=== PATIENT | female | born 1965 | race Caucasian/White ===

== ENCOUNTER 2016-07-20 19:11 | Emergency (ER) | payer MEDICAID, MEDICARE ==
[~2016-07-20] VITALS: Ht 160 cm; Wt 65.0 kg
[~2016-07-20 19:11] MED LIST: ALPR1 PO; AMIO200 PO; AZIT250T74 PO; DOXY100 PO; DUONI NEB; ECOT81TA2 PO; FURO20 PO; LISI-357 PO; METO25 PO; OMEP40CA2 PO; OXYC1SOL5 PO; POTA20IN3 PO; PROZ40CA PO; RIFA150 PO; SYMB80AE INH; TOPI25 PO; Z.0.OXYGENDME
[2016-07-20 19:14] VITALS: BP 114/57; PULSE 61; RESP 16; TEMP 98.3; O2SAT 98
[2016-07-20 19:19] VITALS: RESP 16; O2SAT 98
[2016-07-20 19:29] LABS: AUTOMATED NEUTROPHIL # 3.6 TH/MM3 (1.8-7.7); BASOPHIL % 0.7 % (0.0-2.0); EOSINOPHIL # 0.1 TH/MM3 (0-0.4); EOSINOPHIL % 2.2 % (0.0-4.0); HEMATOCRIT 34.9 % (35.0-46.0); HEMO FLAGS DIFF FINAL; LYMPHOCYTE # 1.3 TH/MM3 (1.0-4.8); MEAN CELL VOLUME 90.5 FL (80.0-100.0); MEAN CORPUSCULAR HGB CONC 33.1 % (32.0-36.0); MONO % 8.4 % (0.0-8.0); NEUT % 64.7 % (16.0-70.0); PLATELET COUNT 103 TH/MM3 (150-450); RED BLOOD COUNT 3.86 MIL/MM3 (4.00-5.30); RED CELL DISTRIBUTION WIDTH 18.1 % (11.6-17.2); WHITE BLOOD COUNT 5.6 TH/MM3 (4.0-11.0)
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
[2016-07-20 19:41] LABS: APTT (PATIENT) 25.2 SEC (24.3-30.1)
[2016-07-20 19:48] LABS: ALKALINE PHOSPHATASE 80 U/L (45-117); ALT (GPT) 53 U/L (10-53); ANION GAP 11 MEQ/L (5-15); AST (GOT) 72 U/L (15-37); BICARBONATE 23.5 MEQ/L (21.0-32.0); BLOOD UREA NITROGEN 11 MG/DL (7-18); CHLORIDE 106 MEQ/L (98-107); CREATINE KINASE 154 U/L (26-192); GLOMERULAR FILTRATION RATE 78 ML/MIN (>89); POTASSIUM 3.3 MEQ/L (3.5-5.1); SODIUM (NA) 140 MEQ/L (136-145); TOTAL BILIRUBIN ADULT 0.3 MG/DL (0.2-1.0)
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
[2016-07-20] MEDS ORDERED: PERC5TAB12 PO (22:05)
--- NOTE | 2016-07-21 05:41 | EKG ---
Date Performed: 07/20/2016 Time Performed: 19:18:39 PTAGE: 50 years EKG: Sinus rhythm POSSIBLE LEFT ATRIAL ENLARGEMENT POSSIBLE RIGHT VENTRICULAR CONDUCTION DELAY PROLONGED QT INTERVAL A BNORMAL ECG NO SIGNIFICANT CHANGE FROM PRIOR ELECTROCARDIOGRAM. PREVIOUS TRACING : 02/16/2016 08.36 DOCTOR: Nick Saavedra Interpretating Date/Time 07/21/2016 05:41:13
== END 2016-07-20 22:34 | disposition home or self-care (01) ==
LOC: NEPA 19:11
DX: S40.012A Contusion of left shoulder, initial encounter (principal); S50.02XA Contusion of left elbow, initial encounter; I51.7 Cardiomegaly; B19.20 Unspecified viral hepatitis C without hepatic coma; I10 Essential (primary) hypertension; I50.9 Heart failure, unspecified; J44.9 Chronic obstructive pulmonary disease, unspecified; Z88.5 Allergy status to narcotic agent; W22.8XXA Striking against or struck by other objects, initial encounter; Z95.810 Presence of automatic (implantable) cardiac defibrillator
CPT/HCPCS: 71010; 73030; 73080; 80053; 82550; 84484; 85025; 85610; 85730; 93005

== ENCOUNTER 2017-02-25 20:29 | Emergency (ER) | payer MEDICARE ==
[~2017-02-25] VITALS: Ht 147.3 cm; Wt 60.9 kg
[~2017-02-25 20:29] MED LIST changes: +PERC5TAB12 PO
[2017-02-25 20:33] VITALS: BP 114/57; PULSE 87; RESP 16; TEMP 99; O2SAT 95
[2017-02-25] MEDS ORDERED: SYMB80AE INH (23:16)
[2017-02-25] MEDS ORDERED: OMEP20TA PO (23:16)
[2017-02-25] MEDS ORDERED: PROZ40CA PO (23:16)
[2017-02-25] MEDS ORDERED: METO25TA3 PO (23:16)
[2017-02-25] MEDS ORDERED: FURO1TAB62 PO (23:16)
[2017-02-25] MEDS ORDERED: VENTAER INH (23:16)
[2017-02-25] MEDS ORDERED: LISI-519 PO (23:16)
[2017-02-25] MEDS ORDERED: POTA-163 PO (23:16)
[2017-02-25] MEDS ORDERED: OXYC1TAB36 PO (23:16)
[2017-02-25] MEDS ORDERED: XANA1TAB2 PO (23:16)
[2017-02-25] MEDS ORDERED: TOPA25TA8 PO (23:16)
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
[2017-02-25] MEDS ORDERED: ASPI325T PO (23:55)
--- NOTE | 2017-02-25 23:56 | PD ---
HPI Chief Complaint: Fall Time Seen by Provider: 23:12 Travel History International Travel<30 days: No Contact w/Intl Traveler<30days: No Traveled to known affect area: No History of Present Illness HPI 51-year-old female complains of right third toe pain which started after a fall. Fall was mechanical in occurred in her house due to her cats. She has no other injury to report however does note the pain in the toe radiates to the distal tibia distribution. She has been ambulatory since the fall. Onset sudden. Timing constant. Associated symptoms include ecchymosis. PFSH Past Medical History ADHD: Yes Anemia: Yes Arthritis: No Asthma: No Autoimmune Disease: Yes (HEPATITIS C) Blood Disorders: No Bipolar Disorder: Yes Anxiety: Yes Depression: Yes Heart Rhythm Problems: Yes (history of v-tach) Cancer: No Cardiac Catheterization: No Cardiovascular Problems: Yes High Cholesterol: No Chemotherapy: No Chest Pain: No Congestive Heart Failure: Yes COPD: Yes Cerebrovascular Accident: No Diabetes: No Diminished Hearing: No Endocrine: No Gastrointestinal Disorders: Yes GERD: Yes Glaucoma: No Headaches: Yes Hepatitis: Yes (HEP C) Hiatal Hernia: Yes Hypertension: Yes Kidney Stones: No Musculoskeletal: Yes (CHRONIC BACK PAIN) Neurologic: No Psychiatric: No Reproductive: No Respiratory: No Immunizations Current: Yes Myocardial Infarction: No Radiation Therapy: No Renal Failure: No Seizures: No Sickle Cell Disease: No Sleep Apnea: No Thyroid Disease: No Ulcer: No ?: Not Menopausal: Yes : 1 : 1 Ovarian Cysts: Yes Past Surgical History Abdominal Surgery: No AICD: Yes Arteriovenous Shunt: No Cardiac Surgery: Yes (DEFIBRILATOR PLACEMENT ) Coronary Artery Bypass Graft: No Ear Surgery: No Endocrine Surgery: No Eye Surgery: No Genitourinary Surgery: No Gynecologic Surgery: No Insulin Pump: No Joint Replacement: No Oral Surgery: Yes Pacemaker: No Thoracic Surgery: No Social History Alcohol Use: No (quit) Tobacco Use: No Substance Use: No Allergies-Medications (Allergen,Severity, Reaction): Coded Allergies: codeine (Unverified Allergy, Severe, 02/25/17) RASH, ITCHING *MDRO Multi-Drug Resistant Organism (Verified Adverse Reaction, Unknown, ) CLEARED PER INFECTION CONTROL MRSA - face 2012, multiple wounds 2005 MRSA PCR (nares) negative 08/03/15 & 09/08/15. Cleared per Infection Control. Pt does not require isolation for h/o MRSA prior to 09/08/15. Reported Meds & Prescriptions Reported Meds & Active Scripts Active Aspirin 325 Mg Tab 325 Mg PO DAILY Percocet (Oxycodone-Acetaminophen) 5-325 mg Tab 1 Tab PO Q6H PRN Reported Oxycodone-Acetaminophen 10-325 mg Tab 1 Tab PO Q12HR PRN Omeprazole 20 Mg Tab 20 Mg PO DAILY Ventolin Hfa 18 GM Inh (Albuterol Sulfate) 90 Mcg/Act Aer 2 Puff INH Q4-6H PRN Xanax (Alprazolam) 1 Mg Tab 1 Mg PO Q8H PRN Lasix (Furosemide) 20 Mg Tab 20 Mg PO DAILY Prozac (Fluoxetine HCl) 40 Mg Cap 80 Mg PO DAILY Lisinopril 5 Mg Tab 5 Mg PO DAILY Metoprolol Tartrate 25 Mg Tab 25 Mg PO DAILY Potassium Chloride ER (Potassium Chloride) 20 Meq Tab 20 Meq PO DAILY Topamax (Topiramate) 25 Mg Tab 25 Mg PO BID Symbicort Inh (Budesonide/Formoterol Fumarate) 80-4.5 Mcg/Act Aero 2 Puff INH Q12HR Review of Systems Except as stated in HPI: all other systems reviewed are Neg Physical Exam Narrative GENERAL: 51 yo F, WNWD, speaking full sentences SKIN: Warm and dry. HEAD: Atraumatic. Normocephalic. EYES: Pupils equal and round. No scleral icterus. No injection or drainage. ENT: No nasal bleeding or discharge. Mucous membranes pink and moist. NECK: Trachea midline. No JVD. CARDIOVASCULAR: Regular rate and rhythm. RESPIRATORY: No accessory muscle use. Clear to auscultation. Breath sounds equal bilaterally. GASTROINTESTINAL: Abdomen soft, non-tender, nondistended. Hepatic and splenic margins not palpable. MUSCULOSKELETAL: Extremities without clubbing, cyanosis, or edema. No obvious deformities. Third toe of L foot with ecchymosis and TTP. 2+ DP bilaterally. No gross deformity. 2+ PT bilaterally. NEUROLOGICAL: Awake and alert. No obvious cranial nerve deficits. Motor grossly within normal limits. Five out of 5 muscle strength in the arms and legs. Normal speech. PSYCHIATRIC: Appropriate mood and affect; insight and judgment normal. Data Data Last Documented VS Vital Signs Date Time Temp Pulse Resp B/P (MAP) Pulse Ox O2 Delivery O2 Flow Rate FiO2 02/25/17 23:58 02/25/17 20:33 99.0 87 16 95 Room Air VS reviewed Orders Orders Foot, Complete ([id number]) (02/25/17 ) Ice Chips (02/25/17 23:16) MDM Medical Decision Making Medical Screen Exam Complete: Yes Emergency Medical Condition: Yes Medical Record Reviewed: Yes Differential Diagnosis Fracture, Reynaud's syndrome, peripheral artery disease, DVT, necrotizing fasciitis, paronychia Narrative Course Ecchymosis about the third left toe could reflect an injury/trauma however vasculopathy not entirely excluded. There is 2+ dorsalis pedis. Aspirin prescription. Ice. Follow-up with primary doctor. Diagnosis Primary Impression: Injury of toe Qualified Codes: S99.922A - Unspecified injury of left foot, initial encounter Referrals: Edis Ferrara DPM 2 days Additional Instructions: You have a choice when it comes to health care, and we are glad that you chose [facility]. Hopefully, we have met your expectations on today's visit. You are welcome to return to [facility] at any time, as we are committed to meeting the health care needs of our community. Med/Other Pt SpecificInfo: Prescription(s) given Scripts Aspirin (Aspirin) 325 Mg Tab 325 MG PO DAILY, #30 TAB 0 Refills Prov: Zaheer Harvey MD 02/25/17 Disposition: 01 DISCHARGE HOME Condition: Stable Zaheer Harvey MD Feb 25, 2017 23:56
== END 2017-02-26 00:20 | disposition home or self-care (01) ==
LOC: NEPE 20:29
DX: S99.922A Unspecified injury of left foot, initial encounter (principal); R58 Hemorrhage, not elsewhere classified; I10 Essential (primary) hypertension; W18.39XA Other fall on same level, initial encounter; Z86.59 Personal history of other mental and behavioral disorders; Z86.2 Personal history of diseases of the blood and blood-forming organs and certain disorders involving the immune mechanism; Z87.19 Personal history of other diseases of the digestive system; Z86.79 Personal history of other diseases of the circulatory system; Z87.09 Personal history of other diseases of the respiratory system; Z86.19 Personal history of other infectious and parasitic diseases; Z87.39 Personal history of other diseases of the musculoskeletal system and connective tissue
CPT/HCPCS: 73630; 99283

== ENCOUNTER 2017-03-14 18:03 | Inpatient (IN) | payer MEDICARE, MEDICAID ==
[~2017-03-14] VITALS: Ht 147.3 cm; Wt 68.6 kg
[~2017-03-14 18:03] MED LIST changes: -ALPR1 PO; -AMIO200 PO; +ASPI325T PO; -AZIT250T74 PO; -DOXY100 PO; -DUONI NEB; -ECOT81TA2 PO; +FURO1TAB62 PO; -FURO20 PO; -LISI-357 PO; +LISI-519 PO; -METO25 PO; +METO25TA3 PO; +OMEP20TA PO; -OMEP40CA2 PO; -OXYC1SOL5 PO; +OXYC1TAB36 PO; +POTA-163 PO; -POTA20IN3 PO; -RIFA150 PO; +TOPA25TA8 PO; -TOPI25 PO; +VENTAER INH; +XANA1TAB2 PO; -Z.0.OXYGENDME
[2017-03-14 18:08] VITALS: BP 157/88; PULSE 170; RESP 20; TEMP 101; O2SAT 97
[2017-03-14] MEDS ORDERED: ONDANSETRON HCL 4 MG/2 ML VIAL IV PUSH ONE (18:15)
[2017-03-14] MEDS ORDERED: MORPHINE SULFATE 4 MG/ML INJ IV PUSH ONE (18:15)
[2017-03-14] MEDS ORDERED: SODIUM CHLORIDE 0.9% FLUSH 10 ML FLUSH IVF PRN (18:15)
[2017-03-14] MEDS ORDERED: NITROGLYCERIN 2% OINT 1 GM PACKET TOP ONE (18:15)
[2017-03-14] MEDS ORDERED: VANCOMYCIN INJ 1,000 MG in SODIUM CHLOR 0.9% 250 ML INJ 250 ML IV STA (18:22)
[2017-03-14] MEDS ORDERED: PIPERACIL-TAZO 4.5 GM PREMIX 100 ML IV STA (18:22)
[2017-03-14] MEDS: MAGNESIUM SULFATE 1 GM PREMIX 100 ML IV SCH ×2 (18:25→19:37)
[2017-03-14] MEDS ORDERED: LIDOCAINE HCL 2% 100 MG/5 ML SYRINGE IV PUSH ONE (18:30)
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
[2017-03-14 18:33] LABS: AUTOMATED NEUTROPHIL # 12.6 TH/MM3 (1.8-7.7); BASOPHIL % 0.2 % (0.0-2.0); HEMATOCRIT 38.6 % (35.0-46.0); LYMPH % 4.5 % (9.0-44.0); LYMPHOCYTE # 0.6 TH/MM3 (1.0-4.8); MEAN CELL VOLUME 91.4 FL (80.0-100.0); MEAN CORPUSCULAR HGB CONC 32.8 % (32.0-36.0); MONO % 3.3 % (0.0-8.0); PLATELET COUNT 80 TH/MM3 (150-450); RED BLOOD COUNT 4.23 MIL/MM3 (4.00-5.30); RED CELL DISTRIBUTION WIDTH 17.5 % (11.6-17.2); WHITE BLOOD COUNT 13.7 TH/MM3 (4.0-11.0)
[2017-03-14 18:36] LABS: HEMO FLAGS AUTO DIFF
[2017-03-14 18:44] VITALS: BP 135/80; PULSE 120; RESP 16; O2SAT 100
[2017-03-14] MEDS ORDERED: ASPIRIN 600 MG SUPP RECTAL ONE (18:45)
--- NOTE | 2017-03-14 18:45 | RADRPT ---
EXAM DATE/TIME: 03/14/2017 18:11 [facility] COMPARISON: CHEST SINGLE AP, July 20, 2016, 19:55. INDICATIONS : Chest pain, defibrillator went off MEDICAL HISTORY : Cardiovascular disease. SURGICAL HISTORY : Defibrillator ENCOUNTER: Initial ACUITY: 1 day PAIN SCORE: 6/10 LOCATION: Chest FINDINGS: The heart is enlarged. Bibasilar patchiness is noted consistent with atelectasis and/or infiltrates. Mild central pulmonary vascular congestion is noted. A left subclavian AICD has its tip in the rig ht ventricle. CONCLUSION: 1. Mild central pulmonary vascular congestion. 2. Bibasilar atelectasis and/or infiltrates. 3. Cardiomegaly. Vic Alfred MD on March 14, 2017 at 18:31 Board Certified Radiologist. This report was verified electronically.
[2017-03-14] MEDS ORDERED: LIDOCAINE/D5W 2000 MG/500 ML 500 ML IV SCH (18:49)
[2017-03-14 18:53] LABS: APTT (PATIENT) 27.3 SEC (24.3-30.1); PROTHROMBIN TIME - PATIENT 11.4 SEC (9.8-11.6)
[2017-03-14 18:58] VITALS: BP 154/92; PULSE 151; RESP 18; O2SAT 98
[2017-03-14] MEDS ORDERED: PROPRANOLOL INJ 1 MG/ML AMP IV PUSH ONE (19:00)
[2017-03-14] MEDS ORDERED: LIDOCAINE HCL 2% 100 MG/5 ML SYRINGE IV PUSH SCH (19:00)
[2017-03-14] MEDS ORDERED: PROPRANOLOL INJ 1 MG/ML AMP IV PUSH PRN ×2 (19:00→19:05)
--- NOTE | 2017-03-14 19:25 | PD ---
Data Data Last Documented VS Vital Signs Date Time Temp Pulse Resp B/P (MAP) Pulse Ox O2 Delivery O2 Flow Rate FiO2 03/14/17 18:58 151 18 154/92 (112) 98 Nasal Cannula 3.00 03/14/17 18:08 101.0 Orders Orders Electrocardiogram (03/14/17 18:05) Basic Metabolic Panel (Bmp) (03/14/17 18:05) Ckmb (Isoenzyme) Profile (03/14/17 18:05) Complete Blood Count With Diff (03/14/17 18:05) Magnesium (Mg) (03/14/17 18:05) Prothrombin Time / Inr (Pt) (03/14/17 18:05) Act Partial Throm Time (Ptt) (03/14/17 18:05) Troponin I (03/14/17 18:05) Chest, Single Ap (03/14/17 18:05) Ecg Monitoring (03/14/17 18:05) Iv Access Insert/Monitor (03/14/17 18:05) Oximetry (03/14/17 18:05) Oxygen Administration (03/14/17 18:05) Morphine Inj (Morphine Inj) (03/14/17 18:15) Nitroglycerin 2% Oint (Nitroglycerin 2% (03/14/17 18:15) Sodium Chloride 0.9% Flush (Ns Flush) (03/14/17 18:15) Ondansetron Inj (Zofran Inj) (03/14/17 18:15) Magnesium Sulfate 1 Gm Premix (Magnesium (03/14/17 18:15) Lidocaine 2% Inj (Xylocaine 2% Inj) (03/14/17 18:30) Lactic Acid Sepsis Protocol (03/14/17 18:22) Blood Culture (03/14/17 18:22) Vancomycin Inj (Vancomycin Inj) (03/14/17 18:22) Piperacil-Tazo 4.5 Gm Premix (Zosyn 4.5 (03/14/17 18:22) Aspirin Supp (Aspirin Supp) (03/14/17 18:45) Influenzae A/B Antigen (03/14/17 18:39) Cath For Specimen (03/14/17 18:39) Urinalysis - C+S If Indicated (03/14/17 18:39) Lidocaine 2% Inj (Xylocaine 2% Inj) (03/14/17 19:00) Lidocaine/D5w 2000 Mg/500 Ml (Lidocaine/ (03/14/17 18:49) Propranolol Inj (Inderal Inj) (03/14/17 19:00) Propranolol Inj (Inderal Inj) (03/14/17 19:05) Propranolol Inj (Inderal Inj) (03/14/17 19:00) Admit Order (Ed Use Only) (03/14/17 19:25) Calcium Gluconate Inj (Calcium Gluconate (03/14/17 19:30) Labs Laboratory Tests Test 03/14/17 18:21 03/14/17 18:35 White Blood Count 13.7 TH/MM3 Red Blood Count 4.23 MIL/MM3 Hemoglobin 12.7 GM/DL Hematocrit 38.6 % Mean Corpuscular Volume 91.4 FL Mean Corpuscular Hemoglobin 30.0 PG Mean Corpuscular Hemoglobin Concent 32.8 % Red Cell Distribution Width 17.5 % Platelet Count 80 TH/MM3 Mean Platelet Volume 9.2 FL Neutrophils (%) (Auto) 92.0 % Lymphocytes (%) (Auto) 4.5 % Monocytes (%) (Auto) 3.3 % Eosinophils (%) (Auto) 0.0 % Basophils (%) (Auto) 0.2 % Neutrophils # (Auto) 12.6 TH/MM3 Lymphocytes # (Auto) 0.6 TH/MM3 Monocytes # (Auto) 0.5 TH/MM3 Eosinophils # (Auto) 0.0 TH/MM3 Basophils # (Auto) 0.0 TH/MM3 CBC Comment AUTO DIFF Differential Total Cells Counted 100 Neutrophils % (Manual) 80 % Band Neutrophils % 16 % Lymphocytes % 4 % Neutrophils # (Manual) 13.2 TH/MM3 Differential Comment FINAL DIFF MANUAL Platelet Estimate LOW Platelet Morphology Comment NORMAL Prothrombin Time 11.4 SEC Prothromb Time International Ratio 1.0 RATIO Activated Partial Thromboplast Time 27.3 SEC Blood Urea Nitrogen 5 MG/DL Creatinine 0.74 MG/DL Random Glucose 123 MG/DL Calcium Level 8.2 MG/DL Magnesium Level 1.4 MG/DL Sodium Level 135 MEQ/L Potassium Level 2.9 MEQ/L Chloride Level 101 MEQ/L Carbon Dioxide Level 25.7 MEQ/L Anion Gap 8 MEQ/L Estimat Glomerular Filtration Rate 82 ML/MIN Total Creatine Kinase 63 U/L Troponin I LESS THAN 0.02 NG/ML Lactic Acid Level 2.0 mmol/L [facility] Medical Record Reviewed: Yes Supervised Visit with SYLVIA: Yes Narrative Course During the course of the patients emergency department visit, the patients history, examination, and differential diagnosis were reviewed with the patient. The patient had IV access obtained and blood work sent for analysis. The patient's case was checked out to me by Dr. Benavidez. The patient was given en route to this facility by ambulance services amiodarone 150 mg IV without any improvement. The patient was initially provided lidocaine as a bolus and then started on a lidocaine drip. The patient was also given magnesium 2 g IV slowly. The patient was given morphine 4 mg IV for pain, Zofran 4 mg IV for nausea, Zosyn and vancomycin IV for broad-spectrum coverage due to febrile illness and elevated white count. Dr. Benavidez spoke to the tea room manager on-call, Dr. Rojas Garcia. Dr. Garcia recommended to Dr. Benavidez that the patient be given Inderal 5 mg IV every [address] Benavidez put this order into the computer system. He will see the patient in consultation. The patient was given nitroglycerin paste 1 inch to the chest wall. The patients laboratory studies were reviewed and remarkable for a white count of 13.7, hemoglobin 12.7, platelets 80 with 80 neutrophils, bands 16, lymphocytes 4, basic metabolic profile is remarkable for sodium 135, potassium 2.9, BUN 5, glucose 123, calcium 8.2, magnesium 1.4, CPK 63, troponin I less than 0.02, lactic acid 2.0. The patient's hypokalemia the patient was given 5050 mEq of potassium chloride by mouth 1. PT 11.4, PTT 27.3 Radiology studies were reviewed and remarkable for a chest x-ray that shows mild central pulmonary vascular congestion, bibasilar atelectasis and/or infiltrates, cardiomegaly. I spoke to Dr. Compa Bautista regarding this patient's case. He did agree to admit the patient to the intensive care unit. The patients results were discussed with the patient, including the plan of care. I explained that further testing and/ or monitoring is indicated based on the patients history, examination, and/ or laboratory findings. Therefore, I recommended admission for additional evaluation. The patient expressed understanding and was agreeable with this plan. The patient was admitted to the hospital in critical condition and sent to a bed under the care of the operations program manager. Physician Communication Physician Communication The patient's case was discussed with Dr. Bautista who did agree to admit the patient for further evaluation and treatment at this time. Diagnosis Primary Impression: Ventricular tachycardia Additional Impressions: Fever Qualified Codes: R50.9 - Fever, unspecified Cellulitis Qualified Codes: L03.119 - Cellulitis of unspecified part of limb Admitting Information Admitting Physician Requests: Admit Condition: Serious Jyoti Garcia MD Mar 14, 2017 19:25
[2017-03-14 19:27] LABS: ANION GAP 8 MEQ/L (5-15); BICARBONATE 25.7 MEQ/L (21.0-32.0); BLOOD UREA NITROGEN 5 MG/DL (7-18); CHLORIDE 101 MEQ/L (98-107); GLOMERULAR FILTRATION RATE 82 ML/MIN (>89); MAGNESIUM 1.4 MG/DL (1.5-2.5); SODIUM (NA) 135 MEQ/L (136-145)
[2017-03-14 19:28] LABS: CREATINE KINASE 63 U/L (26-192)
[2017-03-14 19:29] LABS: POTASSIUM 2.9 MEQ/L (3.5-5.1)
[2017-03-14] MEDS ORDERED: CALCIUM GLUCONATE INJ 1 GM in SODIUM CHLORIDE 0.9% INJ 100 ML IV ONE (19:30)
[2017-03-14 19:46] LABS: BANDS 16 % (0-6); NEUTROPHIL # MANUAL DIFF 13.2 TH/MM3 (1.8-7.7); PLATELET ESTIMATE SMEAR LOW (NORMAL); PLATELET MORPHOLOGY NORMAL (NORMAL); POLYS (SEG NEUTROPHILS) 80 % (16-70); WBC DIFF SAMPLE 100
[2017-03-14 19:47] LABS: SCAN/DIFF FINAL DIFF MANUAL
[2017-03-14] MEDS ORDERED: POTASSIUM CHLORIDE 25 MEQ EFFERVESCENT TAB PO ONE (20:00)
[2017-03-14] MEDS ORDERED: ALBUTEROL SULFATE 90 MCG/ACT HFA 8 GM INHALER INH PRN (20:15)
[2017-03-14] MEDS ORDERED: MAGNESIUM HYDROXIDE SUSP 30 ML CUP PO PRN (20:30)
[2017-03-14] MEDS ORDERED: BISACODYL 10 MG SUPP RECTAL PRN (20:30)
[2017-03-14] MEDS ORDERED: CHLORHEXIDINE GLUCONATE 2 % 1 PACK (2 CLOTHS) TOP PRN (20:30)
[2017-03-14] MEDS ORDERED: LACTULOSE SYRUP 20 GM/30 ML CUP PO PRN (20:30)
[2017-03-14] MEDS ORDERED: SODIUM CHLORIDE 0.9% FLUSH 10 ML FLUSH PRN (20:30)
[2017-03-14] MEDS ORDERED: SENNOSIDES 8.6 MG TAB PO PRN (20:30)
[2017-03-14] MEDS ORDERED: MISCELLANEOUS NURSING INFORMATION XX SCH (20:30)
[2017-03-14] MEDS ORDERED: ZOLPIDEM TARTRATE 5 MG TAB PO PRN (20:30)
[2017-03-14] MEDS ORDERED: ACETAMINOPHEN 325 MG TAB PO PRN (20:30)
[2017-03-14] MEDS ORDERED: ONDANSETRON HCL 4 MG/2 ML VIAL IV PUSH PRN (20:30)
[2017-03-14] MEDS: METOPROLOL TARTRATE 5 MG/5 ML VIAL IV PUSH PRN ×3 (20:31→21:02)
[2017-03-14 20:38] LABS: ALCOHOL LESS THAN 3 MG/DL (0-5)
[2017-03-14 20:40] LABS: ACETAMINOPHEN LESS THAN 2.0 MCG/ML (10.0-30.0)
[2017-03-14 21:00] VITALS: BP 104/62; PULSE 150; RESP 18; TEMP 101.8; O2SAT 95
[2017-03-14] MEDS: DOCUSATE SODIUM 50 MG/SENNA 8.6 MG TAB PO SCH (21:00)
[2017-03-14] MEDS: BUDESONIDE-FORMOTEROL 80/4.5 MCG INHALER INH SCH (21:00)
[2017-03-14] MEDS: ALPRAZolam 1 MG TAB PO PRN (21:02)
[2017-03-14 21:20] VITALS: PULSE 150
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
[2017-03-14 21:43] LABS: BACTERIA, URINE MANY /hpf; BLOOD, URINE SMALL (NEG); COMMENT (UR) CATH-CULTURE IND; CULTURE IF INDICATED CATH CULTURE IND; GLUCOSE,URINE NEG (NEG); KETONE, URINE 40 mg/dL (NEG); MUCUS URINE FEW /lpf (OCC); NITRITE,URINE POS (NEG); SQUAMOUS EPITHELIAL CELL URINE 2 /hpf (0-5); URINE COLOR YELLOW (YELLW/STRAW)
[2017-03-14] MEDS: POTASSIUM CHLOR 20 MEQ PREMIX 100 ML IV SCH ×2 (21:56→23:52)
[2017-03-14] MEDS: SODIUM CHLORIDE 0.9% FLUSH 10 ML FLUSH SCH (22:15)
[2017-03-14] MEDS: ENOXAPARIN SODIUM 40 MG/0.4 ML SYRINGE SQ SCH (22:35)
[2017-03-14] MEDS: TOPIRAMATE 25 MG TAB PO SCH (22:35)
[2017-03-14] MEDS: AMIODARONE INJ 450 MG in D5W (EXCEL BAG) INJ 241 ML IV SCH (23:52)
[2017-03-15] VITALS (13 sets, daily range): BP systolic 67–101; BP diastolic 53–59; PULSE 46–62; RESP 14–22; TEMP 98.4–100.4; O2SAT 97–100
[2017-03-15] MEDS: POTASSIUM CHLOR 20 MEQ PREMIX 100 ML IV SCH ×2 (02:00→03:39)
[2017-03-15] MEDS: CHLORHEXIDINE GLUCONATE 2 % 1 PACK (2 CLOTHS) TOP SCH (03:42)
[2017-03-15 04:13] LABS: AUTOMATED NEUTROPHIL # 7.4 TH/MM3 (1.8-7.7); BASOPHIL % 0.2 % (0.0-2.0); HEMATOCRIT 30.5 % (35.0-46.0); LYMPH % 6.6 % (9.0-44.0); LYMPHOCYTE # 0.6 TH/MM3 (1.0-4.8); MEAN CELL VOLUME 91.5 FL (80.0-100.0); MEAN CORPUSCULAR HEMOGLOBIN 29.8 PG (27.0-34.0); MEAN CORPUSCULAR HGB CONC 32.6 % (32.0-36.0); MONO % 6.3 % (0.0-8.0); NEUT % 86.9 % (16.0-70.0); PLATELET COUNT 63 TH/MM3 (150-450); RED BLOOD COUNT 3.34 MIL/MM3 (4.00-5.30); RED CELL DISTRIBUTION WIDTH 17.5 % (11.6-17.2); WHITE BLOOD COUNT 8.6 TH/MM3 (4.0-11.0)
[2017-03-15 04:15] LABS: HEMO FLAGS AUTO DIFF
[2017-03-15 04:56] LABS: ALKALINE PHOSPHATASE 65 U/L (45-117); ALT (GPT) 19 U/L (10-53); ANION GAP 6 MEQ/L (5-15); AST (GOT) 32 U/L (15-37); BICARBONATE 25.1 MEQ/L (21.0-32.0); BLOOD UREA NITROGEN 9 MG/DL (7-18); CHLORIDE 105 MEQ/L (98-107); GLOMERULAR FILTRATION RATE 82 ML/MIN (>89); MAGNESIUM 2.3 MG/DL (1.5-2.5); POTASSIUM 3.7 MEQ/L (3.5-5.1); SODIUM (NA) 136 MEQ/L (136-145); TOTAL BILIRUBIN ADULT 1.1 MG/DL (0.2-1.0)
[2017-03-15 07:00] LABS: PLATELET ESTIMATE SMEAR LOW (NORMAL); PLATELET MORPHOLOGY NORMAL (NORMAL); SCAN/DIFF AUTO DIFF CONFIRMED
[2017-03-15] MEDS: AMIODARONE INJ 450 MG in D5W (EXCEL BAG) INJ 241 ML IV SCH ×3 (07:32→21:04)
[2017-03-15] MEDS: BUDESONIDE-FORMOTEROL 80/4.5 MCG INHALER INH SCH ×2 (08:30→20:07)
[2017-03-15] MEDS: FUROSEMIDE 20 MG TAB PO SCH (08:31)
[2017-03-15] MEDS: ASPIRIN 325 MG TAB PO SCH (08:31)
[2017-03-15] MEDS: DOCUSATE SODIUM 50 MG/SENNA 8.6 MG TAB PO SCH ×3 (08:31→20:07)
[2017-03-15] MEDS: POTASSIUM CHLORIDE 20 MEQ CONTROLLED RELEASE TAB PO SCH (08:31)
[2017-03-15] MEDS: PANTOPRAZOLE SOD 20 MG DELAYED RELEASE TAB PO SCH (08:32)
[2017-03-15] MEDS: METOPROLOL TARTRATE 25 MG TAB PO SCH (08:47)
[2017-03-15] MEDS: SODIUM CHLORIDE 0.9% FLUSH 10 ML FLUSH SCH ×2 (08:47→20:08)
[2017-03-15] MEDS: LISINOPRIL 5 MG TAB PO SCH (08:47)
[2017-03-15] MEDS: FLUoxetine HCL 20 MG CAP PO SCH (08:48)
[2017-03-15] MEDS: oxyCODONE/ACETAMINOPHEN 5 MG/325 MG TAB PO PRN ×2 (08:58→18:25)
[2017-03-15] MEDS: TOPIRAMATE 25 MG TAB PO SCH ×2 (08:58→20:07)
[2017-03-15] MEDS ORDERED: NON-FORMULARY DRUG (Omeprazole 20 MG) PO SCH (09:00)
[2017-03-15] MEDS ORDERED: FLUOXETINE 80 MG PO SCH (09:00)
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
[2017-03-15] MEDS ORDERED: POTASSIUM PHOSPHATE INJ 30 MMOL in SODIUM CHLOR 0.9% 250 ML INJ 250 ML IV PRN (11:45)
[2017-03-15] MEDS ORDERED: POTASSIUM PHOSPHATE MONOBASIC 500 MG TAB PO PRN (11:45)
[2017-03-15] MEDS ORDERED: SODIUM PHOSPHATE INJ 30 MMOL in SODIUM CHLOR 0.9% 250 ML INJ 240 ML IV PRN (11:45)
[2017-03-15] MEDS ORDERED: Vancomycin Consult Pharmacy 1 EA OTHER SCH (11:45)
[2017-03-15] MEDS ORDERED: MAGNESIUM OXIDE 400 MG TAB PO PRN (11:45)
[2017-03-15] MEDS ORDERED: POTASSIUM CHLOR 40 MEQ PREMIX 100 ML IV PRN ×2 (11:45)
[2017-03-15] MEDS ORDERED: MAGNESIUM SULFATE INJ 4 GM in SODIUM CHLORIDE 0.9% INJ 92 ML IV PRN (11:45)
[2017-03-15] MEDS ORDERED: POTASSIUM PHOSPHATE MONOBASIC 500 MG TAB PO/TUBE PRN (11:45)
[2017-03-15] MEDS ORDERED: MAGNESIUM SULFATE INJ 2 GM in SODIUM CHLORIDE 0.9% INJ 96 ML IV PRN (11:45)
[2017-03-15] MEDS ORDERED: POTASSIUM CHLOR 20 MEQ PREMIX 100 ML IV PRN ×2 (11:45)
[2017-03-15] MEDS: PIPERACIL-TAZO 4.5 GM PREMIX 100 ML IV SCH ×2 (12:50→18:25)
[2017-03-15] MEDS ORDERED: SODIUM CHLORID 0.9% 500 ML INJ 500 ML IV ONE (13:00)
[2017-03-15] MEDS ORDERED: VANCOMYCIN INJ 1,250 MG in SODIUM CHLOR 0.9% 250 ML INJ 250 ML IV ONE (13:00)
--- NOTE | 2017-03-15 13:02 | RADRPT ---
EXAM DATE/TIME: 03/15/2017 12:21 [place] COMPARISON: US ABDOMEN - LIVER, August 03, 2015, 20:26. INDICATIONS : Bilateral leg swelling. MEDICAL HISTORY : Hypertension. Chronic obstructive pulmonary disease. Gastroesophageal reflux disease. Chronic leg liz ma. Congestive heart failure. Hiatal hernia. Hepatitis C. Jaundice. MRSA. SURGICAL HISTORY : Intrenal defibrillater. Liver biopsy. Lymph node biopsy. Endoscopy. ENCOUNTER: Initial ACUITY: 1 day PAIN SCORE: 2/10 LOCATION: Bilateral legs. .OLGA VELAZCO MR#: [id number] :63 Exam Dt/Desc: March 15, 2017 US LEG BILATERAL VENOUS DOPPLER TECHNIQUE: Venous ultrasound of the left and right leg was performed from the inguinal ligament to the proximal calf. Real-time, color Doppler and spectral tracing, compression and augmentation techniques were us ed. FINDINGS: RIGHT LEG: There is normal compressibility of the deep venous system from the inguinal region to the proximal ca lf. No echogenic clot is seen in the lumen of the common femoral, femoral, popliteal, and posterior tibial veins. There is a normal response of the venous system to proximal and distal augmentation an d respiration. LEFT LEG: There is normal compressibility of the deep venous system from the inguinal region to the proximal ca lf. No echogenic clot is seen in the lumen of the common femoral, femoral, popliteal, and posterior tibial veins. There is a normal response of the venous system to proximal and distal augmentation an d respiration. The exam demonstrates 2 enlarged lymph nodes in the left groin. These measure 1.4 x 1.1 x 1.6 CM and 1.9-0.9 x 1.5 CM respectively. CONCLUSION: 1. No DVT identified. 2. Enlarged lymph nodes in the left groin. Zaheer Franks MD on March 15, 2017 at 13:00 Board Certified Radiologist. This report was verified electronically.
[2017-03-15] MEDS: VANCOMYCIN INJ 1,250 MG in SODIUM CHLOR 0.9% 250 ML INJ 250 ML IV SCH (14:48)
[2017-03-15] MEDS: ENOXAPARIN SODIUM 40 MG/0.4 ML SYRINGE SQ SCH (20:07)
[2017-03-15] MEDS: ALPRAZolam 1 MG TAB PO PRN (20:07)
[2017-03-15] MEDS: oxyCODONE/ACETAMINOPHEN 10 MG/325 MG TAB PO PRN (23:45)
[2017-03-15] MEDS: AMIODARONE 200 MG TAB PO SCH (23:45)
[2017-03-16] VITALS (16 sets, daily range): BP systolic 94–108; BP diastolic 43–61; PULSE 46–56; RESP 16–23; TEMP 98–98.9; O2SAT 95–100
[2017-03-16] MEDS: PIPERACIL-TAZO 4.5 GM PREMIX 100 ML IV SCH ×4 (01:03→21:34)
[2017-03-16] MEDS: VANCOMYCIN INJ 1,250 MG in SODIUM CHLOR 0.9% 250 ML INJ 250 ML IV SCH ×2 (01:04→13:11)
[2017-03-16] MEDS: CHLORHEXIDINE GLUCONATE 2 % 1 PACK (2 CLOTHS) TOP SCH (04:00)
[2017-03-16] MEDS: ALPRAZolam 1 MG TAB PO PRN ×3 (04:08→23:15)
[2017-03-16 05:20] LABS: HEMATOCRIT 29.8 % (35.0-46.0); MEAN CELL VOLUME 94.9 FL (80.0-100.0); MEAN CORPUSCULAR HEMOGLOBIN 29.9 PG (27.0-34.0); MEAN CORPUSCULAR HGB CONC 31.6 % (32.0-36.0); PLATELET COUNT 57 TH/MM3 (150-450); RED BLOOD COUNT 3.14 MIL/MM3 (4.00-5.30); RED CELL DISTRIBUTION WIDTH 18.2 % (11.6-17.2); WHITE BLOOD COUNT 5.3 TH/MM3 (4.0-11.0)
[2017-03-16 05:23] LABS: BICARBONATE 23.8 MEQ/L (21.0-32.0); POTASSIUM 3.5 MEQ/L (3.5-5.1)
[2017-03-16 05:27] LABS: REVIEW FLAG FINAL
[2017-03-16 05:40] LABS: CALCIUM-PROTEIN CORRECTED 7.7 MG/DL (8.5-10.1)
[2017-03-16] MEDS: SODIUM CHLORIDE 0.9% FLUSH 10 ML FLUSH SCH ×2 (08:11→21:34)
[2017-03-16] MEDS: BUDESONIDE-FORMOTEROL 80/4.5 MCG INHALER INH SCH ×2 (08:11→21:00)
[2017-03-16] MEDS: PANTOPRAZOLE SOD 20 MG DELAYED RELEASE TAB PO SCH (08:20)
[2017-03-16] MEDS: ASPIRIN 325 MG TAB PO SCH (08:21)
[2017-03-16] MEDS: DOCUSATE SODIUM 50 MG/SENNA 8.6 MG TAB PO SCH ×3 (08:21→21:00)
[2017-03-16] MEDS: POTASSIUM CHLORIDE 20 MEQ CONTROLLED RELEASE TAB PO SCH (08:21)
[2017-03-16] MEDS: TAMSULOSIN HCL 0.4 MG CAP PO SCH (08:21)
[2017-03-16] MEDS: FLUoxetine HCL 20 MG CAP PO SCH (08:22)
[2017-03-16] MEDS: FUROSEMIDE 20 MG TAB PO SCH (08:22)
[2017-03-16] MEDS: TOPIRAMATE 25 MG TAB PO SCH ×2 (08:22→21:35)
[2017-03-16] MEDS: METOPROLOL TARTRATE 25 MG TAB PO SCH (08:22)
[2017-03-16] MEDS: AMIODARONE 200 MG TAB PO SCH ×2 (08:22→21:34)
[2017-03-16] MEDS: LISINOPRIL 5 MG TAB PO SCH (08:23)
[2017-03-16] MEDS: oxyCODONE/ACETAMINOPHEN 5 MG/325 MG TAB PO PRN (08:24)
--- NOTE | 2017-03-16 12:10 | PD.CARD.PN ---
Subjective Subjective Remarks no cv complaints no tachy-arrhythmias on telemetry Objective Medications Current Medications Medications (Trade) Dose Ordered Sig/Jose Route Start Time Stop Time Status Last Admin (Xylocaine 2% Inj) 50 mg ONCE IV PUSH 03/14/17 19:00 (Lopressor Inj) 5 mg Q5M PRN IV PUSH 03/14/17 20:15 03/14/17 21:02 (Proair Hfa Inh) 2 puff Q2H PRN INH 03/14/17 20:15 (Xanax) 1 mg Q8H PRN PO 03/14/17 20:15 03/16/17 04:08 (Aspirin) 325 mg DAILY PO 03/15/17 09:00 03/16/17 08:21 (Symbicort 80-4.5 Mcg Inh) 2 puff Q12HR INH 03/14/17 21:00 03/16/17 08:11 (Lasix) 20 mg DAILY PO 03/15/17 09:00 03/16/17 08:22 (Prinivil) 5 mg DAILY PO 03/15/17 09:00 03/16/17 08:23 (Lopressor) 25 mg DAILY PO 03/15/17 09:00 03/16/17 08:22 (Percocet 10-325 Mg) 1 tab Q12HR PRN PO 03/14/17 20:15 03/15/17 23:45 (Percocet 5-325 Mg) 1 tab Q6H PRN PO 03/14/17 20:15 03/16/17 08:24 (KCl) 20 meq DAILY PO 03/15/17 09:00 03/16/17 08:21 (Topamax) 25 mg BID PO 03/14/17 21:00 03/16/17 08:22 (NS Flush) 2 ml UNSCH PRN .XX 03/14/17 20:30 (NS Flush) 2 ml BID .XX 03/14/17 21:00 03/16/17 08:11 (Tylenol) 650 mg Q6H PRN PO 03/14/17 20:30 03/14/17 21:02 (Zofran Inj) 4 mg Q6H PRN IV PUSH 03/14/17 20:30 (Lovenox Inj) 40 mg Q24H SQ 03/14/17 21:00 03/15/17 20:07 Miscellaneous Information 1 Q361D XX 03/14/17 20:30 (Chlorhexidine 2% Cloth) 3 pack Taper DAILY@04 TOP 03/15/17 04:00 03/11/18 03:59 (Chlorhexidine 2% Cloth) 3 pack UNSCH PRN TOP 03/14/17 20:30 (Cassia-Colace) 1 tab BID PO 03/14/17 21:00 03/15/17 20:07 (Milk Of Magnesia Liq) 30 ml Q12H PRN PO 03/14/17 20:30 (Senokot) 17.2 mg Q12H PRN PO 03/14/17 20:30 (Dulcolax Supp) 10 mg DAILY PRN RECTAL 03/14/17 20:30 (Lactulose Liq) 30 ml DAILY PRN PO 03/14/17 20:30 (PROzac) 80 mg DAILY PO 03/15/17 09:00 03/16/17 08:22 (Protonix) 20 mg DAILY PO 03/15/17 09:00 03/16/17 08:20 (Mag-Ox) 800 mg UNSCH PRN PO 03/15/17 11:45 Magnesium Sulfate 4 gm/Sodium Chloride 100 ml @ 50 mls/hr UNSCH PRN IV 03/15/17 11:45 Magnesium Sulfate 2 gm/Sodium Chloride 100 ml @ 50 mls/hr UNSCH PRN IV 03/15/17 11:45 Potassium Chloride 100 ml @ 50 mls/hr Q2H PRN IV 03/15/17 11:45 Potassium Chloride 100 ml @ 50 mls/hr Q2H PRN IV 03/15/17 11:45 Potassium Chloride 100 ml @ 50 mls/hr Q2H PRN IV 03/15/17 11:45 Potassium Chloride 100 ml @ 25 mls/hr UNSCH PRN IV 03/15/17 11:45 (K-Phos) 2,000 mg Q4H PRN PO 03/15/17 11:45 (K-Phos) 2,000 mg UNSCH PRN PO/TUBE 03/15/17 11:45 Potassium Phosphate 30 mmol/ Sodium Chloride 260 ml @ 42 mls/hr UNSCH PRN IV 03/15/17 11:45 Sodium Phosphate 30 mmol/Sodium Chloride 250 ml @ 42 mls/hr UNSCH PRN IV 03/15/17 11:45 Pharmacy Profile Note 0 ml @ 0 mls/hr UNSCH OTHER 03/15/17 11:45 Piperacillin Sod/ Tazobactam Sod 100 ml @ 200 mls/hr Q6H IV 03/15/17 13:00 03/16/17 08:20 (Cordarone) 400 mg Q12HR PO 03/15/17 23:45 03/16/17 08:22 Vancomycin HCl 1250 mg/Sodium Chloride 262.5 ml @ 250 mls/hr Q12H IV 03/15/17 14:00 03/16/17 01:04 Miscellaneous Information SPECIFIC LAB TO BE DRAWN:VANCOMYCIN TROUGH DATE TO... ONCE ONCE .XX 03/17/17 01:45 03/17/17 01:46 (Flomax) 0.4 mg DAILY PO 03/16/17 09:00 03/16/17 08:21 Vital Signs / I&O Vital Signs Date Time Temp Pulse Resp B/P (MAP) Pulse Ox O2 Delivery O2 Flow Rate FiO2 03/16/17 09:22 19 03/16/17 08:00 98.7 49 20 102/59 (73) 95 03/16/17 08:00 49 03/16/17 07:00 98 Nasal Cannula 2.00 03/16/17 06:00 52 03/16/17 04:00 49 03/16/17 04:00 98.9 48 19 107/61 (76) 97 03/16/17 02:00 48 03/16/17 00:00 54 03/16/17 00:00 98.7 56 23 103/59 (74) 97 03/15/17 22:00 47 03/15/17 21:04 53 92/55 03/15/17 20:00 48 03/15/17 20:00 99.6 52 16 92/55 (67) 98 03/15/17 19:00 99 Nasal Cannula 2.00 03/15/17 18:00 52 03/15/17 16:00 98.8 52 22 91/54 (66) 98 03/15/17 16:00 49 03/15/17 14:00 62 I/O 03/15/17 03/15/17 03/15/17 03/16/17 03/16/17 03/16/17 07:00 15:00 23:00 07:00 15:00 23:00 Intake Total 921 ml 2704 ml 655 ml Output Total 500 ml 750 ml 800 ml Balance 421 ml 1954 ml -145 ml Intake Oral 100 ml 480 ml 200 ml IV Total 821 ml 2224 ml 455 ml Output Urine Total 500 ml 750 ml 800 ml Stool Total 0 ml Bladder Scan Volume Amount 300 ml Physical Exam GENERAL: Well-nourished, well-developed patient. SKIN: Warm and dry. HEAD: Normocephalic. EYES: No scleral icterus. No injection or drainage. NECK: Supple, trachea midline. No JVD or lymphadenopathy. CARDIOVASCULAR: Regular rate and rhythm without murmurs, gallops, or rubs. RESPIRATORY: Breath sounds equal bilaterally. No accessory muscle use. GASTROINTESTINAL: Abdomen soft, non-tender, nondistended. EXTREMITIES: No cyanosis, or edema. NEUROLOGICAL: Awake, alert, and oriented x 3. Non-focal. Laboratory Laboratory Tests Test 03/16/17 03:55 White Blood Count 5.3 TH/MM3 Red Blood Count 3.14 MIL/MM3 Hemoglobin 9.4 GM/DL Hematocrit 29.8 % Mean Corpuscular Volume 94.9 FL Mean Corpuscular Hemoglobin 29.9 PG Mean Corpuscular Hemoglobin Concent 31.6 % Red Cell Distribution Width 18.2 % Platelet Count 57 TH/MM3 Mean Platelet Volume 11.0 FL Blood Urea Nitrogen 9 MG/DL Creatinine 0.75 MG/DL Random Glucose 76 MG/DL Total Protein 6.6 GM/DL Calcium Level 7.4 MG/DL Sodium Level 141 MEQ/L Potassium Level 3.5 MEQ/L Chloride Level 112 MEQ/L Carbon Dioxide Level 23.8 MEQ/L Anion Gap 5 MEQ/L Estimat Glomerular Filtration Rate 81 ML/MIN Protein Corrected Calcium 7.7 MG/DL Imaging Last Impressions Lower Extremity Ultrasound 03/15/17 0000 Signed Impressions: Service Date/Time: Wednesday, March 15, 2017 12:21 - CONCLUSION: 1. No DVT identified. 2. Enlarged lymph nodes in the left groin. Zaheer Franks MD Chest X-Ray 03/14/17 1805 Signed Impressions: Service Date/Time: Tuesday, March 14, 2017 18:11 - CONCLUSION: 1. Mild central pulmonary vascular congestion. 2. Bibasilar atelectasis and/or infiltrates. 3. Cardiomegaly. Vic Alfred MD Assessment and Plan Problem List: (1) Ventricular tachycardia ICD Codes: I47.2 - Ventricular tachycardia Status: Acute Plan: Doing better no VT events. Off amio drip. No CV complaints Recommendations: -Cont Amiodarone p.o. 400 mg p.o. b.i.d., -Lopressor 25 mg p.o. b.i.d. -Aspirin. -Avoid electrolyte abnormalities -Early ambulation Thank you for the opportunity to participate in the care of this patient Will be available on a PRN basis for any questions or concerns Sign off (2) Fever ICD Codes: R50.9 - Fever, unspecified Status: Acute (3) Prolonged QT interval ICD Codes: I45.81 - Long QT syndrome Status: Acute Problem Qualifiers (1) Fever: Qualified Codes: R50.9 - Fever, unspecified Deandre Nunn MD Mar 16, 2017 12:10
--- NOTE | 2017-03-16 12:35 | HHI.PR ---
Subjective Remarks in no distress. says that she's somewhat tired. no fever. no chest pain or sob. d/w the RN. Objective Vitals Vital Signs Date Time Temp Pulse Resp B/P (MAP) Pulse Ox O2 Delivery O2 Flow Rate FiO2 03/16/17 12:00 98.2 47 19 94/45 (61) 97 03/16/17 12:00 47 03/16/17 09:22 19 03/16/17 08:00 98.7 49 20 102/59 (73) 95 03/16/17 08:00 49 03/16/17 07:00 98 Nasal Cannula 2.00 03/16/17 06:00 52 03/16/17 04:00 49 03/16/17 04:00 98.9 48 19 107/61 (76) 97 03/16/17 02:00 48 03/16/17 00:00 54 03/16/17 00:00 98.7 56 23 103/59 (74) 97 03/15/17 22:00 47 03/15/17 21:04 53 92/55 03/15/17 20:00 48 03/15/17 20:00 99.6 52 16 92/55 (67) 98 03/15/17 19:00 99 Nasal Cannula 2.00 03/15/17 18:00 52 03/15/17 16:00 98.8 52 22 91/54 (66) 98 03/15/17 16:00 49 03/15/17 14:00 62 I/O 03/15/17 03/15/17 03/15/17 03/16/17 03/16/17 03/16/17 07:00 15:00 23:00 07:00 15:00 23:00 Intake Total 921 ml 2704 ml 655 ml Output Total 500 ml 750 ml 800 ml Balance 421 ml 1954 ml -145 ml Intake Oral 100 ml 480 ml 200 ml IV Total 821 ml 2224 ml 455 ml Output Urine Total 500 ml 750 ml 800 ml Stool Total 0 ml Bladder Scan Volume Amount 300 ml Result Diagram: 03/16/17 0355 03/16/17 0355 Imaging Last Impressions Lower Extremity Ultrasound 03/15/17 0000 Signed Impressions: Service Date/Time: Wednesday, March 15, 2017 12:21 - CONCLUSION: 1. No DVT identified. 2. Enlarged lymph nodes in the left groin. Zaheer Franks MD Chest X-Ray 03/14/17 1804 Signed Impressions: Service Date/Time: Tuesday, March 14, 2017 18:11 - CONCLUSION: 1. Mild central pulmonary vascular congestion. 2. Bibasilar atelectasis and/or infiltrates. 3. Cardiomegaly. Vic Alfred MD Objective Remarks GENERAL: This is a well-nourished, well-developed patient, in no apparent distress. CARDIOVASCULAR: Regular rate and regular rhythm without murmurs, gallops, or rubs. RESPIRATORY: Clear to auscultation. Breath sounds equal bilaterally. No wheezes , rales, or rhonchi. GASTROINTESTINAL: Abdomen soft, non-tender, nondistended. Normal, active bowel sounds MUSCULOSKELETAL: Extremities without clubbing, cyanosis, or edema. NEURO: Alert & Oriented x4 to person, place, time, situation. Moves all ext x4 skin; some erythema over both legs. Medications and IVs Current Medications Morphine Sulfate (Morphine Inj) 4 mg ONCE ONCE IV PUSH Last administered on 18:26; Start 03/14/17 at 18:15; Stop 03/14/17 at 18:16; Status DC Nitroglycerin (Nitroglycerin 2% Oint) 1 inch ONCE ONCE TOP Last administered on 03/14/17 18:27; Start 03/14/17 at 18:15; Stop 03/14/17 at 18:16; Status DC Sodium Chloride (NS Flush) 2 ml UNSCH PRN IVF FLUSH AFTER USING IV ACCESS; Start 03/14/17 at 18:15; Stop 03/14/17 at 20:30; Status DC Ondansetron HCl (Zofran Inj) 4 mg ONCE ONCE IV PUSH Last administered on 18:27; Start 03/14/17 at 18:15; Stop 03/14/17 at 18:16; Status DC Magnesium Sulfate/ Dextrose 100 ml @ 100 mls/hr Q1H IV Last administered on 19:37; Start 03/14/17 at 18:15; Stop 03/14/17 at 20:14; Status DC Lidocaine HCl (Xylocaine 2% Inj) 90 mg BOLUS ONCE IV PUSH Last administered on 03/14/17 18:27; Start 03/14/17 at 18:30; Stop 03/14/17 at 18:31; Status DC Vancomycin HCl 1000 mg/Sodium Chloride 250 ml @ 250 mls/hr ONCE STAT IV Last administered on 03/14/17 19:34; Start 03/14/17 at 18:22; Stop 03/14/17 at 19:21 ; Status DC Piperacillin Sod/ Tazobactam Sod 100 ml @ 200 mls/hr ONCE STAT IV Last administered on 03/14/17 18:44; Start 03/14/17 at 18:22; Stop 03/14/17 at 18:51 ; Status DC Aspirin (Aspirin Supp) 600 mg ONCE ONCE RECTAL ; Start 03/14/17 at 18:45; Stop 03/14/17 at 18:46; Status DC Lidocaine HCl (Xylocaine 2% Inj) 50 mg ONCE IV PUSH ; Start 03/14/17 at 19:00 Lidocaine HCl/ Dextrose 500 ml @ 30 mls/hr [id number] IV Last administered on 19:35; Start 03/14/17 at 18:49; Stop 03/14/17 at 23:32; Status DC Propranolol HCl (Inderal Inj) 5 mg ONCE ONCE IV PUSH ; Start 03/14/17 at 19:00 ; Stop 03/14/17 at 19:02; Status DC Propranolol HCl (Inderal Inj) 5 mg ONCE PRN IV PUSH VT; Start 03/14/17 at 19:05 ; Stop 03/15/17 at 11:37; Status DC Propranolol HCl (Inderal Inj) 5 mg ONCE PRN IV PUSH VT; Start 03/14/17 at 19:00 ; Stop 03/15/17 at 11:37; Status DC Calcium Gluconate 1 gm/Sodium Chloride 110 ml @ 110 mls/hr ONCE ONCE IV Last administered on 03/14/17 19:56; Start 03/14/17 at 19:30; Stop 03/14/17 at 20:29 ; Status DC Potassium Bicarb/ Potassium Chloride (K-Lyte Cl Eff) 50 meq ONCE ONCE PO Last administered on 03/14/17 20:03; Start 03/14/17 at 20:00; Stop 03/14/17 at 20:01; Status DC Metoprolol Tartrate (Lopressor Inj) 5 mg Q5M PRN IV PUSH HR>110 Last administered on 03/14/17 21:02; Start 03/14/17 at 20:15 Fentanyl Citrate (fentaNYL INJ) 100 mcg ONCE ONCE IV PUSH Last administered on 03/14/17 20:31; Start 03/14/17 at 20:15; Stop 03/14/17 at 20:20; Status DC Albuterol Sulfate (Proair Hfa Inh) 2 puff Q2H PRN INH SHORTNESS OF BREATH; Start 03/14/17 at 20:15 Alprazolam (Xanax) 1 mg Q8H PRN PO ANXIETY Last administered on 03/16/17 04:08 ; Start 03/14/17 at 20:15 Aspirin (Aspirin) 325 mg DAILY PO Last administered on 03/16/17 08:21; Start 03/15/17 at 09:00 Budesonide/ Formoterol Fumarate (Symbicort 80-4.5 Mcg Inh) 2 puff Q12HR INH Last administered on 03/16/17 08:11; Start 03/14/17 at 21:00 Furosemide (Lasix) 20 mg DAILY PO Last administered on 03/16/17 08:22; Start 03/15/17 at 09:00 Lisinopril (Prinivil) 5 mg DAILY PO Last administered on 03/16/17 08:23; Start 03/15/17 at 09:00 Metoprolol Tartrate (Lopressor) 25 mg DAILY PO Last administered on 03/16/17 08:22; Start 03/15/17 at 09:00 Oxycodone/ Acetaminophen (Percocet 10-325 Mg) 1 tab Q12HR PRN PO PAIN SCALE 6 TO 10 Last administered on 03/15/17 23:45; Start 03/14/17 at 20:15 Oxycodone/ Acetaminophen (Percocet 5-325 Mg) 1 tab Q6H PRN PO PAIN SCALE 1 TO 5 Last administered on 03/16/17 08:24; Start 03/14/17 at 20:15 Potassium Chloride (KCl) 20 meq DAILY PO Last administered on 03/16/17 08:21; Start 03/15/17 at 09:00 Topiramate (Topamax) 25 mg BID PO Last administered on 03/16/17 08:22; Start 03/14/17 at 21:00 Non-Formulary Medication 80 mg DAILY PO ; Start 03/15/17 at 09:00; Status UNV Non-Formulary Medication 20 mg DAILY PO ; Start 03/15/17 at 09:00; Status UNV Sodium Chloride (NS Flush) 2 ml UNSCH PRN .XX FLUSH AFTER USING IV ACCESS; Start 03/14/17 at 20:30 Sodium Chloride (NS Flush) 2 ml BID .XX Last administered on 03/16/17 08:11; Start 03/14/17 at 21:00 Acetaminophen (Tylenol) 650 mg Q6H PRN PO PAIN 1 TO 10/FEVER >101F Last administered on 03/14/17 21:02; Start 03/14/17 at 20:30 Ondansetron HCl (Zofran Inj) 4 mg Q6H PRN IV PUSH NAUSEA OR VOMITING; Start at 20:30 Zolpidem Tartrate (Ambien) 5 mg HS PRN PO INSOMNIA; Start 03/14/17 at 20:30; Stop 03/15/17 at 11:37; Status DC Enoxaparin Sodium (Lovenox Inj) 40 mg Q24H SQ Last administered on 03/15/17 20 :07; Start 03/14/17 at 21:00 Miscellaneous Information 1 Q361D XX ; Start 03/14/17 at 20:30 Chlorhexidine Gluconate (Chlorhexidine 2% Cloth) 3 pack Taper DAILY@04 TOP ; Start 03/15/17 at 04:00; Stop 03/11/18 at 03:59 Chlorhexidine Gluconate (Chlorhexidine 2% Cloth) 3 pack UNSCH PRN TOP HYGIENIC CARE; Start 03/14/17 at 20:30 Senna/Docusate Sodium (Cassia-Colace) 1 tab BID PO Last administered on 20:07; Start 03/14/17 at 21:00 Magnesium Hydroxide (Milk Of Magnesia Liq) 30 ml Q12H PRN PO MILD - MODERATE CONSTIPATION; Start 03/14/17 at 20:30 Sennosides (Senokot) 17.2 mg Q12H PRN PO MODERATE - SEVERE CONSTIPATION; Start 03/14/17 at 20:30 Bisacodyl (Dulcolax Supp) 10 mg DAILY PRN RECTAL SEVERE CONSITIPATION; Start at 20:30 Lactulose (Lactulose Liq) 30 ml DAILY PRN PO SEVERE CONSITIPATION; Start at 20:30 Fluoxetine HCl (PROzac) 80 mg DAILY PO Last administered on 03/16/17 08:22; Start 03/15/17 at 09:00 Pantoprazole Sodium (Protonix) 20 mg DAILY PO Last administered on 03/16/17 08 :20; Start 03/15/17 at 09:00 Potassium Chloride 100 ml @ 50 mls/hr Q2H IV Last administered on 03/15/17 03 :39; Start 03/14/17 at 22:00; Stop 03/15/17 at 05:59; Status DC Amiodarone HCl 450 mg/Dextrose 250 ml @ 33.33 mls/ hr Q7H31M IV Last administered on 03/15/17 21:04; Start 03/14/17 at 23:45; Stop 03/15/17 at 23:45 ; Status DC Magnesium Oxide (Mag-Ox) 800 mg UNSCH PRN PO For Magnesium 1.2 - 1.6 mg/dL; Start 03/15/17 at 11:45 Magnesium Sulfate 4 gm/Sodium Chloride 100 ml @ 50 mls/hr UNSCH PRN IV For Magnesium 0.9 - 1.1 mg/dL; Start 03/15/17 at 11:45 Magnesium Sulfate 2 gm/Sodium Chloride 100 ml @ 50 mls/hr UNSCH PRN IV For Magnesium 1.2 - 1.6 mg/dL; Start 03/15/17 at 11:45 Potassium Chloride 100 ml @ 50 mls/hr Q2H PRN IV For Potassium 2.8 - 3.2 mEq/L ; Start 03/15/17 at 11:45 Potassium Chloride 100 ml @ 50 mls/hr Q2H PRN IV For Potassium 3.3 - 3.5 mEq/L ; Start 03/15/17 at 11:45 Potassium Chloride 100 ml @ 50 mls/hr Q2H PRN IV For Potassium 2.8 - 3.2 mEq/L ; Start 03/15/17 at 11:45 Potassium Chloride 100 ml @ 25 mls/hr UNSCH PRN IV For Potassium 3.3 - 3.5 mEq /L; Start 03/15/17 at 11:45 Potassium Phosphate (K-Phos) 2,000 mg Q4H PRN PO For Phosphorus < 2.5 mg/dL; Start 03/15/17 at 11:45 Potassium Phosphate (K-Phos) 2,000 mg UNSCH PRN PO/TUBE SEE LABEL COMMENTS; Start 03/15/17 at 11:45 Potassium Phosphate 30 mmol/ Sodium Chloride 260 ml @ 42 mls/hr UNSCH PRN IV SEE LABEL COMMENTS; Start 03/15/17 at 11:45 Sodium Phosphate 30 mmol/Sodium Chloride 250 ml @ 42 mls/hr UNSCH PRN IV For Phosphorus < 2.5 mg/dL; Start 03/15/17 at 11:45 Pharmacy Profile Note 0 ml @ 0 mls/hr UNSCH OTHER ; Start 03/15/17 at 11:45 Vancomycin HCl 1250 mg/Sodium Chloride 262.5 ml @ 250 mls/hr ONCE ONCE IV ; Start 03/15/17 at 13:00; Stop 03/15/17 at 13:00; Status DC Piperacillin Sod/ Tazobactam Sod 100 ml @ 200 mls/hr Q6H IV Last administered on 03/16/17 08:20; Start 03/15/17 at 13:00 Amiodarone HCl (Cordarone) 400 mg Q12HR PO Last administered on 03/16/17 08:22 ; Start 03/15/17 at 23:45 Vancomycin HCl 1250 mg/Sodium Chloride 262.5 ml @ 250 mls/hr Q12H IV Last administered on 03/16/17 01:04; Start 03/15/17 at 14:00 Miscellaneous Information SPECIFIC LAB TO BE DRAWN:VANCOMYCIN TROUGH DATE TO... ONCE ONCE .XX ; Start 03/17/17 at 01:45; Stop 03/17/17 at 01:46 Sodium Chloride 500 ml @ 0 mls/hr Q0M ONCE IV Last administered on 03/15/17 13 :00; Start 03/15/17 at 13:00; Stop 03/15/17 at 13:01; Status DC Tamsulosin HCl (Flomax) 0.4 mg DAILY PO Last administered on 03/16/17 08:21; Start 03/16/17 at 09:00 A/P Assessment and Plan Ventricular tachycardia - AICD in place - continue po amiodarone - Electrolytes replacement - Metoprolol - cardiology signed off. Fever likely due to cellulitis/ questionable UTI - follow cultures - continue vancomycin and zosyn - 2d echo - will de-escalate the antibiotics soon if blood cultures remain negative. Chest pain Elevated Troponin/likely due to V-tach - Morphine Sulfate when necessary - Nitroglycerin - cardiology evaluate - no further work-up at this time. - Aspirin Anxiety - Alprazolam COPD - No exacerbation - No indication for steroid - O2 to keep sats above 92 - Albuterol Sulfate - Budesonide/ Formoterol Fumarate History of CHF - Furosemide - Lisinopril - Metoprolol Depression - Topiramate - Fluoxetine DVT GI prophylaxis - Enoxaparin, teds SCDs - Pantoprazole transfer to telemetry. consult PT. Avni Goodwin MD Mar 16, 2017 12:35
--- NOTE | 2017-03-16 17:28 | ECHRPT ---
Indication: CONCLUSIONS Normal left ventricular size. Wall thickness is measured at the upper limits of normal. The left ventricular systolic function is normal with an estimated ejection fraction in the range of 55-60%. The left atrial size is [id number] dilated. The right atrial size is mildly dilated. Moderate mitral valve regurgitation. At least moderate mitral stenosis. There is estimated mild pulmonary hypertension present (41 mmHg). BP: / HR: Rhythm: Sinus MEASUREMENTS (Male / Female) Normal Values Technical Quality:Good 2D ECHO LV Diastolic Diameter PLAX 4.4 cm 4.2 - 5.9 / 3.9 - 5.3 cm LV Systolic Diameter PLAX 3.3 cm IVS Diastolic Thickness 1.1 cm 0.6 - 1.0 / 0.6 - 0.9 cm LVPW Diastolic Thickness 0.7 cm 0.6 - 1.0 / 0.6 - 0.9 cm LV Relative Wall Thickness 0.4 LA Systolic Diameter LX 3.8 cm 3.0 - 4.0 / 2.7 - 3.8 cm DOPPLER MV Peak Velocity 234.0 cm/s MV Peak Gradient 21.9 mmHg MV Mean Velocity 134.0 cm/s MV Mean Gradient 8.0 mmHg MV Area PHT 1.2 cm MR Peak Velocity 631.0 cm/s MR Peak Gradient 159.3 mmHg TR Peak Velocity 319.0 cm/s TR Peak Gradient 40.7 mmHg FINDINGS LEFT VENTRICLE Normal left ventricular size. Wall thickness is measured at the upper limits of normal. The left ventricular systolic function is normal with an estimated ejection fraction in the range of 55-60%. RIGHT VENTRICLE A pacemaker wire is noted. LEFT ATRIUM The left atrial size is vakp-[id number] dilated. RIGHT ATRIUM The right atrial size is mildly dilated. ATRIAL SEPTUM Normal atrial septal thickness without atrial level shunting by limited color doppler interrogation. AORTA The aortic root and proximal ascending aorta are normal in size on limited imaging. MITRAL VALVE Moderate mitral valve regurgitation. The mitral valve area by Pressure Halftime Method is 1.18 cm. AORTIC VALVE Trileaflet aortic valve. No aortic valve stenosis or regurgitation. TRICUSPID VALVE There is estimated mild pulmonary hypertension present (41 mmHg). PULMONARY VALVE The pulmonary valve is not well visualized. VESSELS The inferior vena cava is normal in size. PERICARDIUM No pericardial effusion. Jeimy Lee MD, FACC (Electronically Signed) Final Date:16 March 2017 17:27
[2017-03-16] MEDS: oxyCODONE/ACETAMINOPHEN 10 MG/325 MG TAB PO PRN (17:35)
[2017-03-16] MEDS: ENOXAPARIN SODIUM 40 MG/0.4 ML SYRINGE SQ SCH (21:00)
--- NOTE | 2017-03-16 21:09 | EKG ---
Date Performed: 03/14/2017 Time Performed: 21:23:28 PTAGE: 51 years EKG: Sinus rhythm . Prolonged QT interval Possible left atrial abnormality Rightward axis Right ventricular hypertrophy Abnormal ECG PREVIOUS TRACING : 03/14/2017 18.08 DOCTOR: Glenn Yip Interpretating Date/Time 03/16/2017 21:00:00
--- NOTE | 2017-03-16 21:09 | EKG ---
Date Performed: 03/15/2017 Time Performed: 02:26:34 PTAGE: 51 years EKG: Sinus bradycardia. Prolonged QT interval Borderline ECG PREVIOUS TRACING : 03/14/2017 21.23 Compared to prior tracing no significant change DOCTOR: Glenn Yip Interpretating Date/Time 03/16/2017 20:57:50
--- NOTE | 2017-03-16 21:11 | EKG ---
Date Performed: 03/14/2017 Time Performed: 18:08:20 PTAGE: 51 years EKG: Sinus rhythm Nonsustained ventricular tachycardia NO PREVIOUS TRACING DOCTOR: Glenn Yip Interpretating Date/Time 03/16/2017 21:02:31
[2017-03-17] VITALS (21 sets, daily range): BP systolic 92–114; BP diastolic 51–66; PULSE 43–61; RESP 16–20; TEMP 97.8–98.8; O2SAT 94–100
[2017-03-17] MEDS: PIPERACIL-TAZO 4.5 GM PREMIX 100 ML IV SCH ×4 (01:39→19:16)
[2017-03-17] MEDS ORDERED: PHARMACY ORDERED LAB ONE (01:45)
[2017-03-17] MEDS: oxyCODONE/ACETAMINOPHEN 5 MG/325 MG TAB PO PRN ×2 (01:50→15:09)
[2017-03-17] MEDS: VANCOMYCIN INJ 1,250 MG in SODIUM CHLOR 0.9% 250 ML INJ 250 ML IV SCH (02:31)
[2017-03-17] MEDS: CHLORHEXIDINE GLUCONATE 2 % 1 PACK (2 CLOTHS) TOP SCH (04:00)
[2017-03-17 06:03] LABS: HEMATOCRIT 29.7 % (35.0-46.0); MEAN CELL VOLUME 93.5 FL (80.0-100.0); MEAN CORPUSCULAR HEMOGLOBIN 29.9 PG (27.0-34.0); PLATELET COUNT 60 TH/MM3 (150-450); RED BLOOD COUNT 3.18 MIL/MM3 (4.00-5.30); RED CELL DISTRIBUTION WIDTH 17.9 % (11.6-17.2); WHITE BLOOD COUNT 5.1 TH/MM3 (4.0-11.0)
[2017-03-17 06:05] LABS: REVIEW FLAG FINAL
[2017-03-17 06:33] LABS: BICARBONATE 23.6 MEQ/L (21.0-32.0); POTASSIUM 3.5 MEQ/L (3.5-5.1)
--- NOTE | 2017-03-17 08:10 | HHI.PR ---
Subjective Remarks in no acute distress. afebrile. has some swelling and erythema over the left arm. Objective Vitals Vital Signs Date Time Temp Pulse Resp B/P (MAP) Pulse Ox O2 Delivery O2 Flow Rate FiO2 03/17/17 06:12 52 03/17/17 04:14 55 03/17/17 04:14 98.8 55 16 114/56 (75) 100 03/17/17 03:00 56 03/17/17 02:56 16 03/17/17 02:00 60 03/17/17 01:00 54 03/17/17 00:00 50 03/17/17 00:00 98.0 50 16 108/59 (75) 100 03/16/17 23:00 98.0 50 16 108/59 (75) 100 03/16/17 23:00 52 03/16/17 22:00 50 03/16/17 21:00 46 03/16/17 20:50 98.6 48 16 106/43 (64) 100 03/16/17 20:00 48 03/16/17 19:30 100 Nasal Cannula 2.00 03/16/17 19:00 48 03/16/17 17:00 46 03/16/17 16:00 48 03/16/17 12:00 98.2 47 19 94/45 (61) 97 03/16/17 12:00 47 I/O 03/16/17 03/16/17 03/16/17 03/17/17 03/17/17 03/17/17 07:00 15:00 23:00 07:00 15:00 23:00 Intake Total 655 ml 462.5 ml 1236 ml 1650 ml Output Total 800 ml 750 ml 1250 ml Balance -145 ml 462.5 ml 486 ml 400 ml Intake Oral 200 ml 780 ml 1200 ml IV Total 455 ml 462.5 ml 456 ml 450 ml Output Urine Total 800 ml 750 ml 1250 ml Bladder Scan Volume Amount 300 ml # Bowel Movements 0 Result Diagram: 03/17/17 0520 03/17/17 0520 Imaging Last Impressions Lower Extremity Ultrasound 03/15/17 0000 Signed Impressions: Service Date/Time: Wednesday, March 15, 2017 12:21 - CONCLUSION: 1. No DVT identified. 2. Enlarged lymph nodes in the left groin. Zaheer Franks MD Chest X-Ray 03/14/17 1808 Signed Impressions: Service Date/Time: Tuesday, March 14, 2017 18:11 - CONCLUSION: 1. Mild central pulmonary vascular congestion. 2. Bibasilar atelectasis and/or infiltrates. 3. Cardiomegaly. Vic Alfred MD Objective Remarks GENERAL: This is a well-nourished, well-developed patient, in no apparent distress. CARDIOVASCULAR: Regular rate and regular rhythm without murmurs, gallops, or rubs. RESPIRATORY: Clear to auscultation. Breath sounds equal bilaterally. No wheezes , rales, or rhonchi. GASTROINTESTINAL: Abdomen soft, non-tender, nondistended. Normal, active bowel sounds MUSCULOSKELETAL: Extremities without clubbing, cyanosis, or edema. NEURO: Alert & Oriented x4 to person, place, time, situation. Moves all ext x4 skin; some erythema over both legs. Medications and IVs Current Medications Morphine Sulfate (Morphine Inj) 4 mg ONCE ONCE IV PUSH Last administered on 18:26; Start 03/14/17 at 18:15; Stop 03/14/17 at 18:16; Status DC Nitroglycerin (Nitroglycerin 2% Oint) 1 inch ONCE ONCE TOP Last administered on 03/14/17 18:27; Start 03/14/17 at 18:15; Stop 03/14/17 at 18:16; Status DC Sodium Chloride (NS Flush) 2 ml UNSCH PRN IVF FLUSH AFTER USING IV ACCESS; Start 03/14/17 at 18:15; Stop 03/14/17 at 20:30; Status DC Ondansetron HCl (Zofran Inj) 4 mg ONCE ONCE IV PUSH Last administered on 18:27; Start 03/14/17 at 18:15; Stop 03/14/17 at 18:16; Status DC Magnesium Sulfate/ Dextrose 100 ml @ 100 mls/hr Q1H IV Last administered on 19:37; Start 03/14/17 at 18:15; Stop 03/14/17 at 20:14; Status DC Lidocaine HCl (Xylocaine 2% Inj) 90 mg BOLUS ONCE IV PUSH Last administered on 03/14/17 18:27; Start 03/14/17 at 18:30; Stop 03/14/17 at 18:31; Status DC Vancomycin HCl 1000 mg/Sodium Chloride 250 ml @ 250 mls/hr ONCE STAT IV Last administered on 03/14/17 19:34; Start 03/14/17 at 18:22; Stop 03/14/17 at 19:21 ; Status DC Piperacillin Sod/ Tazobactam Sod 100 ml @ 200 mls/hr ONCE STAT IV Last administered on 03/14/17 18:44; Start 03/14/17 at 18:22; Stop 03/14/17 at 18:51 ; Status DC Aspirin (Aspirin Supp) 600 mg ONCE ONCE RECTAL ; Start 03/14/17 at 18:45; Stop 03/14/17 at 18:46; Status DC Lidocaine HCl (Xylocaine 2% Inj) 50 mg ONCE IV PUSH ; Start 03/14/17 at 19:00 Lidocaine HCl/ Dextrose 500 ml @ 30 mls/hr [id number] IV Last administered on 19:35; Start 03/14/17 at 18:49; Stop 03/14/17 at 23:32; Status DC Propranolol HCl (Inderal Inj) 5 mg ONCE ONCE IV PUSH ; Start 03/14/17 at 19:00 ; Stop 03/14/17 at 19:02; Status DC Propranolol HCl (Inderal Inj) 5 mg ONCE PRN IV PUSH VT; Start 03/14/17 at 19:05 ; Stop 03/15/17 at 11:37; Status DC Propranolol HCl (Inderal Inj) 5 mg ONCE PRN IV PUSH VT; Start 03/14/17 at 19:00 ; Stop 03/15/17 at 11:37; Status DC Calcium Gluconate 1 gm/Sodium Chloride 110 ml @ 110 mls/hr ONCE ONCE IV Last administered on 03/14/17 19:56; Start 03/14/17 at 19:30; Stop 03/14/17 at 20:29 ; Status DC Potassium Bicarb/ Potassium Chloride (K-Lyte Cl Eff) 50 meq ONCE ONCE PO Last administered on 03/14/17 20:03; Start 03/14/17 at 20:00; Stop 03/14/17 at 20:01; Status DC Metoprolol Tartrate (Lopressor Inj) 5 mg Q5M PRN IV PUSH HR>110 Last administered on 03/14/17 21:02; Start 03/14/17 at 20:15 Fentanyl Citrate (fentaNYL INJ) 100 mcg ONCE ONCE IV PUSH Last administered on 03/14/17 20:31; Start 03/14/17 at 20:15; Stop 03/14/17 at 20:20; Status DC Albuterol Sulfate (Proair Hfa Inh) 2 puff Q2H PRN INH SHORTNESS OF BREATH; Start 03/14/17 at 20:15 Alprazolam (Xanax) 1 mg Q8H PRN PO ANXIETY Last administered on 03/16/17 23:15 ; Start 03/14/17 at 20:15 Aspirin (Aspirin) 325 mg DAILY PO Last administered on 03/16/17 08:21; Start 03/15/17 at 09:00 Budesonide/ Formoterol Fumarate (Symbicort 80-4.5 Mcg Inh) 2 puff Q12HR INH Last administered on 03/16/17 21:00; Start 03/14/17 at 21:00 Furosemide (Lasix) 20 mg DAILY PO Last administered on 03/16/17 08:22; Start 03/15/17 at 09:00 Lisinopril (Prinivil) 5 mg DAILY PO Last administered on 03/16/17 08:23; Start 03/15/17 at 09:00 Metoprolol Tartrate (Lopressor) 25 mg DAILY PO Last administered on 03/16/17 08:22; Start 03/15/17 at 09:00 Oxycodone/ Acetaminophen (Percocet 10-325 Mg) 1 tab Q12HR PRN PO PAIN SCALE 6 TO 10 Last administered on 03/16/17 17:35; Start 03/14/17 at 20:15 Oxycodone/ Acetaminophen (Percocet 5-325 Mg) 1 tab Q6H PRN PO PAIN SCALE 1 TO 5 Last administered on 03/17/17 01:50; Start 03/14/17 at 20:15 Potassium Chloride (KCl) 20 meq DAILY PO Last administered on 03/16/17 08:21; Start 03/15/17 at 09:00 Topiramate (Topamax) 25 mg BID PO Last administered on 03/16/17 21:35; Start 03/14/17 at 21:00 Non-Formulary Medication 80 mg DAILY PO ; Start 03/15/17 at 09:00; Status UNV Non-Formulary Medication 20 mg DAILY PO ; Start 03/15/17 at 09:00; Status UNV Sodium Chloride (NS Flush) 2 ml UNSCH PRN .XX FLUSH AFTER USING IV ACCESS; Start 03/14/17 at 20:30 Sodium Chloride (NS Flush) 2 ml BID .XX Last administered on 03/16/17 21:34; Start 03/14/17 at 21:00 Acetaminophen (Tylenol) 650 mg Q6H PRN PO PAIN 1 TO 10/FEVER >101F Last administered on 03/14/17 21:02; Start 03/14/17 at 20:30 Ondansetron HCl (Zofran Inj) 4 mg Q6H PRN IV PUSH NAUSEA OR VOMITING; Start at 20:30 Zolpidem Tartrate (Ambien) 5 mg HS PRN PO INSOMNIA; Start 03/14/17 at 20:30; Stop 03/15/17 at 11:37; Status DC Enoxaparin Sodium (Lovenox Inj) 40 mg Q24H SQ Last administered on 03/15/17 20 :07; Start 03/14/17 at 21:00 Miscellaneous Information 1 [id number] ; Start 03/14/17 at 20:30 Chlorhexidine Gluconate (Chlorhexidine 2% Cloth) 3 pack Taper DAILY@04 TOP ; Start 03/15/17 at 04:00; Stop 03/11/18 at 03:59 Chlorhexidine Gluconate (Chlorhexidine 2% Cloth) 3 pack UNSCH PRN TOP HYGIENIC CARE; Start 03/14/17 at 20:30 Senna/Docusate Sodium (Cassia-Colace) 1 tab BID PO Last administered on 20:07; Start 03/14/17 at 21:00 Magnesium Hydroxide (Milk Of Magnesia Liq) 30 ml Q12H PRN PO MILD - MODERATE CONSTIPATION; Start 03/14/17 at 20:30 Sennosides (Senokot) 17.2 mg Q12H PRN PO MODERATE - SEVERE CONSTIPATION; Start 03/14/17 at 20:30 Bisacodyl (Dulcolax Supp) 10 mg DAILY PRN RECTAL SEVERE CONSITIPATION; Start at 20:30 Lactulose (Lactulose Liq) 30 ml DAILY PRN PO SEVERE CONSITIPATION; Start at 20:30 Fluoxetine HCl (PROzac) 80 mg DAILY PO Last administered on 03/16/17 08:22; Start 03/15/17 at 09:00 Pantoprazole Sodium (Protonix) 20 mg DAILY PO Last administered on 03/16/17 08 :20; Start 03/15/17 at 09:00 Potassium Chloride 100 ml @ 50 mls/hr Q2H IV Last administered on 03/15/17 03 :39; Start 03/14/17 at 22:00; Stop 03/15/17 at 05:59; Status DC Amiodarone HCl 450 mg/Dextrose 250 ml @ 33.33 mls/ hr Q7H31M IV Last administered on 03/15/17 21:04; Start 03/14/17 at 23:45; Stop 03/15/17 at 23:45 ; Status DC Magnesium Oxide (Mag-Ox) 800 mg UNSCH PRN PO For Magnesium 1.2 - 1.6 mg/dL; Start 03/15/17 at 11:45 Magnesium Sulfate 4 gm/Sodium Chloride 100 ml @ 50 mls/hr UNSCH PRN IV For Magnesium 0.9 - 1.1 mg/dL; Start 03/15/17 at 11:45 Magnesium Sulfate 2 gm/Sodium Chloride 100 ml @ 50 mls/hr UNSCH PRN IV For Magnesium 1.2 - 1.6 mg/dL; Start 03/15/17 at 11:45 Potassium Chloride 100 ml @ 50 mls/hr Q2H PRN IV For Potassium 2.8 - 3.2 mEq/L ; Start 03/15/17 at 11:45 Potassium Chloride 100 ml @ 50 mls/hr Q2H PRN IV For Potassium 3.3 - 3.5 mEq/L ; Start 03/15/17 at 11:45 Potassium Chloride 100 ml @ 50 mls/hr Q2H PRN IV For Potassium 2.8 - 3.2 mEq/L ; Start 03/15/17 at 11:45 Potassium Chloride 100 ml @ 25 mls/hr UNSCH PRN IV For Potassium 3.3 - 3.5 mEq /L; Start 03/15/17 at 11:45 Potassium Phosphate (K-Phos) 2,000 mg Q4H PRN PO For Phosphorus < 2.5 mg/dL; Start 03/15/17 at 11:45 Potassium Phosphate (K-Phos) 2,000 mg UNSCH PRN PO/TUBE SEE LABEL COMMENTS; Start 03/15/17 at 11:45 Potassium Phosphate 30 mmol/ Sodium Chloride 260 ml @ 42 mls/hr UNSCH PRN IV SEE LABEL COMMENTS; Start 03/15/17 at 11:45 Sodium Phosphate 30 mmol/Sodium Chloride 250 ml @ 42 mls/hr UNSCH PRN IV For Phosphorus < 2.5 mg/dL; Start 03/15/17 at 11:45 Pharmacy Profile Note 0 ml @ 0 mls/hr UNSCH OTHER ; Start 03/15/17 at 11:45 Vancomycin HCl 1250 mg/Sodium Chloride 262.5 ml @ 250 mls/hr ONCE ONCE IV ; Start 03/15/17 at 13:00; Stop 03/15/17 at 13:00; Status DC Piperacillin Sod/ Tazobactam Sod 100 ml @ 200 mls/hr Q6H IV Last administered on 03/17/17 01:39; Start 03/15/17 at 13:00 Amiodarone HCl (Cordarone) 400 mg Q12HR PO Last administered on 03/16/17 21:34 ; Start 03/15/17 at 23:45 Vancomycin HCl 1250 mg/Sodium Chloride 262.5 ml @ 250 mls/hr Q12H IV Last administered on 03/17/17 02:31; Start 03/15/17 at 14:00 Miscellaneous Information SPECIFIC LAB TO BE DRAWN:VANCOMYCIN TROUGH DATE TO... ONCE ONCE .XX Last administered on 03/17/17 01:45; Start 03/17/17 at 01:45; Stop 03/17/17 at 01:46; Status DC Sodium Chloride 500 ml @ 0 mls/hr Q0M ONCE IV Last administered on 03/15/17 13 :00; Start 03/15/17 at 13:00; Stop 03/15/17 at 13:01; Status DC Tamsulosin HCl (Flomax) 0.4 mg DAILY PO Last administered on 03/16/17 08:21; Start 03/16/17 at 09:00 A/P Assessment and Plan A/P Ventricular tachycardia - AICD in place - continue po amiodarone and metoprolol - Electrolytes replacement as needed - echo with EF 55% and moderate mitral stenosis - cardiology signed off. Fever likely due to cellulitis/ questionable UTI - follow cultures - continue vancomycin and zosyn for now - will de-escalate the antibiotics soon if blood cultures remain negative. Chest pain Elevated Troponin/likely due to V-tach - cardiology evaluated - no further work-up at this time. -continue Aspirin erythema and swelling of the left arm will check venous doppler of the left upper extremity Anxiety - Alprazolam COPD - No exacerbation - No indication for steroid - will taper off the O2 to keep sats above 90 - Albuterol Sulfate - Budesonide/ Formoterol Fumarate History of CHF - Furosemide - Lisinopril - Metoprolol Depression - Topiramate - Fluoxetine DVT GI prophylaxis - Enoxaparin, teds SCDs - Pantoprazole dc heller cath. consulted PT. Discharge Planning possible discharge tomorrow if stable- pending PT evaluation. Avni Goodwin MD Mar 17, 2017 08:10
[2017-03-17] MEDS: SODIUM CHLORIDE 0.9% FLUSH 10 ML FLUSH SCH ×2 (09:09→22:19)
[2017-03-17] MEDS: BUDESONIDE-FORMOTEROL 80/4.5 MCG INHALER INH SCH ×2 (09:09→22:20)
[2017-03-17] MEDS: FLUoxetine HCL 20 MG CAP PO SCH (09:12)
[2017-03-17] MEDS: FUROSEMIDE 20 MG TAB PO SCH (09:13)
[2017-03-17] MEDS: AMIODARONE 200 MG TAB PO SCH ×2 (09:13→22:20)
[2017-03-17] MEDS: PANTOPRAZOLE SOD 20 MG DELAYED RELEASE TAB PO SCH (09:13)
[2017-03-17] MEDS: TAMSULOSIN HCL 0.4 MG CAP PO SCH (09:14)
[2017-03-17] MEDS: POTASSIUM CHLORIDE 20 MEQ CONTROLLED RELEASE TAB PO SCH (09:14)
[2017-03-17] MEDS: DOCUSATE SODIUM 50 MG/SENNA 8.6 MG TAB PO SCH ×2 (09:14→22:21)
[2017-03-17] MEDS: METOPROLOL TARTRATE 25 MG TAB PO SCH (09:14)
[2017-03-17] MEDS: LISINOPRIL 5 MG TAB PO SCH (09:14)
[2017-03-17] MEDS: oxyCODONE/ACETAMINOPHEN 10 MG/325 MG TAB PO PRN ×2 (09:15→22:20)
[2017-03-17] MEDS: ASPIRIN 325 MG TAB PO SCH (09:23)
--- NOTE | 2017-03-17 09:25 | RADRPT ---
EXAM DATE/TIME: 03/17/2017 08:21 [facility] COMPARISON: No previous studies available for comparison. INDICATIONS : Left arm edema. MEDICAL HISTORY : Myocardial infarction. Congestive heart failure. Hepatitis C. Vtac. COPD. HTN. Hiatal hernia. GERD. O varian cysts. Chronic back pain. Jaundice. Anemia. Thrombocytopenia. ADHD. Bipolar disorder. Depressi on. Anxiety. MRSA. Anticoagulant therapy, Lovenox. SURGICAL HISTORY : AICD. Liver biopsy. Lymph nodes biopsy. ENCOUNTER: Initial ACUITY: 3 days PAIN SCORE: 5/10 LOCATION: Left arm. FINDINGS: There is occlusive and nonocclusive venous thrombus in the left basilic vein from the distal arm and forearm. The left subclavian, axillary, brachial and cephalic vein are patent. CONCLUSION: 1. Occlusive and nonocclusive thrombus in the left basilic vein. Remaining left upper extremity veins are patent. Johnny Moreira MD on March 17, 2017 at 9:22 Board Certified Radiologist. This report was verified electronically.
[2017-03-17] MEDS: TOPIRAMATE 25 MG TAB PO SCH ×2 (11:55→22:38)
[2017-03-17] MEDS: ALPRAZolam 1 MG TAB PO PRN ×2 (13:01→22:20)
[2017-03-17] MEDS: VANCOMYCIN 1,000 MG/NS 250 ML IV SCH ×2 (14:00)
[2017-03-17] MEDS: POTASSIUM PHOSPHATE/SODIUM PHOSPHATE 250 MG TAB PO SCH ×2 (14:58→22:21)
[2017-03-17] MEDS: ENOXAPARIN SODIUM 40 MG/0.4 ML SYRINGE SQ SCH (21:00)
[2017-03-18] VITALS (23 sets, daily range): BP systolic 97–132; BP diastolic 52–77; PULSE 46–81; RESP 12–18; TEMP 97.3–99.1; O2SAT 96–98
[2017-03-18] MEDS: PIPERACIL-TAZO 4.5 GM PREMIX 100 ML IV SCH ×5 (01:31→23:19)
[2017-03-18] MEDS: VANCOMYCIN 1,000 MG/NS 250 ML IV SCH ×2 (02:22)
[2017-03-18] MEDS: oxyCODONE/ACETAMINOPHEN 5 MG/325 MG TAB PO PRN ×2 (03:28→18:28)
[2017-03-18] MEDS: CHLORHEXIDINE GLUCONATE 2 % 1 PACK (2 CLOTHS) TOP SCH (04:00)
[2017-03-18] MEDS: POTASSIUM PHOSPHATE/SODIUM PHOSPHATE 250 MG TAB PO SCH (05:57)
[2017-03-18] MEDS: ALPRAZolam 1 MG TAB PO PRN ×3 (06:02→23:19)
[2017-03-18 06:25] LABS: MEAN CELL VOLUME 92.2 FL (80.0-100.0); MEAN CORPUSCULAR HEMOGLOBIN 29.5 PG (27.0-34.0); PLATELET COUNT 64 TH/MM3 (150-450); RED BLOOD COUNT 3.25 MIL/MM3 (4.00-5.30); RED CELL DISTRIBUTION WIDTH 17.7 % (11.6-17.2); WHITE BLOOD COUNT 4.4 TH/MM3 (4.0-11.0)
[2017-03-18 06:27] LABS: REVIEW FLAG FINAL
[2017-03-18 06:50] LABS: BICARBONATE 25.4 MEQ/L (21.0-32.0); POTASSIUM 3.5 MEQ/L (3.5-5.1)
[2017-03-18] MEDS: TOPIRAMATE 25 MG TAB PO SCH ×2 (09:00→20:37)
--- NOTE | 2017-03-18 09:10 | HHI.PR ---
Subjective Remarks resting comfortably with no distress. afebrile. redness and pain to the left arm is improving along with the redness of the lower extremities. Objective Vitals Vital Signs Date Time Temp Pulse Resp B/P (MAP) Pulse Ox O2 Delivery O2 Flow Rate FiO2 03/18/17 06:00 54 03/18/17 05:00 55 03/18/17 04:00 55 03/18/17 03:00 53 03/18/17 03:00 97.9 65 18 97/52 (67) 97 03/18/17 02:00 59 03/18/17 01:00 55 03/18/17 00:00 58 03/17/17 23:00 52 03/17/17 23:00 98.5 57 18 112/66 (81) 98 03/17/17 22:00 52 03/17/17 21:00 50 03/17/17 20:00 54 03/17/17 19:00 97.8 57 18 95/51 (66) 97 03/17/17 19:00 51 03/17/17 19:00 97 Room Air 03/17/17 18:12 43 03/17/17 17:24 51 03/17/17 16:23 18 03/17/17 16:20 50 03/17/17 16:20 98.0 50 18 109/63 (78) 94 03/17/17 15:04 50 03/17/17 14:12 52 03/17/17 13:35 47 03/17/17 12:38 98.1 49 18 92/57 (69) 97 03/17/17 12:38 49 03/17/17 11:53 98.1 47 20 92/52 (65) 98 03/17/17 10:15 18 I/O 03/17/17 03/17/17 03/17/17 03/18/17 03/18/17 03/18/17 07:00 15:00 23:00 07:00 15:00 23:00 Intake Total 1650 ml 100 ml 1356 ml 720 ml Output Total 1250 ml 1000 ml 1925 ml 2050 ml Balance 400 ml -900 ml -569 ml -1330 ml Intake Oral 1200 ml 960 ml 720 ml IV Total 450 ml 100 ml 396 ml Output Urine Total 1250 ml 1000 ml 1925 ml 2050 ml # Bowel Movements 0 Result Diagram: 03/18/17 0525 03/18/17 0525 Imaging Last Impressions Upper Extremity Ultrasound 03/17/17 0000 Signed Impressions: Service Date/Time: February 08:21 - CONCLUSION: 1. Occlusive and nonocclusive thrombus in the left basilic vein. Remaining left upper extremity veins are patent. Johnny Moreira MD Lower Extremity Ultrasound 03/15/17 0000 Signed Impressions: Service Date/Time: Wednesday, March 15, 2017 12:21 - CONCLUSION: 1. No DVT identified. 2. Enlarged lymph nodes in the left groin. Zaheer Franks MD Chest X-Ray 03/14/17 1805 Signed Impressions: Service Date/Time: Tuesday, March 14, 2017 18:11 - CONCLUSION: 1. Mild central pulmonary vascular congestion. 2. Bibasilar atelectasis and/or infiltrates. 3. Cardiomegaly. Vic Alfred MD Objective Remarks GENERAL: This is a well-nourished, well-developed patient, in no apparent distress. CARDIOVASCULAR: Regular rate and regular rhythm without murmurs, gallops, or rubs. RESPIRATORY: Clear to auscultation. Breath sounds equal bilaterally. No wheezes , rales, or rhonchi. GASTROINTESTINAL: Abdomen soft, non-tender, nondistended. Normal, active bowel sounds MUSCULOSKELETAL: Extremities without clubbing, cyanosis, or edema. NEURO: Alert & Oriented x4 to person, place, time, situation. Moves all ext x4 skin; some erythema over both legs. Medications and IVs Current Medications Morphine Sulfate (Morphine Inj) 4 mg ONCE ONCE IV PUSH Last administered on 18:26; Start 03/14/17 at 18:15; Stop 03/14/17 at 18:16; Status DC Nitroglycerin (Nitroglycerin 2% Oint) 1 inch ONCE ONCE TOP Last administered on 03/14/17 18:27; Start 03/14/17 at 18:15; Stop 03/14/17 at 18:16; Status DC Sodium Chloride (NS Flush) 2 ml UNSCH PRN IVF FLUSH AFTER USING IV ACCESS; Start 03/14/17 at 18:15; Stop 03/14/17 at 20:30; Status DC Ondansetron HCl (Zofran Inj) 4 mg ONCE ONCE IV PUSH Last administered on 18:27; Start 03/14/17 at 18:15; Stop 03/14/17 at 18:16; Status DC Magnesium Sulfate/ Dextrose 100 ml @ 100 mls/hr Q1H IV Last administered on 19:37; Start 03/14/17 at 18:15; Stop 03/14/17 at 20:14; Status DC Lidocaine HCl (Xylocaine 2% Inj) 90 mg BOLUS ONCE IV PUSH Last administered on 03/14/17 18:27; Start 03/14/17 at 18:30; Stop 03/14/17 at 18:31; Status DC Vancomycin HCl 1000 mg/Sodium Chloride 250 ml @ 250 mls/hr ONCE STAT IV Last administered on 03/14/17 19:34; Start 03/14/17 at 18:22; Stop 03/14/17 at 19:21 ; Status DC Piperacillin Sod/ Tazobactam Sod 100 ml @ 200 mls/hr ONCE STAT IV Last administered on 03/14/17 18:44; Start 03/14/17 at 18:22; Stop 03/14/17 at 18:51 ; Status DC Aspirin (Aspirin Supp) 600 mg ONCE ONCE RECTAL ; Start 03/14/17 at 18:45; Stop 03/14/17 at 18:46; Status DC Lidocaine HCl (Xylocaine 2% Inj) 50 mg ONCE IV PUSH ; Start 03/14/17 at 19:00 Lidocaine HCl/ Dextrose 500 ml @ 30 mls/hr [id number] IV Last administered on 19:35; Start 03/14/17 at 18:49; Stop 03/14/17 at 23:32; Status DC Propranolol HCl (Inderal Inj) 5 mg ONCE ONCE IV PUSH ; Start 03/14/17 at 19:00 ; Stop 03/14/17 at 19:02; Status DC Propranolol HCl (Inderal Inj) 5 mg ONCE PRN IV PUSH VT; Start 03/14/17 at 19:05 ; Stop 03/15/17 at 11:37; Status DC Propranolol HCl (Inderal Inj) 5 mg ONCE PRN IV PUSH VT; Start 03/14/17 at 19:00 ; Stop 03/15/17 at 11:37; Status DC Calcium Gluconate 1 gm/Sodium Chloride 110 ml @ 110 mls/hr ONCE ONCE IV Last administered on 03/14/17 19:56; Start 03/14/17 at 19:30; Stop 03/14/17 at 20:29 ; Status DC Potassium Bicarb/ Potassium Chloride (K-Lyte Cl Eff) 50 meq ONCE ONCE PO Last administered on 03/14/17 20:03; Start 03/14/17 at 20:00; Stop 03/14/17 at 20:01; Status DC Metoprolol Tartrate (Lopressor Inj) 5 mg Q5M PRN IV PUSH HR>110 Last administered on 03/14/17 21:02; Start 03/14/17 at 20:15 Fentanyl Citrate (fentaNYL INJ) 100 mcg ONCE ONCE IV PUSH Last administered on 03/14/17 20:31; Start 03/14/17 at 20:15; Stop 03/14/17 at 20:20; Status DC Albuterol Sulfate (Proair Hfa Inh) 2 puff Q2H PRN INH SHORTNESS OF BREATH; Start 03/14/17 at 20:15 Alprazolam (Xanax) 1 mg Q8H PRN PO ANXIETY Last administered on 03/18/17 06:02 ; Start 03/14/17 at 20:15 Aspirin (Aspirin) 325 mg DAILY PO Last administered on 03/17/17 09:23; Start 03/15/17 at 09:00 Budesonide/ Formoterol Fumarate (Symbicort 80-4.5 Mcg Inh) 2 puff Q12HR INH Last administered on 03/17/17 22:20; Start 03/14/17 at 21:00 Furosemide (Lasix) 20 mg DAILY PO Last administered on 03/17/17 09:13; Start 03/15/17 at 09:00 Lisinopril (Prinivil) 5 mg DAILY PO Last administered on 03/17/17 09:14; Start 03/15/17 at 09:00 Metoprolol Tartrate (Lopressor) 25 mg DAILY PO Last administered on 03/17/17 09:14; Start 03/15/17 at 09:00 Oxycodone/ Acetaminophen (Percocet 10-325 Mg) 1 tab Q12HR PRN PO PAIN SCALE 6 TO 10 Last administered on 03/17/17 22:20; Start 03/14/17 at 20:15 Oxycodone/ Acetaminophen (Percocet 5-325 Mg) 1 tab Q6H PRN PO PAIN SCALE 1 TO 5 Last administered on 03/18/17 03:28; Start 03/14/17 at 20:15 Potassium Chloride (KCl) 20 meq DAILY PO Last administered on 03/17/17 09:14; Start 03/15/17 at 09:00 Topiramate (Topamax) 25 mg BID PO Last administered on 03/17/17 22:38; Start 03/14/17 at 21:00 Non-Formulary Medication 80 mg DAILY PO ; Start 03/15/17 at 09:00; Status UNV Non-Formulary Medication 20 mg DAILY PO ; Start 03/15/17 at 09:00; Status UNV Sodium Chloride (NS Flush) 2 ml UNSCH PRN .XX FLUSH AFTER USING IV ACCESS; Start 03/14/17 at 20:30 Sodium Chloride (NS Flush) 2 ml BID .XX Last administered on 03/17/17 22:19; Start 03/14/17 at 21:00 Acetaminophen (Tylenol) 650 mg Q6H PRN PO PAIN 1 TO 10/FEVER >101F Last administered on 03/14/17 21:02; Start 03/14/17 at 20:30 Ondansetron HCl (Zofran Inj) 4 mg Q6H PRN IV PUSH NAUSEA OR VOMITING; Start at 20:30 Zolpidem Tartrate (Ambien) 5 mg HS PRN PO INSOMNIA; Start 03/14/17 at 20:30; Stop 03/15/17 at 11:37; Status DC Enoxaparin Sodium (Lovenox Inj) 40 mg Q24H SQ Last administered on 03/15/17 20 :07; Start 03/14/17 at 21:00 Miscellaneous Information 1 [id number] ; Start 03/14/17 at 20:30 Chlorhexidine Gluconate (Chlorhexidine 2% Cloth) 3 pack Taper DAILY@04 TOP ; Start 03/15/17 at 04:00; Stop 03/11/18 at 03:59 Chlorhexidine Gluconate (Chlorhexidine 2% Cloth) 3 pack UNSCH PRN TOP HYGIENIC CARE; Start 03/14/17 at 20:30 Senna/Docusate Sodium (Cassia-Colace) 1 tab BID PO Last administered on 22:21; Start 03/14/17 at 21:00 Magnesium Hydroxide (Milk Of Magnesia Liq) 30 ml Q12H PRN PO MILD - MODERATE CONSTIPATION; Start 03/14/17 at 20:30 Sennosides (Senokot) 17.2 mg Q12H PRN PO MODERATE - SEVERE CONSTIPATION; Start 03/14/17 at 20:30 Bisacodyl (Dulcolax Supp) 10 mg DAILY PRN RECTAL SEVERE CONSITIPATION; Start at 20:30 Lactulose (Lactulose Liq) 30 ml DAILY PRN PO SEVERE CONSITIPATION; Start at 20:30 Fluoxetine HCl (PROzac) 80 mg DAILY PO Last administered on 03/17/17 09:12; Start 03/15/17 at 09:00 Pantoprazole Sodium (Protonix) 20 mg DAILY PO Last administered on 03/17/17 09 :13; Start 03/15/17 at 09:00 Potassium Chloride 100 ml @ 50 mls/hr Q2H IV Last administered on 03/15/17 03 :39; Start 03/14/17 at 22:00; Stop 03/15/17 at 05:59; Status DC Amiodarone HCl 450 mg/Dextrose 250 ml @ 33.33 mls/ hr Q7H31M IV Last administered on 03/15/17 21:04; Start 03/14/17 at 23:45; Stop 03/15/17 at 23:45 ; Status DC Magnesium Oxide (Mag-Ox) 800 mg UNSCH PRN PO For Magnesium 1.2 - 1.6 mg/dL; Start 03/15/17 at 11:45; Stop 03/17/17 at 08:15; Status DC Magnesium Sulfate 4 gm/Sodium Chloride 100 ml @ 50 mls/hr UNSCH PRN IV For Magnesium 0.9 - 1.1 mg/dL; Start 03/15/17 at 11:45; Stop 03/17/17 at 08:15; Status DC Magnesium Sulfate 2 gm/Sodium Chloride 100 ml @ 50 mls/hr UNSCH PRN IV For Magnesium 1.2 - 1.6 mg/dL; Start 03/15/17 at 11:45; Stop 03/17/17 at 08:15; Status DC Potassium Chloride 100 ml @ 50 mls/hr Q2H PRN IV For Potassium 2.8 - 3.2 mEq/L ; Start 03/15/17 at 11:45; Stop 03/17/17 at 08:15; Status DC Potassium Chloride 100 ml @ 50 mls/hr Q2H PRN IV For Potassium 3.3 - 3.5 mEq/L ; Start 03/15/17 at 11:45; Stop 03/17/17 at 08:15; Status DC Potassium Chloride 100 ml @ 50 mls/hr Q2H PRN IV For Potassium 2.8 - 3.2 mEq/L ; Start 03/15/17 at 11:45; Stop 03/17/17 at 08:15; Status DC Potassium Chloride 100 ml @ 25 mls/hr UNSCH PRN IV For Potassium 3.3 - 3.5 mEq /L; Start 03/15/17 at 11:45; Stop 03/17/17 at 08:15; Status DC Potassium Phosphate (K-Phos) 2,000 mg Q4H PRN PO For Phosphorus < 2.5 mg/dL; Start 03/15/17 at 11:45; Stop 03/17/17 at 08:15; Status DC Potassium Phosphate (K-Phos) 2,000 mg UNSCH PRN PO/TUBE SEE LABEL COMMENTS; Start 03/15/17 at 11:45; Stop 03/17/17 at 08:15; Status DC Potassium Phosphate 30 mmol/ Sodium Chloride 260 ml @ 42 mls/hr UNSCH PRN IV SEE LABEL COMMENTS; Start 03/15/17 at 11:45; Stop 03/17/17 at 08:15; Status DC Sodium Phosphate 30 mmol/Sodium Chloride 250 ml @ 42 mls/hr UNSCH PRN IV For Phosphorus < 2.5 mg/dL; Start 03/15/17 at 11:45; Stop 03/17/17 at 08:15; Status DC Pharmacy Profile Note 0 ml @ 0 mls/hr UNSCH OTHER ; Start 03/15/17 at 11:45 Vancomycin HCl 1250 mg/Sodium Chloride 262.5 ml @ 250 mls/hr ONCE ONCE IV ; Start 03/15/17 at 13:00; Stop 03/15/17 at 13:00; Status DC Piperacillin Sod/ Tazobactam Sod 100 ml @ 200 mls/hr Q6H IV Last administered on 03/18/17 05:57; Start 03/15/17 at 13:00 Amiodarone HCl (Cordarone) 400 mg Q12HR PO Last administered on 03/17/17 22:20 ; Start 03/15/17 at 23:45 Vancomycin HCl 1250 mg/Sodium Chloride 262.5 ml @ 250 mls/hr Q12H IV Last administered on 03/17/17 02:31; Start 03/15/17 at 14:00; Stop 03/17/17 at 08:41 ; Status DC Miscellaneous Information SPECIFIC LAB TO BE DRAWN:VANCOMYCIN TROUGH DATE TO... ONCE ONCE .XX Last administered on 03/17/17 01:45; Start 03/17/17 at 01:45; Stop 03/17/17 at 01:46; Status DC Sodium Chloride 500 ml @ 0 mls/hr Q0M ONCE IV Last administered on 03/15/17 13 :00; Start 03/15/17 at 13:00; Stop 03/15/17 at 13:01; Status DC Tamsulosin HCl (Flomax) 0.4 mg DAILY PO Last administered on 03/17/17 09:14; Start 03/16/17 at 09:00 Vancomycin HCl 1000 mg/Sodium Chloride 250 ml @ 250 mls/hr Q12H IV Last administered on 03/18/17 02:22; Start 03/17/17 at 14:00 Miscellaneous Information SPECIFIC LAB TO BE DRAWN:VANCOMYCIN TROUGH DATE TO... ONCE ONCE .XX ; Start 03/19/17 at 01:45; Stop 03/19/17 at 01:46 Potassium Phos/ Sodium Phos (K-Phos Neutral) 250 mg Q8HR PO Last administered on 03/18/17 05:57; Start 03/17/17 at 14:00 A/P Assessment and Plan A/P Ventricular tachycardia - AICD in place - continue po amiodarone and metoprolol - Electrolytes replacement as needed - echo with EF 55% and moderate mitral stenosis - cardiology signed off. Fever likely due to cellulitis/ questionable UTI - UC with e-coli - continue vancomycin and zosyn for now - dc IV Vanco- continue Zosyn Chest pain Elevated Troponin/likely due to V-tach - cardiology evaluated - no further work-up at this time. -continue Aspirin erythema and swelling of the left arm- superficial phlebitis venous doppler with basilic vein thrombosis continue pain control- elevated the arm along with warm compress. Anxiety - Alprazolam COPD - No exacerbation - No indication for steroid - oxygen as needed to keep sats above 90 - Albuterol Sulfate - Budesonide/ Formoterol Fumarate History of CHF- chronic diastolic - Furosemide - Lisinopril - Metoprolol Depression - Topiramate - Fluoxetine DVT GI prophylaxis - Enoxaparin, teds SCDs - Pantoprazole consulted PT. Discharge Planning d/w the patient; rehab was offered which the patient agreed. will consult case management. dc to rehab in am if stable. Avni oGodwin MD Mar 18, 2017 09:10
[2017-03-18] MEDS: FUROSEMIDE 20 MG TAB PO SCH (09:54)
[2017-03-18] MEDS: ASPIRIN 325 MG TAB PO SCH (09:54)
[2017-03-18] MEDS: FLUoxetine HCL 20 MG CAP PO SCH (09:55)
[2017-03-18] MEDS: TAMSULOSIN HCL 0.4 MG CAP PO SCH (09:55)
[2017-03-18] MEDS: LISINOPRIL 5 MG TAB PO SCH (09:55)
[2017-03-18] MEDS: AMIODARONE 200 MG TAB PO SCH ×2 (09:55→20:37)
[2017-03-18] MEDS: PANTOPRAZOLE SOD 20 MG DELAYED RELEASE TAB PO SCH (09:55)
[2017-03-18] MEDS: METOPROLOL TARTRATE 25 MG TAB PO SCH (09:55)
[2017-03-18] MEDS: DOCUSATE SODIUM 50 MG/SENNA 8.6 MG TAB PO SCH ×2 (09:55→20:36)
[2017-03-18] MEDS: POTASSIUM CHLORIDE 20 MEQ CONTROLLED RELEASE TAB PO SCH (09:59)
[2017-03-18] MEDS: oxyCODONE/ACETAMINOPHEN 10 MG/325 MG TAB PO PRN ×2 (10:04→23:17)
[2017-03-18] MEDS: BUDESONIDE-FORMOTEROL 80/4.5 MCG INHALER INH SCH ×2 (10:06→20:35)
[2017-03-18] MEDS: SODIUM CHLORIDE 0.9% FLUSH 10 ML FLUSH SCH ×2 (10:07→20:38)
[2017-03-18] MEDS: ENOXAPARIN SODIUM 40 MG/0.4 ML SYRINGE SQ SCH (20:35)
[2017-03-19] VITALS (21 sets, daily range): BP systolic 100–122; BP diastolic 55–78; PULSE 53–90; RESP 12–20; TEMP 97.5–98.6; O2SAT 96–98
[2017-03-19] MEDS: CHLORHEXIDINE GLUCONATE 2 % 1 PACK (2 CLOTHS) TOP SCH (01:09)
[2017-03-19] MEDS ORDERED: PHARMACY ORDERED LAB ONE (01:45)
[2017-03-19 04:13] LABS: HEMATOCRIT 29.2 % (35.0-46.0); MEAN CELL VOLUME 92.1 FL (80.0-100.0); MEAN CORPUSCULAR HEMOGLOBIN 29.7 PG (27.0-34.0); MEAN CORPUSCULAR HGB CONC 32.2 % (32.0-36.0); PLATELET COUNT 58 TH/MM3 (150-450); RED BLOOD COUNT 3.17 MIL/MM3 (4.00-5.30); RED CELL DISTRIBUTION WIDTH 17.4 % (11.6-17.2); WHITE BLOOD COUNT 3.7 TH/MM3 (4.0-11.0)
[2017-03-19 04:15] LABS: REVIEW FLAG FINAL
[2017-03-19 04:40] LABS: BICARBONATE 28.1 MEQ/L (21.0-32.0); POTASSIUM 3.1 MEQ/L (3.5-5.1)
[2017-03-19] MEDS: PIPERACIL-TAZO 4.5 GM PREMIX 100 ML IV SCH ×3 (06:32→18:11)
[2017-03-19] MEDS: oxyCODONE/ACETAMINOPHEN 5 MG/325 MG TAB PO PRN ×3 (06:37→09:52)
[2017-03-19] MEDS: BUDESONIDE-FORMOTEROL 80/4.5 MCG INHALER INH SCH ×2 (09:00→20:46)
[2017-03-19] MEDS: SODIUM CHLORIDE 0.9% FLUSH 10 ML FLUSH SCH ×2 (09:00→20:46)
--- NOTE | 2017-03-19 09:05 | HHI.PR ---
Subjective Remarks in no acute distress. no fever. still with mild pain to the left arm. no chest pain or sob. Objective Vitals Vital Signs Date Time Temp Pulse Resp B/P (MAP) Pulse Ox O2 Delivery O2 Flow Rate FiO2 03/19/17 08:00 60 03/19/17 07:00 54 03/19/17 07:00 97.6 54 16 107/56 (73) 97 03/19/17 07:00 Room Air 03/19/17 06:00 90 03/19/17 05:00 90 03/19/17 04:00 97.5 55 12 109/65 (80) 98 03/19/17 04:00 58 03/19/17 03:00 60 03/19/17 02:00 56 03/19/17 01:00 60 03/19/17 00:00 98.6 61 12 113/67 (82) 96 03/19/17 00:00 61 03/18/17 23:00 58 03/18/17 22:00 58 03/18/17 21:00 62 03/18/17 20:00 58 03/18/17 20:00 98.3 55 12 105/69 (81) 98 03/18/17 20:00 Room Air 03/18/17 18:11 74 03/18/17 17:00 67 03/18/17 16:00 81 03/18/17 15:00 77 03/18/17 15:00 97.3 74 18 132/77 (95) 96 03/18/17 14:00 76 03/18/17 13:00 64 03/18/17 12:00 60 03/18/17 11:04 16 03/18/17 11:00 98.4 60 14 104/59 (74) 97 03/18/17 11:00 56 03/18/17 10:00 60 03/18/17 09:00 52 I/O 03/18/17 03/18/17 03/18/17 03/19/17 03/19/17 03/19/17 07:00 15:00 23:00 07:00 15:00 23:00 Intake Total 720 ml 1100 ml 686 ml Output Total 2050 ml 2500 ml Balance -1330 ml -1400 ml 686 ml Intake Oral 720 ml 1100 ml 480 ml IV Total 206 ml Output Urine Total 2050 ml 2500 ml Bladder Scan Volume Amount 300 ml # Voids 2 # Bowel Movements 1 Result Diagram: 03/19/17 0330 03/19/17 0330 Imaging Last Impressions Upper Extremity Ultrasound 03/17/17 0000 Signed Impressions: Service Date/Time: February 08:21 - CONCLUSION: 1. Occlusive and nonocclusive thrombus in the left basilic vein. Remaining left upper extremity veins are patent. Johnny Moreira MD Lower Extremity Ultrasound 03/15/17 0000 Signed Impressions: Service Date/Time: Wednesday, March 15, 2017 12:21 - CONCLUSION: 1. No DVT identified. 2. Enlarged lymph nodes in the left groin. Zaheer Franks MD Chest X-Ray 03/14/17 1805 Signed Impressions: Service Date/Time: Tuesday, March 14, 2017 18:11 - CONCLUSION: 1. Mild central pulmonary vascular congestion. 2. Bibasilar atelectasis and/or infiltrates. 3. Cardiomegaly. Vic Alfred MD Objective Remarks GENERAL: This is a well-nourished, well-developed patient, in no apparent distress. CARDIOVASCULAR: Regular rate and regular rhythm without murmurs, gallops, or rubs. RESPIRATORY: Clear to auscultation. Breath sounds equal bilaterally. No wheezes , rales, or rhonchi. GASTROINTESTINAL: Abdomen soft, non-tender, nondistended. Normal, active bowel sounds MUSCULOSKELETAL: Extremities without clubbing, cyanosis, or edema. NEURO: Alert & Oriented x4 to person, place, time, situation. Moves all ext x4 skin; some erythema over both legs. Medications and IVs Current Medications Morphine Sulfate (Morphine Inj) 4 mg ONCE ONCE IV PUSH Last administered on 18:26; Start 03/14/17 at 18:15; Stop 03/14/17 at 18:16; Status DC Nitroglycerin (Nitroglycerin 2% Oint) 1 inch ONCE ONCE TOP Last administered on 03/14/17 18:27; Start 03/14/17 at 18:15; Stop 03/14/17 at 18:16; Status DC Sodium Chloride (NS Flush) 2 ml UNSCH PRN IVF FLUSH AFTER USING IV ACCESS; Start 03/14/17 at 18:15; Stop 03/14/17 at 20:30; Status DC Ondansetron HCl (Zofran Inj) 4 mg ONCE ONCE IV PUSH Last administered on 18:27; Start 03/14/17 at 18:15; Stop 03/14/17 at 18:16; Status DC Magnesium Sulfate/ Dextrose 100 ml @ 100 mls/hr Q1H IV Last administered on 19:37; Start 03/14/17 at 18:15; Stop 03/14/17 at 20:14; Status DC Lidocaine HCl (Xylocaine 2% Inj) 90 mg BOLUS ONCE IV PUSH Last administered on 03/14/17 18:27; Start 03/14/17 at 18:30; Stop 03/14/17 at 18:31; Status DC Vancomycin HCl 1000 mg/Sodium Chloride 250 ml @ 250 mls/hr ONCE STAT IV Last administered on 03/14/17 19:34; Start 03/14/17 at 18:22; Stop 03/14/17 at 19:21 ; Status DC Piperacillin Sod/ Tazobactam Sod 100 ml @ 200 mls/hr ONCE STAT IV Last administered on 03/14/17 18:44; Start 03/14/17 at 18:22; Stop 03/14/17 at 18:51 ; Status DC Aspirin (Aspirin Supp) 600 mg ONCE ONCE RECTAL ; Start 03/14/17 at 18:45; Stop 03/14/17 at 18:46; Status DC Lidocaine HCl (Xylocaine 2% Inj) 50 mg ONCE IV PUSH ; Start 03/14/17 at 19:00 Lidocaine HCl/ Dextrose 500 ml @ 30 mls/hr [id number] IV Last administered on 19:35; Start 03/14/17 at 18:49; Stop 03/14/17 at 23:32; Status DC Propranolol HCl (Inderal Inj) 5 mg ONCE ONCE IV PUSH ; Start 03/14/17 at 19:00 ; Stop 03/14/17 at 19:02; Status DC Propranolol HCl (Inderal Inj) 5 mg ONCE PRN IV PUSH VT; Start 03/14/17 at 19:05 ; Stop 03/15/17 at 11:37; Status DC Propranolol HCl (Inderal Inj) 5 mg ONCE PRN IV PUSH VT; Start 03/14/17 at 19:00 ; Stop 03/15/17 at 11:37; Status DC Calcium Gluconate 1 gm/Sodium Chloride 110 ml @ 110 mls/hr ONCE ONCE IV Last administered on 03/14/17 19:56; Start 03/14/17 at 19:30; Stop 03/14/17 at 20:29 ; Status DC Potassium Bicarb/ Potassium Chloride (K-Lyte Cl Eff) 50 meq ONCE ONCE PO Last administered on 03/14/17 20:03; Start 03/14/17 at 20:00; Stop 03/14/17 at 20:01; Status DC Metoprolol Tartrate (Lopressor Inj) 5 mg Q5M PRN IV PUSH HR>110 Last administered on 03/14/17 21:02; Start 03/14/17 at 20:15 Fentanyl Citrate (fentaNYL INJ) 100 mcg ONCE ONCE IV PUSH Last administered on 03/14/17 20:31; Start 03/14/17 at 20:15; Stop 03/14/17 at 20:20; Status DC Albuterol Sulfate (Proair Hfa Inh) 2 puff Q2H PRN INH SHORTNESS OF BREATH; Start 03/14/17 at 20:15 Alprazolam (Xanax) 1 mg Q8H PRN PO ANXIETY Last administered on 03/18/17 23:19 ; Start 03/14/17 at 20:15 Aspirin (Aspirin) 325 mg DAILY PO Last administered on 03/18/17 09:54; Start 03/15/17 at 09:00 Budesonide/ Formoterol Fumarate (Symbicort 80-4.5 Mcg Inh) 2 puff Q12HR INH Last administered on 03/18/17 20:35; Start 03/14/17 at 21:00 Furosemide (Lasix) 20 mg DAILY PO Last administered on 03/18/17 09:54; Start 03/15/17 at 09:00 Lisinopril (Prinivil) 5 mg DAILY PO Last administered on 03/18/17 09:55; Start 03/15/17 at 09:00 Metoprolol Tartrate (Lopressor) 25 mg DAILY PO Last administered on 03/18/17 09:55; Start 03/15/17 at 09:00 Oxycodone/ Acetaminophen (Percocet 10-325 Mg) 1 tab Q12HR PRN PO PAIN SCALE 6 TO 10 Last administered on 03/18/17 23:17; Start 03/14/17 at 20:15 Oxycodone/ Acetaminophen (Percocet 5-325 Mg) 1 tab Q6H PRN PO PAIN SCALE 1 TO 5 Last administered on 03/19/17 06:37; Start 03/14/17 at 20:15 Potassium Chloride (KCl) 20 meq DAILY PO Last administered on 03/18/17 09:59; Start 03/15/17 at 09:00 Topiramate (Topamax) 25 mg BID PO Last administered on 03/18/17 20:37; Start 03/14/17 at 21:00 Non-Formulary Medication 80 mg DAILY PO ; Start 03/15/17 at 09:00; Status UNV Non-Formulary Medication 20 mg DAILY PO ; Start 03/15/17 at 09:00; Status UNV Sodium Chloride (NS Flush) 2 ml UNSCH PRN .XX FLUSH AFTER USING IV ACCESS; Start 03/14/17 at 20:30 Sodium Chloride (NS Flush) 2 ml BID .XX Last administered on 03/18/17 20:38; Start 03/14/17 at 21:00 Acetaminophen (Tylenol) 650 mg Q6H PRN PO PAIN 1 TO 10/FEVER >101F Last administered on 03/14/17 21:02; Start 03/14/17 at 20:30 Ondansetron HCl (Zofran Inj) 4 mg Q6H PRN IV PUSH NAUSEA OR VOMITING; Start at 20:30 Zolpidem Tartrate (Ambien) 5 mg HS PRN PO INSOMNIA; Start 03/14/17 at 20:30; Stop 03/15/17 at 11:37; Status DC Enoxaparin Sodium (Lovenox Inj) 40 mg Q24H SQ Last administered on 03/18/17 20 :35; Start 03/14/17 at 21:00 Miscellaneous Information 1 [id number] ; Start 03/14/17 at 20:30 Chlorhexidine Gluconate (Chlorhexidine 2% Cloth) 3 pack Taper DAILY@04 TOP ; Start 03/15/17 at 04:00; Stop 03/11/18 at 03:59 Chlorhexidine Gluconate (Chlorhexidine 2% Cloth) 3 pack UNSCH PRN TOP HYGIENIC CARE; Start 03/14/17 at 20:30 Senna/Docusate Sodium (Cassia-Colace) 1 tab BID PO Last administered on 20:36; Start 03/14/17 at 21:00 Magnesium Hydroxide (Milk Of Magnesia Liq) 30 ml Q12H PRN PO MILD - MODERATE CONSTIPATION; Start 03/14/17 at 20:30 Sennosides (Senokot) 17.2 mg Q12H PRN PO MODERATE - SEVERE CONSTIPATION; Start 03/14/17 at 20:30 Bisacodyl (Dulcolax Supp) 10 mg DAILY PRN RECTAL SEVERE CONSITIPATION; Start at 20:30 Lactulose (Lactulose Liq) 30 ml DAILY PRN PO SEVERE CONSITIPATION; Start at 20:30 Fluoxetine HCl (PROzac) 80 mg DAILY PO Last administered on 03/18/17 09:55; Start 03/15/17 at 09:00 Pantoprazole Sodium (Protonix) 20 mg DAILY PO Last administered on 03/18/17 09 :55; Start 03/15/17 at 09:00 Potassium Chloride 100 ml @ 50 mls/hr Q2H IV Last administered on 03/15/17 03 :39; Start 03/14/17 at 22:00; Stop 03/15/17 at 05:59; Status DC Amiodarone HCl 450 mg/Dextrose 250 ml @ 33.33 mls/ hr Q7H31M IV Last administered on 03/15/17 21:04; Start 03/14/17 at 23:45; Stop 03/15/17 at 23:45 ; Status DC Magnesium Oxide (Mag-Ox) 800 mg UNSCH PRN PO For Magnesium 1.2 - 1.6 mg/dL; Start 03/15/17 at 11:45; Stop 03/17/17 at 08:15; Status DC Magnesium Sulfate 4 gm/Sodium Chloride 100 ml @ 50 mls/hr UNSCH PRN IV For Magnesium 0.9 - 1.1 mg/dL; Start 03/15/17 at 11:45; Stop 03/17/17 at 08:15; Status DC Magnesium Sulfate 2 gm/Sodium Chloride 100 ml @ 50 mls/hr UNSCH PRN IV For Magnesium 1.2 - 1.6 mg/dL; Start 03/15/17 at 11:45; Stop 03/17/17 at 08:15; Status DC Potassium Chloride 100 ml @ 50 mls/hr Q2H PRN IV For Potassium 2.8 - 3.2 mEq/L ; Start 03/15/17 at 11:45; Stop 03/17/17 at 08:15; Status DC Potassium Chloride 100 ml @ 50 mls/hr Q2H PRN IV For Potassium 3.3 - 3.5 mEq/L ; Start 03/15/17 at 11:45; Stop 03/17/17 at 08:15; Status DC Potassium Chloride 100 ml @ 50 mls/hr Q2H PRN IV For Potassium 2.8 - 3.2 mEq/L ; Start 03/15/17 at 11:45; Stop 03/17/17 at 08:15; Status DC Potassium Chloride 100 ml @ 25 mls/hr UNSCH PRN IV For Potassium 3.3 - 3.5 mEq /L; Start 03/15/17 at 11:45; Stop 03/17/17 at 08:15; Status DC Potassium Phosphate (K-Phos) 2,000 mg Q4H PRN PO For Phosphorus < 2.5 mg/dL; Start 03/15/17 at 11:45; Stop 03/17/17 at 08:15; Status DC Potassium Phosphate (K-Phos) 2,000 mg UNSCH PRN PO/TUBE SEE LABEL COMMENTS; Start 03/15/17 at 11:45; Stop 03/17/17 at 08:15; Status DC Potassium Phosphate 30 mmol/ Sodium Chloride 260 ml @ 42 mls/hr UNSCH PRN IV SEE LABEL COMMENTS; Start 03/15/17 at 11:45; Stop 03/17/17 at 08:15; Status DC Sodium Phosphate 30 mmol/Sodium Chloride 250 ml @ 42 mls/hr UNSCH PRN IV For Phosphorus < 2.5 mg/dL; Start 03/15/17 at 11:45; Stop 03/17/17 at 08:15; Status DC Pharmacy Profile Note 0 ml @ 0 mls/hr UNSCH OTHER ; Start 03/15/17 at 11:45; Stop 03/18/17 at 09:12; Status DC Vancomycin HCl 1250 mg/Sodium Chloride 262.5 ml @ 250 mls/hr ONCE ONCE IV ; Start 03/15/17 at 13:00; Stop 03/15/17 at 13:00; Status DC Piperacillin Sod/ Tazobactam Sod 100 ml @ 200 mls/hr Q6H IV Last administered on 03/19/17 06:32; Start 03/15/17 at 13:00 Amiodarone HCl (Cordarone) 400 mg Q12HR PO Last administered on 03/18/17 20:37 ; Start 03/15/17 at 23:45 Vancomycin HCl 1250 mg/Sodium Chloride 262.5 ml @ 250 mls/hr Q12H IV Last administered on 03/17/17 02:31; Start 03/15/17 at 14:00; Stop 03/17/17 at 08:41 ; Status DC Miscellaneous Information SPECIFIC LAB TO BE DRAWN:VANCOMYCIN TROUGH DATE TO... ONCE ONCE .XX Last administered on 03/17/17 01:45; Start 03/17/17 at 01:45; Stop 03/17/17 at 01:46; Status DC Sodium Chloride 500 ml @ 0 mls/hr Q0M ONCE IV Last administered on 03/15/17 13 :00; Start 03/15/17 at 13:00; Stop 03/15/17 at 13:01; Status DC Tamsulosin HCl (Flomax) 0.4 mg DAILY PO Last administered on 03/18/17 09:55; Start 03/16/17 at 09:00 Vancomycin HCl 1000 mg/Sodium Chloride 250 ml @ 250 mls/hr Q12H IV Last administered on 03/18/17 02:22; Start 03/17/17 at 14:00; Stop 03/18/17 at 09:12 ; Status DC Miscellaneous Information SPECIFIC LAB TO BE DRAWN:VANCOMYCIN TROUGH DATE TO... ONCE ONCE .XX ; Start 03/19/17 at 01:45; Stop 03/19/17 at 01:46; Status Cancel Potassium Phos/ Sodium Phos (K-Phos Neutral) 250 mg Q8HR PO Last administered on 03/18/17 05:57; Start 03/17/17 at 14:00; Stop 03/18/17 at 10:38; Status DC A/P Assessment and Plan A/P Ventricular tachycardia - AICD in place - continue po amiodarone and metoprolol - Electrolytes replacement as needed - echo with EF 55% and moderate mitral stenosis - cardiology signed off. Fever likely due to cellulitis/ questionable UTI - UC with e-coli - continue with Zosyn -will switch to po antibiotic tomorrow- Chest pain Elevated Troponin/likely due to V-tach - cardiology evaluated - no further work-up at this time. -continue Aspirin erythema and swelling of the left arm- superficial phlebitis- improving venous doppler with basilic vein thrombosis continue pain control- elevated the arm along with warm compress. Anxiety - Alprazolam COPD - No exacerbation - No indication for steroid - oxygen as needed to keep sats above 90 - Albuterol Sulfate - Budesonide/ Formoterol Fumarate History of CHF- chronic diastolic - Furosemide - Lisinopril - Metoprolol Depression - Topiramate - Fluoxetine hypokalemia will replace and monitor. DVT GI prophylaxis - Enoxaparin, teds SCDs - Pantoprazole consulted PT. Discharge Planning dc to rehab tomorrow. Avni Goodwin MD Mar 19, 2017 09:05
[2017-03-19] MEDS ORDERED: PERC5TAB12 PO (09:09)
[2017-03-19] MEDS ORDERED: XANA1TAB2 PO (09:09)
[2017-03-19] MEDS ORDERED: AMIO200T PO (09:09)
[2017-03-19] MEDS ORDERED: CEPH-460 PO (09:09)
[2017-03-19] MEDS ORDERED: POTASSIUM CHLORIDE 10 MEQ CONTROLLED RELEASE TAB PO ONE ×2 (09:45→13:00)
[2017-03-19] MEDS: AMIODARONE 200 MG TAB PO SCH ×2 (09:48→20:44)
[2017-03-19] MEDS: PANTOPRAZOLE SOD 20 MG DELAYED RELEASE TAB PO SCH (09:48)
[2017-03-19] MEDS: FLUoxetine HCL 20 MG CAP PO SCH (09:48)
[2017-03-19] MEDS: DOCUSATE SODIUM 50 MG/SENNA 8.6 MG TAB PO SCH ×2 (09:49→20:50)
[2017-03-19] MEDS: TOPIRAMATE 25 MG TAB PO SCH ×2 (09:49→20:43)
[2017-03-19] MEDS: oxyCODONE/ACETAMINOPHEN 10 MG/325 MG TAB PO PRN ×2 (09:49→20:43)
[2017-03-19] MEDS: METOPROLOL TARTRATE 25 MG TAB PO SCH (09:49)
[2017-03-19] MEDS: TAMSULOSIN HCL 0.4 MG CAP PO SCH (09:49)
[2017-03-19] MEDS: FUROSEMIDE 20 MG TAB PO SCH (09:49)
[2017-03-19] MEDS: ASPIRIN 325 MG TAB PO SCH (09:49)
[2017-03-19] MEDS: LISINOPRIL 5 MG TAB PO SCH (09:50)
[2017-03-19] MEDS: POTASSIUM CHLORIDE 20 MEQ CONTROLLED RELEASE TAB PO SCH (09:50)
[2017-03-19] MEDS: ALPRAZolam 1 MG TAB PO PRN ×2 (13:16→20:43)
[2017-03-19] MEDS ORDERED: POTASSIUM CHLORIDE 20 MEQ CONTROLLED RELEASE TAB PO ONE (17:00)
[2017-03-19] MEDS: ENOXAPARIN SODIUM 40 MG/0.4 ML SYRINGE SQ SCH (20:43)
[2017-03-20] VITALS (17 sets, daily range): BP systolic 117–140; BP diastolic 70–87; PULSE 52–65; RESP 14–18; TEMP 97.9–98.8; O2SAT 96–97
[2017-03-20] MEDS: PIPERACIL-TAZO 4.5 GM PREMIX 100 ML IV SCH ×3 (00:14→13:27)
[2017-03-20] MEDS: CHLORHEXIDINE GLUCONATE 2 % 1 PACK (2 CLOTHS) TOP SCH (04:00)
[2017-03-20 06:32] LABS: HEMATOCRIT 28.1 % (35.0-46.0); MEAN CELL VOLUME 91.7 FL (80.0-100.0); MEAN CORPUSCULAR HEMOGLOBIN 29.4 PG (27.0-34.0); MEAN CORPUSCULAR HGB CONC 32.1 % (32.0-36.0); PLATELET COUNT 68 TH/MM3 (150-450); RED BLOOD COUNT 3.07 MIL/MM3 (4.00-5.30); RED CELL DISTRIBUTION WIDTH 17.2 % (11.6-17.2); WHITE BLOOD COUNT 3.1 TH/MM3 (4.0-11.0)
[2017-03-20 06:35] LABS: AUTOMATED NEUTROPHIL # 2.2 TH/MM3 (1.8-7.7); BASOPHIL % 0.5 % (0.0-2.0); EOSINOPHIL # 0.1 TH/MM3 (0-0.4); EOSINOPHIL % 2.7 % (0.0-4.0); HEMATOCRIT 28.5 % (35.0-46.0); LYMPHOCYTE # 0.6 TH/MM3 (1.0-4.8); MEAN CELL VOLUME 91.8 FL (80.0-100.0); MEAN CORPUSCULAR HEMOGLOBIN 29.1 PG (27.0-34.0); MEAN CORPUSCULAR HGB CONC 31.7 % (32.0-36.0); MONO % 7.3 % (0.0-8.0); NEUT % 69.5 % (16.0-70.0); PLATELET COUNT 66 TH/MM3 (150-450); RED CELL DISTRIBUTION WIDTH 17.4 % (11.6-17.2); WHITE BLOOD COUNT 3.1 TH/MM3 (4.0-11.0)
[2017-03-20 06:46] LABS: BICARBONATE 27.5 MEQ/L (21.0-32.0)
[2017-03-20 06:58] LABS: REVIEW FLAG FINAL
[2017-03-20 06:59] LABS: HEMO FLAGS AUTO DIFF
[2017-03-20 08:02] LABS: PLATELET ESTIMATE SMEAR LOW (NORMAL); PLATELET MORPHOLOGY NORMAL (NORMAL); SCAN/DIFF AUTO DIFF CONFIRMED
--- NOTE | 2017-03-20 08:35 | HHI.PR ---
Subjective Remarks in no acute distress. afebrile. no new complaints. says that had a peaceful night. Objective Vitals Vital Signs Date Time Temp Pulse Resp B/P (MAP) Pulse Ox O2 Delivery O2 Flow Rate FiO2 03/20/17 06:00 59 03/20/17 05:00 58 03/20/17 04:00 98.2 57 18 122/81 (95) 96 03/20/17 04:00 57 03/20/17 03:00 58 03/20/17 02:00 63 03/20/17 01:00 60 03/20/17 00:00 97.9 61 18 123/75 (91) 97 03/20/17 00:00 61 03/19/17 23:00 61 03/19/17 22:00 60 03/19/17 21:00 57 03/19/17 20:00 59 03/19/17 20:00 Room Air 03/19/17 20:00 97.5 64 20 122/78 (93) 96 03/19/17 18:12 56 03/19/17 16:07 55 03/19/17 15:50 55 03/19/17 15:50 98.0 55 20 100/55 (70) 98 03/19/17 14:28 55 03/19/17 13:05 53 03/19/17 11:42 53 03/19/17 11:42 98.1 53 20 111/73 (86) 98 03/19/17 11:41 18 03/19/17 10:25 16 03/19/17 10:00 54 03/19/17 09:05 57 I/O 03/19/17 03/19/17 03/19/17 03/20/17 03/20/17 03/20/17 07:00 15:00 23:00 07:00 15:00 23:00 Intake Total 686 ml 960 ml 680 ml Output Total 250 ml 1600 ml Balance 686 ml 710 ml -920 ml Intake Oral 480 ml 960 ml 480 ml IV Total 206 ml 200 ml Output Urine Total 250 ml 1600 ml # Voids 2 3 # Bowel Movements 1 1 1 Result Diagram: 03/20/17 0602 03/20/17 0602 Imaging Last Impressions Upper Extremity Ultrasound 03/17/17 0000 Signed Impressions: Service Date/Time: February 08:21 - CONCLUSION: 1. Occlusive and nonocclusive thrombus in the left basilic vein. Remaining left upper extremity veins are patent. Johnny Moreira MD Lower Extremity Ultrasound 03/15/17 0000 Signed Impressions: Service Date/Time: Wednesday, March 15, 2017 12:21 - CONCLUSION: 1. No DVT identified. 2. Enlarged lymph nodes in the left groin. Zaheer Franks MD Chest X-Ray 03/14/17 1805 Signed Impressions: Service Date/Time: Tuesday, March 14, 2017 18:11 - CONCLUSION: 1. Mild central pulmonary vascular congestion. 2. Bibasilar atelectasis and/or infiltrates. 3. Cardiomegaly. Vic Alfred MD Objective Remarks GENERAL: This is a well-nourished, well-developed patient, in no apparent distress. CARDIOVASCULAR: Regular rate and regular rhythm without murmurs, gallops, or rubs. RESPIRATORY: Clear to auscultation. Breath sounds equal bilaterally. No wheezes , rales, or rhonchi. GASTROINTESTINAL: Abdomen soft, non-tender, nondistended. Normal, active bowel sounds MUSCULOSKELETAL: Extremities without clubbing, cyanosis, or edema. NEURO: Alert & Oriented x4 to person, place, time, situation. Moves all ext x4 skin; some erythema over both legs. Procedures none Medications and IVs Current Medications Morphine Sulfate (Morphine Inj) 4 mg ONCE ONCE IV PUSH Last administered on 18:26; Start 03/14/17 at 18:15; Stop 03/14/17 at 18:16; Status DC Nitroglycerin (Nitroglycerin 2% Oint) 1 inch ONCE ONCE TOP Last administered on 03/14/17 18:27; Start 03/14/17 at 18:15; Stop 03/14/17 at 18:16; Status DC Sodium Chloride (NS Flush) 2 ml UNSCH PRN IVF FLUSH AFTER USING IV ACCESS; Start 03/14/17 at 18:15; Stop 03/14/17 at 20:30; Status DC Ondansetron HCl (Zofran Inj) 4 mg ONCE ONCE IV PUSH Last administered on 18:27; Start 03/14/17 at 18:15; Stop 03/14/17 at 18:16; Status DC Magnesium Sulfate/ Dextrose 100 ml @ 100 mls/hr Q1H IV Last administered on 19:37; Start 03/14/17 at 18:15; Stop 03/14/17 at 20:14; Status DC Lidocaine HCl (Xylocaine 2% Inj) 90 mg BOLUS ONCE IV PUSH Last administered on 03/14/17 18:27; Start 03/14/17 at 18:30; Stop 03/14/17 at 18:31; Status DC Vancomycin HCl 1000 mg/Sodium Chloride 250 ml @ 250 mls/hr ONCE STAT IV Last administered on 03/14/17 19:34; Start 03/14/17 at 18:22; Stop 03/14/17 at 19:21 ; Status DC Piperacillin Sod/ Tazobactam Sod 100 ml @ 200 mls/hr ONCE STAT IV Last administered on 03/14/17 18:44; Start 03/14/17 at 18:22; Stop 03/14/17 at 18:51 ; Status DC Aspirin (Aspirin Supp) 600 mg ONCE ONCE RECTAL ; Start 03/14/17 at 18:45; Stop 03/14/17 at 18:46; Status DC Lidocaine HCl (Xylocaine 2% Inj) 50 mg ONCE IV PUSH ; Start 03/14/17 at 19:00 Lidocaine HCl/ Dextrose 500 ml @ 30 mls/hr [id number] IV Last administered on 19:35; Start 03/14/17 at 18:49; Stop 03/14/17 at 23:32; Status DC Propranolol HCl (Inderal Inj) 5 mg ONCE ONCE IV PUSH ; Start 03/14/17 at 19:00 ; Stop 03/14/17 at 19:02; Status DC Propranolol HCl (Inderal Inj) 5 mg ONCE PRN IV PUSH VT; Start 03/14/17 at 19:05 ; Stop 03/15/17 at 11:37; Status DC Propranolol HCl (Inderal Inj) 5 mg ONCE PRN IV PUSH VT; Start 03/14/17 at 19:00 ; Stop 03/15/17 at 11:37; Status DC Calcium Gluconate 1 gm/Sodium Chloride 110 ml @ 110 mls/hr ONCE ONCE IV Last administered on 03/14/17 19:56; Start 03/14/17 at 19:30; Stop 03/14/17 at 20:29 ; Status DC Potassium Bicarb/ Potassium Chloride (K-Lyte Cl Eff) 50 meq ONCE ONCE PO Last administered on 03/14/17 20:03; Start 03/14/17 at 20:00; Stop 03/14/17 at 20:01; Status DC Metoprolol Tartrate (Lopressor Inj) 5 mg Q5M PRN IV PUSH HR>110 Last administered on 03/14/17 21:02; Start 03/14/17 at 20:15 Fentanyl Citrate (fentaNYL INJ) 100 mcg ONCE ONCE IV PUSH Last administered on 03/14/17 20:31; Start 03/14/17 at 20:15; Stop 03/14/17 at 20:20; Status DC Albuterol Sulfate (Proair Hfa Inh) 2 puff Q2H PRN INH SHORTNESS OF BREATH; Start 03/14/17 at 20:15 Alprazolam (Xanax) 1 mg Q8H PRN PO ANXIETY Last administered on 03/19/17 20:43 ; Start 03/14/17 at 20:15 Aspirin (Aspirin) 325 mg DAILY PO Last administered on 03/19/17 09:49; Start 03/15/17 at 09:00 Budesonide/ Formoterol Fumarate (Symbicort 80-4.5 Mcg Inh) 2 puff Q12HR INH Last administered on 03/19/17 20:46; Start 03/14/17 at 21:00 Furosemide (Lasix) 20 mg DAILY PO Last administered on 03/19/17 09:49; Start 03/15/17 at 09:00 Lisinopril (Prinivil) 5 mg DAILY PO Last administered on 03/19/17 09:50; Start 03/15/17 at 09:00 Metoprolol Tartrate (Lopressor) 25 mg DAILY PO Last administered on 03/19/17 09:49; Start 03/15/17 at 09:00 Oxycodone/ Acetaminophen (Percocet 10-325 Mg) 1 tab Q12HR PRN PO PAIN SCALE 6 TO 10 Last administered on 03/19/17 20:43; Start 03/14/17 at 20:15 Oxycodone/ Acetaminophen (Percocet 5-325 Mg) 1 tab Q6H PRN PO PAIN SCALE 1 TO 5 Last administered on 03/19/17 09:52; Start 03/14/17 at 20:15 Potassium Chloride (KCl) 20 meq DAILY PO Last administered on 03/19/17 09:50; Start 03/15/17 at 09:00 Topiramate (Topamax) 25 mg BID PO Last administered on 03/19/17 20:43; Start 03/14/17 at 21:00 Non-Formulary Medication 80 mg DAILY PO ; Start 03/15/17 at 09:00; Status UNV Non-Formulary Medication 20 mg DAILY PO ; Start 03/15/17 at 09:00; Status UNV Sodium Chloride (NS Flush) 2 ml UNSCH PRN .XX FLUSH AFTER USING IV ACCESS; Start 03/14/17 at 20:30 Sodium Chloride (NS Flush) 2 ml BID .XX Last administered on 03/19/17 20:46; Start 03/14/17 at 21:00 Acetaminophen (Tylenol) 650 mg Q6H PRN PO PAIN 1 TO 10/FEVER >101F Last administered on 03/14/17 21:02; Start 03/14/17 at 20:30 Ondansetron HCl (Zofran Inj) 4 mg Q6H PRN IV PUSH NAUSEA OR VOMITING; Start at 20:30 Zolpidem Tartrate (Ambien) 5 mg HS PRN PO INSOMNIA; Start 03/14/17 at 20:30; Stop 03/15/17 at 11:37; Status DC Enoxaparin Sodium (Lovenox Inj) 40 mg Q24H SQ Last administered on 03/19/17 20 :43; Start 03/14/17 at 21:00 Miscellaneous Information 1 [id number] XX ; Start 03/14/17 at 20:30 Chlorhexidine Gluconate (Chlorhexidine 2% Cloth) Taper DAILY@04 TOP ; Start at 04:00; Stop 03/11/18 at 03:59 Chlorhexidine Gluconate (Chlorhexidine 2% Cloth) 3 pack UNSCH PRN TOP HYGIENIC CARE; Start 03/14/17 at 20:30 Senna/Docusate Sodium (Cassia-Colace) 1 tab BID PO Last administered on 09:49; Start 03/14/17 at 21:00 Magnesium Hydroxide (Milk Of Magnesia Liq) 30 ml Q12H PRN PO MILD - MODERATE CONSTIPATION; Start 03/14/17 at 20:30 Sennosides (Senokot) 17.2 mg Q12H PRN PO MODERATE - SEVERE CONSTIPATION; Start 03/14/17 at 20:30 Bisacodyl (Dulcolax Supp) 10 mg DAILY PRN RECTAL SEVERE CONSITIPATION; Start at 20:30 Lactulose (Lactulose Liq) 30 ml DAILY PRN PO SEVERE CONSITIPATION; Start at 20:30 Fluoxetine HCl (PROzac) 80 mg DAILY PO Last administered on 03/19/17 09:48; Start 03/15/17 at 09:00 Pantoprazole Sodium (Protonix) 20 mg DAILY PO Last administered on 03/19/17 09 :48; Start 03/15/17 at 09:00 Potassium Chloride 100 ml @ 50 mls/hr Q2H IV Last administered on 03/15/17 03 :39; Start 03/14/17 at 22:00; Stop 03/15/17 at 05:59; Status DC Amiodarone HCl 450 mg/Dextrose 250 ml @ 33.33 mls/ hr Q7H31M IV Last administered on 03/15/17 21:04; Start 03/14/17 at 23:45; Stop 03/15/17 at 23:45 ; Status DC Magnesium Oxide (Mag-Ox) 800 mg UNSCH PRN PO For Magnesium 1.2 - 1.6 mg/dL; Start 03/15/17 at 11:45; Stop 03/17/17 at 08:15; Status DC Magnesium Sulfate 4 gm/Sodium Chloride 100 ml @ 50 mls/hr UNSCH PRN IV For Magnesium 0.9 - 1.1 mg/dL; Start 03/15/17 at 11:45; Stop 03/17/17 at 08:15; Status DC Magnesium Sulfate 2 gm/Sodium Chloride 100 ml @ 50 mls/hr UNSCH PRN IV For Magnesium 1.2 - 1.6 mg/dL; Start 03/15/17 at 11:45; Stop 03/17/17 at 08:15; Status DC Potassium Chloride 100 ml @ 50 mls/hr Q2H PRN IV For Potassium 2.8 - 3.2 mEq/L ; Start 03/15/17 at 11:45; Stop 03/17/17 at 08:15; Status DC Potassium Chloride 100 ml @ 50 mls/hr Q2H PRN IV For Potassium 3.3 - 3.5 mEq/L ; Start 03/15/17 at 11:45; Stop 03/17/17 at 08:15; Status DC Potassium Chloride 100 ml @ 50 mls/hr Q2H PRN IV For Potassium 2.8 - 3.2 mEq/L ; Start 03/15/17 at 11:45; Stop 03/17/17 at 08:15; Status DC Potassium Chloride 100 ml @ 25 mls/hr UNSCH PRN IV For Potassium 3.3 - 3.5 mEq /L; Start 03/15/17 at 11:45; Stop 03/17/17 at 08:15; Status DC Potassium Phosphate (K-Phos) 2,000 mg Q4H PRN PO For Phosphorus < 2.5 mg/dL; Start 03/15/17 at 11:45; Stop 03/17/17 at 08:15; Status DC Potassium Phosphate (K-Phos) 2,000 mg UNSCH PRN PO/TUBE SEE LABEL COMMENTS; Start 03/15/17 at 11:45; Stop 03/17/17 at 08:15; Status DC Potassium Phosphate 30 mmol/ Sodium Chloride 260 ml @ 42 mls/hr UNSCH PRN IV SEE LABEL COMMENTS; Start 03/15/17 at 11:45; Stop 03/17/17 at 08:15; Status DC Sodium Phosphate 30 mmol/Sodium Chloride 250 ml @ 42 mls/hr UNSCH PRN IV For Phosphorus < 2.5 mg/dL; Start 03/15/17 at 11:45; Stop 03/17/17 at 08:15; Status DC Pharmacy Profile Note 0 ml @ 0 mls/hr UNSCH OTHER ; Start 03/15/17 at 11:45; Stop 03/18/17 at 09:12; Status DC Vancomycin HCl 1250 mg/Sodium Chloride 262.5 ml @ 250 mls/hr ONCE ONCE IV ; Start 03/15/17 at 13:00; Stop 03/15/17 at 13:00; Status DC Piperacillin Sod/ Tazobactam Sod 100 ml @ 200 mls/hr Q6H IV Last administered on 03/20/17t 05:51; Start 03/15/17 at 13:00 Amiodarone HCl (Cordarone) 400 mg Q12HR PO Last administered on 03/19/17 20:44 ; Start 03/15/17 at 23:45 Vancomycin HCl 1250 mg/Sodium Chloride 262.5 ml @ 250 mls/hr Q12H IV Last administered on 03/17/17 02:31; Start 03/15/17 at 14:00; Stop 03/17/17 at 08:41 ; Status DC Miscellaneous Information SPECIFIC LAB TO BE DRAWN:VANCOMYCIN TROUGH DATE TO... ONCE ONCE .XX Last administered on 03/17/17 01:45; Start 03/17/17 at 01:45; Stop 03/17/17 at 01:46; Status DC Sodium Chloride 500 ml @ 0 mls/hr Q0M ONCE IV Last administered on 03/15/17 13 :00; Start 03/15/17 at 13:00; Stop 03/15/17 at 13:01; Status DC Tamsulosin HCl (Flomax) 0.4 mg DAILY PO Last administered on 03/19/17 09:49; Start 03/16/17 at 09:00 Vancomycin HCl 1000 mg/Sodium Chloride 250 ml @ 250 mls/hr Q12H IV Last administered on 03/18/17 02:22; Start 03/17/17 at 14:00; Stop 03/18/17 at 09:12 ; Status DC Miscellaneous Information SPECIFIC LAB TO BE DRAWN:VANCOMYCIN TROUGH DATE TO... ONCE ONCE .XX ; Start 03/19/17 at 01:45; Stop 03/19/17 at 01:46; Status Cancel Potassium Phos/ Sodium Phos (K-Phos Neutral) 250 mg Q8HR PO Last administered on 03/18/17 05:57; Start 03/17/17 at 14:00; Stop 03/18/17 at 10:38; Status DC Potassium Chloride (KCl) 40 meq ONCE ONCE PO Last administered on 03/19/17 09 :48; Start 03/19/17 at 09:45; Stop 03/19/17 at 09:46; Status DC Potassium Chloride (KCl) 40 meq ONCE ONCE PO Last administered on 03/19/17 13 :17; Start 03/19/17 at 13:00; Stop 03/19/17 at 13:01; Status DC Potassium Chloride (KCl) 20 meq ONCE ONCE PO Last administered on 03/19/17t 17 :00; Start 03/19/17 at 17:00; Stop 03/19/17 at 17:01; Status DC A/P Assessment and Plan A/P Ventricular tachycardia - AICD in place - continue po amiodarone and metoprolol - Electrolytes replacement as needed - echo with EF 55% and moderate mitral stenosis - cardiology signed off. Fever likely due to cellulitis/ questionable UTI - UC with e-coli - treated with Zosyn -will switch to po antibiotic upon discharge. Chest pain Elevated Troponin/likely due to V-tach - cardiology evaluated - no further work-up at this time. -continue Aspirin erythema and swelling of the left arm- superficial phlebitis- improving venous doppler with basilic vein thrombosis continue pain control- elevated the arm along with warm compress. Anxiety - Alprazolam COPD - No exacerbation - No indication for steroid - oxygen as needed to keep sats above 90 - Albuterol Sulfate - Budesonide/ Formoterol Fumarate History of CHF- chronic diastolic - Furosemide - Lisinopril - Metoprolol Depression - Topiramate - Fluoxetine hypokalemia replaced. DVT GI prophylaxis - Enoxaparin, teds SCDs - Pantoprazole consulted PT. Discharge Planning dc to rehab today with f/u with pcp. see med list. d/w the patient. time spent 32 min. Avni Goodwin MD Mar 20, 2017 08:35
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
[2017-03-20] MEDS: ASPIRIN 325 MG TAB PO SCH (09:00)
[2017-03-20] MEDS: DOCUSATE SODIUM 50 MG/SENNA 8.6 MG TAB PO SCH (09:00)
[2017-03-20] MEDS: AMIODARONE 200 MG TAB PO SCH (09:10)
[2017-03-20] MEDS: TAMSULOSIN HCL 0.4 MG CAP PO SCH (09:10)
[2017-03-20] MEDS: PANTOPRAZOLE SOD 20 MG DELAYED RELEASE TAB PO SCH (09:11)
[2017-03-20] MEDS: FUROSEMIDE 20 MG TAB PO SCH (09:11)
[2017-03-20] MEDS: FLUoxetine HCL 20 MG CAP PO SCH (09:11)
[2017-03-20] MEDS: METOPROLOL TARTRATE 25 MG TAB PO SCH (09:11)
[2017-03-20] MEDS: POTASSIUM CHLORIDE 20 MEQ CONTROLLED RELEASE TAB PO SCH (09:11)
[2017-03-20] MEDS: TOPIRAMATE 25 MG TAB PO SCH (09:11)
[2017-03-20] MEDS: LISINOPRIL 5 MG TAB PO SCH (09:11)
[2017-03-20] MEDS: BUDESONIDE-FORMOTEROL 80/4.5 MCG INHALER INH SCH (09:13)
[2017-03-20] MEDS: SODIUM CHLORIDE 0.9% FLUSH 10 ML FLUSH SCH (09:13)
[2017-03-20] MEDS: ALPRAZolam 1 MG TAB PO PRN (09:36)
[2017-03-20] MEDS: oxyCODONE/ACETAMINOPHEN 10 MG/325 MG TAB PO PRN ×2 (09:36→16:25)
== END 2017-03-20 16:26 | DRG 309 ==
LOC: NEPC 18:03 → NEDA 19:27 → N03A 20:40 → HCIS 03-16 16:00
PROVIDERS: ADMIT Internal Medicine; ATTEND Internal Medicine
PROC: 0T9B70Z Drainage of Bladder with Drainage Device, Via Natural or Artificial Opening (ICD-10-PCS; principal; 2017-03-15)
DX: I47.2 Ventricular tachycardia (principal); I50.32 Chronic diastolic (congestive) heart failure; K74.60 Unspecified cirrhosis of liver; I11.0 Hypertensive heart disease with heart failure; L03.90 Cellulitis, unspecified; I82.619 Acute embolism and thrombosis of superficial veins of unspecified upper extremity; Z95.810 Presence of automatic (implantable) cardiac defibrillator; E87.6 Hypokalemia; B18.2 Chronic viral hepatitis C; F31.9 Bipolar disorder, unspecified; F41.9 Anxiety disorder, unspecified; M81.0 Age-related osteoporosis without current pathological fracture; M79.7 Fibromyalgia; K21.9 Gastro-esophageal reflux disease without esophagitis; K44.9 Diaphragmatic hernia without obstruction or gangrene; M54.5 Low back pain; G89.29 Other chronic pain; Z87.891 Personal history of nicotine dependence; J44.9 Chronic obstructive pulmonary disease, unspecified; E83.42 Hypomagnesemia; R00.1 Bradycardia, unspecified; I34.0 Nonrheumatic mitral (valve) insufficiency; Z91.14 Patient's other noncompliance with medication regimen; R74.8 Abnormal levels of other serum enzymes; R33.9 Retention of urine, unspecified
CPT/HCPCS: 71010; 76937; 80048; 80053; 80202; 80307; 81001; 82550; 82948; 83605; 83735; 83880; 84100; 84155; 84484; 85007; 85025; 85027; 85610; 85730; 87040; 87086; 87641; 87804; 93005; 93308; 93970; 93971; 96365; 96375; J0282; J0610; J1650; J2001; J2270; J2405; J2543; J3010; J3370; J3475; J3480; J7040; J7050; J7060

== ENCOUNTER 2017-07-11 19:30 | Inpatient (IN) | payer MEDICARE ==
[~2017-07-11] VITALS: Ht 144.8 cm; Wt 64.0 kg
[~2017-07-11 19:30] MED LIST changes: +AMIO200T PO; +ASPI-183 PO; -ASPI325T PO; +CEPH-460 PO; -OMEP20TA PO; +OMEP20TA93 PO; -OXYC1TAB36 PO; -TOPA25TA8 PO; +TOPI25 PO
[2017-07-11] MEDS ORDERED: IOHEXOL 350 MG/ML 10 ML VIAL (for RAD DIAG) IVCONTRAST ONE (19:31)
[2017-07-11 19:38] VITALS: BP 90/51; PULSE 63; RESP 22; TEMP 97.7; O2SAT 86; O2SAT 88
[2017-07-11 19:57] VITALS: RESP 22; O2SAT 90
--- NOTE | 2017-07-11 19:58 | PD ---
HPI Chief Complaint: Respiratory Symptoms Time Seen by Provider: 19:42 Travel History International Travel<30 days: No Contact w/Intl Traveler<30days: No Traveled to known affect area: No History of Present Illness HPI The patient is a 51 year old female who presents to the [facility] emergency department with a history of right-sided chest pain underneath the right breast anteriorly that began on . The patient reports that she's also had a cough that today became productive of green sputum. She reports that she's had intermittent fevers with a MAXIMUM TEMPERATURE of 101. She denies being seen for this previously. She does report having history of COPD. She denies having any prior history of myocardial infarction, congestive heart failure, DVT, or PE. She denies having any lower extremity edema or calf pain. She does report having some body aches. She reports having shortness of breath with exertion today. Ambulance services were called and the patient was noted to be lethargic with an O2 saturation of 70% on room air. She is not on any home oxygen. She does continue to smoke approximately 4 cigarettes per day. She denies any alcohol use. She does have a history of AICD placement with a prior history of recurrent V. tach. The patient was last admitted to the hospital in February 2017 related to persistent polymorphic V. tach and was placed on amiodarone. On review of systems otherwise, the patient denies having any neck pain, abdominal pain, vomiting, diarrhea, urinary symptoms, or neurologic symptoms. The patient reports that she's had a diminished appetite and generalized weakness. [facility] Past Medical History Narrative Medical The patient's past medical history is significant for polymorphic V. tach status post AICD placement and placement on amiodarone, history of COPD, history of anxiety disorder, chronic back pain, history of congestive heart failure that is chronic and diastolic, history of depression, history of superficial phlebitis of the left arm, history of hepatitis C, cirrhosis, attention deficit hyperactivity disorder, prolonged QT interval, osteoporosis, iron deficiency anemia status post last blood transfusion in 2015 by her report , hypertension, fibromyalgia, hiatal hernia, acid reflux. ADHD: Yes Anemia: Yes Arthritis: No Asthma: No Autoimmune Disease: Yes (HEPATITIS C) Blood Disorders: No Bipolar Disorder: Yes Anxiety: Yes Depression: Yes Heart Rhythm Problems: Yes (vtac) Cancer: No Cardiac Catheterization: No Cardiovascular Problems: Yes High Cholesterol: No Chemotherapy: No Chest Pain: No Congestive Heart Failure: Yes COPD: Yes Cerebrovascular Accident: No Diabetes: No Diminished Hearing: No Endocrine: No Gastrointestinal Disorders: Yes GERD: Yes Glaucoma: No Genitourinary: No Headaches: Yes Hepatitis: Yes (HEP C) Hiatal Hernia: Yes Hypertension: Yes Immune Disorder: Yes Implanted Vascular Access Dvce: Yes Kidney Stones: No Musculoskeletal: Yes (CHRONIC BACK PAIN) Neurologic: No Psychiatric: Yes Reproductive: No Respiratory: No Immunizations Current: Yes Myocardial Infarction: No Radiation Therapy: No Renal Failure: No Seizures: No Sickle Cell Disease: No Sleep Apnea: No Thyroid Disease: No Ulcer: No ?: Not Menopausal: Yes : 1 : 1 Ovarian Cysts: Yes Past Surgical History Narrative Surgical The patient's past surgical history is significant for an AICD placement, endoscopy, ERCP for common duct stones, hysterectomy. Abdominal Surgery: No AICD: Yes Arteriovenous Shunt: No Cardiac Surgery: Yes (AICD 08/11/2015) Coronary Artery Bypass Graft: No Ear Surgery: No Endocrine Surgery: No Eye Surgery: No Genitourinary Surgery: No Gynecologic Surgery: No Insulin Pump: No Joint Replacement: No Oral Surgery: Yes Pacemaker: No Thoracic Surgery: No Social History Alcohol Use: No Tobacco Use: Yes (four cigarettes per day) Substance Use: No Allergies-Medications (Allergen,Severity, Reaction): Coded Allergies: codeine (Unverified Allergy, Severe, 07/11/17) RASH, ITCHING Reported Meds & Prescriptions Reported Meds & Active Scripts Active Keflex (Cephalexin) 500 Mg Cap 500 Mg PO Q6H 7 Days Amiodarone (Amiodarone HCl) 200 Mg Tab 400 Mg PO Q12HR 30 Days Xanax (Alprazolam) 1 Mg Tab 1 Mg PO Q8H PRN Percocet (Oxycodone-Acetaminophen) 5-325 mg Tab 1 Tab PO Q6H PRN Aspirin 325 Mg Tab 325 Mg PO DAILY Reported Omeprazole 20 Mg Tab 20 Mg PO DAILY Ventolin Hfa 18 GM Inh (Albuterol Sulfate) 90 Mcg/Act Aer 2 Puff INH Q4-6H PRN Lasix (Furosemide) 20 Mg Tab 20 Mg PO DAILY Prozac (Fluoxetine HCl) 40 Mg Cap 80 Mg PO DAILY Lisinopril 5 Mg Tab 5 Mg PO DAILY Metoprolol Tartrate 25 Mg Tab 25 Mg PO DAILY Potassium Chloride ER (Potassium Chloride) 20 Meq Tab 20 Meq PO DAILY Topamax (Topiramate) 25 Mg Tab 25 Mg PO BID Symbicort Inh (Budesonide/Formoterol Fumarate) 80-4.5 Mcg/Act Aero 2 Puff INH Q12HR Review of Systems Except as stated in HPI: all other systems reviewed are Neg General / Constitutional: Positive: Fever Eyes: No: Visual changes HENT: Positive: Congestion, No: Headaches Cardiovascular: Positive: Chest Pain or Discomfort, Dyspnea on exertion Respiratory: Positive: Cough, Shortness of Breath, Wheezing, Sneezing Gastrointestinal: No: Nausea, Vomiting, Diarrhea, Abdominal Pain Genitourinary: No: Dysuria Musculoskeletal: Positive: Myalgias, No: Pain Skin: No Rash Neurologic: Positive: Weakness (generalized weakness), No: Focal Abnormalities , Change in Mentation, Slurred Speech, Sensory Disturbance Psychiatric: No: Depression Endocrine: No: Polydipsia Hematologic/Lymphatic: No: Easy Bruising Physical Exam Narrative General: The patient is a well-developed well-nourished female in no acute distress. The patient is brought in by ambulance services on a nonrebreather mask, no IV access was obtained prior to arrival. The patient's room air oxygen on arrival after being taken off of the nonrebreather was down to 81%. Head and Neck exam: Head is normocephalic atraumatic. Eyes: EOMI, pupils are equal round and reactive to light. Nose: Midline septum with pink mucous membranes Mouth: Dentition unremarkable. Moist mucus membranes. Posterior oropharynx is not erythematous. No tonsillar hypertrophy. Uvula midline. Airway patent. Neck: No palpable lymphadenopathy. No nuchal rigidity. No thyromegaly. Cardiovascular: Regular rate and rhythm with a 1/6 murmur audible. No gallops or rubs. No pulse deficit to the extremities on simultaneous auscultation and palpation of her radial artery. Lungs: Clear to auscultation bilaterally. No wheezes, rhonchi, or rales. Abdomen: Soft, without tenderness to palpation in all 4 quadrants of the abdomen. No guarding, rebound, or rigidity. Normal bowel sounds are audible. No tenderness on palpation of McBurney's point. Extremities: No clubbing, cyanosis, or edema. 2+ pulses in all 4 extremities. No calf tenderness on palpation. Back: No costovertebral angle tenderness to palpation. Neurologic Exam: Grossly nonfocal. Skin Exam: No rash noted. Intact skin that is warm and dry. Data Data Last Documented VS Vital Signs Date Time Temp Pulse Resp B/P (MAP) Pulse Ox O2 Delivery O2 Flow Rate FiO2 07/11/17 21:20 97 50 07/11/17 21:12 82 22 114/71 (85) Venturi Mask 07/11/17 19:57 4.00 07/11/17 19:38 97.7 Orders Orders Complete Blood Count With Diff (07/11/17 19:49) Comprehensive Metabolic Panel (07/11/17 19:49) B-Type Natriuretic Peptide (07/11/17 19:49) Act Partial Throm Time (Ptt) (07/11/17 19:49) Prothrombin Time / Inr (Pt) (07/11/17 19:49) Magnesium (Mg) (07/11/17 19:49) Ckmb (Isoenzyme) Profile (07/11/17 19:49) Troponin I (07/11/17 19:49) Arterial Blood Gas (Abg) (07/11/17 19:49) Urinalysis - C+S If Indicated (07/11/17 19:49) Influenzae A/B Antigen (07/11/17 19:49) Blood Culture (07/11/17 19:49) Iv Access Insert/Monitor (07/11/17 19:49) Electrocardiogram (07/11/17 19:49) Ecg Monitoring (07/11/17 19:49) Oximetry (07/11/17 19:49) Oxygen Administration (07/11/17 19:49) Chest, Single Ap (07/11/17 19:49) Ct Pulmonary Angiogram (07/11/17 19:49) Sodium Chloride 0.9% Flush (Ns Flush) (07/11/17 20:00) Methylprednisolone So Succ Inj (Solumedr (07/11/17 20:00) Albuterol-Ipratropium Neb (Duoneb Neb) (07/11/17 20:00) Lactic Acid Sepsis Protocol (07/11/17 19:49) CKMB (07/11/17 19:50) CKMB% (07/11/17 19:50) Iohexol 350 Inj (Omnipaque 350 Inj) (07/11/17 19:31) Resp Bipap / Cpap Non Invas Vt (07/11/17 ) Urinary Catheter Insert/Apply (07/11/17 21:12) Furosemide Inj (Lasix Inj) (07/11/17 21:15) Ceftriaxone Inj (Rocephin Inj) (07/11/17 21:15) Azithromycin Inj (Zithromax Inj) (07/11/17 21:15) Admit Order (Ed Use Only) (07/11/17 21:53) Admit To Inpatient (07/11/17 ) Vital Signs (Adult) Q4H (07/11/17 21:52) Activity Oob With Assistance (07/11/17 21:52) Maintenance Team Leader / Telemetry .CONTINUOUS (07/11/17 21:52) Intake + Output DEYANIRA.QSHIFT (07/11/17 21:52) Diet Heart Healthy (07/12/17 Breakfast) Sodium Chloride 0.9% Flush (Ns Flush) (07/11/17 22:00) Sodium Chloride 0.9% Flush (Ns Flush) (07/12/17 09:00) Basic Metabolic Panel (Bmp) (07/12/17 06:00) Complete Blood Count With Diff (07/12/17 06:00) Creatine Kinase (Cpk) (07/12/17 02:00) Creatine Kinase (Cpk) (07/12/17 08:00) Troponin I (07/12/17 02:00) Troponin I (07/12/17 08:00) Electrocardiogram (07/12/17 02:00) Electrocardiogram (07/12/17 08:00) Resp Oxygen Charbel C Titrat 1-4 L (07/11/17 ) Pt Request For Service (07/11/17 21:52) Case Management Consult (07/11/17 21:52) Naloxone Inj (Narcan Inj) (07/11/17 22:00) Inpatient Certification (07/11/17 ) Labs Laboratory Tests Test 07/11/17 19:50 07/11/17 20:00 White Blood Count 18.2 TH/MM3 Red Blood Count 4.30 MIL/MM3 Hemoglobin 13.0 GM/DL Hematocrit 39.4 % Mean Corpuscular Volume 91.6 FL Mean Corpuscular Hemoglobin 30.2 PG Mean Corpuscular Hemoglobin Concent 32.9 % Red Cell Distribution Width 15.8 % Platelet Count 165 TH/MM3 Mean Platelet Volume 10.0 FL Neutrophils (%) (Auto) 91.5 % Lymphocytes (%) (Auto) 4.9 % Monocytes (%) (Auto) 3.4 % Eosinophils (%) (Auto) 0.0 % Basophils (%) (Auto) 0.2 % Neutrophils # (Auto) 16.7 TH/MM3 Lymphocytes # (Auto) 0.9 TH/MM3 Monocytes # (Auto) 0.6 TH/MM3 Eosinophils # (Auto) 0.0 TH/MM3 Basophils # (Auto) 0.0 TH/MM3 CBC Comment DIFF FINAL Differential Comment Prothrombin Time 11.6 SEC Prothromb Time International Ratio 1.1 RATIO Activated Partial Thromboplast Time 27.4 SEC Blood Urea Nitrogen 13 MG/DL Creatinine 0.86 MG/DL Random Glucose 104 MG/DL Total Protein 7.2 GM/DL Albumin 2.4 GM/DL Calcium Level 8.1 MG/DL Magnesium Level 1.8 MG/DL Alkaline Phosphatase 101 U/L Aspartate Amino Transf (AST/SGOT) 102 U/L Alanine Aminotransferase (ALT/SGPT) 85 U/L Total Bilirubin 0.6 MG/DL Sodium Level 136 MEQ/L Potassium Level 3.7 MEQ/L Chloride Level 106 MEQ/L Carbon Dioxide Level 20.2 MEQ/L Anion Gap 10 MEQ/L Estimat Glomerular Filtration Rate 69 ML/MIN Lactic Acid Level 1.6 mmol/L Total Creatine Kinase 258 U/L Creatine Kinase MB 3.3 NG/ML Creatine Kinase MB % 1.3 % Troponin I LESS THAN 0.02 NG/ML B-Type Natriuretic Peptide 320 PG/ML Blood Gas Puncture Site RT BRACHIAL Blood Gas Patient Temperature 98.6 Blood Gas HCO3 19 mmol/L Blood Gas Base Excess -4.5 mmol/L Blood Gas Oxygen Saturation 89 % Arterial Blood pH 7.43 Arterial Blood Partial Pressure CO2 29 mmHg Arterial Blood Partial Pressure O2 60 mmHG Arterial Blood Oxygen Content 15.2 Vol % Arterial Blood Carboxyhemoglobin 1.7 % Arterial Blood Methemoglobin 0.5 % Blood Gas Hemoglobin 12.1 G/DL Oxygen Delivery Device NASAL CANNULA Blood Gas Liter Flow 5 L/M MDM Medical Decision Making Medical Screen Exam Complete: Yes Emergency Medical Condition: Yes Medical Record Reviewed: Yes Interpretation(s) Last Impressions Chest X-Ray 07/11/171948 Signed Impressions: Service Date/Time: Tuesday, July 11, 2017 19:55 - CONCLUSION: Interstitial pulmonary edema. Osmany Stafford Jr., MD CT Angiography 07/11/171948 Signed Impressions: Service Date/Time: Tuesday, July 11, 2017 20:47 - CONCLUSION: 1. No pulmonary embolus. 2. Diffuse bilateral groundglass infiltrates without effusions. These infiltrates are similar to prior exam from 2016. Differential diagnostic considerations include alveolar proteinosis, infectious infiltrates , and pulmonary edema. 3. Mediastinal adenopathy is less pronounced from the prior study. 4. No pulmonary emboli. 5. Cirrhosis. Osmany Stafford Jr., MD Differential Diagnosis Pneumonia, versus influenza, versus pulmonary embolism, versus acute coronary syndrome Narrative Course During the course of the patients emergency department visit, the patients history, examination, and differential diagnosis were reviewed with the patient. The patient was placed on a cyber policy and strategy planner with oximetry and frequent blood pressure monitoring. The patient had IV access obtained and blood work sent for analysis. An ABG has been ordered. A CTA to rule out PE has been ordered. An EKG was done which shows a sinus bradycardia rate of 59, incomplete right bundle branch block, no acute ST segment elevation, QRS duration is 110 ms, QTC 401 ms. T waves are inverted in V1, V2. The patient was initially provided Lasix 40 mg IV after her chest x-ray revealed what appeared to be cardiomegaly and pulmonary edema. The patient was given methylprednisolone 125 mg IV, DuoNeb nebs 3 due to her reported shortness of breath and history of COPD. The patients laboratory studies were reviewed and remarkable for a white count of 18.2, hemoglobin 13, platelets 165 with 91.5 neutrophils. Given the patient 's reported productive cough, fever, blood cultures 2 were drawn a lactic acid was sent for analysis. The patient was started on Rocephin 1 g IV, Zithromax 500 IV. CMP is remarkable for CO2 20.2, GFR 69, calcium 8.1, AST 102, ALT 85, CPK 258, CPK 258, MB percent 1.3, troponin I less than 0.02, BNP is 320, albumin 2.4, lactic acid 1.6. A CTA to rule out PE shows no evidence of pulmonary embolism, diffuse bilateral ground glass infiltrates without effusions. These infiltrates are similar to prior exam from 2016 differential diagnosis includes alveolar proteinosis, infectious infiltrates and pulmonary edema. Mediastinal adenopathy is less pronounced from the prior study. The patient was placed on BiPAP. The patients results were discussed with the patient, including the plan of care. I explained that further testing and/ or monitoring is indicated based on the patients history, examination, and/ or laboratory findings. Therefore, I recommended admission for additional evaluation. The patient expressed understanding and was agreeable with this plan. The patient was admitted to the hospital in guarded condition and [facility] Sepsis Criteria SIRS Criteria (2 or more): WBC > 68381, < 4000 or > 10% bands Sepsis Criteria (SIRS+source): Infect source susp/known Criteria Outcome: Meets sepsis criteria Physician Communication Physician Communication The patient's case including history, pertinent physical examination findings, and laboratory studies were discussed with Dr. Alfaro. It was agreed that the patient would be admitted to the [facility] service. Diagnosis Primary Impression: Hypoxemia Additional Impressions: Lung infiltrate Leukocytosis Qualified Codes: D72.829 - Elevated white blood cell count, unspecified Admitting Information Admitting Physician Requests: Admit Jyoti Garcia MD Jul 11, 2017 19:58
[2017-07-11] MEDS ORDERED: methylPREDNISolone SOD SUCC 125 MG/2 ML VIAL IV PUSH ONE (20:00)
[2017-07-11] MEDS ORDERED: SODIUM CHLORIDE 0.9% FLUSH 10 ML FLUSH IVF PRN (20:00)
--- NOTE | 2017-07-11 20:14 | RADRPT ---
EXAM DATE/TIME: 07/11/2017 19:55 [facility] COMPARISON: CHEST SINGLE AP, March 14, 2017, 18:11. INDICATIONS : Short of breath MEDICAL HISTORY : : Myocardial infarction. Congestive heart failure. Hepatitis C. Vtac. COPD. HTN, Hiatal hernia. GERD. Ovarian cysts. Chronic back pain. Jaundice. Anemia. Thrombocytopenia. ADHD. Bipolar disorder. Depres travis. Anxiety. MRSA. Anticoagulant therapy, Lovenox SURGICAL HISTORY : AICD. Liver biopsy. Lymph nodes biopsy ENCOUNTER: Initial ACUITY: 1 week PAIN SCORE: 4/10 LOCATION: Bilateral chest FINDINGS: A single portable frontal view the chest shows cardiomegaly with pulmonary vascular engorgement. Basi lar interstitial prominence. No intralobular infiltrates or effusions. Heart is moderately enlarged. Single lead pacing device overlying the left chest. Bony structures are unremarkable. CONCLUSION: Interstitial pulmonary edema. Osmany Stafford Jr., MD on July 11, 2017 at 20:10 Board Certified Radiologist. This report was verified electronically.
[2017-07-11 20:23] LABS: AUTOMATED NEUTROPHIL # 16.7 TH/MM3 (1.8-7.7); BASOPHIL % 0.2 % (0.0-2.0); HEMATOCRIT 39.4 % (35.0-46.0); LYMPH % 4.9 % (9.0-44.0); LYMPHOCYTE # 0.9 TH/MM3 (1.0-4.8); MEAN CELL VOLUME 91.6 FL (80.0-100.0); MEAN CORPUSCULAR HEMOGLOBIN 30.2 PG (27.0-34.0); MEAN CORPUSCULAR HGB CONC 32.9 % (32.0-36.0); MONO % 3.4 % (0.0-8.0); MONOCYTE # 0.6 TH/MM3 (0-0.9); NEUT % 91.5 % (16.0-70.0); PLATELET COUNT 165 TH/MM3 (150-450); RED CELL DISTRIBUTION WIDTH 15.8 % (11.6-17.2); WHITE BLOOD COUNT 18.2 TH/MM3 (4.0-11.0)
[2017-07-11 20:35] LABS: ALBUMIN 2.4 GM/DL (3.4-5.0); AST (GOT) 102 U/L (15-37); BICARBONATE 20.2 MEQ/L (21.0-32.0); BLOOD UREA NITROGEN 13 MG/DL (7-18); CALCIUM 8.1 MG/DL (8.5-10.1); CHLORIDE 106 MEQ/L (98-107); CREATININE 0.86 MG/DL (0.50-1.00); GLOMERULAR FILTRATION RATE 69 ML/MIN (>89); GLUCOSE,RANDOM 104 MG/DL (74-106); INTERNATIONAL NORMALIZED RATIO 1.1 RATIO; MAGNESIUM 1.8 MG/DL (1.5-2.5); PROTHROMBIN TIME - PATIENT 11.6 SEC (9.8-11.6); SODIUM (NA) 136 MEQ/L (136-145)
[2017-07-11 20:36] LABS: ALT (GPT) 85 U/L (10-53)
[2017-07-11 20:39] LABS: ALKALINE PHOSPHATASE 101 U/L (45-117); TOTAL BILIRUBIN ADULT 0.6 MG/DL (0.2-1.0); TOTAL PROTEIN 7.2 GM/DL (6.4-8.2); TROPONIN I LESS THAN 0.02 NG/ML (0.02-0.05)
[2017-07-11 21:12] VITALS: BP 114/71; PULSE 82; RESP 22; O2SAT 88
[2017-07-11] MEDS ORDERED: FUROSEMIDE 40 MG/4 ML VIAL IV PUSH ONE (21:15)
[2017-07-11] MEDS ORDERED: cefTRIAXone INJ 1,000 MG in SODIUM CHLORIDE 0.9% INJ 100 ML IV ONE (21:15)
[2017-07-11] MEDS ORDERED: AZITHROMYCIN INJ 500 MG in SODIUM CHLOR 0.9% 250 ML INJ 250 ML IV ONE (21:15)
[2017-07-11 21:20] VITALS: O2SAT 97
--- NOTE | 2017-07-11 21:25 | RADRPT ---
EXAM DATE/TIME: 07/11/2017 20:47 [facility] COMPARISON: CT PULMONARY ANGIOGRAM, January 23, 2016, 21:51. INDICATIONS : Right sided chest pain and shortness of breath for five days. IV CONTRAST: 60 cc Omnipaque 350 (iohexol) IV RADIATION DOSE: 10.24 CTDIvol (mGy) MEDICAL HISTORY : Congestive hearrt failure. Chronic obstructive pulmonary disease. Hepatitis C. SURGICAL HISTORY : cardiac surgery ENCOUNTER: Initial ACUITY: 4 - 6 days PAIN SCALE: 5/10 LOCATION: Right chest TECHNIQUE: Volumetric scanning of the chest was performed using a pulmonary embolism protocol MIP images were re constructed. Using automated exposure control and adjustment of the mA and/or kV according to patien t size, radiation dose was kept as low as reasonably achievable to obtain optimal diagnostic quality images. DICOM format image data is available electronically for review and comparison. Follow-up recommendations for detected pulmonary nodules are based at a minimum on nodule size and pa tient risk factors according to Fleischner Society Guidelines. FINDINGS: PULMONARY ARTERIES: No filling defects are seen in the pulmonary arteries through the segmental level. LUNGS: Diffuse groundglass infiltrates throughout both lungs. The pattern is similar to the prior examinatio n. It involves both the upper and lower lobes. PLEURAE: There is no pleural thickening or pleural effusion. MEDIASTINUM: Again seen are moderately enlarged anterior mediastinal lymph nodes. The largest is prevascular in lo cation and measures 3.0 x 1.5 cm. This is smaller from the prior study where it measured 3.6 x 1.7 cm . The heart is mildly enlarged. No pericardial effusion. Aorta and pulmonary arteries are normal in c aliber. MUSCULOSKELETAL: Within normal limits for patient age. MISCELLANEOUS: Cirrhotic changes within the visualized portions of the liver. Moderate sized hiatal hernia. CONCLUSION: 1. No pulmonary embolus. 2. Diffuse bilateral groundglass infiltrates without effusions. These infiltrates are similar to prio r exam from 2016. Differential diagnostic considerations include alveolar proteinosis, infectious inf iltrates, and pulmonary edema. 3. Mediastinal adenopathy is less pronounced from the prior study. 4. No pulmonary emboli. 5. Cirrhosis. Osmany Stafford Jr., MD on July 11, 2017 at 21:16 Board Certified Radiologist. This report was verified electronically.
[2017-07-11 21:55] VITALS: BP 102/60; PULSE 75; RESP 22; O2SAT 99
[2017-07-11] MEDS ORDERED: NALOXONE HCL 0.4 MG/ML AMP IV PUSH PRN (22:00)
[2017-07-11] MEDS ORDERED: RESP: ALBUTEROL 2.5 MG/IPRATROPIUM 0.5 MG NEB (PRN) NEB (22:00)
[2017-07-11] MEDS ORDERED: SODIUM CHLORIDE 0.9% FLUSH 10 ML FLUSH IV FLUSH PRN (22:00)
[2017-07-11] MEDS: RESP: ALBUTEROL 2.5 MG/IPRATROPIUM 0.5 MG NEB (SCH) INH (22:02)
[2017-07-11] MEDS: RESP: ALBUTEROL 2.5 MG/IPRATROPIUM 0.5 MG NEB (SCH) NEB (22:03)
[2017-07-11 22:27] LABS: AMORPHOUS SEDIMENT, URINE RARE; BILIRUBIN, URINE NEG (NEG); BLOOD, URINE NEG (NEG); GLUCOSE,URINE NEG (NEG); HYALINE CAST, URINE 7 /lpf (RARE); KETONE, URINE NEG (NEG); MUCUS URINE FEW /lpf (OCC); NITRITE,URINE NEG (NEG); SQUAMOUS EPITHELIAL CELL URINE <1 /hpf (0-5); URINE COLOR YELLOW (YELLW/STRAW); URINE LEUKOCYTE ESTERASE NEG (NEG)
--- NOTE | 2017-07-11 22:54 | HHI.HP ---
HPI [facility] Primary Care Physician Hiral Florence M.D. Admission Diagnosis Hypoxemia, interstitial infiltrates, sepsis Diagnoses: Travel History International Travel<30 Days: No Contact w/Intl Traveler <30 Da: No Traveled to Known Affected Are: No History of Present Illness History patient, ear physician communication, and review of medical records. Patient reported that she came to the hospital because she has been short of breath for about 4 days. fever 101 at home coughing but no sputum nausea did vomit once at home no abdominal pain no urinary symptoms had diarrhea just one day - just the day before yesterday is sick and is in hospital with sepsis - he will be discharged tomorrow , he is here for about 4 days no black or red stool diarrhea was orange color, purely liquid denies aicd firing but did have chest pain , stated on right side, underneath the breast was very weak and tired that she just doesnt want to walk was given cephalexin 8 days , just finished about 4 days ago Patient reports addition she was not improving, her doctor told her to come to emergency room. Review of Systems Except as stated in HPI: all other systems reviewed are Neg Past Family Social History Past Medical History Hypertension Hyperlipidemia CHF Ventral tachycardia status post AICD COPD. Not on home oxygen Chronic hepatitis C Liver cirrhosis History of cat scratch disease Bipolar disorder ADHD Prolonged QT Fibromyalgia Hiatal hernia Chronic back pain GERD Muscle weakness History of hypomagnesemia/hypokalemia Past Surgical History aicd dental surgeries ERCP with sphincterotomy Allergies: Coded Allergies: codeine (Unverified Allergy, Severe, 07/11/17) RASH, ITCHING Family History parents- both from [place] sister- ckd, stage IV lung cancer another sister- Multiple sclerosis Social History used to smoke from age 15 yo to 29yo used to drink during college, quit at age 16yo no drugs Physical Exam Vital Signs Vital Signs Date Time Temp Pulse Resp B/P (MAP) Pulse Ox O2 Delivery O2 Flow Rate FiO2 07/11/17 21:55 75 22 102/60 (74) 99 BiPAP 50 07/11/17 21:20 97 50 07/11/17 21:12 82 22 114/71 (85) 88 Venturi Mask 50 07/11/17 19:57 22 90 Nasal Cannula 4.00 07/11/17 19:53 90 Nasal Cannula 4.00 07/11/17 19:46 22 90 Nasal Cannula 4.00 07/11/17 19:38 97.7 63 22 90/51 (64) 88 Physical Exam GENERAL: This is middle aged lady, was quite comfortable on BiPAP. However easily desaturates to 85% on 4 L nasal cannular with significant work of breathing. SKIN: No rashes, ecchymoses or lesions. Cool and dry. HEAD: Atraumatic. Normocephalic. No temporal or scalp tenderness. EYES: No scleral icterus. No injection or drainage. ENT: Nose without bleeding, purulent drainage or septal hematoma. . Airway patent. NECK: Trachea midline. No JVD CARDIOVASCULAR: Regular rate and rhythm without murmurs, gallops, or rubs. RESPIRATORY: Bilateral basilar crepitations. GASTROINTESTINAL: Abdomen soft, non-tender, nondistended. No guarding. MUSCULOSKELETAL: Extremities without clubbing, cyanosis, or edema. No calf tenderness. NEUROLOGICAL: Awake and alert. Motor and sensory grossly within normal limits. Normal speech. Laboratory Laboratory Tests Test 07/11/17 19:50 07/11/17 20:00 07/11/17 21:50 White Blood Count 18.2 Red Blood Count 4.30 Hemoglobin 13.0 Hematocrit 39.4 Mean Corpuscular Volume 91.6 Mean Corpuscular Hemoglobin 30.2 Mean Corpuscular Hemoglobin Concent 32.9 Red Cell Distribution Width 15.8 Platelet Count 165 Mean Platelet Volume 10.0 Neutrophils (%) (Auto) 91.5 Lymphocytes (%) (Auto) 4.9 Monocytes (%) (Auto) 3.4 Eosinophils (%) (Auto) 0.0 Basophils (%) (Auto) 0.2 Neutrophils # (Auto) 16.7 Lymphocytes # (Auto) 0.9 Monocytes # (Auto) 0.6 Eosinophils # (Auto) 0.0 Basophils # (Auto) 0.0 CBC Comment DIFF FINAL Differential Comment Prothrombin Time 11.6 Prothromb Time International Ratio 1.1 Activated Partial Thromboplast Time 27.4 Blood Urea Nitrogen 13 Creatinine 0.86 Random Glucose 104 Total Protein 7.2 Albumin 2.4 Calcium Level 8.1 Magnesium Level 1.8 Alkaline Phosphatase 101 Aspartate Amino Transf (AST/SGOT) 102 Alanine Aminotransferase (ALT/SGPT) 85 Total Bilirubin 0.6 Sodium Level 136 Potassium Level 3.7 Chloride Level 106 Carbon Dioxide Level 20.2 Anion Gap 10 Estimat Glomerular Filtration Rate 69 Lactic Acid Level 1.6 Total Creatine Kinase 258 Creatine Kinase MB 3.3 Creatine Kinase MB % 1.3 Troponin I LESS THAN 0.02 B-Type Natriuretic Peptide 320 Blood Gas Puncture Site RT BRACHIAL Blood Gas Patient Temperature 98.6 Blood Gas HCO3 19 Blood Gas Base Excess -4.5 Blood Gas Oxygen Saturation 89 Arterial Blood pH 7.43 Arterial Blood Partial Pressure CO2 29 Arterial Blood Partial Pressure O2 60 Arterial Blood Oxygen Content 15.2 Arterial Blood Carboxyhemoglobin 1.7 Arterial Blood Methemoglobin 0.5 Blood Gas Hemoglobin 12.1 Oxygen Delivery Device NASAL CANNULA Blood Gas Liter Flow 5 Urine Color YELLOW Urine Turbidity CLEAR Urine pH 6.0 Urine Specific [place] 1.033 Urine Protein 30 Urine Glucose (UA) NEG Urine Ketones NEG Urine Occult Blood NEG Urine Nitrite NEG Urine Bilirubin NEG Urine Urobilinogen 2.0 Urine Leukocyte Esterase NEG Urine RBC 2 Urine WBC 1 Urine Squamous Epithelial Cells <1 Urine Amorphous Sediment RARE Urine Hyaline Casts 7 Urine Mucus FEW Microscopic Urinalysis Comment CULT NOT INDICATED Date/Time Source Procedure Growth Status 07/11/17 19:55 Blood Peripheral Aerobic Blood Culture Pending Received 07/11/17 19:55 Blood Peripheral Anaerobic Blood Culture Pending Received 07/11/17 19:55 Nasal Aspirate Influenza Types A,B Antigen (ÁLVARO) - Final NEGATIVE FOR FLU A AND B ANTIGEN.... Complete Result Diagram: 07/11/17 1950 07/11/17 1950 Imaging Last 48 hours Impressions Chest X-Ray 07/11/171948 Signed Impressions: Service Date/Time: Tuesday, July 11, 2017 19:55 - CONCLUSION: Interstitial pulmonary edema. Osmany Stafford Jr., MD CT Angiography 07/11/171948 Signed Impressions: Service Date/Time: Tuesday, July 11, 2017 20:47 - CONCLUSION: 1. No pulmonary embolus. 2. Diffuse bilateral groundglass infiltrates without effusions. These infiltrates are similar to prior exam from 2016. Differential diagnostic considerations include alveolar proteinosis, infectious infiltrates , and pulmonary edema. 3. Mediastinal adenopathy is less pronounced from the prior study. 4. No pulmonary emboli. 5. Cirrhosis. MD Gallito Nicole Jr. VTE Risk Assessment Caprini VTE Risk Assessment: Mod/High Risk (score >= 2) Caprini Risk Assessment Model Point Value = 1 Point Value = 2 Point Value = 3 Point Value = 5 Age 41-60 Minor surgery BMI > 25 kg/m2 Swollen legs Varicose veins or History of unexplained or recurrent spontaneous Oral contraceptives or hormone replacement Sepsis (< 1 month) Serious lung disease, including pneumonia (< 1 month) Abnormal pulmonary function Acute myocardial infarction Congestive heart failure (< 1 month) History of inflammatory bowel disease Medical patient at bed rest Age 61-74 Arthroscopic surgery Major open surgery (> 45 min) Laparoscopic surgery (> 45 min) Malignancy Confined to bed (> 72 hours) Immobilizing plaster cast Central venous access Age >= 75 History of VTE Family history of VTE Factor V Leiden Prothrombin [id number] Lupus anticoagulant Anticardiolipin antibodies Elevated serum homocysteine Heparin-induced thrombocytopenia Other congenital or acquired thrombophilia Stroke (< 1 month) Elective arthroplasty Hip, pelvis, or leg fracture Acute spinal cord injury (< 1 month) Prophylaxis Regimen Total Risk Factor Score Risk Level Prophylaxis Regimen 0-1 Low Early ambulation 2 Moderate Order ONE of the following: *Sequential Compression Device (SCD) *Heparin 5000 units SQ BID 3-4 Higher Order ONE of the following medications: *Heparin 5000 units SQ TID *Enoxaparin/Lovenox 40 mg SQ daily (WT < 150 kg, CrCl > 30 mL/min) *Enoxaparin/Lovenox 30 mg SQ daily (WT < 150 kg, CrCl > 10-29 mL/min) *Enoxaparin/Lovenox 30 mg SQ BID (WT < 150 kg, CrCl > 30 mL/min) AND/OR *Sequential Compression Device (SCD) 5 or more Highest Order ONE of the following medications: *Heparin 5000 units SQ TID (Preferred with Epidurals) *Enoxaparin/Lovenox 40 mg SQ daily (WT < 150 kg, CrCl > 30 mL/min) *Enoxaparin/Lovenox 30 mg SQ daily (WT < 150 kg, CrCl > 10-29 mL/min) *Enoxaparin/Lovenox 30 mg SQ BID (WT < 150 kg, CrCl > 30 mL/min) AND *Sequential Compression Device (SCD) Assessment and Plan Assessment and Plan Impression: Acute hypoxemic respiratory failure Elevated BNP. Suspect acute on chronic congestive heart failure. Diastolic. Possible that valvular heart disease is contributing to acute decompensation. Valvular heart disease with moderate MR, moderate MS Suspects viral illness leading to ARDS causing respiratory failure Leukocytosis with left shift Co morbid conditions: Hypertension Hyperlipidemia CHF Ventral tachycardia status post AICD COPD. Not on home oxygen Chronic hepatitis C Liver cirrhosis History of cat scratch disease Bipolar disorder ADHD Prolonged QT Fibromyalgia Hiatal hernia Chronic back pain GERD Muscle weakness History of hypomagnesemia/hypokalemia Plan: Continue patient on BiPAP. Patient has negative influenza. Serial cardiac enzymes and EKGs. Echocardiogram in a.m. Previous echo on records reviewed. Significant valvular heart disease. Intake/output Nebulizers when necessary. Lasix 40 mg IV every 12 hours. We'll need to quickly DC'd this with improvement. Regarding leukocytosis with left shift and chest x-ray evidence of bilateral infiltrates versus edema, patient received Rocephin and azithromycin in ER. I would hold off on antibiotics given that patient has history of prolonged QT. Clinical impression is more of heart failure and viral illness. However would consult infectious disease given that her CT is very similar to findings from 2016 CT and that she had cat Scratch disease then. As to her comorbid conditions, resume home meds. DVT prophylaxis on lovenox GI prophylaxis with ranitidine. Discussed Condition With patient, ER MD, nursing staff Physician Certification 2 Midnight Certification Type: Admission for Inpatient Services Order for Inpatient Services The services are ordered in accordance with Medicare regulations or non- Medicare payer requirements, as applicable. In the case of services not specified as inpatient-only, they are appropriately provided as inpatient services in accordance with the 2-midnight benchmark. Estimated LOS (days): 3 days is the estimated time the patient will need to remain in the hospital, assuming treatment plan goals are met and no additional complications. Post-Hospital Plan: Home Sreedhar Alfaro MD Jul 11, 2017 22:54
[2017-07-11 23:55] VITALS: O2SAT 97
[2017-07-12] VITALS (17 sets, daily range): BP systolic 94–119; BP diastolic 55–69; PULSE 53–75; RESP 18–40; TEMP 97.4–98.5; O2SAT 94–99
[2017-07-12] MEDS ORDERED: TOPI50TA7 PO (00:19)
[2017-07-12] MEDS ORDERED: ADDE30TA PO (00:19)
[2017-07-12] MEDS ORDERED: OXYC1TAB36 PO (00:19)
[2017-07-12 02:59] LABS: TROPONIN I LESS THAN 0.02 NG/ML (0.02-0.05)
[2017-07-12] MEDS: RESP: ALBUTEROL 2.5 MG/IPRATROPIUM 0.5 MG NEB (SCH) NEB ×4 (03:14→21:16)
[2017-07-12 06:42] LABS: BICARBONATE 21.2 MEQ/L (21.0-32.0); CALCIUM 7.9 MG/DL (8.5-10.1); CREATININE 0.74 MG/DL (0.50-1.00)
[2017-07-12] MEDS: ALPRAZolam 1 MG TAB PO PRN ×2 (06:45→17:08)
[2017-07-12 07:28] LABS: AUTOMATED NEUTROPHIL # 14.3 TH/MM3 (1.8-7.7); BASOPHIL % 0.1 % (0.0-2.0); EOSINOPHIL % 0.1 % (0.0-4.0); HEMATOCRIT 36.4 % (35.0-46.0); HEMOGLOBIN 11.7 GM/DL (11.6-15.3); LYMPH % 3.1 % (9.0-44.0); LYMPHOCYTE # 0.5 TH/MM3 (1.0-4.8); MEAN CELL VOLUME 92.7 FL (80.0-100.0); MEAN CORPUSCULAR HEMOGLOBIN 29.8 PG (27.0-34.0); MEAN CORPUSCULAR HGB CONC 32.1 % (32.0-36.0); MEAN PLATELET VOLUME 10.1 FL (7.0-11.0); MONO % 1.8 % (0.0-8.0); MONOCYTE # 0.3 TH/MM3 (0-0.9); NEUT % 94.9 % (16.0-70.0); PLATELET COUNT 130 TH/MM3 (150-450); RED BLOOD COUNT 3.93 MIL/MM3 (4.00-5.30); WHITE BLOOD COUNT 15.1 TH/MM3 (4.0-11.0)
[2017-07-12] MEDS: DEXTROAMPHETAMINE/AMPHETAMINE 30 MG TAB PO SCH ×2 (09:00→12:09)
[2017-07-12] MEDS ORDERED: LACTOBACILLUS ACIDOPHILUS TAB PO SCH (09:00)
[2017-07-12] MEDS: POTASSIUM CHLORIDE 20 MEQ CONTROLLED RELEASE TAB PO SCH (09:43)
[2017-07-12] MEDS: FUROSEMIDE 40 MG/4 ML VIAL IV PUSH SCH ×2 (09:44→16:52)
[2017-07-12] MEDS: ENOXAPARIN SODIUM 60 MG/0.6 ML SYRINGE SQ SCH (09:44)
[2017-07-12] MEDS: FLUoxetine HCL 20 MG CAP PO SCH (09:44)
[2017-07-12] MEDS: PANTOPRAZOLE SOD 20 MG DELAYED RELEASE TAB PO SCH (09:44)
[2017-07-12] MEDS: BUDESONIDE-FORMOTEROL 80/4.5 MCG INHALER INH SCH ×2 (09:45→22:41)
[2017-07-12] MEDS: TOPIRAMATE 25 MG TAB PO SCH ×2 (09:45→22:40)
[2017-07-12] MEDS: SODIUM CHLORIDE 0.9% FLUSH 10 ML FLUSH IV FLUSH SCH ×2 (09:45→22:41)
[2017-07-12] MEDS: ASPIRIN 325 MG TAB PO SCH (09:45)
[2017-07-12] MEDS: AMIODARONE 200 MG TAB PO SCH ×2 (09:45→22:40)
--- NOTE | 2017-07-12 11:29 | HHI.PR ---
Subjective Remarks Off BiPAP when seen, her respirations remain about 40 breaths per minute. She may need BiPAP intermittently still. No new complaints from the patient. Objective Vital Signs Date Time Temp Pulse Resp B/P (MAP) Pulse Ox O2 Delivery O2 Flow Rate FiO2 07/12/17 10:03 99 Non-Rebreather 15.00 07/12/17 07:49 37 95 BiPAP 50 07/12/17 07:47 62 37 105/61 (76) 95 BiPAP 50 07/12/17 06:39 97 50 07/12/17 06:36 96 BiPAP 50 07/12/17 06:35 56 30 113/69 (84) 96 BiPAP 07/12/17 04:30 60 40 98/57 (71) 94 BiPAP 07/12/17 03:11 95 50 07/12/17 02:24 62 22 100/55 (70) 98 BiPAP 50 07/12/17 00:02 75 22 105/58 (74) 98 BiPAP 50 07/11/17 23:55 97 50 07/11/17 21:55 75 22 102/60 (74) 99 BiPAP 50 07/11/17 21:20 97 50 07/11/17 21:12 82 22 114/71 (85) 88 Venturi Mask 50 07/11/17 19:57 22 90 Nasal Cannula 4.00 07/11/17 19:53 90 Nasal Cannula 4.00 07/11/17 19:46 22 90 Nasal Cannula 4.00 07/11/17 19:38 97.7 63 22 90/51 (64) 88 I/O 07/11/17 07/11/17 07/11/17 07/12/17 07/12/17 07/12/17 07:00 15:00 23:00 07:00 15:00 23:00 Intake Total 100 ml 250 ml Output Total 1000 ml Balance 100 ml 250 ml -1000 ml Intake IV Total 100 ml 250 ml Output Urine Total 1000 ml # Voids 0 Result Diagram: 07/12/1733 07/12/17532 Objective Remarks GENERAL: NAD, A&Ox3 HEAD: Normocephalic. NECK: Supple, trachea midline. No lymphadenopathy. EYES: No scleral icterus. No injection or drainage. CARDIOVASCULAR: Regular rate and rhythm without murmurs, gallops, or rubs. RESPIRATORY: Breath sounds equal bilaterally. No accessory muscle use. GASTROINTESTINAL: Abdomen soft, non-tender, nondistended. MUSCULOSKELETAL: No cyanosis, or edema. SKIN: Warm and dry. NEURO: No focal neurological deficitis. A/P Problem List: (1) Hypoxemia ICD Code: R09.02 - Hypoxemia Status: Acute (2) Lung infiltrate ICD Code: R91.8 - Other nonspecific abnormal finding of lung field Status: Acute (3) Pneumonia ICD Code: J18.9 - Pneumonia, unspecified organism Status: Acute (4) CHF (congestive heart failure) ICD Code: I50.9 - Heart failure, unspecified Status: Acute (5) Sepsis ICD Code: A41.9 - Sepsis, unspecified organism Assessment and Plan 51-year-old female admitted secondary to respiratory distress, with pneumonia and reported baseline CHF. Sepsis No severe sepsis or septic shock Clinically patient appears stable other than respiratory distress Continue to monitor vital signs closely Continue to treat infection Pneumonia Acute hypoxemic respiratory failure Leukocytosis Continue BiPAP as needed Continue oxygen supplementation Continue Rocephin and azithromycin Follow on telemetry given history of prolonged QT interval History of Valvular heart disease with moderate MR, moderate MS Possible CHF exacerbation Elevated BNP Prolonged QT interval (chronic) Echocardiogram in process Monitor and treat for fluid balance Lasix every 12 hours Follow on telemetry Hypertension Continue baseline treatment Follow blood pressures Hyperlipidemia No change to baseline treatment Follows in outpatient COPD exacerbation Continue breathing treatments as needed Continue oxygen supplementation Steroids Cirrhosis Chronic hepatitis C Standard precautions Bipolar disorder ADHD No exacerbations Follow clinically No change to baseline treatment Fibromyalgia Hiatal hernia Chronic back pain GERD No change to baseline treatment Follow clinically DVT prophylaxis Lovenox Zaheer Mckinney MD Jul 12, 2017 11:29
[2017-07-12] MEDS ORDERED: oxyCODONE/ACETAMINOPHEN 5 MG/325 MG TAB PO PRN (11:30)
[2017-07-12] MEDS ORDERED: methylPREDNISolone SOD SUCC 40 MG/1 ML VIAL IV PUSH ONE (11:45)
[2017-07-12] MEDS: METOPROLOL TARTRATE 25 MG TAB PO SCH (12:32)
[2017-07-12] MEDS: LISINOPRIL 5 MG TAB PO SCH (12:33)
[2017-07-12] MEDS: oxyCODONE/ACETAMINOPHEN 10 MG/325 MG TAB PO PRN (12:45)
[2017-07-12] MEDS: LACTOBACILLUS ACIDOPHILUS TAB PO SCH ×2 (13:00→16:53)
[2017-07-12 14:00] LABS: TROPONIN I LESS THAN 0.02 NG/ML (0.02-0.05)
--- NOTE | 2017-07-12 14:25 | EKG ---
Date Performed: 07/11/2017 Time Performed: 19:45:26 PTAGE: 51 years EKG: SINUS BRADYCARDIA POSSIBLE LEFT ATRIAL ENLARGEMENT INCOMPLETE RIGHT BUNDLE BRANCH BLOCK NON SPECIFIC T-WAVE ABNORMALITY PROLONGATION OF THE QT INTERVAL AND OR T U FUSION SINCE THE PRIOR TRACING THERE HAS BEEN NO SIGNIFICANT SERIAL CHANGE BORDERLINE ECG PREVIOUS TRACING : 03/15/2017 02.26 DOCTOR: Amairani Pierce Interpretating Date/Time 07/12/2017 14:24:27
--- NOTE | 2017-07-12 14:27 | EKG ---
Date Performed: 07/12/2017 Time Performed: 02:22:21 PTAGE: 51 years EKG: Sinus rhythm POSSIBLE LEFT ATRIAL ENLARGEMENT INCOMPLETE RIGHT BUNDLE BRANCH BLOCK NONSPECIFIC T-WAVE ABNORMALITY Prolongation of the QT interval Prominent precoridal U wave Since previous tracing, no significant c hange noted BORDERLINE ECG PREVIOUS TRACING : 07/11/17 DOCTOR: Amairani Pierce Interpretating Date/Time 07/12/2017 14:26:24
[2017-07-12] MEDS: MICAFUNGIN INJ 100 MG in SODIUM CHLORIDE 0.9% INJ 100 ML IV SCH (16:52)
--- NOTE | 2017-07-12 19:58 | ECHRPT ---
Indication: SHORTNESS OF BREATH CONCLUSIONS Normal left ventricular size. Wall thickness is normal. The left ventricular systolic function is grossly normal on limited imaging (EF 50-55%). A defibrilator wire is noted. The left atrial size is moderately dilated. No atrial level shunt is demonstrated by color flow Doppler interrogation. [id number] mitral valve regurgitation. Mild thickening of the mitral valve leaflets. Moderate mitral valve stenosis. There is mild tricuspid valve regurgitation. The estimated pulmonary arterial pressure is 43 mmHg. BP: 103 / 55 HR: Rhythm: Sinus MEASUREMENTS (Male / Female) Normal Values Technical Quality:Very technically difficult study 2D ECHO LV Diastolic Diameter PLAX 4.8 cm 4.2 - 5.9 / 3.9 - 5.3 cm LV Systolic Diameter PLAX 3.2 cm IVS Diastolic Thickness 0.8 cm 0.6 - 1.0 / 0.6 - 0.9 cm LVPW Diastolic Thickness 0.8 cm 0.6 - 1.0 / 0.6 - 0.9 cm LV Relative Wall Thickness 0.4 RV Internal Dim ED PLAX 1.8 cm LVOT Diameter 1.9 cm Aortic Root Diameter 2.9 cm LA Systolic Diameter LX 4.0 cm 3.0 - 4.0 / 2.7 - 3.8 cm M-MODE AV Cusp Separation MM 2.1 cm DOPPLER AV Peak Velocity 165.0 cm/s AV Peak Gradient 10.9 mmHg AV Mean Gradient 7.0 mmHg AV Velocity Time Integral 28.6 cm LVOT Peak Velocity 145.0 cm/s LVOT Peak Gradient 8.4 mmHg LVOT Velocity Time Integral 26.9 cm AV Area Cont Eq vti 2.7 cm AV Area Cont Eq pk 2.5 cm MV Peak Velocity 264.8 cm/s MV Peak Gradient 28.0 mmHg MV Mean Velocity 158.8 cm/s MV Mean Gradient 11.4 mmHg MV Area PHT 1.5 cm Mitral E Point Velocity 96.8 cm/s Mitral A Point Velocity 117.8 cm/s Mitral E to A Ratio 0.8 TR Peak Velocity 285.5 cm/s TR Peak Gradient 32.6 mmHg Right Atrial Pressure 10.0 mmHg Pulmonary Artery Systolic Pressu 42.6 mmHg Right Ventricular Systolic Press 42.6 mmHg PV Peak Velocity 102.0 cm/s PV Peak Gradient 4.2 mmHg FINDINGS LEFT VENTRICLE Normal left ventricular size. Wall thickness is normal. The left ventricular systolic function is grossly normal on limited imaging. RIGHT VENTRICLE A defibrilator wire is noted. LEFT ATRIUM The left atrial size is moderately dilated. RIGHT ATRIUM The right atrial size is normal. There is a defibrilator wire present in the right atrial cavity. ATRIAL SEPTUM No atrial level shunt is demonstrated by color flow Doppler interrogation. AORTA The aortic root and proximal ascending aorta are normal in size on limited imaging. MITRAL VALVE [id number] mitral valve regurgitation. Mild thickening of the mitral valve leaflets. Moderate mitral valve stenosis. Mitral valve mean gradient is 11.4 mmHg. The mitral valve area by Pressure Halftime Method is 1.43 cm. AORTIC VALVE Trileaflet aortic valve. No aortic valve stenosis or regurgitation. TRICUSPID VALVE There is mild tricuspid valve regurgitation. The estimated pulmonary arterial pressure is 43 mmHg. PULMONARY VALVE The pulmonary valve is not well visualized. VESSELS The inferior vena cava is normal in size. PERICARDIUM No pericardial effusion. Jeimy Lee MD, FACC (Electronically Signed) Final Date:12 July 2017 19:57
[2017-07-12] MEDS: methylPREDNISolone SOD SUCC 40 MG/1 ML VIAL IV PUSH SCH (22:40)
[2017-07-12] MEDS: cefTRIAXone INJ 1,000 MG in SODIUM CHLORIDE 0.9% INJ 100 ML IV SCH (22:41)
[2017-07-12] MEDS: AZITHROMYCIN INJ 500 MG in SODIUM CHLOR 0.9% 250 ML INJ 250 ML IV SCH (23:57)
[2017-07-13] VITALS (19 sets, daily range): BP systolic 91–115; BP diastolic 46–63; PULSE 49–66; RESP 16–24; TEMP 97.3–98.4; O2SAT 80–100
[2017-07-13] MEDS: oxyCODONE/ACETAMINOPHEN 10 MG/325 MG TAB PO PRN ×4 (02:18→23:23)
[2017-07-13] MEDS: RESP: ALBUTEROL 2.5 MG/IPRATROPIUM 0.5 MG NEB (SCH) NEB ×4 (02:54→21:37)
[2017-07-13 06:51] LABS: AUTOMATED NEUTROPHIL # 13.3 TH/MM3 (1.8-7.7); BASOPHIL % 0.2 % (0.0-2.0); HEMATOCRIT 33.7 % (35.0-46.0); HEMOGLOBIN 11.3 GM/DL (11.6-15.3); LYMPH % 5.3 % (9.0-44.0); LYMPHOCYTE # 0.8 TH/MM3 (1.0-4.8); MEAN CELL VOLUME 92.1 FL (80.0-100.0); MEAN CORPUSCULAR HGB CONC 33.6 % (32.0-36.0); MEAN PLATELET VOLUME 10.6 FL (7.0-11.0); MONO % 3.1 % (0.0-8.0); MONOCYTE # 0.4 TH/MM3 (0-0.9); NEUT % 91.4 % (16.0-70.0); PLATELET COUNT 148 TH/MM3 (150-450); RED BLOOD COUNT 3.66 MIL/MM3 (4.00-5.30); RED CELL DISTRIBUTION WIDTH 15.7 % (11.6-17.2); WHITE BLOOD COUNT 14.6 TH/MM3 (4.0-11.0)
[2017-07-13 07:16] LABS: ALBUMIN 2.2 GM/DL (3.4-5.0); ALKALINE PHOSPHATASE 102 U/L (45-117); ALT (GPT) 101 U/L (10-53); AST (GOT) 142 U/L (15-37); BICARBONATE 24.5 MEQ/L (21.0-32.0); BLOOD UREA NITROGEN 26 MG/DL (7-18); CALCIUM 7.7 MG/DL (8.5-10.1); CHLORIDE 109 MEQ/L (98-107); GLOMERULAR FILTRATION RATE 88 ML/MIN (>89); GLUCOSE,RANDOM 109 MG/DL (74-106); SODIUM (NA) 140 MEQ/L (136-145); TOTAL BILIRUBIN ADULT 0.3 MG/DL (0.2-1.0); TOTAL PROTEIN 6.9 GM/DL (6.4-8.2)
--- NOTE | 2017-07-13 07:19 | MB ---
cc: ORTIZ ARMSTRONG MD DATE OF CONSULTATION: 07/12/2017 REQUESTING PHYSICIAN: Dr. Alfaro REASON FOR CONSULTATION: Patient with significant hypoxia, fever, requiring BiPAP, history of cat scratch disease in 2016. Evaluate for possible infectious etiology. HISTORY OF PRESENT ILLNESS: This is a 51 year-old white female who was admitted to the hospital after she presented to the emergency department yesterday evening with respiratory symptoms. The patient reports that she fell at home four days ago and after she fell she started having symptoms of fever, hot and cold spells. In the emergency department she was noted to have elevated white count of 18.2, and left shift. Chest x-ray showed interstitial pulmonary edema. CT scan of the chest was performed and it shows diffuse bilateral ground glass infiltrates without effusion. The infiltrates are similar to prior exam of 2016 and also mediastinal adenopathy which is less pronounced from the prior study in 2016. She is currently on BiPAP 50%. When the BiPAP mask was removed, her saturation dropped to 82%. It is difficult to get a good history from the patient with the BiPAP mask in place. She was admitted to the hospital back in February 2017 for V-tach. She was also admitted to the hospital December 2015 and at the time she was treated for fever of unknown origin with negative BLAS, and her workup included a negative HIV test. Cultures were negative. Bronchoscopy was performed back in 2015 and the lavage showed numerous fungal hyphae and spores suggested of deepali species. Influenzae test is negative. Blood cultures have no growth in one day. She is on antibiotics and the white blood cell count has decreased to 15.1. The patient states that she has pain underneath the breast. She denies exposure to unusual pets. PAST MEDICAL HISTORY: 1. Ventricular tachycardia. 2. Cirrhosis of the liver. 3. Hepatitis C. 4. Anxiety/depression. 5. COPD. 6. Hypertension. 7. Gastroesophageal reflux disease. 8. Chronic back pain. 9. History of AICD. 10. Fibromyalgia. 11. Bipolar disorder. ALLERGIES CODEINE. MEDICATIONS: 1. Azithromycin. 2. Ceftriaxone. 3. Solu-Medrol 4. Lactinex. 5. Percocet. 6. Lasix. 7. Lovenox. 8. Cordarone. 9. Adderall. 10. Aspirin. 11. Prinivil. 12. Lopressor. 13. Potassium. 14. Topamax. 15. Prozac. 16. Protonix. 17. Xanax. 18. DuoNeb. SOCIAL HISTORY: No tobacco, no alcohol, no illicit drug use. FAMILY HISTORY: Noncontributory. REVIEW OF SYSTEMS: GENERAL: Significant for fever. HEENT: Denies visual changes. Denies difficulty swallowing or soreness of the throat. CARDIOVASCULAR: Denies palpitations. Positive chest pain. RESPIRATORY: Positive for cough and shortness of breath. GASTROINTESTINAL: Denies diarrhea, nausea or vomiting. GENITOURINARY: No dysuria. HEMATOPOIETIC: No easy bruising or bleeding. ENDOCRINE: No polyuria, polydipsia. INTEGUMENTARY: No skin rash or itching. NEUROLOGIC: No problems with coordination. PHYSICAL EXAMINATION: This is a pleasant well-developed, chronically ill-appearing female. Vital signs: Include temperature of 97.7 degrees, BP 190/68, respiratory rate 34, heart rate 67. HEENT: Head is atraumatic. Extraocular movements grossly intact, pupils reactive to light, no icterus. Oropharynx, difficult to evaluate since the patient has a BiPAP mask in place. Neck: No adenopathy or swelling. The neck is supple. Lungs: Decreased breath sounds throughout. Heart: Regular S1-S2. No audible murmurs. Abdomen: Bowel sounds present, soft, nontender. Rectal: Not performed. Extremities: No clubbing, cyanosis or edema. LABORATORY DATA: WBC 15.1, platelet count 130, 94% neutrophils, 3% lymphocytes. Creatinine 0.74, BUN 14, sodium 138. IMPRESSION: 1. Bilateral lung interstitial ground glass infiltrate. Questionable infection versus inflammatory nature, versus drug toxicity. 2. Hypoxia. Patient requiring BiPAP. 3. Leukocytosis. RECOMMENDATIONS: 1. Obtain mycoplasma serology. 2. Obtain sedimentation rate. 3. Obtain STEPHANIE. 4. Obtain Procalcitonin level. 5. Pulmonary consultation for hypoxia. 6. Continue azithromycin. 7. Continue ceftriaxone. 8. Add Micafungin for possible fungal etiology. 9. Monitor white cell count. 10. Monitor clinical response. It appears the patient may have ongoing lung injury and may require biopsy of the lung for further determination of the cause. Thank you for the consultation. Ortiz Armstrong MD FD/KENNA /3:33 PM /7:13 AM
[2017-07-13] MEDS: METOPROLOL TARTRATE 25 MG TAB PO SCH (08:40)
[2017-07-13] MEDS: LISINOPRIL 5 MG TAB PO SCH (08:40)
[2017-07-13] MEDS: AMIODARONE 200 MG TAB PO SCH ×2 (08:40→20:52)
[2017-07-13] MEDS: DEXTROAMPHETAMINE/AMPHETAMINE 30 MG TAB PO SCH (08:43)
[2017-07-13] MEDS: POTASSIUM CHLORIDE 20 MEQ CONTROLLED RELEASE TAB PO SCH (08:43)
[2017-07-13] MEDS: LACTOBACILLUS ACIDOPHILUS TAB PO SCH ×3 (08:43→17:19)
[2017-07-13] MEDS: methylPREDNISolone SOD SUCC 40 MG/1 ML VIAL IV PUSH SCH ×2 (08:44→20:51)
[2017-07-13] MEDS: TOPIRAMATE 25 MG TAB PO SCH ×2 (08:44→20:52)
[2017-07-13] MEDS: FLUoxetine HCL 20 MG CAP PO SCH (08:44)
[2017-07-13] MEDS: ASPIRIN 325 MG TAB PO SCH (08:44)
[2017-07-13] MEDS: PANTOPRAZOLE SOD 20 MG DELAYED RELEASE TAB PO SCH (08:44)
[2017-07-13] MEDS: BUDESONIDE-FORMOTEROL 80/4.5 MCG INHALER INH SCH ×2 (08:45→20:51)
[2017-07-13] MEDS: SODIUM CHLORIDE 0.9% FLUSH 10 ML FLUSH IV FLUSH SCH ×2 (08:45→20:51)
[2017-07-13] MEDS: FUROSEMIDE 40 MG/4 ML VIAL IV PUSH SCH ×2 (08:45→17:19)
[2017-07-13] MEDS: ENOXAPARIN SODIUM 60 MG/0.6 ML SYRINGE SQ SCH (08:45)
--- NOTE | 2017-07-13 10:40 | HHI.PR ---
Subjective Remarks Tachypnea is improving. Patient still needing BiPAP intermittently but she states that she is more comfortable in regards to her respiratory status. Imaging showed ground glass appearance on lung suggesting possible additional etiology for her clinical status. Workup has been expanded by infectious disease physician. Objective Vital Signs Date Time Temp Pulse Resp B/P (MAP) Pulse Ox O2 Delivery O2 Flow Rate FiO2 07/13/17 10:14 99 Non-Rebreather 07/13/17 09:29 80 Venturi Mask 50 07/13/17 09:29 94 50 07/13/17 09:00 49 07/13/17 08:00 98.4 49 24 100/57 (71) 94 07/13/17 07:00 94 Bi-Pap 50 07/13/17 04:32 93 50 07/13/17 04:08 53 16 100/56 (71) 96 07/13/17 03:49 32 07/13/17 01:33 95 50 07/13/17 00:15 57 07/13/17 00:00 97.9 54 16 91/55 (67) 94 07/12/17 23:47 97 50 07/12/17 21:20 97 50 07/12/17 20:25 98.5 56 28 94/58 (70) 95 07/12/17 20:07 53 07/12/17 18:00 54 07/12/17 16:45 64 07/12/17 16:43 97.4 62 28 116/67 (83) 98 07/12/17 13:14 97 50 07/12/17 13:06 07/12/17 12:32 BiPAP 50 07/12/17 12:29 67 33 119/68 (85) 96 Non-Rebreather 15.00 I/O 07/12/17 07/12/17 07/12/17 07/13/17 07/13/17 07/13/17 07:00 15:00 23:00 07:00 15:00 23:00 Intake Total 250 ml 120 ml 720 ml Output Total 1000 ml 550 ml 400 ml Balance 250 ml -1000 ml -430 ml 320 ml Intake Oral 120 ml 720 ml IV Total 250 ml Output Urine Total 1000 ml 550 ml 400 ml # Voids 0 Result Diagram: 07/13/1761207/13/1713 Objective Remarks GENERAL: NAD, A&Ox3 HEAD: Normocephalic. NECK: Supple, trachea midline. No lymphadenopathy. EYES: No scleral icterus. No injection or drainage. CARDIOVASCULAR: Regular rate and rhythm without murmurs, gallops, or rubs. RESPIRATORY: Breath sounds equal bilaterally. No accessory muscle use. GASTROINTESTINAL: Abdomen soft, non-tender, nondistended. MUSCULOSKELETAL: No cyanosis, or edema. SKIN: Warm and dry. NEURO: No focal neurological deficitis. A/P Problem List: (1) Hypoxemia ICD Code: R09.02 - Hypoxemia Status: Acute (2) Lung infiltrate ICD Code: R91.8 - Other nonspecific abnormal finding of lung field Status: Acute (3) Pneumonia ICD Code: J18.9 - Pneumonia, unspecified organism Status: Acute (4) CHF (congestive heart failure) ICD Code: I50.9 - Heart failure, unspecified Status: Acute (5) Sepsis ICD Code: A41.9 - Sepsis, unspecified organism Assessment and Plan 51-year-old female admitted secondary to respiratory distress, with pneumonia and reported baseline CHF. Labs have been ordered for infectious etiologies, autoimmune etiologies and I have added alpha 1 antitrypsin screen. Clinically she has slight improvements today but she is not near baseline yet. She still needing oxygen dependence with a nonrebreather to maintain saturations and will intermittently still need BiPAP. Continue to monitor in [facility]. Sepsis Resolved Clinically patient appears stable other than respiratory distress Continue to monitor vital signs closely Continue to treat infection Pneumonia Acute hypoxemic respiratory failure Leukocytosis Continue BiPAP as needed Continue oxygen supplementation Continue Rocephin and azithromycin Follow on telemetry given history of prolonged QT interval History of Valvular heart disease with moderate MR, moderate MS Possible CHF exacerbation Elevated BNP Prolonged QT interval (chronic) Echocardiogram in process Monitor and treat for fluid balance Lasix every 12 hours Follow on telemetry Hypertension Continue baseline treatment Follow blood pressures Hyperlipidemia No change to baseline treatment Follows in outpatient COPD exacerbation Continue breathing treatments as needed Continue oxygen supplementation Steroids Cirrhosis Chronic hepatitis C Standard precautions Bipolar disorder ADHD No exacerbations Follow clinically No change to baseline treatment Fibromyalgia Hiatal hernia Chronic back pain GERD No change to baseline treatment Follow clinically DVT prophylaxis Zaheer Myers MD Jul 13, 2017 10:40
--- NOTE | 2017-07-13 14:25 | HHI.IDPN ---
Note Infectious Disease Note Patient feels better. On O2 via NRM. Sats 99% No sweats or chills. Notes some pain under the r. breast. Presented to the emergency department with respiratory symptoms. PAST MEDICAL HISTORY: 1. Ventricular tachycardia. 2. Cirrhosis of the liver. 3. Hepatitis C. 4. Anxiety/depression. 5. COPD. 6. Hypertension. 7. Gastroesophageal reflux disease. 8. Chronic back pain. 9. History of AICD. 10. Fibromyalgia. 11. Bipolar disorder. ALLERGIES CODEINE. MEDICATIONS: 1. Azithromycin. 2. Ceftriaxone. 3. Micafungin. SOCIAL HISTORY: No tobacco, no alcohol, no illicit drug use. FAMILY HISTORY: Noncontributory. OBJECTIVE: Vital Signs Date Time Temp Pulse Resp B/P (MAP) Pulse Ox O2 Delivery O2 Flow Rate FiO2 07/13/17 11:22 20 07/13/17 11:00 97.3 66 20 115/63 (80) 99 07/13/17 11:00 99 Non-Rebreather 07/13/17 11:00 66 07/13/17 10:14 99 Non-Rebreather 07/13/17 09:29 100 Partial Rebreather 07/13/17 09:29 94 50 07/13/17 09:00 49 07/13/17 08:00 98.4 49 24 100/57 (71) 94 07/13/17 07:00 94 Bi-Pap 50 07/13/17 04:32 93 50 07/13/17 04:08 53 16 100/56 (71) 96 07/13/17 01:33 95 50 07/13/17 00:15 57 07/13/17 00:00 97.9 54 16 91/55 (67) 94 07/12/17 23:47 97 50 07/12/17 21:20 97 50 07/12/17 20:25 98.5 56 28 94/58 (70) 95 07/12/17 20:07 53 07/12/17 18:00 54 07/12/17 16:45 64 07/12/17 16:43 97.4 62 28 116/67 (83) 98 Laboratory Tests Test 07/11/17 19:50 07/12/17 05:33 07/12/17 15:56 07/13/17 06:13 White Blood Count 18.2 TH/MM3 15.1 TH/MM3 14.6 TH/MM3 Red Blood Count 4.30 MIL/MM3 3.93 MIL/MM3 3.66 MIL/MM3 Hemoglobin 13.0 GM/DL 11.7 GM/DL 11.3 GM/DL Hematocrit 39.4 % 36.4 % 33.7 % Mean Corpuscular Volume 91.6 FL 92.7 FL 92.1 FL Mean Corpuscular Hemoglobin 30.2 PG 29.8 PG 31.0 PG Mean Corpuscular Hemoglobin Concent 32.9 % 32.1 % 33.6 % Red Cell Distribution Width 15.8 % 16.0 % 15.7 % Platelet Count 165 TH/MM3 130 TH/MM3 148 TH/MM3 Mean Platelet Volume 10.0 FL 10.1 FL 10.6 FL Neutrophils (%) (Auto) 91.5 % 94.9 % 91.4 % Lymphocytes (%) (Auto) 4.9 % 3.1 % 5.3 % Monocytes (%) (Auto) 3.4 % 1.8 % 3.1 % Eosinophils (%) (Auto) 0.0 % 0.1 % 0.0 % Basophils (%) (Auto) 0.2 % 0.1 % 0.2 % Neutrophils # (Auto) 16.7 TH/MM3 14.3 TH/MM3 13.3 TH/MM3 Lymphocytes # (Auto) 0.9 TH/MM3 0.5 TH/MM3 0.8 TH/MM3 Monocytes # (Auto) 0.6 TH/MM3 0.3 TH/MM3 0.4 TH/MM3 Eosinophils # (Auto) 0.0 TH/MM3 0.0 TH/MM3 0.0 TH/MM3 Basophils # (Auto) 0.0 TH/MM3 0.0 TH/MM3 0.0 TH/MM3 CBC Comment DIFF FINAL DIFF FINAL DIFF FINAL Differential Comment Erythrocyte Sedimentation Rate 60 mm/hr Laboratory Tests Test 07/11/17 19:50 07/12/17 02:20 07/12/17 05:33 07/12/17 12:20 Blood Urea Nitrogen 13 MG/DL 14 MG/DL Creatinine 0.86 MG/DL 0.74 MG/DL Random Glucose 104 MG/DL 134 MG/DL Total Protein 7.2 GM/DL Albumin 2.4 GM/DL Calcium Level 8.1 MG/DL 7.9 MG/DL Magnesium Level 1.8 MG/DL Alkaline Phosphatase 101 U/L Aspartate Amino Transf (AST/SGOT) 102 U/L Alanine Aminotransferase (ALT/SGPT) 85 U/L Total Bilirubin 0.6 MG/DL Sodium Level 136 MEQ/L 138 MEQ/L Potassium Level 3.7 MEQ/L 3.7 MEQ/L Chloride Level 106 MEQ/L 107 MEQ/L Carbon Dioxide Level 20.2 MEQ/L 21.2 MEQ/L Anion Gap 10 MEQ/L 10 MEQ/L Estimat Glomerular Filtration Rate 69 ML/MIN 82 ML/MIN Lactic Acid Level 1.6 mmol/L Total Creatine Kinase 258 U/L 192 U/L 454 U/L Creatine Kinase MB 3.3 NG/ML 14.5 NG/ML Creatine Kinase MB % 1.3 % 3.2 % Troponin I LESS THAN 0.02 NG/ML LESS THAN 0.02 NG/ML LESS THAN 0.02 NG/ML B-Type Natriuretic Peptide 320 PG/ML Procalcitonin 0.13 ng/mL Test 07/13/17 06:13 Blood Urea Nitrogen 26 MG/DL Creatinine 0.70 MG/DL Random Glucose 109 MG/DL Total Protein 6.9 GM/DL Albumin 2.2 GM/DL Calcium Level 7.7 MG/DL Alkaline Phosphatase 102 U/L Aspartate Amino Transf (AST/SGOT) 142 U/L Alanine Aminotransferase (ALT/SGPT) 101 U/L Total Bilirubin 0.3 MG/DL Sodium Level 140 MEQ/L Potassium Level 3.8 MEQ/L Chloride Level 109 MEQ/L Carbon Dioxide Level 24.5 MEQ/L Anion Gap 7 MEQ/L Estimat Glomerular Filtration Rate 88 ML/MIN Microbiology Date/Time Source Procedure Growth Status 07/11/17 19:55 Blood Peripheral Aerobic Blood Culture - Preliminary NO GROWTH IN 2 DAYS Resulted 07/11/17 19:55 Blood Peripheral Anaerobic Blood Culture - Preliminary NO GROWTH IN 2 DAYS Resulted 07/11/17 19:45 Blood Peripheral Aerobic Blood Culture - Preliminary NO GROWTH IN 2 DAYS Resulted 07/11/17 19:45 Blood Peripheral Anaerobic Blood Culture - Preliminary NO GROWTH IN 2 DAYS Resulted 07/11/17 19:55 Nasal Aspirate Influenza Types A,B Antigen (ÁLVARO) - Final NEGATIVE FOR FLU A AND B ANTIGEN.... Complete IMAGING: Chest X-Ray 07/11/171948 Signed Impressions: Service Date/Time: Tuesday, July 11, 2017 19:55 - CONCLUSION: Interstitial pulmonary edema. Osmany Stafford Jr., MD CT Angiography 07/11/171948 Signed Impressions: Service Date/Time: Tuesday, July 11, 2017 20:47 - CONCLUSION: 1. No pulmonary embolus. 2. Diffuse bilateral groundglass infiltrates without effusions. These infiltrates are similar to prior exam from 2016. Differential diagnostic considerations include alveolar proteinosis, infectious infiltrates , and pulmonary edema. 3. Mediastinal adenopathy is less pronounced from the prior study. 4. No pulmonary emboli. 5. Cirrhosis. Osmany Stafford Jr., MD PHYSICAL EXAMINATION: GENERAL: chronically ill-appearing female. HEENT: Head is atraumatic. Extraocular movements grossly intact, pupils reactive to light, no icterus. Oropharynx mucosa moist. Neck: No adenopathy or swelling. The neck is supple. Lungs: Decreased breath sounds throughout. Heart: Regular S1-S2. No audible murmurs. Abdomen: Bowel sounds present, soft, nontender. Extremities: No clubbing, cyanosis or edema. SKIN: No rash. PSYCH: calm and cooperative. IMPRESSION: 1. Bilateral lung interstitial ground glass infiltrate. Questionable infection versus inflammatory nature, versus drug toxicity. 2. Hypoxia. Patient requiring BiPAP. Oxygenation appears improved. 3. Leukocytosis. RECOMMENDATIONS: 1. Continue azithromycin. 2. Continue ceftriaxone. 3. Continue Micafungin for possible fungal etiology. 4. Monitor white cell count. Mycoplasma serology. 5. Monitor clinical response. Cachorro Adams MD Jul 13, 2017 14:24
[2017-07-13] MEDS: MICAFUNGIN INJ 100 MG in SODIUM CHLORIDE 0.9% INJ 100 ML IV SCH (16:07)
[2017-07-13] MEDS: cefTRIAXone INJ 1,000 MG in SODIUM CHLORIDE 0.9% INJ 100 ML IV SCH (20:52)
[2017-07-13] MEDS: AZITHROMYCIN INJ 500 MG in SODIUM CHLOR 0.9% 250 ML INJ 250 ML IV SCH (23:22)
[2017-07-13] MEDS: ALPRAZolam 1 MG TAB PO PRN (23:23)
[2017-07-14] VITALS (35 sets, daily range): BP systolic 83–113; BP diastolic 52–74; PULSE 46–66; RESP 16–22; TEMP 97–98.3; O2SAT 90–100
[2017-07-14] MEDS: RESP: ALBUTEROL 2.5 MG/IPRATROPIUM 0.5 MG NEB (SCH) NEB ×4 (03:42→20:16)
[2017-07-14 06:55] LABS: AUTOMATED NEUTROPHIL # 9.7 TH/MM3 (1.8-7.7); BASOPHIL % 0.1 % (0.0-2.0); HEMATOCRIT 33.6 % (35.0-46.0); HEMOGLOBIN 11.3 GM/DL (11.6-15.3); LYMPH % 5.9 % (9.0-44.0); LYMPHOCYTE # 0.6 TH/MM3 (1.0-4.8); MEAN CELL VOLUME 92.8 FL (80.0-100.0); MEAN CORPUSCULAR HEMOGLOBIN 31.1 PG (27.0-34.0); MEAN CORPUSCULAR HGB CONC 33.5 % (32.0-36.0); MONOCYTE # 0.3 TH/MM3 (0-0.9); PLATELET COUNT 148 TH/MM3 (150-450); RED BLOOD COUNT 3.62 MIL/MM3 (4.00-5.30); RED CELL DISTRIBUTION WIDTH 15.9 % (11.6-17.2); WHITE BLOOD COUNT 10.7 TH/MM3 (4.0-11.0)
[2017-07-14 07:08] LABS: ALBUMIN 2.3 GM/DL (3.4-5.0); AST (GOT) 163 U/L (15-37); BICARBONATE 26.2 MEQ/L (21.0-32.0); BLOOD UREA NITROGEN 29 MG/DL (7-18); CALCIUM 7.9 MG/DL (8.5-10.1); CHLORIDE 107 MEQ/L (98-107); GLOMERULAR FILTRATION RATE 88 ML/MIN (>89); GLUCOSE,RANDOM 110 MG/DL (74-106); SODIUM (NA) 139 MEQ/L (136-145)
[2017-07-14 07:11] LABS: ALKALINE PHOSPHATASE 108 U/L (45-117); ALT (GPT) 133 U/L (10-53); TOTAL BILIRUBIN ADULT 0.2 MG/DL (0.2-1.0); TOTAL PROTEIN 6.8 GM/DL (6.4-8.2)
[2017-07-14] MEDS: DEXTROAMPHETAMINE/AMPHETAMINE 30 MG TAB PO SCH (09:00)
[2017-07-14] MEDS: BUDESONIDE-FORMOTEROL 80/4.5 MCG INHALER INH SCH ×2 (09:15→20:04)
[2017-07-14] MEDS: LACTOBACILLUS ACIDOPHILUS TAB PO SCH ×3 (09:16→17:19)
[2017-07-14] MEDS: oxyCODONE/ACETAMINOPHEN 10 MG/325 MG TAB PO PRN ×3 (09:16→22:20)
[2017-07-14] MEDS: ASPIRIN 325 MG TAB PO SCH (09:16)
[2017-07-14] MEDS: LISINOPRIL 5 MG TAB PO SCH (09:16)
[2017-07-14] MEDS: FLUoxetine HCL 20 MG CAP PO SCH (09:16)
[2017-07-14] MEDS: PANTOPRAZOLE SOD 20 MG DELAYED RELEASE TAB PO SCH (09:16)
[2017-07-14] MEDS: TOPIRAMATE 25 MG TAB PO SCH ×2 (09:16→20:04)
[2017-07-14] MEDS: METOPROLOL TARTRATE 25 MG TAB PO SCH (09:16)
[2017-07-14] MEDS: methylPREDNISolone SOD SUCC 40 MG/1 ML VIAL IV PUSH SCH ×2 (09:17→20:04)
[2017-07-14] MEDS: FUROSEMIDE 40 MG/4 ML VIAL IV PUSH SCH ×2 (09:17→17:13)
[2017-07-14] MEDS: POTASSIUM CHLORIDE 20 MEQ CONTROLLED RELEASE TAB PO SCH (09:17)
[2017-07-14] MEDS: SODIUM CHLORIDE 0.9% FLUSH 10 ML FLUSH IV FLUSH SCH ×2 (09:17→20:04)
[2017-07-14] MEDS: AMIODARONE 200 MG TAB PO SCH ×2 (09:17→20:03)
[2017-07-14] MEDS: ENOXAPARIN SODIUM 40 MG/0.4 ML SYRINGE SQ SCH (09:19)
--- NOTE | 2017-07-14 11:56 | HHI.PR ---
Subjective Remarks Slowly improving. She still needs BiPAP overnight. Additionally she is still needing nonrebreather, but should her respiratory rate is decreased. Objective Vital Signs Date Time Temp Pulse Resp B/P (MAP) Pulse Ox O2 Delivery O2 Flow Rate FiO2 07/14/17 10:16 20 07/14/17 10:16 57 07/14/17 09:00 59 07/14/17 08:45 98 Nasal Cannula 2.00 07/14/17 08:38 95 50 07/14/17 08:37 96 BiPAP 07/14/17 08:00 48 07/14/17 08:00 92 Non-Rebreather 10.00 07/14/17 08:00 97.3 57 22 105/56 (72) 92 07/14/17 06:13 46 07/14/17 05:18 49 07/14/17 04:54 57 07/14/17 04:49 57 07/14/17 04:19 97.3 61 96/53 (67) 94 07/14/17 04:19 Bi-Pap 12.00 50 07/14/17 03:47 94 BiPAP 50 07/14/17 03:46 94 50 07/14/17 02:00 54 07/14/17 01:00 54 07/14/17 00:32 97.0 60 98/54 (69) 96 07/14/17 00:32 Bi-Pap 12.00 50 07/14/17 00:00 62 07/13/17 23:00 58 07/13/17 22:00 62 07/13/17 21:39 95 50 07/13/17 21:00 60 07/13/17 20:00 60 07/13/17 20:00 98.2 59 95/46 (62) 99 07/13/17 20:00 Bi-Pap 07/13/17 19:00 54 07/13/17 18:00 50 07/13/17 16:00 61 07/13/17 16:00 98.2 61 24 92/51 (65) 98 07/13/17 15:13 95 50 07/13/17 15:03 97 Partial Rebreather 12.00 07/13/17 15:00 99 Partial Non-Rebreather I/O 07/13/17 07/13/17 07/13/17 07/14/17 07/14/1718 07:00 15:00 23:00 07:00 15:00 23:00 Intake Total 720 ml 240 ml 480 ml Output Total 400 ml 950 ml Balance 320 ml 240 ml -470 ml Intake Oral 720 ml 240 ml 480 ml Output Urine Total 400 ml 950 ml Result Diagram: 07/14/1747 07/14/17546 Objective Remarks GENERAL: NAD, A&Ox3 HEAD: Normocephalic. NECK: Supple, trachea midline. No lymphadenopathy. EYES: No scleral icterus. No injection or drainage. CARDIOVASCULAR: Regular rate and rhythm without murmurs, gallops, or rubs. RESPIRATORY: Breath sounds equal bilaterally. No accessory muscle use. GASTROINTESTINAL: Abdomen soft, non-tender, nondistended. MUSCULOSKELETAL: No cyanosis, or edema. SKIN: Warm and dry. NEURO: No focal neurological deficitis. A/P Problem List: (1) Hypoxemia ICD Code: R09.02 - Hypoxemia Status: Acute (2) Lung infiltrate ICD Code: R91.8 - Other nonspecific abnormal finding of lung field Status: Acute (3) Pneumonia ICD Code: J18.9 - Pneumonia, unspecified organism Status: Acute (4) CHF (congestive heart failure) ICD Code: I50.9 - Heart failure, unspecified Status: Acute (5) Sepsis ICD Code: A41.9 - Sepsis, unspecified organism Assessment and Plan 51-year-old female admitted secondary to respiratory distress, with pneumonia and reported baseline CHF. Labs reviewed. Continue to monitor labs in regards to autoimmune workup in alpha 1 antitrypsin. Patient has no new complaints. She is able to get out of the bed into the chair today. Significant dyspnea with exertion, however BiPAP was not needed during the day at this point. She does use BiPAP overnight. She continues on nonrebreather but when she is at rest she has a lower baseline respiratory rate. Sepsis Resolved Clinically patient appears stable other than respiratory distress Continue to monitor vital signs closely Continue to treat infection Pneumonia Acute hypoxemic respiratory failure Leukocytosis Continue BiPAP as needed Continue oxygen supplementation Continue Rocephin and azithromycin Follow on telemetry given history of prolonged QT interval History of Valvular heart disease with moderate MR, moderate MS Possible CHF exacerbation Elevated BNP Prolonged QT interval (chronic) Echocardiogram in process Monitor and treat for fluid balance Lasix every 12 hours Follow on telemetry Hypertension Continue baseline treatment Follow blood pressures Hyperlipidemia No change to baseline treatment Follows in outpatient COPD exacerbation Continue breathing treatments as needed Continue oxygen supplementation Steroids Cirrhosis Chronic hepatitis C Standard precautions Bipolar disorder ADHD No exacerbations Follow clinically No change to baseline treatment Fibromyalgia Hiatal hernia Chronic back pain GERD No change to baseline treatment Follow clinically DVT prophylaxis Zaheer Myers MD Jul 14, 2017 11:56
[2017-07-14 12:15] LABS: MYCOPLASMA PNEUMONIAE IGG Positive (Negative); MYCOPLASMA PNEUMONIAE IGM Negative (Negative)
--- NOTE | 2017-07-14 12:41 | HHI.IDPN ---
Note Infectious Disease Note Patient says she feels better. On 8LO2 via NRM. Sats 99% Was up in chair today but felt a bit dizzy. No cough or sputum. Presented to the emergency department with respiratory symptoms. PAST MEDICAL HISTORY: 1. Ventricular tachycardia. 2. Cirrhosis of the liver. 3. Hepatitis C. 4. Anxiety/depression. 5. COPD. 6. Hypertension. 7. Gastroesophageal reflux disease. 8. Chronic back pain. 9. History of AICD. 10. Fibromyalgia. 11. Bipolar disorder. ALLERGIES CODEINE. MEDICATIONS: 1. Azithromycin. 2. Ceftriaxone. 3. Micafungin. SOCIAL HISTORY: No tobacco, no alcohol, no illicit drug use. FAMILY HISTORY: Noncontributory. OBJECTIVE: Vital Signs Date Time Temp Pulse Resp B/P (MAP) Pulse Ox O2 Delivery O2 Flow Rate FiO2 07/14/17 12:08 54 07/14/17 11:00 98.3 50 20 84/60 (68) 94 07/14/17 11:00 94 Non-Rebreather 10.00 07/14/17 11:00 58 07/14/17 10:16 20 07/14/17 10:16 57 07/14/17 09:00 59 07/14/17 08:45 98 Nasal Cannula 2.00 07/14/17 08:38 95 50 07/14/17 08:37 96 BiPAP 07/14/17 08:00 48 07/14/17 08:00 92 Non-Rebreather 10.00 07/14/17 08:00 97.3 57 22 105/56 (72) 92 07/14/17 06:13 46 07/14/17 05:18 49 07/14/17 04:54 57 07/14/17 04:49 57 07/14/17 04:19 97.3 61 96/53 (67) 94 07/14/17 04:19 Bi-Pap 12.00 50 07/14/17 03:47 94 BiPAP 50 07/14/17 03:46 94 50 07/14/17 02:00 54 07/14/17 01:00 54 07/14/17 00:32 97.0 60 98/54 (69) 96 07/14/17 00:32 Bi-Pap 12.00 50 07/14/17 00:00 62 07/13/17 23:00 58 07/13/17 22:00 62 07/13/17 21:39 95 50 07/13/17 21:00 60 07/13/17 20:00 60 07/13/17 20:00 98.2 59 95/46 (62) 99 07/13/17 20:00 Bi-Pap 07/13/17 19:00 54 07/13/17 18:00 50 07/13/17 16:00 61 07/13/17 16:00 98.2 61 24 92/51 (65) 98 07/13/17 15:13 95 50 07/13/17 15:03 97 Partial Rebreather 12.00 07/13/17 15:00 99 Partial Non-Rebreather Laboratory Tests Test 07/12/17 15:56 07/13/17 06:13 07/14/17 05:47 Erythrocyte Sedimentation Rate 60 mm/hr White Blood Count 14.6 TH/MM3 10.7 TH/MM3 Red Blood Count 3.66 MIL/MM3 3.62 MIL/MM3 Hemoglobin 11.3 GM/DL 11.3 GM/DL Hematocrit 33.7 % 33.6 % Mean Corpuscular Volume 92.1 FL 92.8 FL Mean Corpuscular Hemoglobin 31.0 PG 31.1 PG Mean Corpuscular Hemoglobin Concent 33.6 % 33.5 % Red Cell Distribution Width 15.7 % 15.9 % Platelet Count 148 TH/MM3 148 TH/MM3 Mean Platelet Volume 10.6 FL 10.0 FL Neutrophils (%) (Auto) 91.4 % 91.0 % Lymphocytes (%) (Auto) 5.3 % 5.9 % Monocytes (%) (Auto) 3.1 % 3.0 % Eosinophils (%) (Auto) 0.0 % 0.0 % Basophils (%) (Auto) 0.2 % 0.1 % Neutrophils # (Auto) 13.3 TH/MM3 9.7 TH/MM3 Lymphocytes # (Auto) 0.8 TH/MM3 0.6 TH/MM3 Monocytes # (Auto) 0.4 TH/MM3 0.3 TH/MM3 Eosinophils # (Auto) 0.0 TH/MM3 0.0 TH/MM3 Basophils # (Auto) 0.0 TH/MM3 0.0 TH/MM3 CBC Comment DIFF FINAL DIFF FINAL Differential Comment Laboratory Tests Test 07/13/17 06:13 07/14/17 05:47 Blood Urea Nitrogen 26 MG/DL 29 MG/DL Creatinine 0.70 MG/DL 0.70 MG/DL Random Glucose 109 MG/DL 110 MG/DL Total Protein 6.9 GM/DL 6.8 GM/DL Albumin 2.2 GM/DL 2.3 GM/DL Calcium Level 7.7 MG/DL 7.9 MG/DL Alkaline Phosphatase 102 U/L 108 U/L Aspartate Amino Transf (AST/SGOT) 142 U/L 163 U/L Alanine Aminotransferase (ALT/SGPT) 101 U/L 133 U/L Total Bilirubin 0.3 MG/DL 0.2 MG/DL Sodium Level 140 MEQ/L 139 MEQ/L Potassium Level 3.8 MEQ/L 3.9 MEQ/L Chloride Level 109 MEQ/L 107 MEQ/L Carbon Dioxide Level 24.5 MEQ/L 26.2 MEQ/L Anion Gap 7 MEQ/L 6 MEQ/L Estimat Glomerular Filtration Rate 88 ML/MIN 88 ML/MIN Microbiology Date/Time Source Procedure Growth Status 07/11/17 19:55 Blood Peripheral Aerobic Blood Culture - Preliminary NO GROWTH IN 3 DAYS Resulted 07/11/17 19:55 Blood Peripheral Anaerobic Blood Culture - Preliminary NO GROWTH IN 3 DAYS Resulted 07/11/17 19:45 Blood Peripheral Aerobic Blood Culture - Preliminary NO GROWTH IN 3 DAYS Resulted 07/11/17 19:45 Blood Peripheral Anaerobic Blood Culture - Preliminary NO GROWTH IN 3 DAYS Resulted 07/11/17 19:55 Nasal Aspirate Influenza Types A,B Antigen (ÁLVARO) - Final NEGATIVE FOR FLU A AND B ANTIGEN.... Complete IMAGING: Chest X-Ray 07/11/171948 Signed Impressions: Service Date/Time: Tuesday, July 11, 2017 19:55 - CONCLUSION: Interstitial pulmonary edema. Osmany Stafford Jr., MD CT Angiography 07/11/171948 Signed Impressions: Service Date/Time: Tuesday, July 11, 2017 20:47 - CONCLUSION: 1. No pulmonary embolus. 2. Diffuse bilateral groundglass infiltrates without effusions. These infiltrates are similar to prior exam from 2016. Differential diagnostic considerations include alveolar proteinosis, infectious infiltrates , and pulmonary edema. 3. Mediastinal adenopathy is less pronounced from the prior study. 4. No pulmonary emboli. 5. Cirrhosis. Osmany Stafford Jr., MD PHYSICAL EXAMINATION: GENERAL: chronically ill-appearing female. HEENT: Head is atraumatic. no icterus. Oropharynx mucosa moist. Neck: No adenopathy or swelling. The neck is supple. Lungs: Decreased breath sounds bilaterally. Heart: Regular S1-S2. No audible murmurs. Abdomen: Bowel sounds present, soft, nontender. Extremities: No clubbing, cyanosis or edema. SKIN: No rash. PSYCH: calm and cooperative. IMPRESSION: 1. Bilateral lung interstitial ground glass infiltrate. Questionable infection versus inflammatory nature, versus drug toxicity. 2. Hypoxia. Patient requiring BiPAP at night. 3. Leukocytosis. ? etiology. WBC improved. RECOMMENDATIONS: 1. Continue azithromycin. 2. Continue ceftriaxone. 3. Continue Micafungin for possible fungal etiology. 4. Monitor white cell count. 5. Monitor clinical response. Cachorro Adams MD Jul 14, 2017 12:41
[2017-07-14] MEDS: MICAFUNGIN INJ 100 MG in SODIUM CHLORIDE 0.9% INJ 100 ML IV SCH (16:33)
[2017-07-14] MEDS: cefTRIAXone INJ 1,000 MG in SODIUM CHLORIDE 0.9% INJ 100 ML IV SCH (20:04)
[2017-07-14] MEDS: ALPRAZolam 1 MG TAB PO PRN (20:07)
[2017-07-14] MEDS: AZITHROMYCIN INJ 500 MG in SODIUM CHLOR 0.9% 250 ML INJ 250 ML IV SCH (22:19)
[2017-07-15] VITALS (29 sets, daily range): BP systolic 89–106; BP diastolic 51–63; PULSE 50–76; RESP 20–22; TEMP 97.8–98.4; O2SAT 93–99
[2017-07-15] MEDS: RESP: ALBUTEROL 2.5 MG/IPRATROPIUM 0.5 MG NEB (SCH) NEB ×4 (03:37→20:07)
[2017-07-15] MEDS: oxyCODONE/ACETAMINOPHEN 10 MG/325 MG TAB PO PRN ×3 (03:50→21:25)
[2017-07-15] MEDS: ALPRAZolam 1 MG TAB PO PRN ×2 (03:50→21:25)
[2017-07-15] MEDS: METOPROLOL TARTRATE 25 MG TAB PO SCH (08:14)
[2017-07-15] MEDS: AMIODARONE 200 MG TAB PO SCH ×2 (08:14→21:24)
[2017-07-15] MEDS: FLUoxetine HCL 20 MG CAP PO SCH (08:14)
[2017-07-15] MEDS: POTASSIUM CHLORIDE 20 MEQ CONTROLLED RELEASE TAB PO SCH (08:14)
[2017-07-15] MEDS: PANTOPRAZOLE SOD 20 MG DELAYED RELEASE TAB PO SCH (08:14)
[2017-07-15] MEDS: TOPIRAMATE 25 MG TAB PO SCH ×2 (08:14→21:25)
[2017-07-15] MEDS: ASPIRIN 325 MG TAB PO SCH (08:14)
[2017-07-15] MEDS: LACTOBACILLUS ACIDOPHILUS TAB PO SCH ×3 (08:14→17:27)
[2017-07-15] MEDS: LISINOPRIL 5 MG TAB PO SCH (08:14)
[2017-07-15] MEDS: FUROSEMIDE 40 MG/4 ML VIAL IV PUSH SCH ×2 (08:15→17:28)
[2017-07-15] MEDS: methylPREDNISolone SOD SUCC 40 MG/1 ML VIAL IV PUSH SCH ×3 (08:15→23:09)
[2017-07-15] MEDS: BUDESONIDE-FORMOTEROL 80/4.5 MCG INHALER INH SCH ×2 (08:16→21:28)
[2017-07-15] MEDS: ENOXAPARIN SODIUM 40 MG/0.4 ML SYRINGE SQ SCH (08:16)
[2017-07-15] MEDS: SODIUM CHLORIDE 0.9% FLUSH 10 ML FLUSH IV FLUSH SCH ×2 (08:16→21:25)
[2017-07-15] MEDS: DEXTROAMPHETAMINE/AMPHETAMINE 30 MG TAB PO SCH (08:21)
--- NOTE | 2017-07-15 11:52 | HHI.IDPN ---
Note Infectious Disease Note Patient feels better. Desaturates when O2 mask is removed. Feels tired. Says she did not sleep well. No sweats or chills. No new complaints. Says she is coughing more. Presented to the emergency department with respiratory symptoms. PAST MEDICAL HISTORY: 1. Ventricular tachycardia. 2. Cirrhosis of the liver. 3. Hepatitis C. 4. Anxiety/depression. 5. COPD. 6. Hypertension. 7. Gastroesophageal reflux disease. 8. Chronic back pain. 9. History of AICD. 10. Fibromyalgia. 11. Bipolar disorder. ALLERGIES CODEINE. MEDICATIONS: 1. Azithromycin. 2. Ceftriaxone. 3. Micafungin. SOCIAL HISTORY: No tobacco, no alcohol, no illicit drug use. FAMILY HISTORY: Noncontributory. OBJECTIVE: Vital Signs Date Time Temp Pulse Resp B/P (MAP) Pulse Ox O2 Delivery O2 Flow Rate FiO2 07/15/17 11:26 97.8 55 22 105/54 (71) 96 07/15/17 11:26 96 Non-Rebreather 10.00 07/15/17 11:26 51 07/15/17 10:18 50 07/15/17 09:48 56 07/15/17 08:15 98 Non-Rebreather 10.00 07/15/17 08:15 50 07/15/17 08:15 97.8 57 22 106/63 (77) 98 07/15/17 06:39 50 07/15/17 05:05 52 07/15/17 04:22 64 07/15/17 04:00 97.8 72 102/53 (69) 97 07/15/17 03:36 99 50 07/15/17 03:16 Non-Rebreather 10.00 50 07/15/17 03:00 67 07/15/17 02:00 52 07/15/17 01:00 58 07/15/17 00:00 58 07/14/17 23:30 95 50 07/14/17 23:16 56 07/14/17 23:11 97.0 57 92/55 (67) 96 07/14/17 23:11 Non-Rebreather 50 07/14/17 22:00 58 07/14/17 21:00 66 07/14/17 20:18 100 Partial Rebreather 12.00 07/14/17 20:00 97.6 55 83/54 (64) 90 07/14/17 20:00 56 07/14/17 20:00 Non-Rebreather 10.00 50 07/14/17 19:00 62 07/14/17 18:02 64 07/14/17 17:17 60 07/14/17 16:23 49 07/14/17 16:00 98.2 53 16 113/74 (87) 98 07/14/17 15:31 20 07/14/17 15:00 95 Non-Rebreather 10.00 07/14/17 15:00 98.0 54 20 86/52 (63) 95 07/14/17 15:00 59 07/14/17 14:29 56 07/14/17 13:16 48 07/14/17 12:42 97/57 (70) 07/14/17 12:08 54 Laboratory Tests Test 07/14/17 05:47 White Blood Count 10.7 TH/MM3 Red Blood Count 3.62 MIL/MM3 Hemoglobin 11.3 GM/DL Hematocrit 33.6 % Mean Corpuscular Volume 92.8 FL Mean Corpuscular Hemoglobin 31.1 PG Mean Corpuscular Hemoglobin Concent 33.5 % Red Cell Distribution Width 15.9 % Platelet Count 148 TH/MM3 Mean Platelet Volume 10.0 FL Neutrophils (%) (Auto) 91.0 % Lymphocytes (%) (Auto) 5.9 % Monocytes (%) (Auto) 3.0 % Eosinophils (%) (Auto) 0.0 % Basophils (%) (Auto) 0.1 % Neutrophils # (Auto) 9.7 TH/MM3 Lymphocytes # (Auto) 0.6 TH/MM3 Monocytes # (Auto) 0.3 TH/MM3 Eosinophils # (Auto) 0.0 TH/MM3 Basophils # (Auto) 0.0 TH/MM3 CBC Comment DIFF FINAL Differential Comment Laboratory Tests Test 07/14/17 05:47 Blood Urea Nitrogen 29 MG/DL Creatinine 0.70 MG/DL Random Glucose 110 MG/DL Total Protein 6.8 GM/DL Albumin 2.3 GM/DL Calcium Level 7.9 MG/DL Alkaline Phosphatase 108 U/L Aspartate Amino Transf (AST/SGOT) 163 U/L Alanine Aminotransferase (ALT/SGPT) 133 U/L Total Bilirubin 0.2 MG/DL Sodium Level 139 MEQ/L Potassium Level 3.9 MEQ/L Chloride Level 107 MEQ/L Carbon Dioxide Level 26.2 MEQ/L Anion Gap 6 MEQ/L Estimat Glomerular Filtration Rate 88 ML/MIN IMAGING: Chest X-Ray 07/11/171948 Signed Impressions: Service Date/Time: Tuesday, July 11, 2017 19:55 - CONCLUSION: Interstitial pulmonary edema. Osmany Stafford Jr., MD CT Angiography 07/11/171948 Signed Impressions: Service Date/Time: Tuesday, July 11, 2017 20:47 - CONCLUSION: 1. No pulmonary embolus. 2. Diffuse bilateral groundglass infiltrates without effusions. These infiltrates are similar to prior exam from 2016. Differential diagnostic considerations include alveolar proteinosis, infectious infiltrates , and pulmonary edema. 3. Mediastinal adenopathy is less pronounced from the prior study. 4. No pulmonary emboli. 5. Cirrhosis. Osmany Stafford Jr., MD PHYSICAL EXAMINATION: GENERAL: chronically ill-appearing female. HEENT: Head is atraumatic. Extraocular movements grossly intact, pupils reactive to light, no icterus. Oropharynx mucosa moist. Neck: No adenopathy or swelling. The neck is supple. Lungs: Decreased breath sounds. Heart: Regular S1-S2. No audible murmurs. Abdomen: Bowel sounds present, soft, nontender. Extremities: No clubbing, cyanosis or edema. SKIN: No rash. PSYCH: Calm and cooperative. IMPRESSION: 1. Bilateral lung interstitial ground glass infiltrate. Questionable infection versus inflammatory nature, versus drug toxicity. 2. Hypoxia. Patient requiring BiPAP. Still requiring O2 via face mask. Pulmonary consulted. 3. Leukocytosis. RECOMMENDATIONS: 1. Continue azithromycin. 2. Continue ceftriaxone. 3. Continue Micafungin for possible fungal etiology. 4. Monitor white cell count. 5. Sputum culture if feasible. Will order. 6. Monitor clinical response. Cachorro Adams MD Jul 15, 2017 11:52
--- NOTE | 2017-07-15 13:20 | HHI.PR ---
Subjective Remarks Follow-up respiratory failure with hypoxia/pneumonia 07/15/17-patient seen and examined, she still has episode of desaturation and complaint of shortness of breath. Currently afebrile. Objective Vitals Vital Signs Date Time Temp Pulse Resp B/P (MAP) Pulse Ox O2 Delivery O2 Flow Rate FiO2 07/15/17 13:11 55 07/15/17 12:25 59 07/15/17 11:26 97.8 55 22 105/54 (71) 96 07/15/17 11:26 96 Non-Rebreather 10.00 07/15/17 11:26 51 07/15/17 10:18 50 07/15/17 09:48 56 07/15/17 08:15 98 Non-Rebreather 10.00 07/15/17 08:15 50 07/15/17 08:15 97.8 57 22 106/63 (77) 98 07/15/17 06:39 50 07/15/17 05:05 52 07/15/17 04:22 64 07/15/17 04:00 97.8 72 102/53 (69) 97 07/15/17 03:36 99 50 07/15/17 03:16 Non-Rebreather 10.00 50 07/15/17 03:00 67 07/15/17 02:00 52 07/15/17 01:00 58 07/15/17 00:00 58 07/14/17 23:30 95 50 07/14/17 23:16 56 07/14/17 23:11 97.0 57 92/55 (67) 96 07/14/17 23:11 Non-Rebreather 50 07/14/17 22:00 58 07/14/17 21:00 66 07/14/17 20:18 100 Partial Rebreather 12.00 07/14/17 20:00 97.6 55 83/54 (64) 90 07/14/17 20:00 56 07/14/17 20:00 Non-Rebreather 10.00 50 07/14/17 19:00 62 07/14/17 18:02 64 07/14/17 17:17 60 07/14/17 16:23 49 07/14/17 16:00 98.2 53 16 113/74 (87) 98 07/14/17 15:31 20 07/14/17 15:00 95 Non-Rebreather 10.00 07/14/17 15:00 98.0 54 20 86/52 (63) 95 07/14/17 15:00 59 07/14/17 14:29 56 I/O 07/14/17 07/14/17 07/14/17 07/15/17 07/15/17 07/15/17 07:00 15:00 23:00 07:00 15:00 23:00 Intake Total 480 ml 900 ml 480 ml Output Total 950 ml 700 ml 1000 ml Balance -470 ml 200 ml -520 ml Intake Oral 480 ml 800 ml 480 ml IV Total 100 ml Output Urine Total 950 ml 700 ml 1000 ml Result Diagram: 07/14/17 0547 07/14/17 0547 Imaging Last Impressions Chest X-Ray 07/11/171948 Signed Impressions: Service Date/Time: Tuesday, July 11, 2017 19:55 - CONCLUSION: Interstitial pulmonary edema. Osmany Stafford Jr., MD CT Angiography 07/11/171948 Signed Impressions: Service Date/Time: Tuesday, July 11, 2017 20:47 - CONCLUSION: 1. No pulmonary embolus. 2. Diffuse bilateral groundglass infiltrates without effusions. These infiltrates are similar to prior exam from 2016. Differential diagnostic considerations include alveolar proteinosis, infectious infiltrates , and pulmonary edema. 3. Mediastinal adenopathy is less pronounced from the prior study. 4. No pulmonary emboli. 5. Cirrhosis. Osmany Stafford Jr., MD Objective Remarks GENERAL: NAD SKIN: Warm and dry. HEAD: Normocephalic. EYES: No scleral icterus. No injection or drainage. NECK: Supple, trachea midline. No JVD or lymphadenopathy. CARDIOVASCULAR: Regular rate and rhythm without murmurs, gallops, or rubs. RESPIRATORY: Breath sounds decrease bilaterally. No accessory muscle use. GASTROINTESTINAL: Abdomen soft, non-tender, nondistended. MUSCULOSKELETAL: No cyanosis, or edema. BACK: Nontender without obvious deformity. No CVA tenderness. A/P Problem List: (1) Respiratory failure ICD Code: J96.90 - Respiratory failure, unspecified, unspecified whether with hypoxia or hypercapnia Status: Acute (2) Pneumonia ICD Code: J18.9 - Pneumonia, unspecified organism Status: Acute (3) Sepsis ICD Code: A41.9 - Sepsis, unspecified organism (4) Hypoxemia ICD Code: R09.02 - Hypoxemia Status: Acute Assessment and Plan 51-year-old female with Sepsis Resolved Pneumonia Acute hypoxemic respiratory failure Leukocytosis Continue BiPAP as needed Maintain oxygen saturation above 92%, continue with DuoNeb Continue Rocephin, azithromycin and micafungin Continue with Solu-Medrol 40 mg every 6H, Symbicort Appreciate input from infectious disease specialist pending culture report Pulmonary medicine consult pending History of Valvular heart disease with moderate MR, moderate MS Possible CHF exacerbation Elevated BNP Prolonged QT interval (chronic) Lasix 40 mg IV every 12 Continue with amiodarone 400 mg every 12 2-D echo with EF 50-55% Hypertension On lisinopril 5 mg daily Hyperlipidemia To with Lipitor daily COPD exacerbation Continue with Solu-Medrol 40 mg every 6 hours,Symbicort, DuoNeb Michael medicine consultation pending Cirrhosis Chronic hepatitis C Standard precautions Bipolar disorder ADHD No exacerbations Continue with Outpatient medications Fibromyalgia Hiatal hernia Chronic back pain GERD On PPI DVT prophylaxis Min Webb MD Jul 15, 2017 13:20
[2017-07-15] MEDS: MICAFUNGIN INJ 100 MG in SODIUM CHLORIDE 0.9% INJ 100 ML IV SCH (17:36)
--- NOTE | 2017-07-15 20:32 | MB ---
cc: YeseniaTacoMANNING,CAMI DATE OF CONSULTATION 07/15/17 REASON FOR CONSULTATION Respiratory distress and COPD. HISTORY OF PRESENT ILLNESS This is a 51-year-old white female who came to the emergency room with respiratory infection with cough, congestion and shortness of breath. The patient apparently had a fall a few days ago and had symptoms of a cold and chest congestion which got worse over the past three days. Upon arrival in the emergency room on 07/12, she had a chest x-ray which showed evidence of pulmonary edema. CT chest also showed diffuse ground-glass infiltrates consistent with edema. The patient was then placed on BiPap at 50% FIO2. Saturations dropped when she was weaned off the BiPAP. The patient over the past two days has received antibiotic therapy as well as Solu-Medrol 40 mg IV and is on Rocephin 1 gram and Zithromax 500 mg IV daily. She also has received Lasix 40 mg twice a day with some resolution of her symptoms and now her O2 sats are over 94% on a partial non-rebreather mask at 10 liters. PAST MEDICAL HISTORY The patient's past history has included 1. History for hypertension 2. Hyperlipidemia, 3. History of CHF, 4. History of ventricular tachycardia with AICD placement 5. Past history of COPD with emphysema 6. History of cirrhosis of the liver and hepatitis C 7. History of bipolar disorder and ADHD 8. Fibromyalgia, 9. Hiatal hernia, 10. Chronic pain in the back 11. Gastroesophageal reflux. PAST SURGICAL HISTORY ERCP and sphincterotomy ALLERGIES CODEINE HABITS The patient smoked one-pack per day for 32 years and then quit. No significant alcohol use. FAMILY HISTORY Coronary artery disease in her parents and one sister with lung cancer and one sister with multiple sclerosis. REVIEW OF SYSTEMS The patient has lost weight. She has headaches. She has postnasal drip and sinus drainage. She has cough and wheezing. She has epigastric distress and reflux. She has no urinary symptoms. She has no leg swelling or calf muscle pains. She does have anxiety with depression. PHYSICAL EXAMINATION GENERAL: This is an averagely built middle-aged white female who is alert, oriented and responsive. She is on a partial rebreather mask. VITAL SIGNS: Blood pressure 110/60, pulse 75, respirations 20, temperature 98. HEENT: Head normocephalic. Pupils are reactive and equal. Tongue is moist. Nasal mucosa edematous ears no inflammation. Throat was clear. NECK: No bruits or thyroid enlargement or lymphadenopathy. CHEST: Increased AP diameter with diffuse wheezes throughout both lung veliz. Prolonged expirations. HEART: The heart sounds are irregular S1 and S2 with no murmur. No S3 gallop. ABDOMEN: Protuberant, soft without masses. No organomegaly or tenderness. Bowel sounds are active. EXTREMITIES: No edema. No clubbing and no calf tenderness. NEUROLOGIC: Reflexes are 1+ with no gross motor deficits. Cranial nerves grossly intact. SKIN: No lesions are observed. The patient is alert and talking and cooperative. IMPRESSION 1. Resolving respiratory failure. 2. COPD with acute exacerbation 3. CHF, resolving. 4. Hypertension and hyperlipidemia. 5. Cirrhosis of the liver 6. Bipolar disorder. PLAN The patient has been placed on O2 at 5 liters nasal cannula to maintain sats over 92. We will get a pulmonary function study at the bedside with bronchodilator studies. The IV antibiotics including Rocephin and Zithromax to be continued as ordered. Nebulized DuoNeb solution added q.i.d. and we will place her on Symbicort 160/4.5 mcg 2 puffs b.i.d., Lasix 40 mg IV b.i.d. to be continued. Repeat chest x-ray to be done in a.m. and the patient will be started on physical therapy. I will review the next chest x-ray and follow the case with you, Dr. Alfaro. Thank you for this consultation. MD LINDA Lamb/ /6:38 PM /8:10 PM
[2017-07-15] MEDS: cefTRIAXone INJ 1,000 MG in SODIUM CHLORIDE 0.9% INJ 100 ML IV SCH (21:25)
[2017-07-15] MEDS: AZITHROMYCIN INJ 500 MG in SODIUM CHLOR 0.9% 250 ML INJ 250 ML IV SCH (22:13)
[2017-07-16] VITALS (33 sets, daily range): BP systolic 91–128; BP diastolic 49–76; PULSE 51–73; RESP 17–24; TEMP 97–98.2; O2SAT 90–98
--- NOTE | 2017-07-16 05:27 | RADRPT ---
EXAM DATE/TIME: 07/16/2017 04:27 [facility] COMPARISON: CHEST SINGLE AP, July 11, 2017, 19:55. INDICATIONS : Shortness of breath, possible pulmonary disease. MEDICAL HISTORY : Congestive heart failure. Chronic obstructive pulmonary disease. Hepatitis C. SURGICAL HISTORY : Pacemaker. ENCOUNTER: Subsequent ACUITY: 4 - 6 days PAIN SCORE: 0/10 LOCATION: Bilateral chest FINDINGS: Stable single lead AICD device. Progressive diffuse interstitial and alveolar opacities bilaterally. Cardiomediastinal contours are stable. Remainder of the exam is unchanged. CONCLUSION: 1. Progressive diffuse bilateral interstitial and alveolar opacities in this patient with history of chronic interstitial and alveolar airspace disease. London Kapoor MD on July 16, 2017 at 5:24 Board Certified Radiologist. This report was verified electronically.
[2017-07-16] MEDS: methylPREDNISolone SOD SUCC 40 MG/1 ML VIAL IV PUSH SCH ×3 (06:16→17:16)
[2017-07-16] MEDS: oxyCODONE/ACETAMINOPHEN 10 MG/325 MG TAB PO PRN ×3 (08:20→22:44)
[2017-07-16] MEDS: LACTOBACILLUS ACIDOPHILUS TAB PO SCH ×3 (08:20→17:16)
[2017-07-16] MEDS: FLUoxetine HCL 20 MG CAP PO SCH (08:21)
[2017-07-16] MEDS: AMIODARONE 200 MG TAB PO SCH ×2 (08:21→22:45)
[2017-07-16] MEDS: DEXTROAMPHETAMINE/AMPHETAMINE 30 MG TAB PO SCH (08:21)
[2017-07-16] MEDS: PANTOPRAZOLE SOD 20 MG DELAYED RELEASE TAB PO SCH (08:21)
[2017-07-16] MEDS: METOPROLOL TARTRATE 25 MG TAB PO SCH (08:21)
[2017-07-16] MEDS: SODIUM CHLORIDE 0.9% FLUSH 10 ML FLUSH IV FLUSH SCH ×2 (08:22→22:45)
[2017-07-16] MEDS: TOPIRAMATE 25 MG TAB PO SCH ×2 (08:22→22:45)
[2017-07-16] MEDS: FUROSEMIDE 40 MG/4 ML VIAL IV PUSH SCH ×2 (08:22→17:15)
[2017-07-16] MEDS: POTASSIUM CHLORIDE 20 MEQ CONTROLLED RELEASE TAB PO SCH (08:22)
[2017-07-16] MEDS: ASPIRIN 325 MG TAB PO SCH (08:22)
[2017-07-16] MEDS: LISINOPRIL 5 MG TAB PO SCH (08:22)
[2017-07-16] MEDS: ENOXAPARIN SODIUM 40 MG/0.4 ML SYRINGE SQ SCH (08:23)
[2017-07-16] MEDS: BUDESONIDE-FORMOTEROL 80/4.5 MCG INHALER INH SCH ×2 (08:25→21:00)
[2017-07-16] MEDS: RESP: ALBUTEROL 2.5 MG/IPRATROPIUM 0.5 MG NEB (SCH) NEB ×4 (09:00→19:38)
--- NOTE | 2017-07-16 11:25 | HHI.PR ---
Subjective Remarks Follow-up respiratory failure with hypoxia/pneumonia 07/15/17-patient seen and examined, she still has episode of desaturation and complaint of shortness of breath. Currently afebrile. 07/16/17-patient seen and examined, she is currently on simple mask however states she did use BiPAP overnight 4 hours Objective Vitals Vital Signs Date Time Temp Pulse Resp B/P (MAP) Pulse Ox O2 Delivery O2 Flow Rate FiO2 07/16/17 11:00 97.0 51 17 91/55 (67) 95 07/16/17 11:00 53 07/16/17 11:00 95 Non-Rebreather 10.00 07/16/17 10:00 62 07/16/17 09:39 16 07/16/17 09:00 62 07/16/17 08:57 98 Partial Rebreather 12.00 07/16/17 08:00 58 07/16/17 07:15 98.2 68 19 128/76 (93) 95 07/16/17 07:00 63 07/16/17 07:00 95 Non-Rebreather 10.00 07/16/17 06:00 57 07/16/17 05:00 67 07/16/17 04:52 93 Partial Rebreather 11.00 07/16/17 04:21 97.7 64 20 105/64 (78) 94 07/16/17 04:00 60 07/16/17 03:00 Bi-Pap 50 07/16/17 03:00 70 07/16/17 02:00 64 07/16/17 01:00 70 07/16/17 00:55 92 50 07/16/17 00:34 98.0 73 20 101/65 (77) 95 07/16/17 00:00 Bi-Pap 50 07/16/17 00:00 67 07/15/17 23:00 Non-Rebreather 10.00 07/15/17 23:00 72 07/15/17 22:05 75 20 104/56 (72) 95 07/15/17 22:00 76 07/15/17 21:24 67 20 106/62 (77) 95 07/15/17 21:00 68 07/15/17 20:09 95 Partial Rebreather 15.00 07/15/17 20:00 58 07/15/17 19:03 98.4 66 20 89/53 (65) 93 07/15/17 19:03 93 Non-Rebreather 10.00 07/15/17 19:00 65 07/15/17 18:37 69 07/15/17 17:20 51 07/15/17 16:01 52 07/15/17 15:52 95 Non-Rebreather 10.00 07/15/17 15:52 98.2 55 22 90/51 (64) 95 07/15/17 15:52 52 07/15/17 14:01 57 07/15/17 13:11 55 07/15/17 12:25 59 07/15/17 11:26 97.8 55 22 105/54 (71) 96 07/15/17 11:26 96 Non-Rebreather 10.00 07/15/17 11:26 51 I/O 07/15/17 07/15/17 07/15/17 07/16/17 07/16/17 07/16/17 07:00 15:00 23:00 07:00 15:00 23:00 Intake Total 480 ml 600 ml 680 ml Output Total 1000 ml 1050 ml 1425 ml Balance -520 ml -450 ml -745 ml Intake Oral 480 ml 600 ml 680 ml Output Urine Total 1000 ml 1050 ml 1425 ml # Bowel Movements 0 Result Diagram: 07/14/17 0547 07/14/17 0547 Imaging Last Impressions Chest X-Ray 07/16/17 0600 Signed Impressions: Service Date/Time: Sunday, July 16, 2017 04:27 - CONCLUSION: 1. Progressive diffuse bilateral interstitial and alveolar opacities in this patient with history of chronic interstitial and alveolar airspace disease. London Kapoor MD CT Angiography 07/11/171948 Signed Impressions: Service Date/Time: Tuesday, July 11, 2017 20:47 - CONCLUSION: 1. No pulmonary embolus. 2. Diffuse bilateral groundglass infiltrates without effusions. These infiltrates are similar to prior exam from 2016. Differential diagnostic considerations include alveolar proteinosis, infectious infiltrates , and pulmonary edema. 3. Mediastinal adenopathy is less pronounced from the prior study. 4. No pulmonary emboli. 5. Cirrhosis. Osmany Stafford Jr., MD Objective Remarks GENERAL: NAD SKIN: Warm and dry. HEAD: Normocephalic. EYES: No scleral icterus. No injection or drainage. NECK: Supple, trachea midline. No JVD or lymphadenopathy. CARDIOVASCULAR: Regular rate and rhythm without murmurs, gallops, or rubs. RESPIRATORY: Breath sounds decrease bilaterally. No accessory muscle use. GASTROINTESTINAL: Abdomen soft, non-tender, nondistended. MUSCULOSKELETAL: No cyanosis, or edema. BACK: Nontender without obvious deformity. No CVA tenderness. A/P Problem List: (1) Respiratory failure ICD Code: J96.90 - Respiratory failure, unspecified, unspecified whether with hypoxia or hypercapnia Status: Acute (2) Pneumonia ICD Code: J18.9 - Pneumonia, unspecified organism Status: Acute (3) Sepsis ICD Code: A41.9 - Sepsis, unspecified organism (4) Hypoxemia ICD Code: R09.02 - Hypoxemia Status: Acute Assessment and Plan 51-year-old female with Sepsis Resolved Pneumonia Acute hypoxemic respiratory failure Leukocytosis Continue BiPAP as needed Maintain oxygen saturation above 92%, continue with DuoNeb Continue Rocephin, azithromycin and micafungin Continue with Solu-Medrol 40 mg every 6H, Symbicort Appreciate input from infectious disease specialist pending culture report Pulmonary medicine input appreciated Chest x-ray 07/16/17 noted and review with worsening opacity History of Valvular heart disease with moderate MR, moderate MS Possible CHF exacerbation Elevated BNP Prolonged QT interval (chronic) Lasix 40 mg IV every 12 Continue with amiodarone 400 mg every 12 2-D echo with EF 50-55% Hypertension On lisinopril 5 mg daily Hyperlipidemia To with Lipitor daily COPD exacerbation with respiratory failure Continue with Solu-Medrol 40 mg every 6 hours,Symbicort, DuoNeb Chest x-ray 07/16/17 noted and review with worsening opacity Appreciate input from pulmonary medicine Cirrhosis Chronic hepatitis C Standard precautions Bipolar disorder ADHD No exacerbations Continue with Outpatient medications Fibromyalgia Hiatal hernia Chronic back pain GERD On PPI DVT prophylaxis Min Webb MD Jul 16, 2017 11:25
--- NOTE | 2017-07-16 14:14 | HHI.PR ---
Subjective Remarks Back on a NRB mask. Sats drop when off O2. Has a Cough and wheezing. No fever. Objective Vital Signs Date Time Temp Pulse Resp B/P (MAP) Pulse Ox O2 Delivery O2 Flow Rate FiO2 07/16/17 13:00 65 07/16/17 12:00 62 07/16/17 11:00 97.0 51 17 91/55 (67) 95 07/16/17 11:00 53 07/16/17 11:00 95 Non-Rebreather 10.00 07/16/17 10:00 62 07/16/17 09:39 16 07/16/17 09:00 62 07/16/17 08:57 98 Partial Rebreather 12.00 07/16/17 08:00 58 07/16/17 07:15 98.2 68 19 128/76 (93) 95 07/16/17 07:00 63 07/16/17 07:00 95 Non-Rebreather 10.00 07/16/17 06:00 57 07/16/17 05:00 67 07/16/17 04:52 93 Partial Rebreather 11.00 07/16/17 04:21 97.7 64 20 105/64 (78) 94 07/16/17 04:00 60 07/16/17 03:00 Bi-Pap 50 07/16/17 03:00 70 07/16/17 02:00 64 07/16/17 01:00 70 07/16/17 00:55 92 50 07/16/17 00:34 98.0 73 20 101/65 (77) 95 07/16/17 00:00 Bi-Pap 50 07/16/17 00:00 67 07/15/17 23:00 Non-Rebreather 10.00 07/15/17 23:00 72 07/15/17 22:05 75 20 104/56 (72) 95 07/15/17 22:00 76 07/15/17 21:24 67 20 106/62 (77) 95 07/15/17 21:00 68 07/15/17 20:09 95 Partial Rebreather 15.00 07/15/17 20:00 58 07/15/17 19:03 98.4 66 20 89/53 (65) 93 07/15/17 19:03 93 Non-Rebreather 10.00 07/15/17 19:00 65 07/15/17 18:37 69 07/15/17 17:20 51 07/15/17 16:01 52 07/15/17 15:52 95 Non-Rebreather 10.00 07/15/17 15:52 98.2 55 22 90/51 (64) 95 07/15/17 15:52 52 I/O 07/15/17 07/15/17 07/15/17 07/16/17 07/16/17 07/16/17 07:00 15:00 23:00 07:00 15:00 23:00 Intake Total 480 ml 600 ml 680 ml Output Total 1000 ml 1050 ml 1425 ml Balance -520 ml -450 ml -745 ml Intake Oral 480 ml 600 ml 680 ml Output Urine Total 1000 ml 1050 ml 1425 ml # Bowel Movements 0 Result Diagram: 07/14/17 0547 07/14/17 0547 Objective Remarks GENERAL: This is an averagely built middle-aged white female who is alert, oriented and responsive. She is on a partial rebreather mask. HEENT: Head normocephalic. Pupils are reactive and equal. Tongue is moist. Nasal mucosa edematous and ears no inflammation. Throat was clear. NECK: No bruits or thyroid enlargement or lymphadenopathy. CHEST: Increased AP diameter with diffuse wheezes throughout both lung veliz. Prolonged expirations. HEART: The heart sounds are irregular S1 and S2 with no murmur. No S3 gallop. ABDOMEN: Protuberant, soft without masses. No organomegaly or tenderness. Bowel sounds are active. EXTREMITIES: No edema. No clubbing and no calf tenderness. NEUROLOGIC: Reflexes are 1+ with no gross motor deficits. Cranial nerves grossly intact. SKIN: No lesions are observed. The patient is alert and talking and cooperative. Assessment and Plan Assessment and Plan IMPRESSION 1. Resolving respiratory failure. 2. COPD with acute exacerbation 3. CHF, resolving. 4. Hypertension and hyperlipidemia. 5. Cirrhosis of the liver 6. Bipolar disorder. Plan : 1. Cont Antibiotics Rocephin , Zithromax 2. Wean o2 to ventimask, and keep sat >90 3. Nebs qid , duoneb. 4. Cont Solumedrol 40 mg IV Q6H 5. BiPAP 12/5 CM at HS 6. CBC,BMP in am 7. Symbicort 160/4.5 Mcg , 2 puffs bid Emmanuelle Chase MD Jul 16, 2017 14:14
[2017-07-16] MEDS: ALPRAZolam 1 MG TAB PO PRN ×2 (15:03→22:44)
[2017-07-16] MEDS: MICAFUNGIN INJ 100 MG in SODIUM CHLORIDE 0.9% INJ 100 ML IV SCH (17:15)
[2017-07-16] MEDS: cefTRIAXone INJ 1,000 MG in SODIUM CHLORIDE 0.9% INJ 100 ML IV SCH (21:00)
[2017-07-16] MEDS: AZITHROMYCIN INJ 500 MG in SODIUM CHLOR 0.9% 250 ML INJ 250 ML IV SCH (23:00)
[2017-07-17] VITALS (28 sets, daily range): BP systolic 92–114; BP diastolic 52–69; PULSE 50–74; RESP 20–25; TEMP 97–97.8; O2SAT 90–96
[2017-07-17] MEDS: methylPREDNISolone SOD SUCC 40 MG/1 ML VIAL IV PUSH SCH ×5 (05:04→23:29)
[2017-07-17] MEDS: oxyCODONE/ACETAMINOPHEN 10 MG/325 MG TAB PO PRN ×4 (05:04→23:29)
[2017-07-17] MEDS: RESP: ALBUTEROL 2.5 MG/IPRATROPIUM 0.5 MG NEB (SCH) NEB ×4 (08:00→20:31)
[2017-07-17] MEDS: LISINOPRIL 5 MG TAB PO SCH (09:00)
[2017-07-17] MEDS: METOPROLOL TARTRATE 25 MG TAB PO SCH (09:00)
[2017-07-17] MEDS: ENOXAPARIN SODIUM 40 MG/0.4 ML SYRINGE SQ SCH (09:52)
[2017-07-17] MEDS: FUROSEMIDE 40 MG/4 ML VIAL IV PUSH SCH (09:55)
[2017-07-17] MEDS: SODIUM CHLORIDE 0.9% FLUSH 10 ML FLUSH IV FLUSH SCH ×2 (09:57→21:00)
[2017-07-17] MEDS: BUDESONIDE-FORMOTEROL 80/4.5 MCG INHALER INH SCH ×2 (09:57→21:05)
[2017-07-17] MEDS: FLUoxetine HCL 20 MG CAP PO SCH (09:58)
[2017-07-17] MEDS: AMIODARONE 200 MG TAB PO SCH ×2 (09:58→21:06)
[2017-07-17] MEDS: LACTOBACILLUS ACIDOPHILUS TAB PO SCH ×3 (09:58→16:55)
[2017-07-17] MEDS: DEXTROAMPHETAMINE/AMPHETAMINE 30 MG TAB PO SCH (09:58)
[2017-07-17] MEDS: PANTOPRAZOLE SOD 20 MG DELAYED RELEASE TAB PO SCH (09:58)
[2017-07-17] MEDS: ASPIRIN 325 MG TAB PO SCH (09:59)
[2017-07-17] MEDS: TOPIRAMATE 25 MG TAB PO SCH ×2 (09:59→21:40)
[2017-07-17] MEDS: POTASSIUM CHLORIDE 20 MEQ CONTROLLED RELEASE TAB PO SCH (09:59)
--- NOTE | 2017-07-17 10:35 | HHI.PR ---
Subjective Remarks Follow-up respiratory failure with hypoxia/pneumonia 07/15/17-patient seen and examined, she still has episode of desaturation and complaint of shortness of breath. Currently afebrile. 07/16/17-patient seen and examined, she is currently on simple mask however states she did use BiPAP overnight 4 hours 07/17/17-patient seen and examined; she continues to have periods Of oxygen desaturation. Currently on partial rebreather. However she reports some improvement of shortness of breath Objective Vitals Vital Signs Date Time Temp Pulse Resp B/P (MAP) Pulse Ox O2 Delivery O2 Flow Rate FiO2 07/17/17 08:33 91 Partial Rebreather 15.00 07/17/17 06:00 52 07/17/17 05:00 58 07/17/17 04:00 52 07/17/17 03:34 90 70 07/17/17 03:00 55 07/17/17 03:00 92 Bi-Pap 07/17/17 03:00 97.8 59 25 92/52 (65) 92 07/17/17 02:00 56 07/17/17 01:00 56 07/17/17 00:00 60 07/16/17 23:37 90 50 07/16/17 23:00 97.4 57 24 91/54 (66) 90 07/16/17 23:00 60 07/16/17 22:00 58 07/16/17 21:00 90 Bi-Pap 07/16/17 21:00 66 07/16/17 20:00 68 07/16/17 19:45 97 50 07/16/17 19:00 64 07/16/17 19:00 93 Non-Rebreather 10.00 07/16/17 19:00 97.7 61 20 95/52 (66) 93 07/16/17 18:03 60 07/16/17 17:00 63 07/16/17 16:00 66 07/16/17 15:57 97 Partial Rebreather 15.00 07/16/17 15:00 54 07/16/17 15:00 97.4 63 19 97/49 (65) 93 07/16/17 15:00 93 Non-Rebreather 10.00 07/16/17 14:00 68 07/16/17 13:00 65 1/20/18 12:00 62 07/16/17 11:00 97.0 51 17 91/55 (67) 95 07/16/17 11:00 53 07/16/17 11:00 95 Non-Rebreather 10.00 I/O 07/16/17 07/16/17 07/16/17 07/17/17 07/17/17 07/17/17 07:00 15:00 23:00 07:00 15:00 23:00 Intake Total 680 ml 360 ml Output Total 1425 ml 1100 ml 1250 ml Balance -745 ml -1100 ml -890 ml Intake Oral 680 ml 360 ml Output Urine Total 1425 ml 1100 ml 1250 ml # Bowel Movements 1 Result Diagram: 07/14/17 0547 07/14/17 0547 Imaging Last Impressions Chest X-Ray 07/16/17 0600 Signed Impressions: Service Date/Time: Sunday, July 16, 2017 04:27 - CONCLUSION: 1. Progressive diffuse bilateral interstitial and alveolar opacities in this patient with history of chronic interstitial and alveolar airspace disease. London Kapoor MD CT Angiography 07/11/171948 Signed Impressions: Service Date/Time: Tuesday, July 11, 2017 20:47 - CONCLUSION: 1. No pulmonary embolus. 2. Diffuse bilateral groundglass infiltrates without effusions. These infiltrates are similar to prior exam from 2016. Differential diagnostic considerations include alveolar proteinosis, infectious infiltrates , and pulmonary edema. 3. Mediastinal adenopathy is less pronounced from the prior study. 4. No pulmonary emboli. 5. Cirrhosis. Osmany Stafford Jr., MD Objective Remarks GENERAL: NAD SKIN: Warm and dry. HEAD: Normocephalic. EYES: No scleral icterus. No injection or drainage. NECK: Supple, trachea midline. No JVD or lymphadenopathy. CARDIOVASCULAR: Regular rate and rhythm without murmurs, gallops, or rubs. RESPIRATORY: Breath sounds decrease bilaterally. No accessory muscle use. GASTROINTESTINAL: Abdomen soft, non-tender, nondistended. MUSCULOSKELETAL: No cyanosis, or edema. BACK: Nontender without obvious deformity. No CVA tenderness. A/P Problem List: (1) Respiratory failure ICD Code: J96.90 - Respiratory failure, unspecified, unspecified whether with hypoxia or hypercapnia Status: Acute (2) Pneumonia ICD Code: J18.9 - Pneumonia, unspecified organism Status: Acute (3) Sepsis ICD Code: A41.9 - Sepsis, unspecified organism (4) Hypoxemia ICD Code: R09.02 - Hypoxemia Status: Acute Assessment and Plan 51-year-old female with Sepsis Resolved Pneumonia Acute hypoxemic respiratory failure Leukocytosis Continue BiPAP as needed and repeat ABG this a.m. Maintain oxygen saturation above 92%, continue with DuoNeb Continue Rocephin, azithromycin and micafungin Continue with Solu-Medrol 40 mg every 6H, Symbicort Appreciate input from infectious disease specialist pending culture report Pulmonary medicine input appreciated History of Valvular heart disease with moderate MR, moderate MS Possible CHF exacerbation Elevated BNP Prolonged QT interval (chronic) Will switch to Lasix 40mg daily Continue with amiodarone 400 mg every 12 2-D echo with EF 50-55% Hypertension On lisinopril 5 mg daily and Lopressor 25mg daily with holding parameters Hyperlipidemia Continue Lipitor daily COPD exacerbation with respiratory failure Continue with Solu-Medrol 40 mg every 6 hours,Symbicort,Spiriva, DuoNeb scheduled and PRN Maintain oxygen saturation above 92% Appreciate input from pulmonary medicine Cirrhosis Chronic hepatitis C Standard precautions Bipolar disorder ADHD No exacerbations Continue with Outpatient medications Fibromyalgia Hiatal hernia Chronic back pain GERD On PPI DVT prophylaxis Min Webb MD Jul 17, 2017 10:35
[2017-07-17] MEDS: ALPRAZolam 1 MG TAB PO PRN (12:31)
--- NOTE | 2017-07-17 16:29 | HHI.PR ---
Subjective Remarks Still on a NRB mask. Sats drop when off O2. Has a Cough and wheezing. No fever. CXR shows Increased infiltrates. Objective Vital Signs Date Time Temp Pulse Resp B/P (MAP) Pulse Ox O2 Delivery O2 Flow Rate FiO2 07/17/17 11:00 97.0 64 20 108/69 (82) 90 07/17/17 11:00 90 Non-Rebreather 10.00 07/17/17 11:00 57 07/17/17 10:00 74 07/17/17 09:00 58 07/17/17 08:33 91 Partial Rebreather 15.00 07/17/17 08:00 53 07/17/17 08:00 97.7 61 20 95/52 (66) 93 07/17/17 08:00 93 Non-Rebreather 10.00 07/17/17 06:00 52 07/17/17 05:00 58 07/17/17 04:00 52 07/17/17 03:34 90 70 07/17/17 03:00 55 07/17/17 03:00 92 Bi-Pap 07/17/17 03:00 97.8 59 25 92/52 (65) 92 07/17/17 02:00 56 07/17/17 01:00 56 07/17/17 00:00 60 07/16/17 23:37 90 50 07/16/17 23:00 97.4 57 24 91/54 (66) 90 07/16/17 23:00 60 07/16/17 22:00 58 07/16/17 21:00 90 Bi-Pap 07/16/17 21:00 66 07/16/17 20:00 68 07/16/17 19:45 97 50 07/16/17 19:00 64 07/16/17 19:00 93 Non-Rebreather 10.00 07/16/17 19:00 97.7 61 20 95/52 (66) 93 07/16/17 18:03 60 07/16/17 17:00 63 I/O 07/16/17 07/16/17 07/16/17 07/17/17 07/17/17 07/17/17 07:00 15:00 23:00 07:00 15:00 23:00 Intake Total 680 ml 360 ml Output Total 1425 ml 1100 ml 1250 ml Balance -745 ml -1100 ml -890 ml Intake Oral 680 ml 360 ml Output Urine Total 1425 ml 1100 ml 1250 ml # Bowel Movements 1 Result Diagram: 07/14/1747 07/14/17 05 Objective Remarks GENERAL: This is an averagely built middle-aged white female who is alert, oriented and responsive. She is on a partial rebreather mask. HEENT: Head normocephalic. Pupils are reactive and equal. Tongue is moist. Nasal mucosa edematous and ears no inflammation. Throat was clear. NECK: No bruits or thyroid enlargement or lymphadenopathy. CHEST: Increased AP diameter with diffuse wheezes throughout both lung veliz. Prolonged expirations.Basal crackles +. HEART: The heart sounds are irregular S1 and S2 with no murmur. No S3 gallop. ABDOMEN: Protuberant, soft without masses. No organomegaly or tenderness. Bowel sounds are active. EXTREMITIES: No edema. No clubbing and no calf tenderness. NEUROLOGIC: Reflexes are 1+ with no gross motor deficits. Cranial nerves grossly intact. SKIN: No lesions are observed. The patient is alert and talking and cooperative. Assessment and Plan Assessment and Plan IMPRESSION 1. Resolving respiratory failure. 2. COPD with acute exacerbation 3. CHF, resolving. 4. Hypertension and hyperlipidemia. 5. Cirrhosis of the liver 6. Bipolar disorder. Plan : 1. Cont Antibiotics Rocephin , Zithromax 2. Wean o2 to ventimask, and keep sat >90 3. Nebs qid , duoneb. 4. Cont Solumedrol 40 mg IV Q8H 5. BiPAP 12/5 CM at HS 6. Add lasix 20 MG IV today 7. Symbicort 160/4.5 Mcg , 2 puffs bid Emmanuelle Chase MD Jul 17, 2017 16:29
[2017-07-17] MEDS ORDERED: FUROSEMIDE 20 MG/2 ML VIAL IV PUSH ONE (16:30)
[2017-07-17] MEDS: MICAFUNGIN INJ 100 MG in SODIUM CHLORIDE 0.9% INJ 100 ML IV SCH (17:54)
[2017-07-17] MEDS: cefTRIAXone INJ 1,000 MG in SODIUM CHLORIDE 0.9% INJ 100 ML IV SCH (21:05)
[2017-07-17] MEDS: AZITHROMYCIN INJ 500 MG in SODIUM CHLOR 0.9% 250 ML INJ 250 ML IV SCH (23:29)
[2017-07-18] VITALS (28 sets, daily range): BP systolic 89–114; BP diastolic 47–65; PULSE 48–69; RESP 22–37; TEMP 97.4–97.9; O2SAT 90–99
[2017-07-18] MEDS: methylPREDNISolone SOD SUCC 40 MG/1 ML VIAL IV PUSH SCH ×3 (05:42→16:52)
[2017-07-18] MEDS: ENOXAPARIN SODIUM 40 MG/0.4 ML SYRINGE SQ SCH (08:27)
[2017-07-18] MEDS: FLUoxetine HCL 20 MG CAP PO SCH (08:27)
[2017-07-18] MEDS: LACTOBACILLUS ACIDOPHILUS TAB PO SCH ×3 (08:27→16:52)
[2017-07-18] MEDS: DEXTROAMPHETAMINE/AMPHETAMINE 30 MG TAB PO SCH (08:28)
[2017-07-18] MEDS: METOPROLOL TARTRATE 25 MG TAB PO SCH (08:28)
[2017-07-18] MEDS: LISINOPRIL 5 MG TAB PO SCH (08:28)
[2017-07-18] MEDS: AMIODARONE 200 MG TAB PO SCH ×2 (08:28→22:14)
[2017-07-18] MEDS: POTASSIUM CHLORIDE 20 MEQ CONTROLLED RELEASE TAB PO SCH (08:28)
[2017-07-18] MEDS: FUROSEMIDE 40 MG TAB PO SCH ×2 (08:28→22:14)
[2017-07-18] MEDS: ASPIRIN 325 MG TAB PO SCH (08:28)
[2017-07-18] MEDS: TOPIRAMATE 25 MG TAB PO SCH ×2 (08:28→22:13)
[2017-07-18] MEDS: BUDESONIDE-FORMOTEROL 80/4.5 MCG INHALER INH SCH ×2 (08:29→22:14)
[2017-07-18] MEDS: oxyCODONE/ACETAMINOPHEN 10 MG/325 MG TAB PO PRN ×3 (08:29→22:14)
[2017-07-18] MEDS: PANTOPRAZOLE SOD 20 MG DELAYED RELEASE TAB PO SCH (08:29)
[2017-07-18] MEDS: SODIUM CHLORIDE 0.9% FLUSH 10 ML FLUSH IV FLUSH SCH ×2 (08:29→22:15)
[2017-07-18] MEDS ORDERED: FUROSEMIDE 40 MG TAB PO SCH (09:00)
[2017-07-18] MEDS: RESP: ALBUTEROL 2.5 MG/IPRATROPIUM 0.5 MG NEB (SCH) NEB ×4 (09:18→19:41)
--- NOTE | 2017-07-18 10:42 | HHI.PR ---
Subjective Remarks Follow for COPD exacerbation pneumonia Patient states she continues feel short of breath. She stated that there is mild improvement in her shortness of breathing every day. Patient stated that she is coughing up a lot of sputum. She remains afebrile. She has no other complaints. He continues to be on nonrebreather. Objective Vitals Vital Signs Date Time Temp Pulse Resp B/P (MAP) Pulse Ox O2 Delivery O2 Flow Rate FiO2 07/18/17 10:01 62 07/18/17 09:41 69 07/18/17 09:33 20 07/18/17 09:19 96 Partial Rebreather 07/18/17 08:45 56 07/18/17 08:45 94 Non-Rebreather 15.00 07/18/17 08:45 97.5 53 22 114/65 (81) 94 07/18/17 06:09 52 07/18/17 05:53 53 07/18/17 04:00 53 07/18/17 04:00 93 70 07/18/17 03:59 Bi-Pap 07/18/17 03:59 97.9 58 93/47 (62) 99 07/18/17 03:00 53 07/18/17 02:00 58 07/18/17 01:27 98 70 07/18/17 01:21 Bi-Pap 10.00 70 07/18/17 01:00 54 07/18/17 00:00 60 07/17/17 23:00 97.8 62 107/68 (81) 92 07/17/17 23:00 64 07/17/17 22:07 92 70 07/17/17 22:00 70 07/17/17 21:00 64 07/17/17 20:31 92 Partial Rebreather 15.00 07/17/17 20:00 50 07/17/17 20:00 Bi-Pap 10.00 70 07/17/17 19:00 62 07/17/17 19:00 97.6 58 94/53 (67) 90 07/17/17 18:00 54 07/17/17 17:20 96 70 07/17/17 17:00 58 07/17/17 16:00 56 07/17/17 15:00 97.2 56 22 114/62 (79) 96 07/17/17 15:00 62 07/17/17 15:00 96 Bi-Pap 1/21/18 14:00 60 07/17/17 13:00 58 07/17/17 12:00 56 07/17/17 11:00 97.0 64 20 108/69 (82) 90 07/17/17 11:00 90 Non-Rebreather 10.00 07/17/17 11:00 57 I/O 07/17/17 07/17/17 07/17/17 07/18/17 07/18/17 07/18/17 07:00 15:00 23:00 07:00 15:00 23:00 Intake Total 360 ml 720 ml 590 ml Output Total 1250 ml 950 ml Balance -890 ml 720 ml -360 ml Intake Oral 360 ml 720 ml 240 ml IV Total 350 ml Output Urine Total 1250 ml 950 ml Result Diagram: 07/14/17 0547 07/14/17 0547 Objective Remarks GENERAL: in NAD on nonrebreather CARDIOVASCULAR: Regular rate and rhythm without murmurs, gallops, or rubs. RESPIRATORY: Breath sounds equal bilaterally. No accessory muscle use. GASTROINTESTINAL: Abdomen soft, non-tender, nondistended. MUSCULOSKELETAL: Negative edema Medications and IVs Current Medications Sodium Chloride (NS Flush) 2 ml UNSCH PRN IVF FLUSH AFTER USING IV ACCESS; Start 07/11/17 at 20:00; Stop 07/12/17 at 06:35; Status DC Methylprednisolone Sodium Succinate (SoluMEDROL INJ) 125 mg ONCE ONCE IV PUSH Last administered on 07/11/17at 20:03; Start 07/11/17 at 20:00; Stop 07/11/17 at 20:01; Status DC Albuterol/ Ipratropium (Duoneb Neb) 1 ampule Q15M INH Last administered on 07/11at 22:02; Start 07/11/17 at 20:00; Stop 07/11/17 at 20:31; Status DC Iohexol (Omnipaque 350 Inj) 60 ml STK-MED ONCE IVCONTRAST Last administered on 07/11/17at 19:31; Start 07/11/17 at 19:31; Stop 07/11/17 at 21:10; Status DC Furosemide (Lasix Inj) 40 mg ONCE ONCE IV PUSH Last administered on 07/11/17at 21:51; Start 07/11/17 at 21:15; Stop 07/11/17 at 21:16; Status DC Ceftriaxone Sodium 1000 mg/ Sodium Chloride 100 ml @ 200 mls/hr ONCE ONCE IV Last administered on 07/11/17at 21:52; Start 07/11/17 at 21:15; Stop 07/11/17 at 21:44; Status DC Azithromycin 500 mg/Sodium Chloride 250 ml @ 250 mls/hr ONCE ONCE IV Last administered on 07/11/17at 23:43; Start 07/11/17 at 21:15; Stop 07/11/17 at 22:14 ; Status DC Sodium Chloride (NS Flush) 2 ml UNSCH PRN IV FLUSH FLUSH AFTER USING IV ACCESS ; Start 07/11/17 at 22:00 Sodium Chloride (NS Flush) 2 ml BID IV FLUSH Last administered on 07/18/17at 08: 29; Start 07/12/17 at 09:00 Naloxone HCl (Narcan Inj) 0.4 mg UNSCH PRN IV PUSH SEE LABEL COMMENTS; Start at 22:00 Albuterol/ Ipratropium (Duoneb Neb) 1 ampule Q6HR NEB NEB Last administered on 07/15/17at 11:05; Start 07/11/17 at 22:00; Stop 07/15/17 at 14:06; Status DC Albuterol/ Ipratropium (Duoneb Neb) 1 ampule Q2HR NEB PRN NEB wheezing; Start 07/11/17 at 22:00 Lactobacillus Acidophilus (Lactinex) 1 tab TID PO Last administered on at 09:45; Start 07/12/17 at 09:00; Stop 07/12/17 at 11:35; Status DC Furosemide (Lasix Inj) 40 mg BID@,18 IV PUSH Last administered on 07/17/17at 09:55; Start 07/12/17 at 09:00; Stop 07/17/17 at 10:37; Status DC Enoxaparin Sodium (Lovenox Inj) 60 mg Q24H SQ Last administered on 07/13/17at 08 :45; Start 07/12/17 at 09:00; Stop 07/13/17 at 16:13; Status DC Alprazolam (Xanax) 1 mg Q8H PRN PO ANXIETY Last administered on 07/17/17 12:31 ; Start 07/12/17 at 06:30 Amiodarone HCl (Cordarone) 400 mg Q12HR PO Last administered on 07/18/17 08:28 ; Start 07/12/17 at 09:00 Amphetamine/ Dextroamphetamine (Adderall) 30 mg DAILY PO Last administered on 09:58; Start 07/12/17 at 09:00 Aspirin (Aspirin) 325 mg DAILY PO Last administered on 07/18/17 08:28; Start 07/12/17 at 09:00 Budesonide/ Formoterol Fumarate (Symbicort 80-4.5 Mcg Inh) 2 puff Q12HR INH Last administered on 07/18/17 08:29; Start 07/12/17 at 09:00 Lisinopril (Prinivil) 5 mg DAILY PO Last administered on 07/18/17 08:28; Start 07/12/17 at 09:00 Metoprolol Tartrate (Lopressor) 25 mg DAILY PO Last administered on 07/18/17 08:28; Start 07/12/17 at 09:00 Potassium Chloride (KCl) 20 meq DAILY PO Last administered on 07/18/17 08:28; Start 07/12/17 at 09:00 Topiramate (Topamax) 50 mg BID PO Last administered on 07/18/17 08:28; Start 07/12/17 at 09:00 Fluoxetine HCl (PROzac) 80 mg DAILY PO Last administered on 07/18/17 08:27; Start 07/12/17 at 09:00 Pantoprazole Sodium (Protonix) 20 mg DAILY PO Last administered on 07/18/17 08 :29; Start 07/12/17 at 09:00 Oxycodone/ Acetaminophen (Percocet 5-325 Mg) 1 tab Q6H PRN PO Pain 3 to 6; Start 07/12/17 at 11:30 Oxycodone/ Acetaminophen (Percocet 10-325 Mg) 1 tab Q6H PRN PO Pain 7 to 10 Last administered on 07/18/17 08:29; Start 07/12/17 at 11:30 Lactobacillus Acidophilus (Lactinex) 1 tab TID PO Last administered on 08:27; Start 07/12/17 at 13:00 Ceftriaxone Sodium 1000 mg/ Sodium Chloride 100 ml @ 200 mls/hr Q24H IV Last administered on 07/17/17at 21:05; Start 07/12/17 at 21:00 Azithromycin 500 mg/Sodium Chloride 250 ml @ 250 mls/hr Q24H IV Last administered on 07/17/17at 23:29; Start 07/12/17 at 23:00 Methylprednisolone Sodium Succinate (SoluMEDROL INJ) 40 mg Q12HR IV PUSH Last administered on 07/15/17at 08:15; Start 07/12/17 at 21:00; Stop 07/15/17 at 12:38 ; Status DC Methylprednisolone Sodium Succinate (SoluMEDROL INJ) 40 mg ONCE ONCE IV PUSH Last administered on 07/12/17at 12:13; Start 07/12/17 at 11:45; Stop 07/12/17 at 11:46; Status DC Micafungin Sodium 100 mg/Sodium Chloride 100 ml @ 100 mls/hr Q24H IV Last administered on 07/17/17at 17:54; Start 07/12/17 at 17:00 Enoxaparin Sodium (Lovenox Inj) 40 mg Q24H SQ Last administered on 07/18/17at 08 :27; Start 07/14/17 at 09:00 Albuterol/ Ipratropium (Duoneb Neb) 1 ampule QID NEB NEB Last administered on 07/18/17at 09:18; Start 07/15/17 at 16:00 Methylprednisolone Sodium Succinate (SoluMEDROL INJ) 40 mg Q6HR IV PUSH Last administered on 07/18/17at 05:42; Start 07/15/17 at 18:00 Furosemide (Lasix) 40 mg DAILY PO ; Start 07/18/17 at 09:00; Stop 07/18/17 at 09 :00; Status DC Furosemide (Lasix Inj) 20 mg ONCE ONCE IV PUSH Last administered on 07/17/17at 16:55; Start 07/17/17 at 16:30; Stop 07/17/17 at 16:33; Status DC Furosemide (Lasix) 40 mg BID PO Last administered on 07/18/17at 08:28; Start at 09:00 A/P Problem List: (1) Respiratory failure ICD Code: J96.90 - Respiratory failure, unspecified, unspecified whether with hypoxia or hypercapnia Status: Acute (2) Pneumonia ICD Code: J18.9 - Pneumonia, unspecified organism Status: Acute (3) Sepsis ICD Code: A41.9 - Sepsis, unspecified organism (4) Hypoxemia ICD Code: R09.02 - Hypoxemia Status: Acute Assessment and Plan 51-year-old female with Sepsis Resolved Pneumonia Acute hypoxemic respiratory failure Leukocytosis Hypoxia seems to be more due to pneumonia. Continue BiPAP as needed and repeat ABG this a.m. Maintain oxygen saturation above 92%, continue with DuoNeb Continue Rocephin, azithromycin and micafungin Continue with Solu-Medrol 40 mg every 6H, Symbicort Appreciate input from infectious disease specialist pending culture report Pulmonary medicine input appreciated Patient continues to be on nonrebreather. History of Valvular heart disease with moderate MR, moderate MS Possible CHF exacerbation Elevated BNP Prolonged QT interval (chronic) Continue with Lasix 40mg daily Continue with amiodarone 400 mg every 12 2-D echo with EF 50-55% Hypertension On lisinopril 5 mg daily and Lopressor 25mg daily with holding parameters Hyperlipidemia Continue Lipitor daily COPD exacerbation with respiratory failure This seems to improve drastically. Continue with Solu-Medrol 40 mg every 6 hours,Symbicort,Spiriva, DuoNeb scheduled and PRN Maintain oxygen saturation above 92% Appreciate input from pulmonary medicine Cirrhosis Chronic hepatitis C Standard precautions Bipolar disorder ADHD No exacerbations Continue with Outpatient medications Fibromyalgia Hiatal hernia Chronic back pain GERD On PPI DVT prophylaxis Lovenox Discharge Planning Patient continues to required nonrebreather and slowly improving. Marai Dolores Browning MD Jul 18, 2017 10:42
--- NOTE | 2017-07-18 13:30 | HHI.IDPN ---
Note Infectious Disease Note Patient feels tired. Desaturates when O2 mask is removed. denies sweats or chills. No new complaints. Not producing sputum. Little cough. Presented to the emergency department with respiratory symptoms. PAST MEDICAL HISTORY: 1. Ventricular tachycardia. 2. Cirrhosis of the liver. 3. Hepatitis C. 4. Anxiety/depression. 5. COPD. 6. Hypertension. 7. Gastroesophageal reflux disease. 8. Chronic back pain. 9. History of AICD. 10. Fibromyalgia. 11. Bipolar disorder. ALLERGIES CODEINE. MEDICATIONS: 1. Azithromycin. 2. Ceftriaxone. 3. Micafungin. Current Medications Medications (Trade) Dose Ordered Sig/Jose Route PRN Reason Start Time Stop Time Status Last Admin Dose Admin Sodium Chloride (NS Flush) 2 ml UNSCH PRN IV FLUSH FLUSH AFTER USING IV ACCESS 07/11/17 22:00 Sodium Chloride (NS Flush) 2 ml BID IV FLUSH 07/12/17 09:00 07/18/17 08:29 Naloxone HCl (Narcan Inj) 0.4 mg UNSCH PRN IV PUSH SEE LABEL COMMENTS 07/11/17 22:00 Albuterol/ Ipratropium (Duoneb Neb) 1 ampule Q2HR NEB PRN NEB wheezing 07/11/17 22:00 Alprazolam (Xanax) 1 mg Q8H PRN PO ANXIETY 07/12/17 06:30 07/17/17 12:31 Amiodarone HCl (Cordarone) 400 mg Q12HR PO 07/12/17 09:00 07/18/17 08:28 Amphetamine/ Dextroamphetamine (Adderall) 30 mg DAILY PO 07/12/17 09:00 07/17/17 09:58 Aspirin (Aspirin) 325 mg DAILY PO 07/12/17 09:00 07/18/17 08:28 Budesonide/ Formoterol Fumarate (Symbicort 80-4.5 Mcg Inh) 2 puff Q12HR INH 07/12/17 09:00 07/18/17 08:29 Lisinopril (Prinivil) 5 mg DAILY PO 07/12/17 09:00 07/18/17 08:28 Metoprolol Tartrate (Lopressor) 25 mg DAILY PO 07/12/17 09:00 07/18/17 08:28 Potassium Chloride (KCl) 20 meq DAILY PO 07/12/17 09:00 07/18/17 08:28 Topiramate (Topamax) 50 mg BID PO 07/12/17 09:00 07/18/17 08:28 Fluoxetine HCl (PROzac) 80 mg DAILY PO 07/12/17 09:00 07/18/17 08:27 Pantoprazole Sodium (Protonix) 20 mg DAILY PO 07/12/17 09:00 07/18/17 08:29 Oxycodone/ Acetaminophen (Percocet 5-325 Mg) 1 tab Q6H PRN PO Pain 3 to 6 07/12/17 11:30 Oxycodone/ Acetaminophen (Percocet 10-325 Mg) 1 tab Q6H PRN PO Pain 7 to 10 07/12/17 11:30 07/18/17 08:29 Lactobacillus Acidophilus (Lactinex) 1 tab TID PO 07/12/17 13:00 07/18/17 12:03 Ceftriaxone Sodium 1000 mg/ Sodium Chloride 100 ml @ 200 mls/hr Q24H IV 07/12/17 21:00 07/17/17 21:05 Azithromycin 500 mg/Sodium Chloride 250 ml @ 250 mls/hr Q24H IV 07/12/17 23:00 07/17/17 23:29 Micafungin Sodium 100 mg/Sodium Chloride 100 ml @ 100 mls/hr Q24H IV 07/12/17 17:00 07/17/17 17:54 Enoxaparin Sodium (Lovenox Inj) 40 mg Q24H SQ 07/14/17 09:00 07/18/17 08:27 Albuterol/ Ipratropium (Duoneb Neb) 1 ampule QID NEB NEB 07/15/17 16:00 07/18/17 09:18 Methylprednisolone Sodium Succinate (SoluMEDROL INJ) 40 mg Q6HR IV PUSH 07/15/17 18:00 07/18/17 11:12 Furosemide (Lasix) 40 mg BID PO 07/18/17 09:00 07/18/17 08:28 SOCIAL HISTORY: No tobacco, no alcohol, no illicit drug use. FAMILY HISTORY: Noncontributory. OBJECTIVE: Vital Signs Date Time Temp Pulse Resp B/P (MAP) Pulse Ox O2 Delivery O2 Flow Rate FiO2 07/18/17 13:13 48 07/18/17 12:01 51 07/18/17 11:30 97.5 52 22 94/49 (64) 95 07/18/17 11:30 95 Non-Rebreather 15.00 07/18/17 11:30 48 07/18/17 10:01 62 07/18/17 09:41 69 07/18/17 09:33 20 07/18/17 09:19 96 Partial Rebreather 07/18/17 08:45 56 07/18/17 08:45 94 Non-Rebreather 15.00 07/18/17 08:45 97.5 53 22 114/65 (81) 94 07/18/17 06:09 52 07/18/17 05:53 53 07/18/17 04:00 53 07/18/17 04:00 93 70 07/18/17 03:59 Bi-Pap 07/18/17 03:59 97.9 58 93/47 (62) 99 07/18/17 03:00 53 07/18/17 02:00 58 07/18/17 01:27 98 70 07/18/17 01:21 Bi-Pap 10.00 70 07/18/17 01:00 54 07/18/17 00:00 60 07/17/17 23:00 97.8 62 107/68 (81) 92 07/17/17 23:00 64 07/17/17 22:07 92 70 07/17/17 22:00 70 07/17/17 21:00 64 07/17/17 20:31 92 Partial Rebreather 15.00 07/17/17 20:00 50 07/17/17 20:00 Bi-Pap 10.00 70 07/17/17 19:00 62 07/17/17 19:00 97.6 58 94/53 (67) 90 07/17/17 18:00 54 07/17/17 17:20 96 70 07/17/17 17:00 58 07/17/17 16:00 56 07/17/17 15:00 97.2 56 22 114/62 (79) 96 07/17/17 15:00 62 07/17/17 15:00 96 Bi-Pap 07/17/17 14:00 60 IMAGING: Chest X-Ray 07/16/17 0600 Signed Impressions: Service Date/Time: Sunday, July 16, 2017 04:27 - CONCLUSION: 1. Progressive diffuse bilateral interstitial and alveolar opacities in this patient with history of chronic interstitial and alveolar airspace disease. London Kapoor MD Chest X-Ray 07/11/171948 Signed Impressions: Service Date/Time: Tuesday, July 11, 2017 19:55 - CONCLUSION: Interstitial pulmonary edema. Osmany Stafford Jr., MD CT Angiography 07/11/171948 Signed Impressions: Service Date/Time: Tuesday, July 11, 2017 20:47 - CONCLUSION: 1. No pulmonary embolus. 2. Diffuse bilateral groundglass infiltrates without effusions. These infiltrates are similar to prior exam from 2016. Differential diagnostic considerations include alveolar proteinosis, infectious infiltrates , and pulmonary edema. 3. Mediastinal adenopathy is less pronounced from the prior study. 4. No pulmonary emboli. 5. Cirrhosis. Osmany Stafford Jr., MD PHYSICAL EXAMINATION: GENERAL: chronically ill-appearing female. HEENT: Head is atraumatic. Extraocular movements grossly intact, pupils reactive to light, no icterus. Oropharynx mucosa moist. Neck: No adenopathy or swelling. The neck is supple. Lungs: Decreased breath sounds. Heart: Regular S1-S2. No audible murmurs. Abdomen: Bowel sounds present, soft, nontender. Extremities: No clubbing, cyanosis or edema. SKIN: No rash. PSYCH: Calm and cooperative. IMPRESSION: 1. Bilateral lung interstitial ground glass infiltrate. Questionable infection versus inflammatory nature, versus drug toxicity. Slow to improve. 2. Hypoxia. Patient requiring BiPAP. Still requiring O2 via face mask. Pulmonary following. 3. Leukocytosis. WBC lower. RECOMMENDATIONS: 1. Continue azithromycin. 2. Change Ceftriaxone to Bactrim. 3. Continue Micafungin for possible fungal etiology. 4. Monitor white cell count. 5. Monitor clinical response. 6. Follow repeat CXR. Serum LDH, CBC, CMP in am. Cachorro Adams MD Jul 18, 2017 13:30
[2017-07-18] MEDS: SULFAMETHOXAZOLE-TRIMETHOPRIM DS 800-160 MG TAB PO SCH ×2 (13:57→22:13)
[2017-07-18] MEDS: MICAFUNGIN INJ 100 MG in SODIUM CHLORIDE 0.9% INJ 100 ML IV SCH (15:57)
[2017-07-18 16:17] LABS: AUTOMATED NEUTROPHIL # 15.8 TH/MM3 (1.8-7.7); BASOPHIL % 0.1 % (0.0-2.0); HEMATOCRIT 36.8 % (35.0-46.0); HEMOGLOBIN 11.7 GM/DL (11.6-15.3); LYMPH % 3.4 % (9.0-44.0); LYMPHOCYTE # 0.6 TH/MM3 (1.0-4.8); MEAN CELL VOLUME 93.5 FL (80.0-100.0); MEAN CORPUSCULAR HEMOGLOBIN 29.8 PG (27.0-34.0); MEAN CORPUSCULAR HGB CONC 31.9 % (32.0-36.0); MEAN PLATELET VOLUME 9.8 FL (7.0-11.0); MONO % 2.4 % (0.0-8.0); MONOCYTE # 0.4 TH/MM3 (0-0.9); NEUT % 94.1 % (16.0-70.0); PLATELET COUNT 162 TH/MM3 (150-450); RED BLOOD COUNT 3.94 MIL/MM3 (4.00-5.30); RED CELL DISTRIBUTION WIDTH 16.2 % (11.6-17.2); WHITE BLOOD COUNT 16.8 TH/MM3 (4.0-11.0)
[2017-07-18] MEDS: ALPRAZolam 1 MG TAB PO PRN (16:19)
[2017-07-18 16:42] LABS: ALBUMIN 2.4 GM/DL (3.4-5.0); AST (GOT) 59 U/L (15-37); BLOOD UREA NITROGEN 31 MG/DL (7-18); CHLORIDE 105 MEQ/L (98-107); GLOMERULAR FILTRATION RATE 66 ML/MIN (>89); GLUCOSE,RANDOM 132 MG/DL (74-106); LDH SERUM 577 U/L (84-246); SODIUM (NA) 137 MEQ/L (136-145)
[2017-07-18 16:45] LABS: ALKALINE PHOSPHATASE 145 U/L (45-117); ALT (GPT) 105 U/L (10-53); TOTAL BILIRUBIN ADULT 0.3 MG/DL (0.2-1.0); TOTAL PROTEIN 6.7 GM/DL (6.4-8.2)
--- NOTE | 2017-07-18 18:39 | HHI.PR ---
Subjective Remarks Still on a NRB mask. Sats drop when off O2. Has Cough and wheezing. No fever. Output was good. CXR shows Increased infiltrates. Objective Vital Signs Date Time Temp Pulse Resp B/P (MAP) Pulse Ox O2 Delivery O2 Flow Rate FiO2 07/18/17 18:02 52 07/18/17 17:31 57 07/18/17 16:16 57 07/18/17 15:16 52 07/18/17 15:16 98 Non-Rebreather 15.00 07/18/17 15:16 97.4 57 22 107/54 (71) 98 07/18/17 15:03 20 07/18/17 14:01 57 07/18/17 13:13 48 07/18/17 12:01 51 07/18/17 11:30 97.5 52 22 94/49 (64) 95 07/18/17 11:30 95 Non-Rebreather 15.00 07/18/17 11:30 48 07/18/17 10:01 62 07/18/17 09:41 69 07/18/17 09:19 96 Partial Rebreather 07/18/17 08:45 56 07/18/17 08:45 94 Non-Rebreather 15.00 07/18/17 08:45 97.5 53 22 114/65 (81) 94 07/18/17 06:09 52 07/18/17 05:53 53 07/18/17 04:00 53 07/18/17 04:00 93 70 07/18/17 03:59 Bi-Pap 07/18/17 03:59 97.9 58 93/47 (62) 99 07/18/17 03:00 53 07/18/17 02:00 58 07/18/17 01:27 98 70 07/18/17 01:21 Bi-Pap 10.00 70 07/18/17 01:00 54 07/18/17 00:00 60 07/17/17 23:00 97.8 62 107/68 (81) 92 07/17/17 23:00 64 07/17/17 22:07 92 70 07/17/17 22:00 70 07/17/17 21:00 64 07/17/17 20:31 92 Partial Rebreather 15.00 07/17/17 20:00 50 07/17/17 20:00 Bi-Pap 10.00 70 07/17/17 19:00 62 07/17/17 19:00 97.6 58 94/53 (82) 90 I/O 07/17/17 07/17/17 07/17/17 07/18/17 07/18/17 07/18/17 07:00 15:00 23:00 07:00 15:00 23:00 Intake Total 360 ml 720 ml 590 ml 700 ml Output Total 1250 ml 950 ml 540 ml Balance -890 ml 720 ml -360 ml 160 ml Intake Oral 360 ml 720 ml 240 ml 600 ml IV Total 350 ml 100 ml Output Urine Total 1250 ml 950 ml 540 ml # Bowel Movements 0 Result Diagram: 07/18/17 1540 07/18/17 1540 Objective Remarks GENERAL: This is an averagely built middle-aged white female who is alert, oriented and responsive. She is on a partial rebreather mask. HEENT: Head normocephalic. Pupils are reactive and equal. Tongue is moist. Nasal mucosa clear and ears no inflammation. Throat was clear. NECK: No bruits or thyroid enlargement or lymphadenopathy. CHEST: Increased AP diameter with diffuse wheezes throughout both lung veliz. Prolonged expirations.Basal crackles +. HEART: The heart sounds are irregular S1 and S2 with no murmur. No S3 gallop. ABDOMEN: Protuberant, soft without masses. No organomegaly or tenderness. Bowel sounds are active. EXTREMITIES: No edema. No clubbing and no calf tenderness. NEUROLOGIC: Reflexes are 1+ with no gross motor deficits. Cranial nerves grossly intact. SKIN: No lesions are observed. The patient is alert and talking and cooperative. Assessment and Plan Assessment and Plan IMPRESSION 1. Resolving respiratory failure. 2. COPD with acute exacerbation 3. CHF, resolving. 4. Hypertension and hyperlipidemia. 5. Cirrhosis of the liver 6. Bipolar disorder. Plan : 1. Cont Antibiotics per ID 2. Wean o2 to ventimask, and keep sat >90 3. Nebs qid , duoneb. 4. Wean Solumedrol 40 mg IV BID 5. BiPAP 12/5 CM at HS 6. Add lasix 40 mg bid 7. Symbicort 160/4.5 Mcg , 2 puffs bid 8. CXR ,BMP in am Emmanuelle Chase MD Jul 18, 2017 18:39
[2017-07-19] VITALS (29 sets, daily range): BP systolic 90–105; BP diastolic 45–58; PULSE 45–57; RESP 20–28; TEMP 96.7–98; O2SAT 90–95
[2017-07-19] MEDS: ALPRAZolam 1 MG TAB PO PRN ×3 (00:11→23:19)
[2017-07-19] MEDS: methylPREDNISolone SOD SUCC 40 MG/1 ML VIAL IV PUSH SCH ×5 (00:15→21:02)
[2017-07-19] MEDS: AZITHROMYCIN INJ 500 MG in SODIUM CHLOR 0.9% 250 ML INJ 250 ML IV SCH ×2 (00:15→23:19)
[2017-07-19] MEDS: SULFAMETHOXAZOLE-TRIMETHOPRIM DS 800-160 MG TAB PO SCH ×3 (05:42→21:01)
[2017-07-19] MEDS: oxyCODONE/ACETAMINOPHEN 10 MG/325 MG TAB PO PRN ×3 (05:44→21:01)
--- NOTE | 2017-07-19 06:11 | RADRPT ---
EXAM DATE/TIME: 07/19/2017 05:15 [place] COMPARISON: CHEST SINGLE AP, July 16, 2017, 4:27. INDICATIONS : Short of breath. MEDICAL HISTORY : Congestive heart failure. Chronic obstructive pulmonary disease. Hepatitis C. SURGICAL HISTORY : None. ENCOUNTER: Subsequent ACUITY: 1 week PAIN SCORE: 0/10 LOCATION: Bilateral chest FINDINGS: Partial improvement in the persistent mixed interstitial and alveolar infiltrates throughout both ruslan gs with almost normal aeration left upper lung and decreasing infiltrates in the remainder of the ruslan gs. The heart is upper limits normal size. Cardiac pacer leads in place CONCLUSION: Persistent but improving bilateral diffuse lung infiltrates. Osmany Higuera MD on July 19, 2017 at 6:09 Board Certified Radiologist. This report was verified electronically.
[2017-07-19 07:17] LABS: BICARBONATE 27.8 MEQ/L (21.0-32.0); CREATININE 0.8 MG/DL (0.50-1.00)
[2017-07-19] MEDS: RESP: ALBUTEROL 2.5 MG/IPRATROPIUM 0.5 MG NEB (SCH) NEB ×3 (07:43→15:47)
[2017-07-19] MEDS: DEXTROAMPHETAMINE/AMPHETAMINE 30 MG TAB PO SCH (09:00)
[2017-07-19] MEDS: SODIUM CHLORIDE 0.9% FLUSH 10 ML FLUSH IV FLUSH SCH ×2 (09:00→21:02)
[2017-07-19] MEDS: PANTOPRAZOLE SOD 20 MG DELAYED RELEASE TAB PO SCH (09:01)
[2017-07-19] MEDS: LISINOPRIL 5 MG TAB PO SCH (09:01)
[2017-07-19] MEDS: TOPIRAMATE 25 MG TAB PO SCH ×2 (09:01→21:02)
[2017-07-19] MEDS: LACTOBACILLUS ACIDOPHILUS TAB PO SCH ×3 (09:01→17:08)
[2017-07-19] MEDS: ENOXAPARIN SODIUM 40 MG/0.4 ML SYRINGE SQ SCH (09:01)
[2017-07-19] MEDS: ASPIRIN 325 MG TAB PO SCH (09:01)
[2017-07-19] MEDS: METOPROLOL TARTRATE 25 MG TAB PO SCH (09:02)
[2017-07-19] MEDS: FLUoxetine HCL 20 MG CAP PO SCH (09:02)
[2017-07-19] MEDS: FUROSEMIDE 40 MG TAB PO SCH ×2 (09:02→21:01)
[2017-07-19] MEDS: AMIODARONE 200 MG TAB PO SCH ×2 (09:02→21:01)
[2017-07-19] MEDS: POTASSIUM CHLORIDE 20 MEQ CONTROLLED RELEASE TAB PO SCH (09:02)
[2017-07-19] MEDS: BUDESONIDE-FORMOTEROL 80/4.5 MCG INHALER INH SCH ×2 (09:09→21:00)
--- NOTE | 2017-07-19 11:20 | HHI.PR ---
Subjective Remarks Follow-up for pneumonia and acute respiratory failure Patient continues to requires a nonrebreather intermittently. She stated she continues her shortness of breathing but has improved. No other events overnight. She remained afebrile. Objective Vitals Vital Signs Date Time Temp Pulse Resp B/P (MAP) Pulse Ox O2 Delivery O2 Flow Rate FiO2 07/19/17 10:17 54 07/19/17 09:00 55 07/19/17 08:30 97.8 51 20 97/58 (71) 93 07/19/17 08:30 49 07/19/17 08:30 93 Non-Rebreather 15.00 07/19/17 07:47 93 Partial Rebreather 15.00 07/19/17 07:07 18 07/19/17 06:00 50 07/19/17 05:00 48 07/19/17 04:22 92 70 07/19/17 04:00 50 07/19/17 03:00 96.7 51 27 90/51 (64) 92 07/19/17 03:00 49 07/19/17 03:00 92 Bi-Pap 07/19/17 02:00 50 07/19/17 01:30 90 70 07/19/17 01:00 54 07/19/17 00:00 96.7 53 28 96/48 (64) 92 07/19/17 00:00 50 07/18/17 23:00 54 07/18/17 23:00 92 Bi-Pap 07/18/17 22:50 93 70 07/18/17 22:00 52 07/18/17 21:00 54 07/18/17 20:00 56 07/18/17 20:00 90 70 07/18/17 20:00 97.4 55 37 89/53 (65) 90 07/18/17 19:41 91 Partial Rebreather 15.00 07/18/17 19:00 90 Non-Rebreather 15.00 07/18/17 19:00 56 07/18/17 18:02 52 07/18/17 17:31 57 07/18/17 16:16 57 07/18/17 15:16 52 07/18/17 15:16 98 Non-Rebreather 15.00 07/18/17 15:16 97.4 57 22 107/54 (71) 98 07/18/17 14:01 57 1/22/18 13:13 48 07/18/17 12:01 51 07/18/17 11:30 97.5 52 22 94/49 (64) 95 07/18/17 11:30 95 Non-Rebreather 15.00 07/18/17 11:30 48 I/O 07/18/17 07/18/17 07/18/17 07/19/17 07/19/17 07/19/17 07:00 15:00 23:00 07:00 15:00 23:00 Intake Total 590 ml 700 ml Output Total 950 ml 540 ml Balance -360 ml 160 ml Intake Oral 240 ml 600 ml IV Total 350 ml 100 ml Output Urine Total 950 ml 540 ml # Bowel Movements 0 0 Result Diagram: 07/18/17 1540 07/19/17 0513 Objective Remarks GENERAL: in NAD on nonrebreather CARDIOVASCULAR: Regular rate and rhythm without murmurs, gallops, or rubs. RESPIRATORY: Breath sounds equal bilaterally with intermittent crackles. No accessory muscle use. GASTROINTESTINAL: Abdomen soft, non-tender, nondistended. MUSCULOSKELETAL: Negative edema Medications and IVs Current Medications Sodium Chloride (NS Flush) 2 ml UNSCH PRN IVF FLUSH AFTER USING IV ACCESS; Start 07/11/17 at 20:00; Stop 07/12/17 at 06:35; Status DC Methylprednisolone Sodium Succinate (SoluMEDROL INJ) 125 mg ONCE ONCE IV PUSH Last administered on 07/11/17at 20:03; Start 07/11/17 at 20:00; Stop 07/11/17 at 20:01; Status DC Albuterol/ Ipratropium (Duoneb Neb) 1 ampule Q15M INH Last administered on 07/11at 22:02; Start 07/11/17 at 20:00; Stop 07/11/17 at 20:31; Status DC Iohexol (Omnipaque 350 Inj) 60 ml STK-MED ONCE IVCONTRAST Last administered on 07/11/17at 19:31; Start 07/11/17 at 19:31; Stop 07/11/17 at 21:10; Status DC Furosemide (Lasix Inj) 40 mg ONCE ONCE IV PUSH Last administered on 07/11/17at 21:51; Start 07/11/17 at 21:15; Stop 07/11/17 at 21:16; Status DC Ceftriaxone Sodium 1000 mg/ Sodium Chloride 100 ml @ 200 mls/hr ONCE ONCE IV Last administered on 07/11/17at 21:52; Start 07/11/17 at 21:15; Stop 07/11/17 at 21:44; Status DC Azithromycin 500 mg/Sodium Chloride 250 ml @ 250 mls/hr ONCE ONCE IV Last administered on 07/11/17at 23:43; Start 07/11/17 at 21:15; Stop 07/11/17 at 22:14 ; Status DC Sodium Chloride (NS Flush) 2 ml UNSCH PRN IV FLUSH FLUSH AFTER USING IV ACCESS ; Start 07/11/17 at 22:00 Sodium Chloride (NS Flush) 2 ml BID IV FLUSH Last administered on 07/19/17at 09: 00; Start 07/12/17 at 09:00 Naloxone HCl (Narcan Inj) 0.4 mg UNSCH PRN IV PUSH SEE LABEL COMMENTS; Start at 22:00 Albuterol/ Ipratropium (Duoneb Neb) 1 ampule Q6HR NEB NEB Last administered on 07/15/17at 11:05; Start 07/11/17 at 22:00; Stop 07/15/17 at 14:06; Status DC Albuterol/ Ipratropium (Duoneb Neb) 1 ampule Q2HR NEB PRN NEB wheezing; Start 07/11/17 at 22:00 Lactobacillus Acidophilus (Lactinex) 1 tab TID PO Last administered on at 09:45; Start 07/12/17 at 09:00; Stop 07/12/17 at 11:35; Status DC Furosemide (Lasix Inj) 40 mg BID@,18 IV PUSH Last administered on 07/17/17at 09:55; Start 07/12/17 at 09:00; Stop 07/17/17 at 10:37; Status DC Enoxaparin Sodium (Lovenox Inj) 60 mg Q24H SQ Last administered on 07/13/17at 08 :45; Start 07/12/17 at 09:00; Stop 07/13/17 at 16:13; Status DC Alprazolam (Xanax) 1 mg Q8H PRN PO ANXIETY Last administered on 07/19/17at 00:11 ; Start 07/12/17 at 06:30 Amiodarone HCl (Cordarone) 400 mg Q12HR PO Last administered on 07/19/17 09:02 ; Start 07/12/17 at 09:00 Amphetamine/ Dextroamphetamine (Adderall) 30 mg DAILY PO Last administered on at 09:58; Start 07/12/17 at 09:00 Aspirin (Aspirin) 325 mg DAILY PO Last administered on 07/19/17 09:01; Start 07/12/17 at 09:00 Budesonide/ Formoterol Fumarate (Symbicort 80-4.5 Mcg Inh) 2 puff Q12HR INH Last administered on 07/19/17 09:09; Start 07/12/17 at 09:00 Lisinopril (Prinivil) 5 mg DAILY PO Last administered on 07/19/17 09:01; Start 07/12/17 at 09:00 Metoprolol Tartrate (Lopressor) 25 mg DAILY PO Last administered on 07/19/17 09:02; Start 07/12/17 at 09:00 Potassium Chloride (KCl) 20 meq DAILY PO Last administered on 07/19/17 09:02; Start 07/12/17 at 09:00 Topiramate (Topamax) 50 mg BID PO Last administered on 07/19/17 09:01; Start 07/12/17 at 09:00 Fluoxetine HCl (PROzac) 80 mg DAILY PO Last administered on 07/19/17 09:02; Start 07/12/17 at 09:00 Pantoprazole Sodium (Protonix) 20 mg DAILY PO Last administered on 07/19/17 09 :01; Start 07/12/17 at 09:00 Oxycodone/ Acetaminophen (Percocet 5-325 Mg) 1 tab Q6H PRN PO Pain 3 to 6; Start 07/12/17 at 11:30 Oxycodone/ Acetaminophen (Percocet 10-325 Mg) 1 tab Q6H PRN PO Pain 7 to 10 Last administered on 07/19/17at 05:44; Start 07/12/17 at 11:30 Lactobacillus Acidophilus (Lactinex) 1 tab TID PO Last administered on 09:01; Start 07/12/17 at 13:00 Ceftriaxone Sodium 1000 mg/ Sodium Chloride 100 ml @ 200 mls/hr Q24H IV Last administered on 07/17/17at 21:05; Start 07/12/17 at 21:00; Stop 07/18/17 at 13:33 ; Status DC Azithromycin 500 mg/Sodium Chloride 250 ml @ 250 mls/hr Q24H IV Last administered on 07/19/17at 00:15; Start 07/12/17 at 23:00 Methylprednisolone Sodium Succinate (SoluMEDROL INJ) 40 mg Q12HR IV PUSH Last administered on 07/15/17at 08:15; Start 07/12/17 at 21:00; Stop 07/15/17 at 12:38 ; Status DC Methylprednisolone Sodium Succinate (SoluMEDROL INJ) 40 mg ONCE ONCE IV PUSH Last administered on 07/12/17at 12:13; Start 07/12/17 at 11:45; Stop 07/12/17 at 11:46; Status DC Micafungin Sodium 100 mg/Sodium Chloride 100 ml @ 100 mls/hr Q24H IV Last administered on 07/18/17at 15:57; Start 07/12/17 at 17:00 Enoxaparin Sodium (Lovenox Inj) 40 mg Q24H SQ Last administered on 07/19/17at 09 :01; Start 07/14/17 at 09:00 Albuterol/ Ipratropium (Duoneb Neb) 1 ampule QID NEB NEB Last administered on 07/19/17at 07:43; Start 07/15/17 at 16:00 Methylprednisolone Sodium Succinate (SoluMEDROL INJ) 40 mg Q6HR IV PUSH Last administered on 07/19/17at 05:43; Start 07/15/17 at 18:00 Furosemide (Lasix) 40 mg DAILY PO ; Start 07/18/17 at 09:00; Stop 07/18/17 at 09 :00; Status DC Furosemide (Lasix Inj) 20 mg ONCE ONCE IV PUSH Last administered on 07/17/17at 16:55; Start 07/17/17 at 16:30; Stop 07/17/17 at 16:33; Status DC Furosemide (Lasix) 40 mg BID PO Last administered on 07/19/17at 09:02; Start at 09:00 Trimethoprim/ Sulfamethoxazole (Bactrim Ds 800-160 Mg) 1 tab Q8H PO Last administered on 07/19/17at 05:42; Start 07/18/17 at 14:00 A/P Problem List: (1) Respiratory failure ICD Code: J96.90 - Respiratory failure, unspecified, unspecified whether with hypoxia or hypercapnia Status: Acute (2) Pneumonia ICD Code: J18.9 - Pneumonia, unspecified organism Status: Acute (3) Sepsis ICD Code: A41.9 - Sepsis, unspecified organism (4) Hypoxemia ICD Code: R09.02 - Hypoxemia Status: Acute Assessment and Plan 51-year-old female with Sepsis Resolved Pneumonia Acute hypoxemic respiratory failure Leukocytosis Hypoxia seems to be more due to pneumonia. Continue BiPAP as needed and repeat ABG this a.m. Maintain oxygen saturation above 92%, continue with DuoNeb Continue Rocephin, azithromycin and micafungin Continue with Solu-Medrol 40 mg every 6H, Symbicort Blood cultures negative. Pulmonary medicine input appreciated Patient continues to be on nonrebreather. Repeat chest x-ray shows improvement and checks x-ray with bilateral infiltrate. Rocephin discontinue on 07/18. Patiently currently on azithromycin, Bactrim, micafungin. History of Valvular heart disease with moderate MR, moderate MS Possible CHF exacerbation Elevated BNP Prolonged QT interval (chronic) Continue with Lasix 40mg daily Continue with amiodarone 400 mg every 12 2-D echo with EF 50-55% Hypertension On lisinopril 5 mg daily and Lopressor 25mg daily with holding parameters Hyperlipidemia Continue Lipitor daily COPD exacerbation with respiratory failure This seems to improve drastically. Continue with Solu-Medrol 40 mg every 6 hours,Symbicort,Spiriva, DuoNeb scheduled and PRN Maintain oxygen saturation above 92% Appreciate input from pulmonary medicine Cirrhosis Chronic hepatitis C Standard precautions Bipolar disorder ADHD No exacerbations Continue with Outpatient medications Fibromyalgia Hiatal hernia Chronic back pain GERD On PPI DVT prophylaxis Lovenox Discharge Planning Patient continues to required nonrebreather and slowly improving. Maria Dolores Browning MD Jul 19, 2017 11:20
--- NOTE | 2017-07-19 11:25 | HHI.IDPN ---
Note Infectious Disease Note Patient feels better. Still requiring high concentration of O2. No sweats or chills. Not producing sputum. Little cough. Presented to the emergency department with respiratory symptoms. PAST MEDICAL HISTORY: 1. Ventricular tachycardia. 2. Cirrhosis of the liver. 3. Hepatitis C. 4. Anxiety/depression. 5. COPD. 6. Hypertension. 7. Gastroesophageal reflux disease. 8. Chronic back pain. 9. History of AICD. 10. Fibromyalgia. 11. Bipolar disorder. ALLERGIES CODEINE. MEDICATIONS: 1. Azithromycin. 2. Bactrim. 3. Micafungin. Current Medications Medications (Trade) Dose Ordered Sig/Jose Route PRN Reason Start Time Stop Time Status Last Admin Dose Admin Sodium Chloride (NS Flush) 2 ml UNSCH PRN IV FLUSH FLUSH AFTER USING IV ACCESS 07/11/17 22:00 Sodium Chloride (NS Flush) 2 ml BID IV FLUSH 07/12/17 09:00 07/19/17 09:00 Naloxone HCl (Narcan Inj) 0.4 mg UNSCH PRN IV PUSH SEE LABEL COMMENTS 07/11/17 22:00 Albuterol/ Ipratropium (Duoneb Neb) 1 ampule Q2HR NEB PRN NEB wheezing 07/11/17 22:00 Alprazolam (Xanax) 1 mg Q8H PRN PO ANXIETY 07/12/17 06:30 07/19/17 00:11 Amiodarone HCl (Cordarone) 400 mg Q12HR PO 07/12/17 09:00 07/19/17 09:02 Amphetamine/ Dextroamphetamine (Adderall) 30 mg DAILY PO 07/12/17 09:00 07/17/17 09:58 Aspirin (Aspirin) 325 mg DAILY PO 07/12/17 09:00 07/19/17 09:01 Budesonide/ Formoterol Fumarate (Symbicort 80-4.5 Mcg Inh) 2 puff Q12HR INH 07/12/17 09:00 07/19/17 09:09 Lisinopril (Prinivil) 5 mg DAILY PO 07/12/17 09:00 07/19/17 09:01 Metoprolol Tartrate (Lopressor) 25 mg DAILY PO 07/12/17 09:00 07/19/17 09:02 Potassium Chloride (KCl) 20 meq DAILY PO 07/12/17 09:00 07/19/17 09:02 Topiramate (Topamax) 50 mg BID PO 07/12/17 09:00 07/19/17 09:01 Fluoxetine HCl (PROzac) 80 mg DAILY PO 07/12/17 09:00 07/19/17 09:02 Pantoprazole Sodium (Protonix) 20 mg DAILY PO 07/12/17 09:00 07/19/17 09:01 Oxycodone/ Acetaminophen (Percocet 5-325 Mg) 1 tab Q6H PRN PO Pain 3 to 6 07/12/17 11:30 Oxycodone/ Acetaminophen (Percocet 10-325 Mg) 1 tab Q6H PRN PO Pain 7 to 10 07/12/17 11:30 07/19/17 05:44 Lactobacillus Acidophilus (Lactinex) 1 tab TID PO 07/12/17 13:00 07/19/17 09:01 Azithromycin 500 mg/Sodium Chloride 250 ml @ 250 mls/hr Q24H IV 07/12/17 23:00 07/19/17 00:15 Micafungin Sodium 100 mg/Sodium Chloride 100 ml @ 100 mls/hr Q24H IV 07/12/17 17:00 07/18/17 15:57 Enoxaparin Sodium (Lovenox Inj) 40 mg Q24H SQ 07/14/17 09:00 07/19/17 09:01 Albuterol/ Ipratropium (Duoneb Neb) 1 ampule QID NEB NEB 07/15/17 16:00 07/19/17 07:43 Methylprednisolone Sodium Succinate (SoluMEDROL INJ) 40 mg Q6HR IV PUSH 07/15/17 18:00 07/19/17 05:43 Furosemide (Lasix) 40 mg BID PO 07/18/17 09:00 07/19/17 09:02 Trimethoprim/ Sulfamethoxazole (Bactrim Ds 800-160 Mg) 1 tab Q8H PO 07/18/17 14:00 07/19/17 05:42 IMAGING: Chest X-Ray 07/19/17 06 Signed Impressions: Service Date/Time: Wednesday, July 19, 2017 05:15 - CONCLUSION: Persistent but improving bilateral diffuse lung infiltrates. Osmany Higuera MD Chest X-Ray 1/20/18 0600 Signed Impressions: Service Date/Time: Sunday, July 16, 2017 04:27 - CONCLUSION: 1. Progressive diffuse bilateral interstitial and alveolar opacities in this patient with history of chronic interstitial and alveolar airspace disease. London Kapoor MD Chest X-Ray 07/11/171948 Signed Impressions: Service Date/Time: Tuesday, July 11, 2017 19:55 - CONCLUSION: Interstitial pulmonary edema. Osmany Stafford Jr., MD CT Angiography [id number]/11/171948 Signed Impressions: Service Date/Time: Tuesday, July 11, 2017 20:47 - CONCLUSION: 1. No pulmonary embolus. 2. Diffuse bilateral groundglass infiltrates without effusions. These infiltrates are similar to prior exam from 2016. Differential diagnostic considerations include alveolar proteinosis, infectious infiltrates , and pulmonary edema. 3. Mediastinal adenopathy is less pronounced from the prior study. 4. No pulmonary emboli. 5. Cirrhosis. Osmany Stafford Jr., MD PHYSICAL EXAMINATION: GENERAL: chronically ill-appearing female. HEENT: Head is atraumatic. Extraocular movements grossly intact, pupils reactive to light, no icterus. Oropharynx mucosa moist. Neck: No adenopathy or swelling. The neck is supple. Lungs: Rhonchi at the bases. Good air entry. Heart: Regular S1-S2. No audible murmurs. Abdomen: Bowel sounds present, soft, nontender. Extremities: No clubbing, cyanosis or edema. SKIN: No rash. NEURO: Non focal. PSYCH: Calm and cooperative. IMPRESSION: 1. Bilateral lung interstitial ground glass infiltrate. Questionable infection versus inflammatory nature, versus drug toxicity. Slow to improve. CXR improving. 2. Hypoxia. Patient requiring BiPAP. Still requiring O2 via face mask. Pulmonary following. 3. Leukocytosis. WBC lower. 4. Elevated LFT's improved. RECOMMENDATIONS: 1. Continue azithromycin. 2. Continue Bactrim. 3. Continue Micafungin for possible fungal etiology. 4. Monitor white cell count. 5. Monitor clinical response. Cachorro Adams MD Jul 19, 2017 11:25
--- NOTE | 2017-07-19 13:11 | HHI.PR ---
Subjective Remarks Still on a NRB mask. Some improvement noted in sats Has Cough and wheezing. No fever. Output was good. CXR shows bilateral infiltrates. Objective Vital Signs Date Time Temp Pulse Resp B/P (MAP) Pulse Ox O2 Delivery O2 Flow Rate FiO2 07/19/17 13:06 50 07/19/17 13:05 20 07/19/17 12:24 50 07/19/17 11:54 94 Non-Rebreather 15.00 07/19/17 11:54 49 07/19/17 11:54 98.0 51 20 97/46 (63) 93 07/19/17 10:17 54 07/19/17 09:00 55 07/19/17 08:30 97.8 51 20 97/58 (71) 93 07/19/17 08:30 49 07/19/17 08:30 93 Non-Rebreather 15.00 07/19/17 07:47 93 Partial Rebreather 15.00 07/19/17 06:00 50 07/19/17 05:00 48 07/19/17 04:22 92 70 07/19/17 04:00 50 07/19/17 03:00 96.7 51 27 90/51 (64) 92 07/19/17 03:00 49 07/19/17 03:00 92 Bi-Pap 07/19/17 02:00 50 07/19/17 01:30 90 70 07/19/17 01:00 54 07/19/17 00:00 96.7 53 28 96/48 (64) 92 07/19/17 00:00 50 07/18/17 23:00 54 07/18/17 23:00 92 Bi-Pap 07/18/17 22:50 93 70 07/18/17 22:00 52 07/18/17 21:00 54 07/18/17 20:00 56 07/18/17 20:00 90 70 07/18/17 20:00 97.4 55 37 89/53 (65) 90 07/18/17 19:41 91 Partial Rebreather 15.00 07/18/17 19:00 90 Non-Rebreather 15.00 07/18/17 19:00 56 07/18/17 18:02 52 07/18/17 17:31 57 07/18/17 16:16 57 07/18/17 15:16 52 07/18/17 15:16 98 Non-Rebreather 15.00 07/18/17 15:16 97.4 57 22 107/54 (71) 98 07/18/17 14:01 57 07/18/17 13:13 48 I/O 07/18/17 07/18/17 07/18/17 07/19/17 07/19/17 07/19/17 07:00 15:00 23:00 07:00 15:00 23:00 Intake Total 590 ml 700 ml Output Total 950 ml 540 ml Balance -360 ml 160 ml Intake Oral 240 ml 600 ml IV Total 350 ml 100 ml Output Urine Total 950 ml 540 ml # Bowel Movements 0 0 Result Diagram: 07/18/17 1540 07/19/17 0513 Objective Remarks GENERAL: This is an averagely built middle-aged white female who is alert, oriented. She is on a partial rebreather mask. HEENT: Head normocephalic. Pupils are reactive and equal. Tongue is moist. Nasal mucosa clear and ears no inflammation. Throat was clear. NECK: No bruits or thyroid enlargement or lymphadenopathy. CHEST: Increased AP diameter with diffuse wheezes throughout both lung veliz. Prolonged expirations.Occ Basal crackles +. HEART: The heart sounds are irregular S1 and S2 with no murmur. No S3 gallop. ABDOMEN: Protuberant, soft without masses. No organomegaly or tenderness. Bowel sounds are active. EXTREMITIES: No edema. No clubbing and no calf tenderness. NEUROLOGIC: Reflexes are 1+ with no gross motor deficits. Cranial nerves grossly intact. SKIN: No lesions are observed. The patient is alert and talking and cooperative. Assessment and Plan Assessment and Plan IMPRESSION 1. Resolving respiratory failure. 2. COPD with acute exacerbation 3. CHF, resolving. 4. Hypertension and hyperlipidemia. 5. Cirrhosis of the liver 6. Bipolar disorder. Plan : 1. Cont Antibiotics per ID 2. Wean o2 to ventimask, and keep sat >90 3. Nebs qid , duoneb. 4. Cont Solumedrol 40 mg IV Q8H 5. BiPAP 12/5 CM at HS 6. Cont lasix 40 mg bid 7. Symbicort 160/4.5 Mcg , 2 puffs bid 8. CBC,BMP in am Emmanuelle Chase MD Jul 19, 2017 13:11
[2017-07-19] MEDS: MICAFUNGIN INJ 100 MG in SODIUM CHLORIDE 0.9% INJ 100 ML IV SCH (17:08)
[2017-07-20] VITALS (27 sets, daily range): BP systolic 80–114; BP diastolic 42–52; PULSE 43–69; RESP 19–25; TEMP 96.4–98.4; O2SAT 92–99
[2017-07-20] MEDS: SULFAMETHOXAZOLE-TRIMETHOPRIM DS 800-160 MG TAB PO SCH ×3 (05:50→22:35)
[2017-07-20] MEDS: methylPREDNISolone SOD SUCC 40 MG/1 ML VIAL IV PUSH SCH ×3 (05:50→20:28)
[2017-07-20] MEDS: BUDESONIDE-FORMOTEROL 80/4.5 MCG INHALER INH SCH ×2 (08:46→19:25)
[2017-07-20] MEDS: FLUoxetine HCL 20 MG CAP PO SCH (08:46)
[2017-07-20] MEDS: AMIODARONE 200 MG TAB PO SCH ×2 (08:47→20:23)
[2017-07-20] MEDS: LISINOPRIL 5 MG TAB PO SCH (08:47)
[2017-07-20] MEDS: POTASSIUM CHLORIDE 20 MEQ CONTROLLED RELEASE TAB PO SCH (08:47)
[2017-07-20] MEDS: FUROSEMIDE 40 MG TAB PO SCH (08:48)
[2017-07-20] MEDS: PANTOPRAZOLE SOD 20 MG DELAYED RELEASE TAB PO SCH (08:48)
[2017-07-20] MEDS: ASPIRIN 325 MG TAB PO SCH (08:48)
[2017-07-20] MEDS: LACTOBACILLUS ACIDOPHILUS TAB PO SCH ×3 (08:48→18:05)
[2017-07-20] MEDS: METOPROLOL TARTRATE 25 MG TAB PO SCH (08:48)
[2017-07-20] MEDS: TOPIRAMATE 25 MG TAB PO SCH ×2 (08:49→20:28)
[2017-07-20] MEDS: SODIUM CHLORIDE 0.9% FLUSH 10 ML FLUSH IV FLUSH SCH ×2 (08:49→20:23)
[2017-07-20] MEDS: ENOXAPARIN SODIUM 40 MG/0.4 ML SYRINGE SQ SCH (08:49)
[2017-07-20] MEDS: DEXTROAMPHETAMINE/AMPHETAMINE 30 MG TAB PO SCH (08:49)
[2017-07-20] MEDS: oxyCODONE/ACETAMINOPHEN 10 MG/325 MG TAB PO PRN (08:50)
--- NOTE | 2017-07-20 12:26 | HHI.PR ---
Subjective Remarks Follow-up for acute on chronic respiratory failure and pneumonia Patient stated that breathing has improved. She feels that she is getting better but she continues to require nonrebreather BiPAP. Patient complaining of pain in her gluteal area. Otherwise no other complaints. Later in the day patient became hypoxic at 60% trying to eat so respiratory therapist had to increase her FiO2 to 90% and recommended that patient be transferred to the unit. I went back into see patient and Dr. Krishna was also the bedside. He also recommended to transfer patient to the unit. Objective Vitals Vital Signs Date Time Temp Pulse Resp B/P (MAP) Pulse Ox O2 Delivery O2 Flow Rate FiO2 07/20/17 12:00 52 07/20/17 11:00 96.4 57 25 87/43 (58) 92 07/20/17 11:00 92 Bi-Pap 07/20/17 11:00 59 07/20/17 10:00 49 07/20/17 09:53 24 07/20/17 09:00 58 07/20/17 08:44 92/51 (65) 07/20/17 08:00 48 07/20/17 07:15 95 Bi-Pap 07/20/17 07:15 97.3 51 25 94/42 (59) 95 07/20/17 07:15 47 07/20/17 06:00 46 07/20/17 05:00 45 07/20/17 04:40 93 90 07/20/17 04:00 98.0 46 22 114/52 (72) 96 07/20/17 04:00 44 07/20/17 03:00 95 Bi-Pap 85 07/20/17 03:00 46 07/20/17 02:00 46 07/20/17 01:00 66 07/20/17 00:00 45 07/20/17 00:00 97.7 48 22 99/51 (67) 96 07/19/17 23:28 94 80 07/19/17 23:00 45 07/19/17 23:00 96 Bi-Pap 85 07/19/17 22:00 49 07/19/17 21:00 46 07/19/17 20:07 95 Non-Rebreather 07/19/17 20:00 51 07/19/17 19:00 92 Non-Rebreather 15.00 07/19/17 19:00 52 07/19/17 19:00 97.8 51 22 91/45 (60) 92 07/19/17 18:07 51 07/19/17 17:18 52 07/19/17 16:14 56 07/19/17 15:57 92 Non-Rebreather 15.00 07/19/17 15:13 90 Non-Rebreather 15.00 07/19/17 15:13 97.7 57 20 105/56 (72) 90 07/19/17 15:13 49 07/19/17 14:01 46 07/19/17 13:06 50 I/O 07/19/17 07/19/17 07/19/17 07/20/17 07/20/17 07/20/17 07:00 15:00 23:00 07:00 15:00 23:00 Intake Total 480 ml 360 ml Output Total 750 ml 950 ml Balance -270 ml -590 ml Intake Oral 480 ml 360 ml Output Urine Total 750 ml 950 ml # Bowel Movements 0 0 0 Result Diagram: 07/18/17 1540 07/19/17 0513 Imaging Last Impressions Chest X-Ray 07/19/17 0600 Signed Impressions: Service Date/Time: Wednesday, July 19, 2017 05:15 - CONCLUSION: Persistent but improving bilateral diffuse lung infiltrates. Osmany Higuera MD CT Angiography 07/11/171948 Signed Impressions: Service Date/Time: Tuesday, July 11, 2017 20:47 - CONCLUSION: 1. No pulmonary embolus. 2. Diffuse bilateral groundglass infiltrates without effusions. These infiltrates are similar to prior exam from 2016. Differential diagnostic considerations include alveolar proteinosis, infectious infiltrates , and pulmonary edema. 3. Mediastinal adenopathy is less pronounced from the prior study. 4. No pulmonary emboli. 5. Cirrhosis. Osmany Stafford Jr., MD Objective Remarks GENERAL: in NAD on nonrebreather CARDIOVASCULAR: Regular rate and rhythm without murmurs, gallops, or rubs. RESPIRATORY: Breath sounds equal bilaterally with intermittent crackles. No accessory muscle use. GASTROINTESTINAL: Abdomen soft, non-tender, nondistended. MUSCULOSKELETAL: Negative edema Medications and IVs Current Medications Sodium Chloride (NS Flush) 2 ml UNSCH PRN IVF FLUSH AFTER USING IV ACCESS; Start 07/11/17 at 20:00; Stop 07/12/17 at 06:35; Status DC Methylprednisolone Sodium Succinate (SoluMEDROL INJ) 125 mg ONCE ONCE IV PUSH Last administered on 07/11/17at 20:03; Start 07/11/17 at 20:00; Stop 07/11/17 at 20:01; Status DC Albuterol/ Ipratropium (Duoneb Neb) 1 ampule Q15M INH Last administered on 07/11at 22:02; Start 07/11/17 at 20:00; Stop 07/11/17 at 20:31; Status DC Iohexol (Omnipaque 350 Inj) 60 ml STK-MED ONCE IVCONTRAST Last administered on 07/11/17at 19:31; Start 07/11/17 at 19:31; Stop 07/11/17 at 21:10; Status DC Furosemide (Lasix Inj) 40 mg ONCE ONCE IV PUSH Last administered on 07/11/17at 21:51; Start 07/11/17 at 21:15; Stop 07/11/17 at 21:16; Status DC Ceftriaxone Sodium 1000 mg/ Sodium Chloride 100 ml @ 200 mls/hr ONCE ONCE IV Last administered on 07/11/17at 21:52; Start 07/11/17 at 21:15; Stop 07/11/17 at 21:44; Status DC Azithromycin 500 mg/Sodium Chloride 250 ml @ 250 mls/hr ONCE ONCE IV Last administered on 07/11/17at 23:43; Start 07/11/17 at 21:15; Stop 07/11/17 at 22:14 ; Status DC Sodium Chloride (NS Flush) 2 ml UNSCH PRN IV FLUSH FLUSH AFTER USING IV ACCESS ; Start 07/11/17 at 22:00 Sodium Chloride (NS Flush) 2 ml BID IV FLUSH Last administered on 07/20/17at 08: 49; Start 07/12/17 at 09:00 Naloxone HCl (Narcan Inj) 0.4 mg UNSCH PRN IV PUSH SEE LABEL COMMENTS; Start at 22:00 Albuterol/ Ipratropium (Duoneb Neb) 1 ampule Q6HR NEB NEB Last administered on 07/15/17at 11:05; Start 07/11/17 at 22:00; Stop 07/15/17 at 14:06; Status DC Albuterol/ Ipratropium (Duoneb Neb) 1 ampule Q2HR NEB PRN NEB wheezing; Start 07/11/17 at 22:00 Lactobacillus Acidophilus (Lactinex) 1 tab TID PO Last administered on at 09:45; Start 07/12/17 at 09:00; Stop 07/12/17 at 11:35; Status DC Furosemide (Lasix Inj) 40 mg BID@18 IV PUSH Last administered on 07/17/17at 09:55; Start 07/12/17 at 09:00; Stop 07/17/17 at 10:37; Status DC Enoxaparin Sodium (Lovenox Inj) 60 mg Q24H SQ Last administered on 07/13/17at 08 :45; Start 07/12/17 at 09:00; Stop 07/13/17 at 16:13; Status DC Alprazolam (Xanax) 1 mg Q8H PRN PO ANXIETY Last administered on 07/19/17at 23:19 ; Start 07/12/17 at 06:30 Amiodarone HCl (Cordarone) 400 mg Q12HR PO Last administered on 07/20/17at 08:47 ; Start 07/12/17 at 09:00 Amphetamine/ Dextroamphetamine (Adderall) 30 mg DAILY PO Last administered on at 09:58; Start 07/12/17 at 09:00 Aspirin (Aspirin) 325 mg DAILY PO Last administered on 07/20/17at 08:48; Start 07/12/17 at 09:00 Budesonide/ Formoterol Fumarate (Symbicort 80-4.5 Mcg Inh) 2 puff Q12HR INH Last administered on 07/20/17at 08:46; Start 07/12/17 at 09:00 Lisinopril (Prinivil) 5 mg DAILY PO Last administered on 07/20/17at 08:47; Start 07/12/17 at 09:00 Metoprolol Tartrate (Lopressor) 25 mg DAILY PO Last administered on 07/19/17at 09:02; Start 07/12/17 at 09:00 Potassium Chloride (KCl) 20 meq DAILY PO Last administered on 07/20/17at 08:47; Start 07/12/17 at 09:00 Topiramate (Topamax) 50 mg BID PO Last administered on 07/20/17 08:49; Start 07/12/17 at 09:00 Fluoxetine HCl (PROzac) 80 mg DAILY PO Last administered on 07/20/17 08:46; Start 07/12/17 at 09:00 Pantoprazole Sodium (Protonix) 20 mg DAILY PO Last administered on 07/20/17at 08 :48; Start 07/12/17 at 09:00 Oxycodone/ Acetaminophen (Percocet 5-325 Mg) 1 tab Q6H PRN PO Pain 3 to 6; Start 07/12/17 at 11:30 Oxycodone/ Acetaminophen (Percocet 10-325 Mg) 1 tab Q6H PRN PO Pain 7 to 10 Last administered on 07/20/17at 08:50; Start 07/12/17 at 11:30 Lactobacillus Acidophilus (Lactinex) 1 tab TID PO Last administered on 08:48; Start 07/12/17 at 13:00 Ceftriaxone Sodium 1000 mg/ Sodium Chloride 100 ml @ 200 mls/hr Q24H IV Last administered on 07/17/17at 21:05; Start 07/12/17 at 21:00; Stop 07/18/17 at 13:33 ; Status DC Azithromycin 500 mg/Sodium Chloride 250 ml @ 250 mls/hr Q24H IV Last administered on 07/19/17at 23:19; Start 07/12/17 at 23:00 Methylprednisolone Sodium Succinate (SoluMEDROL INJ) 40 mg Q12HR IV PUSH Last administered on 07/15/17at 08:15; Start 07/12/17 at 21:00; Stop 07/15/17 at 12:38 ; Status DC Methylprednisolone Sodium Succinate (SoluMEDROL INJ) 40 mg ONCE ONCE IV PUSH Last administered on 07/12/17at 12:13; Start 07/12/17 at 11:45; Stop 07/12/17 at 11:46; Status DC Micafungin Sodium 100 mg/Sodium Chloride 100 ml @ 100 mls/hr Q24H IV Last administered on 07/19/17at 17:08; Start 07/12/17 at 17:00 Enoxaparin Sodium (Lovenox Inj) 40 mg Q24H SQ Last administered on 07/20/17at 08 :49; Start 07/14/17 at 09:00 Albuterol/ Ipratropium (Duoneb Neb) 1 ampule QID NEB NEB Last administered on 07/19/17at 15:47; Start 07/15/17 at 16:00; Stop 07/19/17 at 15:59; Status DC Methylprednisolone Sodium Succinate (SoluMEDROL INJ) 40 mg Q6HR IV PUSH Last administered on 07/19/17at 12:02; Start 07/15/17 at 18:00; Stop 07/19/17 at 13:10 ; Status DC Furosemide (Lasix) 40 mg DAILY PO ; Start 07/18/17 at 09:00; Stop 07/18/17 at 09 :00; Status DC Furosemide (Lasix Inj) 20 mg ONCE ONCE IV PUSH Last administered on 07/17/17at 16:55; Start 07/17/17 at 16:30; Stop 07/17/17 at 16:33; Status DC Furosemide (Lasix) 40 mg BID PO Last administered on 07/20/17at 08:48; Start at 09:00 Trimethoprim/ Sulfamethoxazole (Bactrim Ds 800-160 Mg) 1 tab Q8H PO Last administered on 07/20/17at 05:50; Start 07/18/17 at 14:00 Methylprednisolone Sodium Succinate (SoluMEDROL INJ) 40 mg Q8HR IV PUSH Last administered on 07/20/17at 05:50; Start 07/19/17 at 14:00 Lidocaine HCl (Lidoderm 5% Patch.12 Hr) 1 patch DAILY T-DERMAL ; Start 07/20/17 at 12:30; Status UNV Sodium Chloride 250 ml @ 250 mls/hr BOLUS ONCE IV ; Start 07/20/17 at 12:30; Stop 07/20/17 at 13:29; Status UNV A/P Problem List: (1) Respiratory failure ICD Code: J96.90 - Respiratory failure, unspecified, unspecified whether with hypoxia or hypercapnia Status: Acute (2) Pneumonia ICD Code: J18.9 - Pneumonia, unspecified organism Status: Acute (3) Sepsis ICD Code: A41.9 - Sepsis, unspecified organism (4) Hypoxemia ICD Code: R09.02 - Hypoxemia Status: Acute Assessment and Plan 51-year-old female with presented with acute on chronic respiratory failure secondary to pneumonia Sepsis Resolved Pneumonia Acute hypoxemic respiratory failure Leukocytosis Hypoxia seems to be more due to pneumonia. Continue BiPAP as needed and repeat ABG this a.m. Maintain oxygen saturation above 92%, continue with DuoNeb Continue with Solu-Medrol 40 mg every 6H, Symbicort per valet. Blood cultures negative. Repeat chest x-ray shows improvement and checks x-ray with bilateral infiltrate. Rocephin discontinue on 07/18. Patiently currently on azithromycin, Bactrim, micafungin. Will get an x-ray and ABG. Patient is becoming more hypoxic with increased FiO2 at 90%. Will transfer to the unit and I spoke to Dr. Galvez intensive care physician over the phone in regards to patient. Consult for plant attendant or assistant operator place. Patient to be transfer to bed 508. History of Valvular heart disease with moderate MR, moderate MS Possible CHF exacerbation Mildly Elevated BNP Prolonged QT interval (chronic) Low Blood pressure is low most likely secondary to diuresis. No signs of volume overloaded. Will repeat BNP. Based on results will determine if doses need to be decreased or discontinued. 2-D echo with EF 50-55% Will also give fluid bolus but we need to be cautious. Hypertension Will hold antihypertensive medication. May need to decrease dosage of metoprolol since patient does have bradycardia. Hyperlipidemia Continue Lipitor daily COPD exacerbation with respiratory failure This seems to improve drastically. Continue with Solu-Medrol 40 mg every 6 hours,Symbicort,Spiriva, DuoNeb scheduled and PRN Maintain oxygen saturation above 92% Appreciate input from pulmonary medicine Cirrhosis Chronic hepatitis C Standard precautions Bipolar disorder ADHD No exacerbations Continue with Outpatient medications Fibromyalgia Hiatal hernia Chronic back pain GERD On PPI DVT prophylaxis Lovenox Over 45 minutes was spent on the management of patient's care. Discharge Planning Patient is becoming more hypoxic will need to transfer to [facility] and transfer care to the intensive care physician. Discussed case with patient's nurse, Dr. Krishna and Dr. Galvez. Maria Dolores Browning MD Jul 20, 2017 12:26
[2017-07-20] MEDS ORDERED: SODIUM CHLOR 0.9% 250 ML INJ 250 ML IV ONE (12:30)
[2017-07-20] MEDS: LIDOCAINE HCL 5% PATCH T-DERMAL SCH (12:30)
[2017-07-20] MEDS ORDERED: MIDAZOLAM HCL 5 MG/ML VIAL (1 ML) ONE (13:16)
[2017-07-20] MEDS ORDERED: ROCURONIUM INJ 50 MG/5 ML VIAL ONE (13:16)
[2017-07-20] MEDS ORDERED: ETOMIDATE 40 MG/20 ML VIAL ONE (13:16)
--- NOTE | 2017-07-20 13:22 | RADRPT ---
EXAM DATE/TIME: 07/20/2017 13:05 [facility] COMPARISON: CHEST SINGLE AP, July 19, 2017, 5:15. INDICATIONS : Short of breath. MEDICAL HISTORY : Myocardial infarction. Congestive heart failure. Hepatitis C. Vtac. COPD. HTN, Hiatal hernia. GERD. O varian cysts. Chronic back pain. Jaundice. Anemia. Thrombocytopenia. ADHD. Bipolar disorder. Depressi on.Anxiety. MRSA. Anticoagulant therapy, Lovenox SURGICAL HISTORY : AICD. Liver biopsy. Lymph nodes biopsy ENCOUNTER: Subsequent ACUITY: 4 - 6 days PAIN SCORE: 0/10 LOCATION: Bilateral chest FINDINGS: Pacer on the left with significant increase in the amount of interstitial edema. There is minimal bi basilar consolidative changes. There is no pleural effusion. CONCLUSION: Significant increase in interstitial edema Massimo Franks MD FACR on July 20, 2017 at 13:18 Board Certified Radiologist. This report was verified electronically.
[2017-07-20] MEDS ORDERED: PROPOFOL 500 MG/50 ML INJ 50 ML ONE (13:37)
--- NOTE | 2017-07-20 13:49 | PD.CONS ---
[facility] Service Critical Care Medicine Consult Requested By Dr. Browning Reason for Consult Acute hypoxemic respiratory failure Congestive heart failure Multilobar pneumonia Severe sepsis COPD with exacerbation Primary Care Physician Hiral Florence M.D. History of Present Illness Patient is a 51-year-old female with past medical history significant for congestive heart failure with preserved ejection fraction, [id number] MR, moderate mitral stenosis, COPD, history of cirrhosis, who was admitted to the hospitalist service on 07/11/17 with respiratory symptoms/pneumonia. Chest x- ray on admission showed pulmonary edema. CT chest also showed diffuse ground- glass infiltrates consistent with edema. She placed on BiPap at 50% FIO2, and was admitted to the hospitalist service. Pulmonology also was consulted and initially patient received, Solu-Medrol 40 mg IV, Rocephin and Zithromax. According to Dr. Laws initially patient was placed on IV Lasix with some improvement in symptoms, and patient's Lasix was changed to by mouth a few days ago. Patient had a previous CT of the chest which had showed groundglass opacities in 2016. It is possible that patient has underlying interstitial lung disease. Over the last 2 days patient had been having increasing shortness of breath and oxygen requirement. Placed on BiPAP yesterday with FiO2 up to 85%, today patient was still hypoxemic on 100% oxygen on BiPAP and was moved to the ICU. I reviewed chest x-rays today which showed extensive bilateral interstitial infiltrates, worse than yesterday. After brief discussion with patient, I intubated her and placed on mechanical ventilation. I will start patient on IV Lasix 40 mg every 8 hours with IV albumin for aggressive diuresis. Follow clinically. follow chest x-ray. Repeat panculture. Continue current antibiotics Bactrim and azithromycin and add Zosyn. ON Micafungin per ID. Echo 07/12/17: EF 50-55%, [id number] MR, Moderate mitral valve stenosis. The estimated pulmonary arterial pressure is 43 mmHg. Review of Systems ROS Limitations: Clinical Condition Past Family Social History Allergies: Coded Allergies: codeine (Unverified Allergy, Severe, 07/11/17) RASH, ITCHING Past Medical History Congestive heart failure Probable interstitial lung disease Ventral tachycardia status post AICD COPD. Not on home oxygen Chronic hepatitis C Liver cirrhosis Hypertension Hyperlipidemia History of cat scratch disease Bipolar disorder ADHD Prolonged QT Fibromyalgia Hiatal hernia Chronic back pain GERD Past Surgical History AICD placement ERCP with sphincterotomy Dental surgeries Reported Medications Keflex (Cephalexin) 500 Mg Cap 500 Mg PO Q6H 7 Days Amiodarone (Amiodarone HCl) 200 Mg Tab 400 Mg PO Q12HR 30 Days Xanax (Alprazolam) 1 Mg Tab 1 Mg PO Q8H PRN Percocet (Oxycodone-Acetaminophen) 5-325 mg Tab 1 Tab PO Q6H PRN Aspirin 325 Mg Tab 325 Mg PO DAILY Omeprazole 20 Mg Tab 20 Mg PO DAILY Ventolin Hfa 18 GM Inh (Albuterol Sulfate) 90 Mcg/Act Aer 2 Puff INH Q4-6H PRN Lasix (Furosemide) 20 Mg Tab 20 Mg PO DAILY Prozac (Fluoxetine HCl) 40 Mg Cap 80 Mg PO DAILY Lisinopril 5 Mg Tab 5 Mg PO DAILY Metoprolol Tartrate 25 Mg Tab 25 Mg PO DAILY Potassium Chloride ER (Potassium Chloride) 20 Meq Tab 20 Meq PO DAILY Topamax (Topiramate) 25 Mg Tab 25 Mg PO BID Symbicort Inh (Budesonide/Formoterol Fumarate) 80-4.5 Mcg/Act Aero 2 Puff INH Q12HR Active Ordered Medications Reviewed Family History Both licha from coronary artery disease, sister has multiple sclerosis, another sister has lung cancer Social History Continues to smoke 3-4 cigarettes per ED notes Quit drinking approximately 17 years ago Physical Exam Vital Signs Vital Signs Date Time Temp Pulse Resp B/P (MAP) Pulse Ox O2 Delivery O2 Flow Rate FiO2 07/20/17 13:24 93 100 07/20/17 12:00 52 07/20/17 11:00 96.4 57 25 87/43 (58) 92 07/20/17 11:00 92 Bi-Pap 07/20/17 11:00 59 07/20/17 10:00 49 07/20/17 09:53 24 07/20/17 09:00 58 07/20/17 08:44 92/51 (65) 07/20/17 08:00 48 07/20/17 07:15 95 Bi-Pap 07/20/17 07:15 97.3 51 25 94/42 (59) 95 07/20/17 07:15 47 07/20/17 06:00 46 07/20/17 05:00 45 07/20/17 04:40 93 90 07/20/17 04:00 98.0 46 22 114/52 (72) 96 07/20/17 04:00 44 07/20/17 03:00 95 Bi-Pap 85 07/20/17 03:00 46 07/20/17 02:00 46 07/20/17 01:00 66 07/20/17 00:00 45 07/20/17 00:00 97.7 48 22 99/51 (67) 96 07/19/17 23:28 94 80 07/19/17 23:00 45 07/19/17 23:00 96 Bi-Pap 85 07/19/17 22:00 49 07/19/17 21:00 46 07/19/17 20:07 95 Non-Rebreather 07/19/17 20:00 51 07/19/17 19:00 92 Non-Rebreather 15.00 07/19/17 19:00 52 07/19/17 19:00 97.8 51 22 91/45 (60) 92 07/19/17 18:07 51 07/19/17 17:18 52 07/19/17 16:14 56 07/19/17 15:57 92 Non-Rebreather 15.00 07/19/17 15:13 90 Non-Rebreather 15.00 07/19/17 15:13 97.7 57 20 105/56 (72) 90 07/19/17 15:13 49 07/19/17 14:01 46 Physical Exam GENERAL: 51-year-old well-nourished, thin built female who is in acute respiratory distress hypoxemic SKIN: Warm and dry. HEAD: Atraumatic. Normocephalic. EYES: Pupils equal and round. ENT: Edentulous BiPAP mask in place NECK: Trachea midline. No JVD. CARDIOVASCULAR: S1, S2. No S4. Murmurs not appreciated likely due to non- wheezes and crackles RESPIRATORY: Diminished breath sounds with few bilateral wheezes and crackles. Significant accessory muscle use GASTROINTESTINAL: Abdomen soft, non-tender, nondistended. MUSCULOSKELETAL: Extremities with trace lower extremity edema. No obvious deformities. NEUROLOGICAL: Awake and alert. No obvious cranial nerve deficits. Motor grossly within normal limits. Laboratory Date/Time Source Procedure Growth Status 07/11/17 19:55 Blood Peripheral Aerobic Blood Culture - Final NO GROWTH IN 5 DAYS Complete 07/11/17 19:55 Blood Peripheral Anaerobic Blood Culture - Final NO GROWTH IN 5 DAYS Complete 07/11/17 19:55 Nasal Aspirate Influenza Types A,B Antigen (ÁLVARO) - Final NEGATIVE FOR FLU A AND B ANTIGEN.... Complete Result Diagram: 07/18/17 1540 07/19/17 0513 Imaging Chest x-ray shows severe extensive bilateral interstitial and alveolar infiltrates on my review Septic Shock Reassessment Septic shock perfusion: reassessment completed Assessment and Plan Assessment and Plan A/P Assessment and Plan Neuro/Psych: ADHD Bipolar disorder Depression/Anxiety disorder Propofol and Fentanyl for sedation and vent synchrony No sedation vacation until hypoxemia and improved CV: Congestive heart failure most likely diastolic [id number] mitral regurgitation, moderate mitral stenosis V. tach status post AICD/pacemaker History of hypertension Placed on increased Lasix 40 mg IV every 8 hours with IV albumin, previously on Lasix by mouth 20 mg twice a day Check BNP. Respiratory failure from a combination of CHF and COPD and probable pneumonia Currently holding lisinopril due to aggressive diuresis Continue amiodarone, metoprolol and aspirin Resp: Acute hypoxemic respiratory failure Probable pneumonia/ARDS COPD - 2 L O2 requiring at home Emergently intubated and placed on mechanical ventilation ACV -RR16 TV 500 PEEP 12. Titrate FiO2 to keep saturations more than 88-90% Scheduled bronchodilator therapy every 4 hours and as needed. Ventilator bundle Dr. Laws/pulmonology is following Repeat sputum culture. Check serum LDH Cannot rule out underlying interstitial lung disease GI: Hepatitis C EtOH/cirrhosis NPO, start tube feeds in 24 hours Famotidine IV BID for GI prophylaxis : Le has been placed for accurate I's and O's in a critically ill patient Lasix as above Endo: Electrolyte replacement per protocol Heme: Monitor CBC CMP ID: Sepsis Probable pneumonia Repeat panculture, ID Dr. Adams is following Continue azithromycin, Bactrim (?cover for PJP), add Zosyn. Check serum LDH Access Utilized peripheral IVs. Central line if indicated Prophylaxis GI - famotidine DVT - SCD/Lovenox subcutaneous Critical Care: The total critical care time was 55 minutes. Time to perform other separately billable procedures was not included in the critical care time. LDH Elevated. Plan for BAL to rule out PJP pneumonia. Continue Bactrim Code Status Full Discussed Condition With Dr. Browning, Mary Lou Calix MD Jul 20, 2017 13:49
[2017-07-20 14:29] LABS: AUTOMATED NEUTROPHIL # 17.7 TH/MM3 (1.8-7.7); BASOPHIL % 0.2 % (0.0-2.0); EOSINOPHIL # 0.1 TH/MM3 (0-0.4); EOSINOPHIL % 0.5 % (0.0-4.0); HEMATOCRIT 39.5 % (35.0-46.0); HEMOGLOBIN 13.4 GM/DL (11.6-15.3); LYMPH % 6.6 % (9.0-44.0); LYMPHOCYTE # 1.3 TH/MM3 (1.0-4.8); MEAN CELL VOLUME 92.6 FL (80.0-100.0); MEAN CORPUSCULAR HEMOGLOBIN 31.4 PG (27.0-34.0); MEAN CORPUSCULAR HGB CONC 33.9 % (32.0-36.0); MONO % 3.1 % (0.0-8.0); MONOCYTE # 0.6 TH/MM3 (0-0.9); NEUT % 89.6 % (16.0-70.0); PLATELET COUNT 160 TH/MM3 (150-450); RED BLOOD COUNT 4.27 MIL/MM3 (4.00-5.30); RED CELL DISTRIBUTION WIDTH 15.9 % (11.6-17.2); WHITE BLOOD COUNT 19.7 TH/MM3 (4.0-11.0)
--- NOTE | 2017-07-20 14:36 | RADRPT ---
EXAM DATE/TIME: 07/20/2017 14:10 [facility] COMPARISON: CHEST SINGLE AP, July 20, 2017, 13:05. INDICATIONS : Evaluate intubation. MEDICAL HISTORY : : Myocardial infarction. Congestive heart failure. Hepatitis C. Vtac. COPD. HTN. Hiatal hernia. GERD. Ovarian cysts. Chronic back pain. Jaundice. Anemia. Thrombocytopenia. ADHD. Bipolar disorder. Depres travis. Anxiety. MRSA. Anticoagulant therapy, Lovenox. SURGICAL HISTORY : AICD. Liver biopsy. Lymph nodes biopsy. ENCOUNTER: Subsequent ACUITY: 3 days PAIN SCORE: Non-responsive. LOCATION: Bilateral chest FINDINGS: ET in good position Interval improvement following intubation however moderate interstitial changes persist. Nasogastric tube across the GE junction. Pacer in good position. CONCLUSION: Minimal improvement the following intubation. ET tube in good position. Massimo Franks MD FACR on July 20, 2017 at 14:33 Board Certified Radiologist. This report was verified electronically.
[2017-07-20] MEDS: FUROSEMIDE 40 MG/4 ML VIAL IV PUSH SCH ×2 (14:45→22:35)
[2017-07-20] MEDS: ALBUMIN 25% INJ 50 ML IV SCH (14:46)
[2017-07-20] MEDS: PIPERACIL-TAZO 4.5 GM PREMIX 100 ML IV SCH ×2 (14:46→20:23)
[2017-07-20 14:58] LABS: CALCIUM 7.2 MG/DL (8.5-10.1)
[2017-07-20] MEDS ORDERED: PROPOFOL 1000 MG/100 ML INJ 100 ML IV PRN (15:00)
[2017-07-20] MEDS: ALPRAZolam 1 MG TAB PO PRN (15:27)
[2017-07-20 16:03] LABS: CALCIUM-PROTEIN CORRECTED 7.5 MG/DL (8.5-10.1); MAGNESIUM 2.2 MG/DL (1.5-2.5); PHOSPHORUS 2.2 MG/DL (2.5-4.9); TOTAL PROTEIN 6.5 GM/DL (6.4-8.2)
[2017-07-20] MEDS: fentaNYL DRIP 250 ML IV PRN (16:15)
[2017-07-20 16:46] LABS: CREATININE 0.92 MG/DL (0.50-1.00)
[2017-07-20 16:47] LABS: ALBUMIN 2.5 GM/DL (3.4-5.0); CALCIUM 7.2 MG/DL (8.5-10.1); CALCIUM-PROTEIN CORRECTED 7.5 MG/DL (8.5-10.1); TOTAL BILIRUBIN ADULT 0.7 MG/DL (0.2-1.0); TOTAL PROTEIN 6.5 GM/DL (6.4-8.2)
[2017-07-20 16:48] LABS: BICARBONATE 26.6 MEQ/L (21.0-32.0)
[2017-07-20] MEDS: MICAFUNGIN INJ 100 MG in SODIUM CHLORIDE 0.9% INJ 100 ML IV SCH (16:55)
[2017-07-20] MEDS ORDERED: ALBUMIN 25% INJ 100 ML IV ONE (17:45)
[2017-07-20] MEDS ORDERED: TERBUTALINE INJ 1 MG/ML AMP SQ PRN (17:45)
[2017-07-20] MEDS: PHENYLEPHRINE INJ 80 MG in DEXTROSE 5% IN WATE 500 ML INJ 492 ML IV PRN ×2 (17:56)
[2017-07-20] MEDS ORDERED: FUROSEMIDE 20 MG TAB PO SCH (18:00)
[2017-07-20] MEDS: MIDAZOLAM 100 MG/100 ML INJ 100 ML IV PRN (18:04)
--- NOTE | 2017-07-20 19:08 | HHI.PR ---
Subjective Remarks Went into severe pulmonary edema and respiratory failure . Now in ICU and intubated and on 100 % FIO2 Sedated with Propofol. Output was good. CXR shows bilateral infiltrates. Objective Vital Signs Date Time Temp Pulse Resp B/P (MAP) Pulse Ox O2 Delivery O2 Flow Rate FiO2 07/20/17 18:00 57 07/20/17 17:56 57 76/40 07/20/17 17:00 58 07/20/17 16:00 100 07/20/17 16:00 98.0 60 20 80/42 (55) 97 07/20/17 16:00 60 07/20/17 15:00 69 07/20/17 15:00 89 Mechanical Ventilator Bi-Pap 07/20/17 13:24 93 100 07/20/17 12:00 52 07/20/17 11:00 96.4 57 25 87/43 (58) 92 07/20/17 11:00 92 Bi-Pap 07/20/17 11:00 59 07/20/17 10:00 49 07/20/17 09:53 24 07/20/17 09:00 58 07/20/17 08:44 92/51 (65) 07/20/17 08:00 48 07/20/17 07:15 95 Bi-Pap 07/20/17 07:15 97.3 51 25 94/42 (59) 95 07/20/17 07:15 47 07/20/17 06:00 46 07/20/17 05:00 45 07/20/17 04:40 93 90 07/20/17 04:00 98.0 46 22 114/52 (72) 96 07/20/17 04:00 44 07/20/17 03:00 95 Bi-Pap 85 07/20/17 03:00 46 07/20/17 02:00 46 07/20/17 01:00 66 07/20/17 00:00 45 07/20/17 00:00 97.7 48 22 99/51 (67) 96 07/19/17 23:28 94 80 07/19/17 23:00 45 07/19/17 23:00 96 Bi-Pap 85 07/19/17 22:00 49 07/19/17 21:00 46 07/19/17 20:07 95 Non-Rebreather 07/19/17 20:00 51 I/O 07/19/17 07/19/17 07/19/17 07/20/17 07/20/17 07/20/17 07:00 15:00 23:00 07:00 15:00 23:00 Intake Total 480 ml 360 ml 760 ml Output Total 750 ml 950 ml Balance -270 ml -590 ml 760 ml Intake Oral 480 ml 360 ml IV Total 760 ml Output Urine Total 750 ml 950 ml # Bowel Movements 0 0 0 Result Diagram: 07/20/17 1409 07/20/17 1409 Objective Remarks GENERAL: This is an averagely built middle-aged white female intubated HEENT: Head normocephalic. Pupils are reactive and equal. Nasal mucosa clear Throat was clear. NECK: No bruits or thyroid enlargement or lymphadenopathy. CHEST: Increased AP diameter with diffuse wheezes throughout both lung veliz. Prolonged expirations.Bi Basal crackles ++. HEART: The heart sounds are irregular S1 and S2 with no murmur. No S3 gallop. ABDOMEN: Protuberant, soft without masses. No organomegaly or tenderness. Bowel sounds are active. EXTREMITIES: No edema. No clubbing and no calf tenderness. NEUROLOGIC: Sedated and on the vent. SKIN: No lesions are observed. Assessment and Plan Assessment and Plan IMPRESSION 1. Acute respiratory failure. 2. COPD with acute exacerbation 3. CHF, Diastolic 4. Hypertension and hyperlipidemia. 5. Cirrhosis of the liver 6. Bipolar disorder. Plan : 1. Cont Antibiotics per ID 2. Wean o2 and keep sats >92 3. Nebs qid , duoneb. 4. Solumedrol 40 mg IV Q8H 5. Will need Bronchoscopy to R/O other etiologies. 6. Cont lasix 40 mg IV Q8H 7. Symbicort 160/4.5 Mcg , 2 puffs bid 8. CBC,CXR BMP in am 9. D/W Dr Galvez. Emmanuelle Chase MD Jul 20, 2017 19:08
[2017-07-20] MEDS ORDERED: RESP: ALBUTEROL CONC 2.5 MG/0.5 ML NEB NEB SCH (19:15)
[2017-07-20] MEDS: RESP: ALBUTEROL 2.5 MG/IPRATROPIUM 0.5 MG NEB (SCH) NEB (19:27)
[2017-07-20] MEDS: CHLORHEXIDINE 0.12% (ORAL KIT) 15 ML CUP MT SCH (20:22)
[2017-07-20] MEDS: FAMOTIDINE 20 MG/2 ML VIAL IV PUSH SCH (20:23)
[2017-07-20] MEDS: REMOVE OLD LIDOCAINE PATCH T-DERMAL SCH (20:53)
[2017-07-20 21:13] LABS: INTERNATIONAL NORMALIZED RATIO 1.1 RATIO; PROTHROMBIN TIME - PATIENT 11.2 SEC (9.8-11.6)
[2017-07-20] MEDS: AZITHROMYCIN INJ 500 MG in SODIUM CHLOR 0.9% 250 ML INJ 250 ML IV SCH (23:43)
[2017-07-21] VITALS (52 sets, daily range): BP systolic 87–147; BP diastolic 48–71; PULSE 45–95; RESP 16–55; TEMP 97.8–100.1; O2SAT 74–100
[2017-07-21] MEDS: RESP: ALBUTEROL 2.5 MG/IPRATROPIUM 0.5 MG NEB (SCH) NEB ×7 (00:12→23:27)
[2017-07-21] MEDS: PIPERACIL-TAZO 4.5 GM PREMIX 100 ML IV SCH ×4 (02:36→21:25)
[2017-07-21] MEDS: ALBUMIN 25% INJ 50 ML IV SCH ×2 (02:36→15:10)
[2017-07-21] MEDS: MIDAZOLAM 100 MG/100 ML INJ 100 ML IV PRN ×3 (02:54→23:49)
[2017-07-21] MEDS: fentaNYL DRIP 250 ML IV PRN ×3 (03:03→23:49)
--- NOTE | 2017-07-21 04:57 | RADRPT ---
EXAM DATE/TIME: 07/21/2017 03:21 [facility] COMPARISON: CHEST SINGLE AP, July 20, 2017, 14:10. INDICATIONS : Shortness of breath, possible pulmonary disease. MEDICAL HISTORY : Myocardial infarction. Congestive heart failure. Hepatitis C. COPD HTN GERD SURGICAL HISTORY : Pacemaker. ENCOUNTER: Subsequent ACUITY: 4 - 6 days PAIN SCORE: Non-responsive. LOCATION: Bilateral chest FINDINGS: ET tube tip well above the angel. Gastric tube tip and side-port project in the stomach. Cardiac p acer lead unchanged. Bilateral interstitial infiltrates, right greater than left, similar in severit y to prior. CONCLUSION: Persistent unchanged bilateral interstitial infiltrates. Osmany Higuera MD on July 21, 2017 at 4:54 Board Certified Radiologist. This report was verified electronically.
[2017-07-21] MEDS: FUROSEMIDE 40 MG/4 ML VIAL IV PUSH SCH ×3 (05:32→23:49)
[2017-07-21] MEDS: SULFAMETHOXAZOLE-TRIMETHOPRIM DS 800-160 MG TAB PO SCH (05:32)
[2017-07-21] MEDS: methylPREDNISolone SOD SUCC 40 MG/1 ML VIAL IV PUSH SCH ×3 (05:32→21:28)
[2017-07-21] MEDS ORDERED: ROCURONIUM INJ 50 MG/5 ML VIAL ONE (07:55)
[2017-07-21] MEDS: CHLORHEXIDINE 0.12% (ORAL KIT) 15 ML CUP MT SCH ×2 (08:00→20:00)
[2017-07-21] MEDS ORDERED: CISATRACURIUM BESYLATE 20 MG/10 ML VIAL IV PUSH ONE (08:00)
[2017-07-21] MEDS ORDERED: CISATRACURIUM BESYLATE 10 MG/5 ML VIAL IV PUSH ONE (08:30)
[2017-07-21] MEDS: LIDOCAINE HCL 5% PATCH T-DERMAL SCH (09:00)
[2017-07-21] MEDS: BUDESONIDE-FORMOTEROL 80/4.5 MCG INHALER INH SCH ×2 (09:00→21:00)
[2017-07-21] MEDS: POTASSIUM CHLORIDE 20 MEQ CONTROLLED RELEASE TAB PO SCH (09:00)
[2017-07-21] MEDS: CISATRACURIUM INJ 100 MG in SODIUM CHLOR 0.9% 250 ML INJ 240 ML IV PRN ×2 (09:42→21:59)
[2017-07-21 10:11] LABS: BASOPHIL % 0.1 % (0.0-2.0); HEMATOCRIT 39.4 % (35.0-46.0); HEMOGLOBIN 12.6 GM/DL (11.6-15.3); LYMPH % 2.6 % (9.0-44.0); LYMPHOCYTE # 0.6 TH/MM3 (1.0-4.8); MEAN CELL VOLUME 93.1 FL (80.0-100.0); MEAN CORPUSCULAR HEMOGLOBIN 29.8 PG (27.0-34.0); MEAN PLATELET VOLUME 8.5 FL (7.0-11.0); MONO % 1.2 % (0.0-8.0); MONOCYTE # 0.3 TH/MM3 (0-0.9); NEUT % 96.1 % (16.0-70.0); PLATELET COUNT 228 TH/MM3 (150-450); RED BLOOD COUNT 4.23 MIL/MM3 (4.00-5.30); RED CELL DISTRIBUTION WIDTH 16.6 % (11.6-17.2); WHITE BLOOD COUNT 21.9 TH/MM3 (4.0-11.0)
--- NOTE | 2017-07-21 10:18 | PD.PROCEDR ---
Central Line Procedure REASON FOR PROCEDURE Central venous access PROCEDURE PERFORMED Central line placement: right subclavian central line CONSENT Informed consent for procedure was obtained from . The risks and benefits of the procedure were discussed to include but limited to bleeding, clot formation, infection, and even . ANESTHESIA Local injection of 1% Lidocaine DESCRIPTION OF THE PROCEDURE The patient was placed in supine, mild Trendelenburg position. The area was exposed and cleansed with ChloraPrep, times two. Large sterile drape was used to cover the patient, with the site exposed, under sterile conditions including cap, face mask, sterile gown, and sterile gloves. On single attempt, the introducer needle was inserted with negative pressure in syringe and venous flash was obtained. The guide wire was then advanced without any restriction and the needle was removed. The dilator was used without any complications. Using Seldinger technique the 20 CM 7F catheter was advanced over the guide wire to a depth of 17 centimeters. The guide wire was removed. All ports were aspirated with dark venous blood return and flushed easily with sterile saline. All ports were capped. Antibiotic disc was placed around central line at puncture site. The central line was secured to the skin with two interrupted 2.0 silk sutures. The area was bandaged with sterile see-through central line bandage. COMPLICATIONS: No apparent complications ESTIMATED BLOOD LOSS: Less than 1 cc. Mary Lou Galvez MD Jul 21, 2017 10:18
--- NOTE | 2017-07-21 10:25 | HHI.CCPN ---
Subjective Remarks/Hospital Course Patient is a 51-year-old female with past medical history significant for congestive heart failure with preserved ejection fraction, [id number] MR, moderate mitral stenosis, COPD, history of cirrhosis, who was admitted to the hospitalist service on 07/11/17 with respiratory symptoms/pneumonia. Chest x- ray on admission showed pulmonary edema. CT chest also showed diffuse ground- glass infiltrates consistent with edema. She placed on BiPap at 50% FIO2, and was admitted to the hospitalist service. Pulmonology also was consulted and initially patient received, Solu-Medrol 40 mg IV, Rocephin and Zithromax. According to Dr. Laws initially patient was placed on IV Lasix with some improvement in symptoms, and patient's Lasix was changed to by mouth a few days ago. Patient had a previous CT of the chest which had showed groundglass opacities in 2016. It is possible that patient has underlying interstitial lung disease. Over the last 2 days patient had been having increasing shortness of breath and oxygen requirement. Placed on BiPAP yesterday with FiO2 up to 85% , today patient was still hypoxemic on 100% oxygen on BiPAP and was moved to the ICU. I reviewed chest x-rays today which showed extensive bilateral interstitial infiltrates, worse than yesterday. After brief discussion with patient, I intubated her and placed on mechanical ventilation. I will start patient on IV Lasix 40 mg every 8 hours with IV albumin for aggressive diuresis. Follow clinically. follow chest x-ray. Repeat panculture. Continue current antibiotics Bactrim and azithromycin and add Zosyn. ON Micafungin per ID. Echo 07/12/17: EF 50-55%, [id number] MR, Moderate mitral valve stenosis. The estimated pulmonary arterial pressure is 43 mmHg. 07/21: Remains critically ill, severely hypoxemic on 12 of PEEP and 100% FiO2. Peak pressures on the vent occasionally 55-60 indicating severe noncompliant lung. Detached from vent for a few seconds for air trapping. Neuromuscular paralysis started with Nimbex infusion. Currently on Siddhartha-Synephrine 60 mcg/m. Place central line and art line. Due to chronic underlying interstitial infiltrates I did not think patient will benefit from proning. Change Bactrim to IV for PJP coverage, send sputum for silver methylamine staining Objective Vital Signs Date Time Temp Pulse Resp B/P (MAP) Pulse Ox O2 Delivery O2 Flow Rate FiO2 07/21/17 08:03 94 100 07/21/17 08:00 95 07/21/17 04:00 98.6 29 130/57 (81) 07/20/17 15:00 Mechanical Ventilator Bi-Pap 07/19/17 19:00 15.00 Intake and Output 07/21/17 07/21/17 07/22/17 08:00 16:00 00:00 Intake Total 850 ml Output Total 2900 ml Balance -2050 ml Result Diagram: 07/20/17 1409 07/20/17 1409 Other Results Laboratory Tests Test 07/20/17 14:40 Blood Gas Puncture Site RT RADIAL Blood Gas Patient Temperature 98.6 Blood Gas HCO3 25 mmol/L (22-26) Blood Gas Base Excess -0.4 mmol/L (-2-2) Blood Gas Oxygen Saturation 91 % (90-100) Arterial Blood pH 7.30 (7.380-7.420) Arterial Blood Partial Pressure CO2 53 mmHg (38-42) Arterial Blood Partial Pressure O2 78 mmHg (61-120) Arterial Blood Oxygen Content 16.7 Vol % (12.0-20.0) Arterial Blood Carboxyhemoglobin 0.8 % (0-4) Arterial Blood Methemoglobin 1.5 % (0-2) Blood Gas Hemoglobin 13.0 G/DL (12.0-16.0) Oxygen Delivery Device VENTILATOR Blood Gas Ventilator Setting AC/16/500/+12 Blood Gas Inspired Oxygen 100 % Imaging Chest x-ray shows severe extensive bilateral interstitial and alveolar infiltrates on my review Objective Remarks GENERAL: 51-year-old well-nourished, thin built female who is intubated, neuromuscularly paralyzed SKIN: Warm and dry. HEAD: Atraumatic. Normocephalic. EYES: Pupils equal and round. ENT: Orotracheally intubated NECK: Trachea midline. No JVD. CARDIOVASCULAR: S1, S2. No S4. Murmurs not appreciated likely due to non- wheezes and crackles RESPIRATORY: Diminished breath sounds with minimal bilateral wheezes and crackles. ACV with high peak pressures GASTROINTESTINAL: Abdomen soft, non-tender, nondistended. MUSCULOSKELETAL: Extremities with trace lower extremity edema. No obvious deformities. NEUROLOGICAL: Intubated sedated. Moving extremities prior to neuromuscular paralysis A/P Assessment and Plan A/P Assessment and Plan Neuro/Psych: ADHD Bipolar disorder Depression/Anxiety disorder Propofol and Fentanyl for sedation and vent synchrony Start Nimbex gtt for severe ARDS No sedation vacation until hypoxemia and improved CV: Congestive heart failure most likely diastolic [id number]-tcvkjkol mitral regurgitation, moderate mitral stenosis V. tach status post AICD/pacemaker History of hypertension Lasix 40 mg IV every 8 hours with IV albumin, UO 4100 ml in 24 hrs Respiratory failure from a combination of CHF and COPD and probable pneumonia Currently holding lisinopril due to aggressive diuresis Continue amiodarone, metoprolol and aspirin Resp: Acute hypoxemic respiratory failure ARDS Pneumonia COPD - 2 L O2 requiring at home Probable underlying interstitial lung disease Mechanical ventilation ACV -RR16 TV 400 PEEP 12. Titrate FiO2 to keep saturations more than 88-90% Scheduled bronchodilator therapy every 4 hours and as needed. Ventilator bundle. IV solumedrol Neuromuscular blockage due to severe ARDS Repeat sputum culture. serum LDH 827. Check for PJP, change Bactrim to PJP dosing IV Dr. Laws/pulmonology is following, unable to bronch due to severe hypoxemia GI: Hepatitis C EtOH/cirrhosis NPO, start tube feeds in 24 hours Famotidine IV BID for GI prophylaxis : Le has been placed for accurate I's and O's in a critically ill patient Lasix as above Endo: Electrolyte replacement per protocol Heme: Monitor CBC CMP ID: Severe sepsis Pneumonia Repeat panculture, ID Dr. Adams is following Continue azithromycin, Zosyn. Change Bactrim to IV at appropriate PJP dose. D/W Dr. Adams Serum LDH 827, send sputum for PJP Access Right subclavian central line placed, will place a radial art line also Prophylaxis GI - famotidine DVT - SCD/Lovenox subcutaneous Critical Care: The total critical care time was 78 minutes. Time to perform other separately billable procedures was not included in the critical care time. D/W Dr. Laws and Dr. Adams. Patient is critically ill with severe hypoxemic respiratory failure, ARDS and severe sepsis. Neuromuscular paralysis initiated for refractory hypoxia and high vent peak pressures. Mary Lou Galvez MD Jul 21, 2017 10:25
[2017-07-21 10:32] LABS: ALBUMIN 3.1 GM/DL (3.4-5.0); ALKALINE PHOSPHATASE 171 U/L (45-117); ALT (GPT) 96 U/L (10-53); AST (GOT) 58 U/L (15-37); BICARBONATE 29.5 MEQ/L (21.0-32.0); BLOOD UREA NITROGEN 27 MG/DL (7-18); CHLORIDE 102 MEQ/L (98-107); CREATININE 0.91 MG/DL (0.50-1.00); GLOMERULAR FILTRATION RATE 65 ML/MIN (>89); GLUCOSE,RANDOM 128 MG/DL (74-106); MAGNESIUM 2.6 MG/DL (1.5-2.5); SODIUM (NA) 138 MEQ/L (136-145); TOTAL BILIRUBIN ADULT 0.6 MG/DL (0.2-1.0)
--- NOTE | 2017-07-21 11:18 | RADRPT ---
EXAM DATE/TIME: 07/21/2017 10:37 [facility] COMPARISON: CHEST SINGLE AP, July 21, 2017, 3:21. INDICATIONS : Central line placement MEDICAL HISTORY : Myocardial infarction. Congestive heart failure. Hepatitis C. COPD, GERD SURGICAL HISTORY : Pacemaker. ENCOUNTER: Subsequent ACUITY: 1 week PAIN SCORE: Non-responsive. LOCATION: Bilateral chest FINDINGS: Single AP view of the chest. Endotracheal tube nasogastric tube remain in place. Right subclavian abner tral venous catheter is now in place with the tip in the distal SVC. No evidence of pneumothorax. Dif fuse interstitial opacity in the lungs unchanged. Cardiomediastinal silhouette unchanged. No evidence of pleural effusion or pneumothorax. CONCLUSION: 1. Right subclavian central venous catheter now in place with the tip in the distal SVC. No evidence of pneumothorax. 2. No change in bilateral diffuse interstitial pulmonary opacity. Dominick Bone MD on July 21, 2017 at 11:15 Board Certified Radiologist. This report was verified electronically.
[2017-07-21] MEDS: ASPIRIN 325 MG TAB PO SCH (11:31)
[2017-07-21] MEDS: TOPIRAMATE 25 MG TAB PO SCH ×2 (11:32→21:28)
[2017-07-21] MEDS: FLUoxetine HCL 20 MG CAP PO SCH (11:32)
[2017-07-21] MEDS: LACTOBACILLUS ACIDOPHILUS TAB PO SCH ×3 (11:32→17:45)
[2017-07-21] MEDS: DEXTROAMPHETAMINE/AMPHETAMINE 30 MG TAB PO SCH (11:32)
[2017-07-21] MEDS: SODIUM CHLORIDE 0.9% FLUSH 10 ML FLUSH IV FLUSH SCH ×2 (11:33→21:27)
[2017-07-21] MEDS: AMIODARONE 200 MG TAB PO SCH ×2 (11:33→21:27)
[2017-07-21] MEDS: FAMOTIDINE 20 MG/2 ML VIAL IV PUSH SCH ×2 (11:33→21:27)
[2017-07-21] MEDS: ENOXAPARIN SODIUM 40 MG/0.4 ML SYRINGE SQ SCH (11:34)
--- NOTE | 2017-07-21 11:45 | HHI.IDPN ---
Note Infectious Disease Note Patient is now intubated and on the ventilator 90% FIO2. had worsening respiratory symptoms. Afebrile. Sedated. PAST MEDICAL HISTORY: 1. Ventricular tachycardia. 2. Cirrhosis of the liver. 3. Hepatitis C. 4. Anxiety/depression. 5. COPD. 6. Hypertension. 7. Gastroesophageal reflux disease. 8. Chronic back pain. 9. History of AICD. 10. Fibromyalgia. 11. Bipolar disorder. ALLERGIES CODEINE. MEDICATIONS: 1. Azithromycin. 2. Bactrim. 3. Micafungin. 4. Zosyn Current Medications Medications (Trade) Dose Ordered Sig/Jose Route PRN Reason Start Time Stop Time Status Last Admin Dose Admin Sodium Chloride (NS Flush) 2 ml UNSCH PRN IV FLUSH FLUSH AFTER USING IV ACCESS 07/11/17 22:00 Sodium Chloride (NS Flush) 2 ml BID IV FLUSH 07/12/17 09:00 07/20/17 20:23 Naloxone HCl (Narcan Inj) 0.4 mg UNSCH PRN IV PUSH SEE LABEL COMMENTS 07/11/17 22:00 Albuterol/ Ipratropium (Duoneb Neb) 1 ampule Q2HR NEB PRN NEB wheezing 07/11/17 22:00 Alprazolam (Xanax) 1 mg Q8H PRN PO ANXIETY 07/12/17 06:30 07/20/17 15:27 Amiodarone HCl (Cordarone) 400 mg Q12HR PO 07/12/17 09:00 07/20/17 20:23 Amphetamine/ Dextroamphetamine (Adderall) 30 mg DAILY PO 07/12/17 09:00 07/21/17 11:32 Aspirin (Aspirin) 325 mg DAILY PO 07/12/17 09:00 07/21/17 11:31 Budesonide/ Formoterol Fumarate (Symbicort 80-4.5 Mcg Inh) 2 puff Q12HR INH 07/12/17 09:00 07/20/17 08:46 Lisinopril (Prinivil) 5 mg DAILY PO 07/12/17 09:00 Future Hold 07/20/17 08:47 Metoprolol Tartrate (Lopressor) 25 mg DAILY PO 07/12/17 09:00 Future Hold 07/19/17 09:02 Topiramate (Topamax) 50 mg BID PO 07/12/17 09:00 07/21/17 11:32 Fluoxetine HCl (PROzac) 80 mg DAILY PO 07/12/17 09:00 07/21/17 11:32 Oxycodone/ Acetaminophen (Percocet 5-325 Mg) 1 tab Q6H PRN PO Pain 3 to 6 07/12/17 11:30 Oxycodone/ Acetaminophen (Percocet 10-325 Mg) 1 tab Q6H PRN PO Pain 7 to 10 07/12/17 11:30 07/20/17 08:50 Lactobacillus Acidophilus (Lactinex) 1 tab TID PO 07/12/17 13:00 07/21/17 11:32 Azithromycin 500 mg/Sodium Chloride 250 ml @ 250 mls/hr Q24H IV 07/12/17 23:00 07/20/17 23:43 Micafungin Sodium 100 mg/Sodium Chloride 100 ml @ 100 mls/hr Q24H IV 07/12/17 17:00 07/20/17 16:55 Enoxaparin Sodium (Lovenox Inj) 40 mg Q24H SQ 07/14/17 09:00 07/20/17 08:49 Methylprednisolone Sodium Succinate (SoluMEDROL INJ) 40 mg Q8HR IV PUSH 07/19/17 14:00 07/21/17 05:32 Lidocaine HCl (Lidoderm 5% Patch.12 Hr) 1 patch DAILY T-DERMAL 07/20/17 12:30 Miscellaneous Information 1 Q24H T-DERMAL 07/20/17 21:00 Chlorhexidine Gluconate (Peridex 0.12% Liq) 15 ml BID@08,20 MT 07/20/17 20:00 07/20/17 20:22 Propofol 100 ml @ 1.77 mls/hr TITRATE PRN IV SEDATION 07/20/17 15:00 07/20/17 15:02 Potassium Chloride (KCl) 40 meq DAILY PO 07/21/17 09:00 Albuterol/ Ipratropium (Duoneb Neb) 1 ampule Q4HR NEB NEB 07/20/17 16:00 07/21/17 05:00 Furosemide (Lasix Inj) 40 mg Q8H IV PUSH 07/20/17 15:00 07/21/17 05:32 Piperacillin Sod/ Tazobactam Sod 100 ml @ 200 mls/hr Q6H IV 07/20/17 15:00 07/21/17 02:36 Albumin Human 50 ml @ 60 mls/hr Q12H IV 07/20/17 15:00 07/21/17 02:36 Famotidine (Pepcid Inj) 20 mg Q12HR IV PUSH 07/20/17 21:00 07/21/17 11:33 Fentanyl Citrate 250 ml @ 5 mls/hr TITRATE PRN IV SEDATION 07/20/17 15:30 07/21/17 03:03 Midazolam HCl 100 ml @ 2 mls/hr TITRATE PRN IV SEDATION 07/20/17 17:45 07/21/17 02:54 Terbutaline Sulfate (Brethine Inj) 1 mg UNSCH PRN SQ For Extravasation 07/20/17 17:45 Phenylephrine HCl 80 mg/Dextrose 500 ml @ 15 mls/hr TITRATE PRN IV Blood pressure Management 07/20/17 17:45 07/20/17 17:56 Albuterol Sulfate (Albuterol Concentrated Neb) 2.5 mg RIVET TAPPING MACHINE OPERATOR NEB 07/20/17 19:15 07/24/17 19:14 Cisatracurium Besylate 100 mg/ Sodium Chloride 250 ml @ 8.17 mls/hr TITRATE PRN IV TOF 06/3007/21/17 08:00 07/21/17 09:42 Trimethoprim/ Sulfamethoxazole 272 mg/Dextrose 517 ml @ 344.667 mls/hr Q6H IV 07/21/17 12:00 OBJECTIVE: Vital Signs Date Time Temp Pulse Resp B/P (MAP) Pulse Ox O2 Delivery O2 Flow Rate FiO2 07/21/17 08:03 94 100 07/21/17 08:00 100 07/21/17 08:00 95 07/21/17 06:00 54 07/21/17 05:00 48 07/21/17 05:00 95 100 07/21/17 04:00 49 07/21/17 04:00 98.6 49 29 130/57 (81) 96 07/21/17 04:00 100 07/21/17 03:00 49 07/21/17 02:00 48 07/21/17 01:00 49 07/21/17 00:14 98 100 07/21/17 00:00 98.6 45 21 109/52 (71) 97 07/21/17 00:00 100 07/21/17 00:00 45 07/20/17 23:00 44 07/20/17 22:00 43 07/20/17 21:40 97 100 07/20/17 21:00 52 07/20/17 20:00 98.4 53 19 98/49 (65) 99 07/20/17 20:00 100 07/20/17 20:00 53 07/20/17 19:30 51 86/47 07/20/17 19:27 99 100 07/20/17 19:00 51 07/20/17 18:00 57 07/20/17 17:56 57 76/40 07/20/17 17:00 58 07/20/17 16:00 100 07/20/17 16:00 98.0 60 20 80/42 (55) 97 07/20/17 16:00 60 07/20/17 15:00 69 07/20/17 15:00 89 Mechanical Ventilator Bi-Pap 07/20/17 13:24 93 100 07/20/17 12:00 52 Laboratory Tests Test 07/20/17 14:09 07/21/17 09:55 White Blood Count 19.7 TH/MM3 21.9 TH/MM3 Red Blood Count 4.27 MIL/MM3 4.23 MIL/MM3 Hemoglobin 13.4 GM/DL 12.6 GM/DL Hematocrit 39.5 % 39.4 % Mean Corpuscular Volume 92.6 FL 93.1 FL Mean Corpuscular Hemoglobin 31.4 PG 29.8 PG Mean Corpuscular Hemoglobin Concent 33.9 % 32.0 % Red Cell Distribution Width 15.9 % 16.6 % Platelet Count 160 TH/MM3 228 TH/MM3 Mean Platelet Volume 10.0 FL 8.5 FL Neutrophils (%) (Auto) 89.6 % 96.1 % Lymphocytes (%) (Auto) 6.6 % 2.6 % Monocytes (%) (Auto) 3.1 % 1.2 % Eosinophils (%) (Auto) 0.5 % 0.0 % Basophils (%) (Auto) 0.2 % 0.1 % Neutrophils # (Auto) 17.7 TH/MM3 21.0 TH/MM3 Lymphocytes # (Auto) 1.3 TH/MM3 0.6 TH/MM3 Monocytes # (Auto) 0.6 TH/MM3 0.3 TH/MM3 Eosinophils # (Auto) 0.1 TH/MM3 0.0 TH/MM3 Basophils # (Auto) 0.0 TH/MM3 0.0 TH/MM3 CBC Comment AUTO DIFF DIFF FINAL Differential Comment AUTO DIFF CONFIRMED Platelet Estimate NORMAL Platelet Morphology Comment NORMAL Laboratory Tests Test 07/20/17 14:09 07/20/17 19:15 07/21/17 02:03 07/21/17 09:55 Blood Urea Nitrogen 31 MG/DL 27 MG/DL Creatinine 0.92 MG/DL 0.91 MG/DL Random Glucose 98 MG/DL 128 MG/DL Total Protein 6.5 GM/DL 7.0 GM/DL Albumin 2.5 GM/DL 3.1 GM/DL Calcium Level 7.2 MG/DL 8.0 MG/DL Alkaline Phosphatase 208 U/L 171 U/L Aspartate Amino Transf (AST/SGOT) 119 U/L 58 U/L Alanine Aminotransferase (ALT/SGPT) 123 U/L 96 U/L Total Bilirubin 0.7 MG/DL 0.6 MG/DL Sodium Level 135 MEQ/L 138 MEQ/L Potassium Level 3.9 MEQ/L 3.6 MEQ/L Chloride Level 102 MEQ/L 102 MEQ/L Carbon Dioxide Level 26.6 MEQ/L 29.5 MEQ/L Anion Gap 6 MEQ/L 7 MEQ/L Estimat Glomerular Filtration Rate 64 ML/MIN 65 ML/MIN Lactic Acid Level 1.4 mmol/L Protein Corrected Calcium 7.5 MG/DL Phosphorus Level 2.2 MG/DL Magnesium Level 2.2 MG/DL 2.6 MG/DL Lactate Dehydrogenase 827 U/L Troponin I LESS THAN 0.02 NG/ML LESS THAN 0.02 NG/ML LESS THAN 0.02 NG/ML B-Type Natriuretic Peptide 63 PG/ML IMAGING: Chest X-Ray 07/21/17 0000 Signed Impressions: Service Date/Time: June 10:37 - CONCLUSION: 1. Right subclavian central venous catheter now in place with the tip in the distal SVC. No evidence of pneumothorax. 2. No change in bilateral diffuse interstitial pulmonary opacity. Dominick Bone MD Chest X-Ray 07/21/17 0000 Signed Impressions: Service Date/Time: June 03:21 - CONCLUSION: Persistent unchanged bilateral interstitial infiltrates. Osmany Higuera MD Chest X-Ray 07/20/17 0000 Signed Impressions: Service Date/Time: Thursday, July 20, 2017 14:10 - CONCLUSION: Minimal improvement the following intubation. ET tube in good position. Massimo Franks MD FACR Chest X-Ray 07/20/17 0000 Signed Impressions: Service Date/Time: Thursday, July 20, 2017 13:05 - CONCLUSION: Significant increase in interstitial edema Massimo Franks MD FACR Chest X-Ray 07/19/17 0600 Signed Impressions: Service Date/Time: Wednesday, July 19, 2017 05:15 - CONCLUSION: Persistent but improving bilateral diffuse lung infiltrates. Osmany Higuera MD Chest X-Ray 07/16/17 06 Signed Impressions: Service Date/Time: Sunday, July 16, 2017 04:27 - CONCLUSION: 1. Progressive diffuse bilateral interstitial and alveolar opacities in this patient with history of chronic interstitial and alveolar airspace disease. London Kapoor MD Chest X-Ray [id number]/11/[id number] Signed Impressions: Service Date/Time: Tuesday, July 11, 2017 19:55 - CONCLUSION: Interstitial pulmonary edema. Osmany Stafford Jr., MD CT Angiography [id number]/11/[id number] Signed Impressions: Service Date/Time: Tuesday, July 11, 2017 20:47 - CONCLUSION: 1. No pulmonary embolus. 2. Diffuse bilateral groundglass infiltrates without effusions. These infiltrates are similar to prior exam from 2016. Differential diagnostic considerations include alveolar proteinosis, infectious infiltrates , and pulmonary edema. 3. Mediastinal adenopathy is less pronounced from the prior study. 4. No pulmonary emboli. 5. Cirrhosis. Osmany Stafford Jr., MD PHYSICAL EXAMINATION: GENERAL: On the vent. sedated. HEENT: No icterus. Oropharynx mucosa moist. Neck: No adenopathy or swelling. The neck is supple. Lungs: Bilateral rhonchi. Heart: Regular S1-S2. No audible murmurs. Abdomen: Bowel sounds present, soft, nontender. Extremities: No clubbing, cyanosis or edema. SKIN: No rash. NEURO: Non focal. IMPRESSION: 1. Bilateral lung interstitial ground glass infiltrate. Questionable infection versus inflammatory nature, versus drug toxicity. Slow to improve. 2. Hypoxia. Now intubated. 3. Leukocytosis. 4. Elevated LFT's improved. RECOMMENDATIONS: 1. Continue azithromycin. 2. Continue Bactrim - changed to IV for PJP treatment. 3. Continue Micafungin for possible fungal etiology. 4. Monitor white cell count. 5. Monitor clinical response. 6. Obtain PJP stain when bronchoscopy is done. Discussed with Dr. Galvez. Cachorro Adams MD Jul 21, 2017 11:44
[2017-07-21] MEDS ORDERED: TRIMETHOPRIM IV SCH ×2 (12:00)
[2017-07-21] MEDS ORDERED: WATE IV SCH ×2 (12:00)
[2017-07-21] MEDS ORDERED: SULFAMETHOX IV SCH ×2 (12:00)
[2017-07-21] MEDS ORDERED: DEXTROSE 5% IV SCH ×2 (12:00)
[2017-07-21] MEDS ORDERED: SODIUM BICARBONATE 8.4% INJ 50 MEQ/50 ML SYR ONE (13:37)
--- NOTE | 2017-07-21 13:49 | PD.PROCEDR ---
Procedure Note Procedure Procedure: Left radial arterial line placement for invasive blood pressure monitoring and frequent ABGs The patient was placed in appropriate position. The area was exposed and cleansed with ChloraPrep, times two. Under sterile conditions including cap, face mask, sterile gown, and sterile gloves, the introducer needle was inserted into left radial artery and arterial flash was obtained. The guide wire was then advanced without any restriction and the needle was removed. Using Seldinger technique the arterial catheter was advanced over the guide wire and good arterial waveform was observed. Antibiotic disc was placed around arterial line at puncture site. The arterial line was secured to the skin with one interrupted 2.0 silk sutures. The area was bandaged with sterile see- through central line bandage. Mary Lou Galvez MD Jul 21, 2017 13:49
[2017-07-21] MEDS ORDERED: SODIUM BICARBONATE 8.4% INJ 50 MEQ/50 ML SYR IV PUSH ONE (17:15)
[2017-07-21] MEDS: MICAFUNGIN INJ 100 MG in SODIUM CHLORIDE 0.9% INJ 100 ML IV SCH (17:45)
--- NOTE | 2017-07-21 19:06 | HHI.PR ---
Subjective Remarks Went into severe pulmonary edema and respiratory failure . Now in ICU and intubated and still on 100 % FIO2 Sedated with Propofol.Bronchoscopy was scheduled but now on Hold. CXR shows bilateral infiltrates. Objective Vital Signs Date Time Temp Pulse Resp B/P (MAP) Pulse Ox O2 Delivery O2 Flow Rate FiO2 07/21/17 18:00 62 07/21/17 17:29 98 75 07/21/17 16:00 58 07/21/17 16:00 75 07/21/17 14:36 99 75 07/21/17 14:00 84 07/21/17 12:02 96 75 07/21/17 12:00 100 07/21/17 12:00 79 07/21/17 10:25 71 104/56 (72) 95 07/21/17 10:22 69 102/55 (71) 95 07/21/17 10:20 68 101/55 (70) 95 07/21/17 10:17 68 98/54 (69) 95 07/21/17 10:15 66 101/55 (70) 96 07/21/17 10:12 64 103/53 (70) 95 07/21/17 10:10 66 105/53 (70) 94 07/21/17 10:07 69 109/56 (73) 74 07/21/17 10:05 71 105/56 (72) 97 07/21/17 10:02 75 105/58 (74) 96 07/21/17 10:00 77 28 104/55 (71) 95 07/21/17 10:00 77 07/21/17 09:48 71 16 87/49 (62) 94 07/21/17 09:47 71 18 89/48 (62) 95 07/21/17 09:30 64 43 100/55 (70) 97 07/21/17 09:15 69 38 103/57 (72) 97 07/21/17 09:00 73 07/21/17 09:00 73 25 101/55 (70) 94 07/21/17 08:45 75 26 102/58 (73) 95 07/21/17 08:30 74 25 104/55 (71) 94 07/21/17 08:15 77 25 109/60 (76) 94 07/21/17 08:03 94 100 07/21/17 08:00 100 07/21/17 08:00 95 07/21/17 08:00 97.8 64 21 121/66 (84) 95 07/21/17 06:00 54 07/21/17 05:00 48 07/21/17 05:00 95 100 07/21/17 04:00 49 07/21/17 04:00 98.6 49 29 130/57 (81) 96 07/21/17 04:00 100 07/21/17 03:00 49 07/21/17 02:00 48 07/21/17 01:00 49 07/21/17 00:14 98 100 07/21/17 00:00 98.6 45 21 109/52 (71) 97 07/21/17 00:00 100 07/21/17 00:00 45 07/20/17 23:00 44 07/20/17 22:00 43 07/20/17 21:40 97 100 07/20/17 21:00 52 07/20/17 20:00 98.4 53 19 98/49 (65) 99 07/20/17 20:00 100 07/20/17 20:00 53 07/20/17 19:30 51 86/47 07/20/17 19:27 99 100 I/O 07/20/17 07/20/17 07/20/17 07/21/17 07/21/17 07/21/17 07:00 15:00 23:00 07:00 15:00 23:00 Intake Total 360 ml 960 ml 850 ml 450 ml 667 ml Output Total 950 ml 1200 ml 2900 ml 2250 ml Balance -590 ml -240 ml -2050 ml 450 ml -1583 ml Intake Oral 360 ml IV Total 960 ml 750 ml 450 ml 667 ml Other 100 ml Output Urine Total 950 ml 1200 ml 2900 ml 2250 ml # Bowel Movements 0 0 0 0 Result Diagram: 07/21/1795407/21/17954 Objective Remarks GENERAL: This is an averagely built middle-aged white female Intubated HEENT: Head normocephalic. Pupils are reactive and equal. Nasal mucosa clear Throat was clear. NECK: No bruits or thyroid enlargement or lymphadenopathy. CHEST: Increased AP diameter with diffuse wheezes throughout both lung veliz. Prolonged expirations.Bi Basal crackles ++. HEART: The heart sounds are irregular S1 and S2 with no murmur. No S3 gallop. ABDOMEN: Protuberant, soft without masses. No organomegaly or tenderness. Bowel sounds are active. EXTREMITIES: No edema. No clubbing and no calf tenderness. NEUROLOGIC: Sedated and on the vent. SKIN: No lesions are observed. Assessment and Plan Assessment and Plan IMPRESSION 1. Acute respiratory failure. 2. ARDS. 3. CHF, Diastolic 4. Hypertension and hyperlipidemia. 5. Cirrhosis of the liver 6. Bipolar disorder. Plan : 1. Cont Antibiotics per ID 2. Wean o2 and keep sats >92 3. Nebs qid , duoneb. 4. Solumedrol 40 mg IV Q8H 5. Will need Bronchoscopy to R/O other etiologies. 6. Cont lasix 40 mg IV Q8H 7. Symbicort 160/4.5 Mcg , 2 puffs bid 8. CBC,CXR BMP in am 9. D/W Dr Galvez. Hold off on Bronch. Emmanuelle Chase MD Jul 21, 2017 19:06
[2017-07-21] MEDS: REMOVE OLD LIDOCAINE PATCH T-DERMAL SCH (21:00)
[2017-07-21] MEDS: TRIMETHOPRIM IV SCH ×2 (21:25)
[2017-07-21] MEDS: SULFAMETHOX IV SCH ×2 (21:25)
[2017-07-21] MEDS: WATE IV SCH ×2 (21:25)
[2017-07-21] MEDS: DEXTROSE 5% IV SCH ×2 (21:25)
[2017-07-21] MEDS: AZITHROMYCIN INJ 500 MG in SODIUM CHLOR 0.9% 250 ML INJ 250 ML IV SCH (23:50)
[2017-07-22] VITALS (15 sets, daily range): BP systolic 96–122; BP diastolic 48–63; PULSE 59–89; RESP 18–37; TEMP 97.5–100.5; O2SAT 93–99
[2017-07-22] MEDS: SULFAMETHOX IV SCH ×8 (01:43→20:16)
[2017-07-22] MEDS: TRIMETHOPRIM IV SCH ×8 (01:43→20:16)
[2017-07-22] MEDS: WATE IV SCH ×8 (01:43→20:16)
[2017-07-22] MEDS: DEXTROSE 5% IV SCH ×8 (01:43→20:16)
[2017-07-22] MEDS: PIPERACIL-TAZO 4.5 GM PREMIX 100 ML IV SCH ×4 (01:43→20:17)
[2017-07-22] MEDS: ALBUMIN 25% INJ 50 ML IV SCH ×2 (02:23→16:24)
[2017-07-22] MEDS: RESP: ALBUTEROL 2.5 MG/IPRATROPIUM 0.5 MG NEB (SCH) NEB ×6 (03:28→23:45)
[2017-07-22] MEDS: methylPREDNISolone SOD SUCC 40 MG/1 ML VIAL IV PUSH SCH ×3 (04:58→23:48)
[2017-07-22] MEDS: FUROSEMIDE 40 MG/4 ML VIAL IV PUSH SCH ×3 (05:18→23:48)
[2017-07-22] MEDS: CHLORHEXIDINE 0.12% (ORAL KIT) 15 ML CUP MT SCH ×2 (08:00→20:00)
[2017-07-22] MEDS: ASPIRIN 325 MG TAB PO SCH (08:15)
[2017-07-22] MEDS: AMIODARONE 200 MG TAB PO SCH ×2 (08:15→20:17)
[2017-07-22] MEDS: LACTOBACILLUS ACIDOPHILUS TAB PO SCH ×3 (08:15→18:03)
[2017-07-22] MEDS: DEXTROAMPHETAMINE/AMPHETAMINE 30 MG TAB PO SCH (08:15)
[2017-07-22] MEDS: FAMOTIDINE 20 MG/2 ML VIAL IV PUSH SCH ×2 (08:16→20:17)
[2017-07-22] MEDS: FLUoxetine HCL 20 MG CAP PO SCH (08:16)
[2017-07-22] MEDS: ENOXAPARIN SODIUM 40 MG/0.4 ML SYRINGE SQ SCH (08:17)
[2017-07-22] MEDS: POTASSIUM CHLORIDE 20 MEQ CONTROLLED RELEASE TAB PO SCH (09:00)
[2017-07-22] MEDS: BUDESONIDE-FORMOTEROL 80/4.5 MCG INHALER INH SCH ×2 (09:00→20:16)
[2017-07-22] MEDS: TOPIRAMATE 25 MG TAB PO SCH ×2 (09:00→20:18)
[2017-07-22] MEDS: LIDOCAINE HCL 5% PATCH T-DERMAL SCH (09:34)
[2017-07-22] MEDS: SODIUM CHLORIDE 0.9% FLUSH 10 ML FLUSH IV FLUSH SCH ×2 (09:34→20:17)
[2017-07-22] MEDS: MIDAZOLAM 100 MG/100 ML INJ 100 ML IV PRN ×2 (09:40→20:19)
[2017-07-22] MEDS: fentaNYL DRIP 250 ML IV PRN ×3 (09:49→20:19)
[2017-07-22] MEDS: CISATRACURIUM INJ 100 MG in SODIUM CHLOR 0.9% 250 ML INJ 240 ML IV PRN ×3 (10:46→20:18)
--- NOTE | 2017-07-22 11:31 | HHI.IDPN ---
Note Infectious Disease Note Patient on the ventilator 60% FIO2. Sedated and unresponsive. Afebrile. Scant secretions noted. Noted to not be stable for bronchoscopy. Discussed with RN. PAST MEDICAL HISTORY: 1. Ventricular tachycardia. 2. Cirrhosis of the liver. 3. Hepatitis C. 4. Anxiety/depression. 5. COPD. 6. Hypertension. 7. Gastroesophageal reflux disease. 8. Chronic back pain. 9. History of AICD. 10. Fibromyalgia. 11. Bipolar disorder. ALLERGIES CODEINE. MEDICATIONS: 1. Azithromycin. 2. Bactrim. 3. Micafungin. 4. Zosyn Current Medications Medications (Trade) Dose Ordered Sig/Jose Route PRN Reason Start Time Stop Time Status Last Admin Dose Admin Sodium Chloride (NS Flush) 2 ml UNSCH PRN IV FLUSH FLUSH AFTER USING IV ACCESS 07/11/17 22:00 Sodium Chloride (NS Flush) 2 ml BID IV FLUSH 07/12/17 09:00 07/22/17 09:34 Naloxone HCl (Narcan Inj) 0.4 mg UNSCH PRN IV PUSH SEE LABEL COMMENTS 07/11/17 22:00 Albuterol/ Ipratropium (Duoneb Neb) 1 ampule Q2HR NEB PRN NEB wheezing 07/11/17 22:00 Alprazolam (Xanax) 1 mg Q8H PRN PO ANXIETY 07/12/17 06:30 07/20/17 15:27 Amiodarone HCl (Cordarone) 400 mg Q12HR PO 07/12/17 09:00 07/22/17 08:15 Amphetamine/ Dextroamphetamine (Adderall) 30 mg DAILY PO 07/12/17 09:00 07/22/17 08:15 Aspirin (Aspirin) 325 mg DAILY PO 07/12/17 09:00 07/22/17 08:15 Budesonide/ Formoterol Fumarate (Symbicort 80-4.5 Mcg Inh) 2 puff Q12HR INH 07/12/17 09:00 07/20/17 08:46 Lisinopril (Prinivil) 5 mg DAILY PO 07/12/17 09:00 Future Hold 07/20/17 08:47 Metoprolol Tartrate (Lopressor) 25 mg DAILY PO 07/12/17 09:00 Future Hold 07/19/17 09:02 Topiramate (Topamax) 50 mg BID PO 07/12/17 09:00 07/22/17 09:00 Fluoxetine HCl (PROzac) 80 mg DAILY PO 07/12/17 09:00 07/22/17 08:16 Oxycodone/ Acetaminophen (Percocet 5-325 Mg) 1 tab Q6H PRN PO Pain 3 to 6 07/12/17 11:30 Oxycodone/ Acetaminophen (Percocet 10-325 Mg) 1 tab Q6H PRN PO Pain 7 to 10 07/12/17 11:30 07/20/17 08:50 Lactobacillus Acidophilus (Lactinex) 1 tab TID PO 07/12/17 13:00 07/22/17 08:15 Azithromycin 500 mg/Sodium Chloride 250 ml @ 250 mls/hr Q24H IV 07/12/17 23:00 07/21/17 23:50 Micafungin Sodium 100 mg/Sodium Chloride 100 ml @ 100 mls/hr Q24H IV 07/12/17 17:00 07/21/17 17:45 Enoxaparin Sodium (Lovenox Inj) 40 mg Q24H SQ 07/14/17 09:00 07/22/17 08:17 Methylprednisolone Sodium Succinate (SoluMEDROL INJ) 40 mg Q8HR IV PUSH 07/19/17 14:00 07/22/17 04:58 Lidocaine HCl (Lidoderm 5% Patch.12 Hr) 1 patch DAILY T-DERMAL 07/20/17 12:30 07/22/17 09:34 Miscellaneous Information 1 Q24H T-DERMAL 07/20/17 21:00 Chlorhexidine Gluconate (Peridex 0.12% Liq) 15 ml BID@08,20 MT 07/20/17 20:00 07/22/17 08:00 Propofol 100 ml @ 1.77 mls/hr TITRATE PRN IV SEDATION 07/20/17 15:00 07/20/17 15:02 Potassium Chloride (KCl) 40 meq DAILY PO 07/21/17 09:00 Albuterol/ Ipratropium (Duoneb Neb) 1 ampule Q4HR NEB NEB 07/20/17 16:00 07/22/17 09:55 Furosemide (Lasix Inj) 40 mg Q8H IV PUSH 07/20/17 15:00 07/22/17 05:18 Piperacillin Sod/ Tazobactam Sod 100 ml @ 200 mls/hr Q6H IV 07/20/17 15:00 07/22/17 09:35 Albumin Human 50 ml @ 60 mls/hr Q12H IV 07/20/17 15:00 07/22/17 02:23 Famotidine (Pepcid Inj) 20 mg Q12HR IV PUSH 07/20/17 21:00 07/22/17 08:16 Fentanyl Citrate 250 ml @ 5 mls/hr TITRATE PRN IV SEDATION 07/20/17 15:30 07/22/17 09:56 Midazolam HCl 100 ml @ 2 mls/hr TITRATE PRN IV SEDATION 07/20/17 17:45 07/22/17 09:40 Terbutaline Sulfate (Brethine Inj) 1 mg UNSCH PRN SQ For Extravasation 07/20/17 17:45 Phenylephrine HCl 80 mg/Dextrose 500 ml @ 15 mls/hr TITRATE PRN IV Blood pressure Management 07/20/17 17:45 07/20/17 17:56 Albuterol Sulfate (Albuterol Concentrated Neb) 2.5 mg LOAD DISPATCHER NEB 07/20/17 19:15 07/24/17 19:14 Cisatracurium Besylate 100 mg/ Sodium Chloride 250 ml @ 8.17 mls/hr TITRATE PRN IV TOF 06/3007/21/17 08:00 07/22/17 10:46 Trimethoprim/ Sulfamethoxazole 272 mg/Dextrose 517 ml @ 344.667 mls/hr Q6H IV 07/21/17 20:00 07/22/17 09:36 OBJECTIVE: Vital Signs Date Time Temp Pulse Resp B/P (MAP) Pulse Ox O2 Delivery O2 Flow Rate FiO2 07/22/17 09:55 95 Ventilator 65 07/22/17 09:55 96 65 07/22/17 08:20 78 196/98 07/22/17 08:00 98.9 73 37 107/63 (78) 93 117/58 (77) 07/22/17 08:00 89 07/22/17 05:05 94 65 07/22/17 04:14 93 70 07/22/17 04:00 59 07/22/17 04:00 97.5 59 20 98/56 (70) 96 108/49 (68) 07/22/17 04:00 70 07/22/17 01:16 93 70 07/22/17 00:00 70 07/22/17 00:00 74 07/22/17 00:00 98.5 62 24 107/56 (73) 94 122/59 (80) 07/21/17 22:17 97 75 07/21/17 22:00 62 07/21/17 20:10 97 75 07/21/17 20:00 99.2 65 22 109/55 (73) 97 125/60 (81) 07/21/17 20:00 75 07/21/17 20:00 65 07/21/17 19:00 66 23 121/62 (81) 97 140/67 (91) 07/21/17 18:30 65 22 119/62 (81) 98 140/67 (91) 07/21/17 18:00 62 23 118/61 (80) 97 139/65 (89) 07/21/17 18:00 62 07/21/17 18:00 66 139/66 07/21/17 17:30 61 118/61 (80) 98 139/64 (89) 07/21/17 17:29 98 75 07/21/17 17:00 61 124/66 (85) 99 147/69 (95) 07/21/17 16:30 61 136/69 (91) 99 146/71 (96) 07/21/17 16:00 58 07/21/17 16:00 100.1 58 129/68 (88) 99 147/69 (95) 07/21/17 16:00 75 07/21/17 15:30 61 129/62 (84) 98 144/65 (91) 07/21/17 15:00 66 121/62 (81) 97 141/63 (89) 07/21/17 14:36 99 75 07/21/17 14:30 81 123/60 (81) 100 138/64 (88) 07/21/17 14:00 84 122/62 (82) 99 142/65 (90) 07/21/17 14:00 84 07/21/17 13:30 88 120/63 (82) 100 138/63 (88) 07/21/17 13:00 86 55 121/62 (81) 99 138/63 (88) 07/21/17 12:30 86 119/56 (77) 94 137/58 (84) 07/21/17 12:05 98.9 80 114/57 (76) 95 07/21/17 12:02 79 112/57 (75) 97 07/21/17 12:02 96 75 07/21/17 12:00 100 07/21/17 12:00 79 113/57 (75) 97 07/21/17 12:00 79 Laboratory Tests Test 07/20/17 14:09 07/21/17 09:55 White Blood Count 19.7 TH/MM3 21.9 TH/MM3 Red Blood Count 4.27 MIL/MM3 4.23 MIL/MM3 Hemoglobin 13.4 GM/DL 12.6 GM/DL Hematocrit 39.5 % 39.4 % Mean Corpuscular Volume 92.6 FL 93.1 FL Mean Corpuscular Hemoglobin 31.4 PG 29.8 PG Mean Corpuscular Hemoglobin Concent 33.9 % 32.0 % Red Cell Distribution Width 15.9 % 16.6 % Platelet Count 160 TH/MM3 228 TH/MM3 Mean Platelet Volume 10.0 FL 8.5 FL Neutrophils (%) (Auto) 89.6 % 96.1 % Lymphocytes (%) (Auto) 6.6 % 2.6 % Monocytes (%) (Auto) 3.1 % 1.2 % Eosinophils (%) (Auto) 0.5 % 0.0 % Basophils (%) (Auto) 0.2 % 0.1 % Neutrophils # (Auto) 17.7 TH/MM3 21.0 TH/MM3 Lymphocytes # (Auto) 1.3 TH/MM3 0.6 TH/MM3 Monocytes # (Auto) 0.6 TH/MM3 0.3 TH/MM3 Eosinophils # (Auto) 0.1 TH/MM3 0.0 TH/MM3 Basophils # (Auto) 0.0 TH/MM3 0.0 TH/MM3 CBC Comment AUTO DIFF DIFF FINAL Differential Comment AUTO DIFF CONFIRMED Platelet Estimate NORMAL Platelet Morphology Comment NORMAL Laboratory Tests Test 07/20/17 14:09 07/20/17 19:15 07/21/17 02:03 07/21/17 09:55 Blood Urea Nitrogen 31 MG/DL 27 MG/DL Creatinine 0.92 MG/DL 0.91 MG/DL Random Glucose 98 MG/DL 128 MG/DL Total Protein 6.5 GM/DL 7.0 GM/DL Albumin 2.5 GM/DL 3.1 GM/DL Calcium Level 7.2 MG/DL 8.0 MG/DL Alkaline Phosphatase 208 U/L 171 U/L Aspartate Amino Transf (AST/SGOT) 119 U/L 58 U/L Alanine Aminotransferase (ALT/SGPT) 123 U/L 96 U/L Total Bilirubin 0.7 MG/DL 0.6 MG/DL Sodium Level 135 MEQ/L 138 MEQ/L Potassium Level 3.9 MEQ/L 3.6 MEQ/L Chloride Level 102 MEQ/L 102 MEQ/L Carbon Dioxide Level 26.6 MEQ/L 29.5 MEQ/L Anion Gap 6 MEQ/L 7 MEQ/L Estimat Glomerular Filtration Rate 64 ML/MIN 65 ML/MIN Lactic Acid Level 1.4 mmol/L Protein Corrected Calcium 7.5 MG/DL Phosphorus Level 2.2 MG/DL Magnesium Level 2.2 MG/DL 2.6 MG/DL Lactate Dehydrogenase 827 U/L Troponin I LESS THAN 0.02 NG/ML LESS THAN 0.02 NG/ML LESS THAN 0.02 NG/ML B-Type Natriuretic Peptide 63 PG/ML IMAGING: Chest X-Ray 07/21/17 0000 Signed Impressions: Service Date/Time: June 10:37 - CONCLUSION: 1. Right subclavian central venous catheter now in place with the tip in the distal SVC. No evidence of pneumothorax. 2. No change in bilateral diffuse interstitial pulmonary opacity. Dominick Bone MD Chest X-Ray 07/21/17 0000 Signed Impressions: Service Date/Time: June 03:21 - CONCLUSION: Persistent unchanged bilateral interstitial infiltrates. Osmany Higuera MD Chest X-Ray 07/20/17 0000 Signed Impressions: Service Date/Time: Thursday, July 20, 2017 14:10 - CONCLUSION: Minimal improvement the following intubation. ET tube in good position. Massimo Franks MD FACR Chest X-Ray 07/20/17 0000 Signed Impressions: Service Date/Time: Thursday, July 20, 2017 13:05 - CONCLUSION: Significant increase in interstitial edema Massimo Franks MD FACR Chest X-Ray 07/19/17 0600 Signed Impressions: Service Date/Time: Wednesday, July 19, 2017 05:15 - CONCLUSION: Persistent but improving bilateral diffuse lung infiltrates. Osmany Higuera MD Chest X-Ray 07/16/17 0600 Signed Impressions: Service Date/Time: Sunday, July 16, 2017 04:27 - CONCLUSION: 1. Progressive diffuse bilateral interstitial and alveolar opacities in this patient with history of chronic interstitial and alveolar airspace disease. London Kapoor MD Chest X-Ray 07/11/171948 Signed Impressions: Service Date/Time: Tuesday, July 11, 2017 19:55 - CONCLUSION: Interstitial pulmonary edema. Osmany Stafford Jr., MD CT Angiography 07/11/171948 Signed Impressions: Service Date/Time: Tuesday, July 11, 2017 20:47 - CONCLUSION: 1. No pulmonary embolus. 2. Diffuse bilateral groundglass infiltrates without effusions. These infiltrates are similar to prior exam from 2016. Differential diagnostic considerations include alveolar proteinosis, infectious infiltrates , and pulmonary edema. 3. Mediastinal adenopathy is less pronounced from the prior study. 4. No pulmonary emboli. 5. Cirrhosis. Osmany Stafford Jr., MD PHYSICAL EXAMINATION: GENERAL: On the vent. sedated. HEENT: No icterus. Oropharynx mucosa moist. Neck: No adenopathy or swelling. The neck is supple. Lungs: Decreased breath sounds bilateral. Heart: Regular S1-S2. No audible murmurs. Abdomen: Bowel sounds present, soft. Extremities: No clubbing, cyanosis or edema. SKIN: No rash. Warm and moist. NEURO: Non focal. IMPRESSION: 1. Bilateral lung interstitial ground glass infiltrate. Questionable infection versus inflammatory nature, versus drug toxicity. 2. Hypoxia. Now intubated. 3. Leukocytosis. 4. Elevated LFT's improved. RECOMMENDATIONS: 1. Continue azithromycin. 2. Continue Bactrim IV for PJP empiric treatment. 3. Continue Micafungin for possible fungal etiology. 4. Continue Pip/Tazo. 5. Monitor white cell count. 6. Monitor clinical response. 7. Obtain PJP stain when bronchoscopy is done. Cachorro Adams MD Jul 22, 2017 11:31
[2017-07-22] MEDS: MICAFUNGIN INJ 100 MG in SODIUM CHLORIDE 0.9% INJ 100 ML IV SCH (18:03)
--- NOTE | 2017-07-22 19:46 | HHI.CCPN ---
Subjective Remarks/Hospital Course Patient is a 51-year-old female with past medical history significant for congestive heart failure with preserved ejection fraction, [id number] MR, moderate mitral stenosis, COPD, history of cirrhosis, who was admitted to the hospitalist service on 07/11/17 with respiratory symptoms/pneumonia. Chest x- ray on admission showed pulmonary edema. CT chest also showed diffuse ground- glass infiltrates consistent with edema. She placed on BiPap at 50% FIO2, and was admitted to the hospitalist service. Pulmonology also was consulted and initially patient received, Solu-Medrol 40 mg IV, Rocephin and Zithromax. According to Dr. Laws initially patient was placed on IV Lasix with some improvement in symptoms, and patient's Lasix was changed to by mouth a few days ago. Patient had a previous CT of the chest which had showed groundglass opacities in 2016. It is possible that patient has underlying interstitial lung disease. Over the last 2 days patient had been having increasing shortness of breath and oxygen requirement. Placed on BiPAP yesterday with FiO2 up to 85% , today patient was still hypoxemic on 100% oxygen on BiPAP and was moved to the ICU. I reviewed chest x-rays today which showed extensive bilateral interstitial infiltrates, worse than yesterday. After brief discussion with patient, I intubated her and placed on mechanical ventilation. I will start patient on IV Lasix 40 mg every 8 hours with IV albumin for aggressive diuresis. Follow clinically. follow chest x-ray. Repeat panculture. Continue current antibiotics Bactrim and azithromycin and add Zosyn. ON Micafungin per ID. Echo 07/12/17: EF 50-55%, [id number]-efaikuxb MR, Moderate mitral valve stenosis. The estimated pulmonary arterial pressure is 43 mmHg. 07/21: Remains critically ill, severely hypoxemic on 12 of PEEP and 100% FiO2. Peak pressures on the vent occasionally 55-60 indicating severe noncompliant lung. Detached from vent for a few seconds for air trapping. Neuromuscular paralysis started with Nimbex infusion. Currently on Siddhartha-Synephrine 60 mcg/m. Place central line and art line. Due to chronic underlying interstitial infiltrates I did not think patient will benefit from proning. Change Bactrim to IV for PJP coverage, send sputum for silver methylamine staining 07/22: required neuromuscular blockade overnight to maintain oxygen saturation. remains severely hypoxemic. no improvements. on low-dose vasopressors for borderline hypoxemia. bilateral pulmonary infiltrates persist. Objective Vital Signs Date Time Temp Pulse Resp B/P (MAP) Pulse Ox O2 Delivery O2 Flow Rate FiO2 07/22/17 17:00 83 109/52 07/22/17 16:08 95 65 07/22/17 16:00 98.3 18 07/22/17 09:55 Ventilator 07/19/17 19:00 15.00 Intake and Output 07/22/17 07/22/17 07/22/17 07:59 15:59 23:59 Intake Total 817 ml 1467 ml 130 ml Output Total 1250 ml 800 ml 600 ml Balance -433 ml 667 ml -470 ml Result Diagram: 07/21/1795407/21/17954 Imaging Chest x-ray shows severe extensive bilateral interstitial and alveolar infiltrates on my review Objective Remarks GENERAL: 51-year-old female who is lying in bed, intubated, sedated, paralyzed, critically ill. SKIN: Warm and dry. HEAD: Atraumatic. Normocephalic. EYES: Pupils equal and round. ENT: Orotracheally intubated NECK: Trachea midline. No JVD. CARDIOVASCULAR: normal rate, regular rhythm. sinus by tele. phenylephrine at 10 mcg/min RESPIRATORY: Diminished breath sounds with minimal bilateral wheezes and crackles. ACV with high peak pressures GASTROINTESTINAL: Abdomen soft, non-tender, nondistended. MUSCULOSKELETAL: Extremities with trace lower extremity edema. No obvious deformities. NEUROLOGICAL: Intubated sedated. RASS -5. on neuromuscular blockade. A/P Assessment and Plan A/P Assessment and Plan: 51yF with subacute hypoxic respiratory failure with severe bilateral infiltrates now with acute worsening and severe ARDS and hypoxic respiratory failure requiring maximal ventilatory support. continue neuromuscular blockade. add inhaled flolan. will plan on pursuing diagnostic bronchoscopy tomorrow and send BAL samples. no weaning of vent until hypoxemia begins to improve. does not appear volume overloaded, but agree with gentle diuresis to improve oxygenation and gas exchange. remains critically ill with minimal meaningful improvements in severe hypoxemia. Neuro/Psych: ADHD Bipolar disorder Depression/Anxiety disorder Propofol, fentanyl, versed for sedation while paralyzed. continue Nimbex for another 24h. No sedation vacation until hypoxemia and improved CV: Congestive heart failure most likely diastolic Wheh-tl-uebnqjjh mitral regurgitation, moderate mitral stenosis V. tach status post AICD/pacemaker History of hypertension Lasix 40 mg IV every 8 hours with IV albumin Respiratory failure from a combination of CHF and COPD and probable pneumonia Currently holding lisinopril due to aggressive diuresis Continue amiodarone, metoprolol and aspirin Resp: Acute hypoxemic respiratory failure Severe ARDS Pneumonia COPD - 2 L O2 requiring at home Probable underlying interstitial lung disease Titrate FiO2 to keep saturations more than 88-90% Scheduled bronchodilator therapy every 4 hours and as needed. Ventilator bundle. IV solumedrol Neuromuscular blockage due to severe ARDS Repeat sputum culture. serum LDH 827. Check for PJP, change Bactrim to PJP dosing IV Dr. Laws/pulmonology is following will plan on bronch tomorrow if fio2 improves add inhaled flolan keep nimbex another 24h. no SBT given hypoxemia. agree with Dr. Galvez assessment that she is not an ideal proning candidate due to chronic/subacute nature of her underlying disease process. GI: Hepatitis C EtOH/cirrhosis start TF. Famotidine IV BID for GI prophylaxis : Le has been placed for accurate I's and O's in a critically ill patient Lasix as above Endo: Electrolyte replacement per protocol Heme: Monitor CBC CMP ID: Severe sepsis Pneumonia Repeat panculture, ID Dr. Adams is following Continue azithromycin, Zosyn. Change Bactrim to IV at appropriate PJP dose. D/W Dr. Adams Serum LDH 827, send sputum for PJP Access 07/21: central line 07/21: radial art line Prophylaxis GI - famotidine DVT - SCD/Lovenox subcutaneous Critical Care: The total critical care time was 41 minutes. Time to perform other separately billable procedures was not included in the critical care time. Amado Linares MD Jul 22, 2017 19:46
--- NOTE | 2017-07-22 20:16 | HHI.PR ---
Subjective Remarks Went into severe pulmonary edema and respiratory failure . Now in ICU and intubated and still on 100 % FIO2 Sedated with Propofol.Bronchoscopy was scheduled but now on Hold. ABG are better and now on FIO2 60 % Objective Vital Signs Date Time Temp Pulse Resp B/P (MAP) Pulse Ox O2 Delivery O2 Flow Rate FiO2 07/22/17 19:55 95 60 07/22/17 17:00 83 109/52 07/22/17 16:08 95 65 07/22/17 16:00 98.3 86 18 109/51 (70) 93 111/53 (72) 07/22/17 16:00 65 07/22/17 16:00 83 07/22/17 15:50 83 113/54 07/22/17 12:36 96 65 07/22/17 12:00 65 07/22/17 12:00 99.2 84 18 105/55 (72) 95 116/57 (76) 07/22/17 12:00 86 07/22/17 09:56 84 101/46 07/22/17 09:55 95 Ventilator 65 07/22/17 09:55 96 65 07/22/17 08:20 78 196/98 07/22/17 08:00 98.9 73 37 107/63 (78) 93 117/58 (77) 07/22/17 08:00 89 07/22/17 08:00 65 07/22/17 05:05 94 65 07/22/17 04:14 93 70 07/22/17 04:00 59 07/22/17 04:00 97.5 59 20 98/56 (70) 96 108/49 (68) 07/22/17 04:00 70 07/22/17 01:16 93 70 07/22/17 00:00 70 07/22/17 00:00 74 07/22/17 00:00 98.5 62 24 107/56 (73) 94 122/59 (80) 07/21/17 22:17 97 75 07/21/17 22:00 62 I/O 07/21/17 07/21/17 07/21/17 07/22/17 07/22/17 07/22/17 07:00 15:00 23:00 07:00 15:00 23:00 Intake Total 850 ml 450 ml 1667 ml 1684 ml 1467 ml 130 ml Output Total 2900 ml 2250 ml 1250 ml 800 ml 600 ml Balance -2050 ml 450 ml -583 ml 434 ml 667 ml -470 ml IV Total 750 ml 450 ml 1667 ml 1684 ml 1467 ml 50 ml Albumin 50 ml Other 100 ml 30 ml Output Urine Total 2900 ml 2250 ml 1250 ml 800 ml 600 ml # Bowel Movements 0 0 0 Result Diagram: 07/21/1795407/21/17954 Objective Remarks GENERAL: This is an averagely built middle-aged white female intubated HEENT: Head normocephalic. Pupils are reactive and equal. Nasal mucosa clear Throat was clear. NECK: No bruits or thyroid enlargement or lymphadenopathy. CHEST: Increased AP diameter with diffuse wheezes throughout both lung veliz. Prolonged expirations.Bi Basal crackles ++. HEART: The heart sounds are irregular S1 and S2 with no murmur. No S3 gallop. ABDOMEN: Protuberant, soft without masses. No organomegaly or tenderness. Bowel sounds are active. EXTREMITIES: Mild edema. No clubbing and no calf tenderness. NEUROLOGIC: Sedated and on the vent. SKIN: No lesions are observed. Assessment and Plan Assessment and Plan IMPRESSION 1. Acute respiratory failure. 2. ARDS. 3. CHF, Diastolic 4. Hypertension and hyperlipidemia. 5. Cirrhosis of the liver 6. Bipolar disorder. Plan : 1. Cont Antibiotics per ID 2. Wean o2 and keep sats >92 3. Nebs qid , duoneb. 4. Cont Solumedrol 40 mg IV Q8H 5. Will need Bronchoscopy to R/O other etiologies. 6. Cont lasix 40 mg IV Q8H 7. Symbicort 160/4.5 Mcg , 2 puffs bid 8. CBC,CXR BMP in am 9. Continue Sedation with Propofol. Emmanuelle Chase MD Jul 22, 2017 20:16
[2017-07-22] MEDS: REMOVE OLD LIDOCAINE PATCH T-DERMAL SCH (20:18)
[2017-07-22] MEDS: EPOPROSTENOL NEB SOLUTION 50 NG/KG/MIN 100 ML NEB SCH ×2 (20:54)
[2017-07-22] MEDS: AZITHROMYCIN INJ 500 MG in SODIUM CHLOR 0.9% 250 ML INJ 250 ML IV SCH (23:48)
[2017-07-23] VITALS (22 sets, daily range): BP systolic 95–125; BP diastolic 49–75; PULSE 62–79; RESP 15–24; TEMP 98–99.5; O2SAT 94–100
[2017-07-23] MEDS: TRIMETHOPRIM IV SCH ×8 (01:00→22:20)
[2017-07-23] MEDS: DEXTROSE 5% IV SCH ×8 (01:00→22:20)
[2017-07-23] MEDS: SULFAMETHOX IV SCH ×8 (01:00→22:20)
[2017-07-23] MEDS: WATE IV SCH ×8 (01:00→22:20)
[2017-07-23] MEDS: ALBUMIN 25% INJ 50 ML IV SCH ×2 (02:06→14:23)
[2017-07-23] MEDS: PIPERACIL-TAZO 4.5 GM PREMIX 100 ML IV SCH ×4 (02:06→20:17)
[2017-07-23] MEDS: CISATRACURIUM INJ 100 MG in SODIUM CHLOR 0.9% 250 ML INJ 240 ML IV PRN ×3 (02:06→20:18)
[2017-07-23] MEDS: RESP: ALBUTEROL 2.5 MG/IPRATROPIUM 0.5 MG NEB (SCH) NEB ×5 (03:47→20:32)
[2017-07-23 04:35] LABS: BICARBONATE 32.7 MEQ/L (21.0-32.0); CALCIUM 7.4 MG/DL (8.5-10.1); CREATININE 0.76 MG/DL (0.50-1.00)
[2017-07-23 04:49] LABS: CALCIUM-PROTEIN CORRECTED 7.9 MG/DL (8.5-10.1); TOTAL PROTEIN 6.1 GM/DL (6.4-8.2)
[2017-07-23] MEDS: methylPREDNISolone SOD SUCC 40 MG/1 ML VIAL IV PUSH SCH ×3 (05:01→22:17)
[2017-07-23] MEDS: EPOPROSTENOL NEB SOLUTION 50 NG/KG/MIN 100 ML NEB SCH ×6 (05:01→19:30)
[2017-07-23 05:41] LABS: HEMATOCRIT 29.7 % (35.0-46.0); HEMOGLOBIN 9.8 GM/DL (11.6-15.3); MEAN CELL VOLUME 91.9 FL (80.0-100.0); MEAN CORPUSCULAR HEMOGLOBIN 30.3 PG (27.0-34.0); MEAN PLATELET VOLUME 8.2 FL (7.0-11.0); PLATELET COUNT 105 TH/MM3 (150-450); RED BLOOD COUNT 3.24 MIL/MM3 (4.00-5.30); WHITE BLOOD COUNT 17.5 TH/MM3 (4.0-11.0)
[2017-07-23] MEDS: fentaNYL DRIP 250 ML IV PRN (05:44)
[2017-07-23] MEDS: FUROSEMIDE 40 MG/4 ML VIAL IV PUSH SCH ×3 (05:44→18:05)
[2017-07-23] MEDS: PHENYLEPHRINE INJ 80 MG in DEXTROSE 5% IN WATE 500 ML INJ 492 ML IV PRN ×2 (05:45)
[2017-07-23] MEDS: MIDAZOLAM 100 MG/100 ML INJ 100 ML IV PRN ×2 (05:46→17:30)
[2017-07-23] MEDS: CHLORHEXIDINE 0.12% (ORAL KIT) 15 ML CUP MT SCH ×2 (08:00→20:00)
[2017-07-23] MEDS: FAMOTIDINE 20 MG/2 ML VIAL IV PUSH SCH ×2 (08:41→20:20)
[2017-07-23] MEDS: SODIUM CHLORIDE 0.9% FLUSH 10 ML FLUSH IV FLUSH SCH ×2 (08:41→20:20)
[2017-07-23] MEDS: ENOXAPARIN SODIUM 40 MG/0.4 ML SYRINGE SQ SCH (08:41)
[2017-07-23] MEDS: DEXTROAMPHETAMINE/AMPHETAMINE 30 MG TAB PO SCH (08:42)
[2017-07-23] MEDS: ASPIRIN 325 MG TAB PO SCH (08:43)
[2017-07-23] MEDS: LIDOCAINE HCL 5% PATCH T-DERMAL SCH (08:44)
[2017-07-23] MEDS: TOPIRAMATE 25 MG TAB PO SCH ×2 (08:44→20:20)
[2017-07-23] MEDS: LACTOBACILLUS ACIDOPHILUS TAB PO SCH ×3 (08:44→16:40)
[2017-07-23] MEDS: AMIODARONE 200 MG TAB PO SCH ×2 (08:44→20:20)
[2017-07-23] MEDS: FLUoxetine HCL 20 MG CAP PO SCH (08:50)
--- NOTE | 2017-07-23 08:58 | HHI.CCPN ---
Subjective Remarks/Hospital Course Patient is a 51-year-old female with past medical history significant for congestive heart failure with preserved ejection fraction, [id number] MR, moderate mitral stenosis, COPD, history of cirrhosis, who was admitted to the hospitalist service on 07/11/17 with respiratory symptoms/pneumonia. Chest x- ray on admission showed pulmonary edema. CT chest also showed diffuse ground- glass infiltrates consistent with edema. She placed on BiPap at 50% FIO2, and was admitted to the hospitalist service. Pulmonology also was consulted and initially patient received, Solu-Medrol 40 mg IV, Rocephin and Zithromax. According to Dr. Laws initially patient was placed on IV Lasix with some improvement in symptoms, and patient's Lasix was changed to by mouth a few days ago. Patient had a previous CT of the chest which had showed groundglass opacities in 2016. It is possible that patient has underlying interstitial lung disease. Over the last 2 days patient had been having increasing shortness of breath and oxygen requirement. Placed on BiPAP yesterday with FiO2 up to 85% , today patient was still hypoxemic on 100% oxygen on BiPAP and was moved to the ICU. I reviewed chest x-rays today which showed extensive bilateral interstitial infiltrates, worse than yesterday. After brief discussion with patient, I intubated her and placed on mechanical ventilation. I will start patient on IV Lasix 40 mg every 8 hours with IV albumin for aggressive diuresis. Follow clinically. follow chest x-ray. Repeat panculture. Continue current antibiotics Bactrim and azithromycin and add Zosyn. ON Micafungin per ID. Echo 07/12/17: EF 50-55%, [id number] MR, Moderate mitral valve stenosis. The estimated pulmonary arterial pressure is 43 mmHg. 07/21: Remains critically ill, severely hypoxemic on 12 of PEEP and 100% FiO2. Peak pressures on the vent occasionally 55-60 indicating severe noncompliant lung. Detached from vent for a few seconds for air trapping. Neuromuscular paralysis started with Nimbex infusion. Currently on Siddhartha-Synephrine 60 mcg/m. Place central line and art line. Due to chronic underlying interstitial infiltrates I did not think patient will benefit from proning. Change Bactrim to IV for PJP coverage, send sputum for silver methylamine staining 07/22: required neuromuscular blockade overnight to maintain oxygen saturation. remains severely hypoxemic. no improvements. on low-dose vasopressors for borderline hypoxemia. bilateral pulmonary infiltrates persist. 07/23: fio2 down to 50%. plan for bronch today. remains on maximal vent settings and hypoxia. hgb dropped with platelets and sodium- will redraw to ensure that these are not dilutional. will hold DVT prophylaxis for now. Objective Vital Signs Date Time Temp Pulse Resp B/P (MAP) Pulse Ox O2 Delivery O2 Flow Rate FiO2 07/23/17 08:12 94 50 07/23/17 06:00 62 07/23/17 06:00 121/52 07/23/17 04:00 99.1 18 07/22/17 09:55 Ventilator 07/19/17 19:00 15.00 Intake and Output 07/23/17 07/23/17 07/24/17 08:00 16:00 00:00 Intake Total 2117 ml Output Total 1650 ml Balance 467 ml Result Diagram: 07/23/17 0505 07/23/17 0350 Imaging Chest x-ray shows severe extensive bilateral interstitial and alveolar infiltrates on my review Objective Remarks GENERAL: 51-year-old female who is lying in bed, intubated, sedated, paralyzed, critically ill. SKIN: Warm and dry. HEAD: Atraumatic. Normocephalic. EYES: Pupils equal and round. ENT: Orotracheally intubated NECK: Trachea midline. No JVD. CARDIOVASCULAR: normal rate, regular rhythm. sinus by tele. phenylephrine at 40 mcg/min RESPIRATORY: Diminished breath sounds with minimal bilateral wheezes and crackles. ACV with improving peak pressures. GASTROINTESTINAL: Abdomen soft, non-tender, nondistended. MUSCULOSKELETAL: Extremities with trace lower extremity edema. No obvious deformities. NEUROLOGICAL: Intubated sedated. RASS -5. on neuromuscular blockade. A/P Assessment and Plan A/P Assessment and Plan: 51yF with subacute hypoxic respiratory failure with severe bilateral infiltrates now with acute worsening and severe ARDS and hypoxic respiratory failure requiring maximal ventilatory support. continue neuromuscular blockade and flolan. bronch today with BALs for diagnostic purposes. unclear source of anemia and thrombocytopenia: will re-draw labs as they appear dilutional. will hold DVT prophylaxis and trend hgb. no weaning of vent until hypoxemia begins to improve. does not appear volume overloaded, but agree with gentle diuresis to improve oxygenation and gas exchange. remains critically ill with minimal meaningful improvements in severe hypoxemia. Neuro/Psych: ADHD Bipolar disorder Depression/Anxiety disorder Propofol, fentanyl, versed for sedation while paralyzed. continue Nimbex for another 24h. No sedation vacation until hypoxemia and improved CV: Congestive heart failure most likely diastolic Usgt-vy-iiaiuzal mitral regurgitation, moderate mitral stenosis V. tach status post AICD/pacemaker History of hypertension Lasix 40 mg IV every 6 hours with IV albumin Respiratory failure from a combination of CHF and COPD and probable pneumonia Currently holding lisinopril due to aggressive diuresis Continue amiodarone, metoprolol and aspirin Resp: Acute hypoxemic respiratory failure Severe ARDS Pneumonia COPD - 2 L O2 requiring at home Probable underlying interstitial lung disease Titrate FiO2 to keep saturations more than 88-90% Scheduled bronchodilator therapy every 4 hours and as needed. Ventilator bundle. IV solumedrol Neuromuscular blockage due to severe ARDS Repeat sputum culture. serum LDH 827. Check for PJP, change Bactrim to PJP dosing IV Dr. Laws/pulmonology is following bronch today. continue inhaled flolan keep nimbex another 24h. no SBT given hypoxemia. agree with Dr. Galvez assessment that she is not an ideal proning candidate due to chronic/subacute nature of her underlying disease process. GI: Hepatitis C EtOH/cirrhosis TF. Famotidine IV BID for GI prophylaxis : Le has been placed for accurate I's and O's in a critically ill patient Lasix as above diamox for metabolic alkalosis Endo: Electrolyte replacement per protocol Heme: Anemia Thrombocytopenia Monitor CBC CMP possibly dilutional- redraw. trend hgb 4t score of 2: low probability for HIT. recheck. ID: Severe sepsis Pneumonia Repeat panculture, ID Dr. Adams is following Continue azithromycin, Zosyn. Change Bactrim to IV at appropriate PJP dose. D/W Dr. Adams Serum LDH 827, send sputum for PJP bronch today. Access 07/21: central line 07/21: radial art line Prophylaxis GI - famotidine DVT - SCD/Lovenox subcutaneous (hold lovenox until redraw cbc) Critical Care: The total critical care time was 33 minutes. Time to perform other separately billable procedures was not included in the critical care time. Amado Linares MD Jul 23, 2017 08:58
[2017-07-23] MEDS: BUDESONIDE-FORMOTEROL 80/4.5 MCG INHALER INH SCH ×2 (09:00→20:20)
[2017-07-23 09:35] LABS: HEMATOCRIT 29.1 % (35.0-46.0); HEMOGLOBIN 9.7 GM/DL (11.6-15.3); MEAN CELL VOLUME 91.5 FL (80.0-100.0); MEAN CORPUSCULAR HEMOGLOBIN 30.6 PG (27.0-34.0); MEAN CORPUSCULAR HGB CONC 33.5 % (32.0-36.0); MEAN PLATELET VOLUME 8.2 FL (7.0-11.0); PLATELET COUNT 111 TH/MM3 (150-450); RED BLOOD COUNT 3.18 MIL/MM3 (4.00-5.30); RED CELL DISTRIBUTION WIDTH 15.4 % (11.6-17.2); WHITE BLOOD COUNT 17.6 TH/MM3 (4.0-11.0)
[2017-07-23] MEDS ORDERED: CALCIUM GLUCONATE INJ 3 GM in SODIUM CHLORIDE 0.9% INJ 100 ML IV ONE (10:00)
[2017-07-23 10:02] LABS: BICARBONATE 32.6 MEQ/L (21.0-32.0); CALCIUM 7.6 MG/DL (8.5-10.1); CREATININE 0.7 MG/DL (0.50-1.00)
--- NOTE | 2017-07-23 12:26 | HHI.IDPN ---
Note Infectious Disease Note Patient on the ventilator 80% FIO2. Sedated and unresponsive. Had bronchoscopy today. Afebrile. Discussed with RN. PAST MEDICAL HISTORY: 1. Ventricular tachycardia. 2. Cirrhosis of the liver. 3. Hepatitis C. 4. Anxiety/depression. 5. COPD. 6. Hypertension. 7. Gastroesophageal reflux disease. 8. Chronic back pain. 9. History of AICD. 10. Fibromyalgia. 11. Bipolar disorder. ALLERGIES CODEINE. MEDICATIONS: 1. Azithromycin. 2. Bactrim. 3. Micafungin. 4. Zosyn Current Medications Medications (Trade) Dose Ordered Sig/Jose Route PRN Reason Start Time Stop Time Status Last Admin Dose Admin Sodium Chloride (NS Flush) 2 ml UNSCH PRN IV FLUSH FLUSH AFTER USING IV ACCESS 07/11/17 22:00 Sodium Chloride (NS Flush) 2 ml BID IV FLUSH 07/12/17 09:00 07/23/17 08:41 Naloxone HCl (Narcan Inj) 0.4 mg UNSCH PRN IV PUSH SEE LABEL COMMENTS 07/11/17 22:00 Albuterol/ Ipratropium (Duoneb Neb) 1 ampule Q2HR NEB PRN NEB wheezing 07/11/17 22:00 Alprazolam (Xanax) 1 mg Q8H PRN PO ANXIETY 07/12/17 06:30 07/20/17 15:27 Amiodarone HCl (Cordarone) 400 mg Q12HR PO 07/12/17 09:00 07/23/17 08:44 Amphetamine/ Dextroamphetamine (Adderall) 30 mg DAILY PO 07/12/17 09:00 07/22/17 08:15 Aspirin (Aspirin) 325 mg DAILY PO 07/12/17 09:00 07/23/17 08:43 Budesonide/ Formoterol Fumarate (Symbicort 80-4.5 Mcg Inh) 2 puff Q12HR INH 07/12/17 09:00 07/20/17 08:46 Lisinopril (Prinivil) 5 mg DAILY PO 07/12/17 09:00 Future Hold 07/20/17 08:47 Metoprolol Tartrate (Lopressor) 25 mg DAILY PO 07/12/17 09:00 Future Hold 07/19/17 09:02 Topiramate (Topamax) 50 mg BID PO 07/12/17 09:00 07/23/17 08:44 Fluoxetine HCl (PROzac) 80 mg DAILY PO 07/12/17 09:00 07/23/17 08:50 Oxycodone/ Acetaminophen (Percocet 5-325 Mg) 1 tab Q6H PRN PO Pain 3 to 6 07/12/17 11:30 Oxycodone/ Acetaminophen (Percocet 10-325 Mg) 1 tab Q6H PRN PO Pain 7 to 10 07/12/17 11:30 07/20/17 08:50 Lactobacillus Acidophilus (Lactinex) 1 tab TID PO 07/12/17 13:00 07/23/17 08:44 Azithromycin 500 mg/Sodium Chloride 250 ml @ 250 mls/hr Q24H IV 07/12/17 23:00 07/22/17 23:48 Micafungin Sodium 100 mg/Sodium Chloride 100 ml @ 100 mls/hr Q24H IV 07/12/17 17:00 07/22/17 18:03 Enoxaparin Sodium (Lovenox Inj) 40 mg Q24H SQ 07/14/17 09:00 07/23/17 08:41 Methylprednisolone Sodium Succinate (SoluMEDROL INJ) 40 mg Q8HR IV PUSH 07/19/17 14:00 07/23/17 05:01 Lidocaine HCl (Lidoderm 5% Patch.12 Hr) 1 patch DAILY T-DERMAL 07/20/17 12:30 07/22/17 09:34 Miscellaneous Information 1 Q24H T-DERMAL 07/20/17 21:00 Chlorhexidine Gluconate (Peridex 0.12% Liq) 15 ml BID@08,20 MT 07/20/17 20:00 07/23/17 08:00 Propofol 100 ml @ 1.77 mls/hr TITRATE PRN IV SEDATION 07/20/17 15:00 07/20/17 15:02 Albuterol/ Ipratropium (Duoneb Neb) 1 ampule Q4HR NEB NEB 07/20/17 16:00 07/23/17 08:09 Piperacillin Sod/ Tazobactam Sod 100 ml @ 200 mls/hr Q6H IV 07/20/17 15:00 07/23/17 10:29 Albumin Human 50 ml @ 60 mls/hr Q12H IV 07/20/17 15:00 07/23/17 02:06 Famotidine (Pepcid Inj) 20 mg Q12HR IV PUSH 07/20/17 21:00 07/23/17 08:41 Fentanyl Citrate 250 ml @ 5 mls/hr TITRATE PRN IV SEDATION 07/20/17 15:30 07/23/17 05:44 Midazolam HCl 100 ml @ 2 mls/hr TITRATE PRN IV SEDATION 07/20/17 17:45 07/23/17 05:46 Terbutaline Sulfate (Brethine Inj) 1 mg UNSCH PRN SQ For Extravasation 07/20/17 17:45 Phenylephrine HCl 80 mg/Dextrose 500 ml @ 15 mls/hr TITRATE PRN IV Blood pressure Management 07/20/17 17:45 07/23/17 05:45 Albuterol Sulfate (Albuterol Concentrated Neb) 2.5 mg [employer] NEB 07/20/17 19:15 07/24/17 19:14 Cisatracurium Besylate 100 mg/ Sodium Chloride 250 ml @ 8.17 mls/hr TITRATE PRN IV TOF 06/3007/21/17 08:00 07/23/17 08:51 Trimethoprim/ Sulfamethoxazole 272 mg/Dextrose 517 ml @ 344.667 mls/hr Q6H IV 07/21/17 20:00 07/23/17 08:42 Epoprostenol Sodium 62.5 ml/ Sodium Chloride 100 ml @ 5 mls/hr Q8H NEB 07/22/17 19:30 07/23/17 05:01 Acetazolamide Sodium (Diamox Inj) 500 mg Q8H IV PUSH 07/23/17 09:00 07/24/17 01:01 07/23/17 10:30 Furosemide (Lasix Inj) 40 mg Q6H IV PUSH 07/23/17 13:00 OBJECTIVE: Vital Signs Date Time Temp Pulse Resp B/P (MAP) Pulse Ox O2 Delivery O2 Flow Rate FiO2 07/23/17 12:00 98.4 75 18 109/75 (86) 99 125/59 (81) 07/23/17 12:00 80 07/23/17 12:00 75 07/23/17 10:30 95 80 07/23/17 10:25 80 07/23/17 10:15 95 100 07/23/17 10:00 77 07/23/17 08:12 94 50 07/23/17 08:00 60 07/23/17 08:00 67 18 98/51 (67) 94 116/49 (71) 07/23/17 08:00 67 07/23/17 06:00 62 07/23/17 06:00 62 121/52 07/23/17 05:45 62 118/49 07/23/17 05:44 62 118/49 07/23/17 04:10 98 60 07/23/17 04:00 99.1 63 18 101/55 (70) 98 113/51 (71) 07/23/17 04:00 63 113/51 07/23/17 04:00 60 07/23/17 04:00 63 07/23/17 03:00 64 110/48 07/23/17 02:00 64 07/23/17 02:00 64 114/51 07/23/17 01:10 98 60 07/23/17 00:00 63 07/23/17 00:00 60 07/23/17 00:00 99.5 63 24 102/57 (72) 98 118/54 (75) 07/23/17 00:00 63 118/54 07/22/17 22:30 64 109/47 07/22/17 22:00 65 07/22/17 22:00 65 111/48 07/22/17 21:00 99 60 07/22/17 20:00 100.5 77 20 96/51 (66) 95 106/48 (67) 07/22/17 20:00 60 07/22/17 20:00 77 106/48 07/22/17 20:00 77 07/22/17 19:55 95 60 07/22/17 17:00 83 109/52 07/22/17 16:08 95 65 07/22/17 16:00 98.3 86 18 109/51 (70) 93 111/53 (72) 07/22/17 16:00 65 07/22/17 16:00 83 07/22/17 15:50 83 113/54 07/22/17 12:36 96 65 Laboratory Tests Test 07/23/17 05:05 07/23/17 09:12 White Blood Count 17.5 TH/MM3 17.6 TH/MM3 Red Blood Count 3.24 MIL/MM3 3.18 MIL/MM3 Hemoglobin 9.8 GM/DL 9.7 GM/DL Hematocrit 29.7 % 29.1 % Mean Corpuscular Volume 91.9 FL 91.5 FL Mean Corpuscular Hemoglobin 30.3 PG 30.6 PG Mean Corpuscular Hemoglobin Concent 33.0 % 33.5 % Red Cell Distribution Width 16.0 % 15.4 % Platelet Count 105 TH/MM3 111 TH/MM3 Mean Platelet Volume 8.2 FL 8.2 FL Laboratory Tests Test 07/23/17 03:50 07/23/17 09:12 Blood Urea Nitrogen 17 MG/DL 19 MG/DL Creatinine 0.76 MG/DL 0.70 MG/DL Random Glucose 97 MG/DL 138 MG/DL Total Protein 6.1 GM/DL Calcium Level 7.4 MG/DL 7.6 MG/DL Sodium Level 131 MEQ/L 132 MEQ/L Potassium Level 3.4 MEQ/L 3.1 MEQ/L Chloride Level 91 MEQ/L 91 MEQ/L Carbon Dioxide Level 32.7 MEQ/L 32.6 MEQ/L Anion Gap 7 MEQ/L 8 MEQ/L Estimat Glomerular Filtration Rate 80 ML/MIN 88 ML/MIN Protein Corrected Calcium 7.9 MG/DL IMAGING: Chest X-Ray 07/21/17 0000 Signed Impressions: Service Date/Time: June 10:37 - CONCLUSION: 1. Right subclavian central venous catheter now in place with the tip in the distal SVC. No evidence of pneumothorax. 2. No change in bilateral diffuse interstitial pulmonary opacity. Dominick Bone MD Chest X-Ray 07/21/17 0000 Signed Impressions: Service Date/Time: June 03:21 - CONCLUSION: Persistent unchanged bilateral interstitial infiltrates. Osmayn Higuera MD Chest X-Ray 07/20/17 0000 Signed Impressions: Service Date/Time: Thursday, July 20, 2017 14:10 - CONCLUSION: Minimal improvement the following intubation. ET tube in good position. aMssimo Franks MD FACR Chest X-Ray 07/20/17 0000 Signed Impressions: Service Date/Time: Thursday, July 20, 2017 13:05 - CONCLUSION: Significant increase in interstitial edema Massimo Franks MD FACR Chest X-Ray 07/16/17 0600 Signed Impressions: Service Date/Time: Sunday, July 16, 2017 04:27 - CONCLUSION: 1. Progressive diffuse bilateral interstitial and alveolar opacities in this patient with history of chronic interstitial and alveolar airspace disease. London Kapoor MD Chest X-Ray 07/11/171948 Signed Impressions: Service Date/Time: Tuesday, July 11, 2017 19:55 - CONCLUSION: Interstitial pulmonary edema. Osmany Stafford Jr., MD CT Angiography [id number]/11/171948 Signed Impressions: Service Date/Time: Tuesday, July 11, 2017 20:47 - CONCLUSION: 1. No pulmonary embolus. 2. Diffuse bilateral groundglass infiltrates without effusions. These infiltrates are similar to prior exam from 2016. Differential diagnostic considerations include alveolar proteinosis, infectious infiltrates , and pulmonary edema. 3. Mediastinal adenopathy is less pronounced from the prior study. 4. No pulmonary emboli. 5. Cirrhosis. Osmany Stafford Jr., MD PHYSICAL EXAMINATION: GENERAL: On the vent. sedated. HEENT: No icterus. Oropharynx mucosa moist. Neck: No adenopathy or swelling. The neck is supple. Lungs: Bilateral rhonchi. Heart: Regular S1-S2. No audible murmurs. Abdomen: Bowel sounds present, soft. Extremities: No clubbing, cyanosis or edema. SKIN: No rash. Warm and moist. NEURO: Non focal. IMPRESSION: 1. Bilateral lung interstitial ground glass infiltrates. Questionable infection versus inflammatory nature, versus drug toxicity. ?PJP. 2. Hypoxia. Acute respiratory failure. 3. Leukocytosis. 4. Elevated LFT's improved. RECOMMENDATIONS: 1. Continue azithromycin. 2. Continue Bactrim IV for PJP empiric treatment. 3. Continue Micafungin for possible fungal etiology. 4. Continue Pip/Tazo. 5. Monitor white cell count. 6. Monitor clinical response. 7. Obtain PJP stain on Bronch specimen. Cachorro Adams MD Jul 23, 2017 12:25
[2017-07-23] MEDS: MICAFUNGIN INJ 100 MG in SODIUM CHLORIDE 0.9% INJ 100 ML IV SCH (16:40)
[2017-07-23] MEDS ORDERED: ICU - MAGNESIUM OXIDE 400 MG TAB PO PRN (18:00)
[2017-07-23] MEDS ORDERED: ICU - MAGNESIUM SULFATE 4 GM/NS 100 ML IV PRN ×2 (18:00)
[2017-07-23] MEDS ORDERED: ICU - D/C ICU ELECTROLYTE ORDERS PRN (18:00)
[2017-07-23] MEDS ORDERED: ICU - POTASSIUM PHOSPHATE MONOBASIC 500 MG TAB PO PRN (18:00)
[2017-07-23] MEDS ORDERED: POTASSIUM CHLORIDE 25 MEQ EFFERVESCENT TAB PO PRN (18:00)
[2017-07-23] MEDS ORDERED: ICU - MAGNESIUM SULFATE 2 GM/NS 100 ML IV PRN ×2 (18:00)
[2017-07-23] MEDS ORDERED: ICU - SODIUM PHOSPHATE 30 MMOL/NS 250 ML IV PRN ×2 (18:00)
[2017-07-23] MEDS ORDERED: ICU - POTASSIUM CHLORIDE/AQUEOUS SOLN 20 MEQ/100 ML IVPB IV PRN (18:00)
[2017-07-23] MEDS ORDERED: ICU - CALL ORDERING PHYSICIAN PRN (18:00)
[2017-07-23] MEDS: ICU - POTASSIUM CHLORIDE/AQUEOUS SOLN 40 MEQ/100 ML IVPB IV PRN ×2 (18:05→22:16)
--- NOTE | 2017-07-23 18:05 | PD.PROCEDR ---
Procedure Note Procedure Procedure: Diagnostic Fiberoptic Bronchoscopy Diagnosis: Acute hypoxic respiratory failure Indications: 51-year-old female with acute on subacute hypoxic respiratory failure with bilateral pulmonary infiltrates, cultures are negative. Pulmonary medicine requests quantitative BALs to evaluate bilateral interstitial disease Consent: Obtained Anesthesia: Fentanyl, propofol, Versed, Nimbex Description of the Procedure: The patient was sedated and mechanically ventilated. The patient was placed on 100% FIO2 and a volume control mode of ventilation. The fiberoptic bronchoscopy was inserted via 7.5 oral endotracheal tube. The trachea, right and left mainstem bronchi, and sub- segmental bronchi were evaluated. The endobronchial anatomy was normal. Findings: Moderate amount of erythema in the right middle lobe bronchus. Otherwise trace to minimal secretions which were clear. BAL samples: Right lower lobe 2, left lower lobe. Of note, serial BALs were obtained from the right lower lobe to evaluate for possible diffuse alveolar hemorrhage. This serial BALs did not show any increase in hemorrhagic consistency. The patient tolerated the procedure well with no hemodynamic instability or hypoxia. There were no immediate complications noted. At the conclusion of the procedure, the patient was placed back on their pre-procedure ventilatory settings. There was minimal EBL. A chest x-ray has been ordered. I personally performed the procedure. Amado Linares MD Jul 23, 2017 18:05
[2017-07-23] MEDS: REMOVE OLD LIDOCAINE PATCH T-DERMAL SCH (21:00)
--- NOTE | 2017-07-23 21:59 | RADRPT ---
EXAM DATE/TIME: 07/23/2017 21:43 [facility] COMPARISON: CT BRAIN W/O CONTRAST, January 22, 2016, 10:26. INDICATIONS : Altered mental status. RADIATION DOSE: 56.35 CTDIvol (mGy) MEDICAL HISTORY : Cardiovascular disease. Hypertension. Hepatitis C.GERD SURGICAL HISTORY : None. ENCOUNTER: Initial ACUITY: 1 day PAIN SCALE: Non-responsive LOCATION: cranial TECHNIQUE: Multiple contiguous axial images were obtained of the head. Using automated exposure control and adj ustment of the mA and/or kV according to patient size, radiation dose was kept as low as reasonably a chievable to obtain optimal diagnostic quality images. DICOM format image data is available electro nically for review and comparison. FINDINGS: CEREBRUM: The ventricles are normal for age. No evidence of midline shift, mass lesion, hemorrhage or acute in farction. No extra-axial fluid collections are seen. Chronic low attenuation in the periventricular white matter. POSTERIOR FOSSA: The cerebellum and brainstem are intact. The 4th ventricle is midline. The cerebellopontine angle i s unremarkable. EXTRACRANIAL: There is opacification of the bilateral mastoid air cells. Visualized paranasal sinuses are clear. SKULL: The calvaria is intact. No evidence of skull fracture. CONCLUSION: 1. No acute intracranial abnormality. 2. Chronic white matter changes. 3. Apparent bilateral mastoiditis in the proper clinical setting. Lenny Castro MD on July 23, 2017 at 21:56 Board Certified Radiologist. This report was verified electronically.
[2017-07-23] MEDS: AZITHROMYCIN INJ 500 MG in SODIUM CHLOR 0.9% 250 ML INJ 250 ML IV SCH (23:16)
[2017-07-24] VITALS (18 sets, daily range): BP systolic 95–118; BP diastolic 49–58; PULSE 72–94; RESP 12–29; TEMP 98.4–101.8; O2SAT 92–99
[2017-07-24] MEDS: RESP: ALBUTEROL 2.5 MG/IPRATROPIUM 0.5 MG NEB (SCH) NEB ×6 (00:08→20:19)
[2017-07-24] MEDS: FUROSEMIDE 40 MG/4 ML VIAL IV PUSH SCH ×4 (00:44→17:26)
[2017-07-24] MEDS: PIPERACIL-TAZO 4.5 GM PREMIX 100 ML IV SCH ×4 (02:08→19:46)
[2017-07-24] MEDS: ALBUMIN 25% INJ 50 ML IV SCH ×2 (02:08→15:52)
[2017-07-24] MEDS: TRIMETHOPRIM IV SCH ×8 (02:56→20:34)
[2017-07-24] MEDS: SULFAMETHOX IV SCH ×8 (02:56→20:34)
[2017-07-24] MEDS: WATE IV SCH ×4 (02:56→08:40)
[2017-07-24] MEDS: DEXTROSE 5% IV SCH ×8 (02:56→20:34)
[2017-07-24] MEDS: MIDAZOLAM 100 MG/100 ML INJ 100 ML IV PRN ×2 (02:56→15:52)
[2017-07-24] MEDS: fentaNYL DRIP 250 ML IV PRN ×2 (02:58→14:35)
[2017-07-24 06:01] LABS: HEMOGLOBIN 9.6 GM/DL (11.6-15.3); MEAN CELL VOLUME 94.8 FL (80.0-100.0); MEAN CORPUSCULAR HEMOGLOBIN 30.1 PG (27.0-34.0); MEAN CORPUSCULAR HGB CONC 31.8 % (32.0-36.0); MEAN PLATELET VOLUME 9.3 FL (7.0-11.0); PLATELET COUNT 109 TH/MM3 (150-450); RED BLOOD COUNT 3.17 MIL/MM3 (4.00-5.30); RED CELL DISTRIBUTION WIDTH 15.9 % (11.6-17.2); WHITE BLOOD COUNT 18.9 TH/MM3 (4.0-11.0)
[2017-07-24 06:20] LABS: BICARBONATE 29.2 MEQ/L (21.0-32.0); CALCIUM 7.2 MG/DL (8.5-10.1); CREATININE 0.77 MG/DL (0.50-1.00)
[2017-07-24] MEDS: methylPREDNISolone SOD SUCC 40 MG/1 ML VIAL IV PUSH SCH ×3 (06:20→22:40)
[2017-07-24] MEDS: CISATRACURIUM INJ 100 MG in SODIUM CHLOR 0.9% 250 ML INJ 240 ML IV PRN (06:21)
[2017-07-24 06:33] LABS: CALCIUM-PROTEIN CORRECTED 7.6 MG/DL (8.5-10.1); TOTAL PROTEIN 6.4 GM/DL (6.4-8.2)
[2017-07-24] MEDS: CHLORHEXIDINE 0.12% (ORAL KIT) 15 ML CUP MT SCH ×2 (08:00→19:48)
[2017-07-24] MEDS: LACTOBACILLUS ACIDOPHILUS TAB PO SCH ×3 (08:41→17:27)
[2017-07-24] MEDS: SODIUM CHLORIDE 0.9% FLUSH 10 ML FLUSH IV FLUSH SCH ×2 (08:41→19:47)
[2017-07-24] MEDS: AMIODARONE 200 MG TAB PO SCH ×3 (08:41→21:00)
[2017-07-24] MEDS: FLUoxetine HCL 20 MG CAP PO SCH (08:42)
[2017-07-24] MEDS: ENOXAPARIN SODIUM 40 MG/0.4 ML SYRINGE SQ SCH (08:42)
[2017-07-24] MEDS: ASPIRIN 325 MG TAB PO SCH (08:43)
[2017-07-24] MEDS: DEXTROAMPHETAMINE/AMPHETAMINE 30 MG TAB PO SCH (08:43)
[2017-07-24] MEDS: BUDESONIDE-FORMOTEROL 80/4.5 MCG INHALER INH SCH ×2 (08:44→19:47)
[2017-07-24] MEDS: LIDOCAINE HCL 5% PATCH T-DERMAL SCH (08:44)
[2017-07-24] MEDS: FAMOTIDINE 20 MG/2 ML VIAL IV PUSH SCH (08:47)
[2017-07-24] MEDS: TOPIRAMATE 25 MG TAB PO SCH ×3 (08:47→21:00)
[2017-07-24] MEDS: EPOPROSTENOL NEB SOLUTION 50 NG/KG/MIN 100 ML NEB SCH ×4 (08:55→19:30)
[2017-07-24] MEDS ORDERED: MAGNESIUM CITRATE SOLN 300 ML BTL PO ONE (11:00)
[2017-07-24] MEDS ORDERED: CHLOROTHIAZIDE SOD 500 MG VIAL IV ONE (11:00)
--- NOTE | 2017-07-24 11:00 | HHI.CCPN ---
Subjective Remarks/Hospital Course Patient is a 51-year-old female with past medical history significant for congestive heart failure with preserved ejection fraction, [id number] MR, moderate mitral stenosis, COPD, history of cirrhosis, who was admitted to the hospitalist service on 07/11/17 with respiratory symptoms/pneumonia. Chest x- ray on admission showed pulmonary edema. CT chest also showed diffuse ground- glass infiltrates consistent with edema. She placed on BiPap at 50% FIO2, and was admitted to the hospitalist service. Pulmonology also was consulted and initially patient received, Solu-Medrol 40 mg IV, Rocephin and Zithromax. According to Dr. Laws initially patient was placed on IV Lasix with some improvement in symptoms, and patient's Lasix was changed to by mouth a few days ago. Patient had a previous CT of the chest which had showed groundglass opacities in 2016. It is possible that patient has underlying interstitial lung disease. Over the last 2 days patient had been having increasing shortness of breath and oxygen requirement. Placed on BiPAP yesterday with FiO2 up to 85% , today patient was still hypoxemic on 100% oxygen on BiPAP and was moved to the ICU. I reviewed chest x-rays today which showed extensive bilateral interstitial infiltrates, worse than yesterday. After brief discussion with patient, I intubated her and placed on mechanical ventilation. I will start patient on IV Lasix 40 mg every 8 hours with IV albumin for aggressive diuresis. Follow clinically. follow chest x-ray. Repeat panculture. Continue current antibiotics Bactrim and azithromycin and add Zosyn. ON Micafungin per ID. Echo 07/12/17: EF 50-55%, [id number] MR, Moderate mitral valve stenosis. The estimated pulmonary arterial pressure is 43 mmHg. 07/21: Remains critically ill, severely hypoxemic on 12 of PEEP and 100% FiO2. Peak pressures on the vent occasionally 55-60 indicating severe noncompliant lung. Detached from vent for a few seconds for air trapping. Neuromuscular paralysis started with Nimbex infusion. Currently on Siddhartha-Synephrine 60 mcg/m. Place central line and art line. Due to chronic underlying interstitial infiltrates I did not think patient will benefit from proning. Change Bactrim to IV for PJP coverage, send sputum for silver methylamine staining 07/22: required neuromuscular blockade overnight to maintain oxygen saturation. remains severely hypoxemic. no improvements. on low-dose vasopressors for borderline hypoxemia. bilateral pulmonary infiltrates persist. 07/23: fio2 down to 50%. plan for bronch today. remains on maximal vent settings and hypoxia. hgb dropped with platelets and sodium- will redraw to ensure that these are not dilutional. will hold DVT prophylaxis for now. 07/24: some improvements in fio2. bronch studies pending. hgb stable. sodium continues to drop. IV bactrim in 2L/day d5w (must be mixed in free water), which is likely source of hyponatremia. have discussed with pharmacy and they can mix it in 255mL q6h (1L/day) but that is the best they can do, and it still must be mixed in free water. minimal diuresis able given high volume requirements of bactrim. remains severely hypoxic. CXR with persistence of severe bilateral infiltrates. Objective Vital Signs Date Time Temp Pulse Resp B/P (MAP) Pulse Ox O2 Delivery O2 Flow Rate FiO2 07/24/17 10:00 75 07/24/17 08:18 97 60 07/24/17 08:00 98.5 12 110/55 (73) 112/54 (73) 07/24/17 04:18 Ventilator Intake and Output 07/24/17 07/24/17 07/24/17 07:59 15:59 23:59 Intake Total 2244 ml Output Total 1900 ml Balance 344 ml Result Diagram: 07/24/17 0350 07/24/17 0350 Other Results Laboratory Tests Test 07/23/17 12:00 Blood Gas Puncture Site ART LINE Blood Gas Patient Temperature 98.6 Blood Gas HCO3 27 mmol/L (22-26) Blood Gas Base Excess 2.4 mmol/L (-2-2) Blood Gas Oxygen Saturation 95 % (90-100) Arterial Blood pH 7.36 (7.380-7.420) Arterial Blood Partial Pressure CO2 49 mmHg (38-42) Arterial Blood Partial Pressure O2 94 mmHg (61-120) Arterial Blood Oxygen Content 12.5 Vol % (12.0-20.0) Arterial Blood Carboxyhemoglobin 1.2 % (0-4) Arterial Blood Methemoglobin 1.4 % (0-2) Blood Gas Hemoglobin 9.3 G/DL (12.0-16.0) Oxygen Delivery Device VENTILATOR Blood Gas Ventilator Setting APRV/BILEVEL Blood Gas Inspired Oxygen 80 % Imaging Chest x-ray shows severe extensive bilateral interstitial and alveolar infiltrates on my review Objective Remarks GENERAL: 51-year-old female who is lying in bed, intubated, sedated, paralyzed, critically ill. SKIN: Warm and dry. HEAD: Atraumatic. Normocephalic. EYES: Pupils equal and round. ENT: Orotracheally intubated NECK: Trachea midline. No JVD. CARDIOVASCULAR: normal rate, regular rhythm. sinus by tele. RESPIRATORY: Diminished breath sounds with minimal bilateral wheezes and crackles. APRV 33/0 5:1 i:e, fio2 50%. GASTROINTESTINAL: Abdomen soft, non-tender, nondistended. MUSCULOSKELETAL: Extremities with trace lower extremity edema. No obvious deformities. NEUROLOGICAL: Intubated sedated. RASS -5. on neuromuscular blockade. A/P Assessment and Plan A/P Assessment and Plan: 51yF with subacute hypoxic respiratory failure with severe bilateral infiltrates now with acute worsening and severe ARDS and hypoxic respiratory failure requiring maximal ventilatory support. will wean neuromuscular blockade today. keep flolan and APRV settings. f/u bronch cultures. As soon as we can rule out PJP or convert to PO bactrim we should pursue this due to high volume requirements: will discuss with pulm and ID. remains critically ill with minimal meaningful improvements in severe hypoxemia. off pathway. Neuro/Psych: ADHD Bipolar disorder Depression/Anxiety disorder Propofol, fentanyl, versed for sedation. goal RASS -2/-3 d/c nimbex. No sedation vacation until hypoxemia and improved CV: Congestive heart failure most likely diastolic Grpx-vw-[id number] mitral regurgitation, moderate mitral stenosis V. tach status post AICD/pacemaker History of hypertension Lasix 40 mg IV every 6 hours with IV albumin Respiratory failure from a combination of CHF and COPD and probable pneumonia Currently holding lisinopril due to aggressive diuresis Continue amiodarone, metoprolol and aspirin Resp: Acute hypoxemic respiratory failure Severe ARDS Pneumonia COPD - 2 L O2 requiring at home Probable underlying interstitial lung disease Titrate FiO2 to keep saturations more than 88-90% Scheduled bronchodilator therapy every 4 hours and as needed. Ventilator bundle. IV solumedrol Neuromuscular blockage due to severe ARDS Repeat sputum culture. serum LDH 827. Check for PJP Dr. Laws/pulmonology is following bronch 07/24. continue inhaled flolan d/c nimbex. no SBT given hypoxemia. agree with Dr. Galvez assessment that she is not an ideal proning candidate due to chronic/subacute nature of her underlying disease process. GI: Hepatitis C EtOH/cirrhosis Hyponatremia TF. Famotidine IV BID for GI prophylaxis hyponatremia secondary to bactrim use. send urine na, serum and urine osms. unable to change formulation of bactrim. may need to use hypertonic saline if sodium drops too low. continue to trend. : Le has been placed for accurate I's and O's in a critically ill patient Lasix as above Endo: Electrolyte replacement per protocol Heme: Anemia Thrombocytopenia Monitor CBC CMP possibly dilutional- redraw. trend hgb 4t score of 2: low probability for HIT. recheck. ID: Severe sepsis Pneumonia Repeat panculture, ID Dr. Adams is following Continue azithromycin, Zosyn. Change Bactrim to IV at appropriate PJP dose. D/W Dr. Adams Serum LDH 827, send sputum for PJP bronch 07/24. Access 07/21: central line 07/21: radial art line Prophylaxis GI - famotidine DVT - SCD/Lovenox subcutaneous Critical Care: The total critical care time was 47 minutes. Time to perform other separately billable procedures was not included in the critical care time. Amado Linares MD Jul 24, 2017 11:00
--- NOTE | 2017-07-24 11:33 | RADRPT ---
EXAM DATE/TIME: 07/24/2017 10:30 [facility] COMPARISON: CHEST SINGLE AP, July 21, 2017, 10:37. INDICATIONS : Respiratory failure. MEDICAL HISTORY : Cardiovascular disease. Hypertension. Hepatitis C.GERD SURGICAL HISTORY : Pacemaker. ENCOUNTER: Subsequent ACUITY: 4 - 6 days PAIN SCORE: Non-responsive. LOCATION: Bilateral chest FINDINGS: Stable appearance of endotracheal tube with the tip at the level of the clavicles. Stable right sided central line with the tip overlying the distal SVC. The lungs demonstrate a stable pattern of hazy b ilateral airspace opacities, right greater than left. Heart size appears normal. Pulmonary vasculatur e appears grossly normal in caliber and is largely obscured by air space opacities. Single lead pacer CONCLUSION: Given the normal size of the heart and vasculature findings are consistent with a diffuse infectious process and non-cardiogenic pulmonary edema. This appearance is stable. Tracey Fulton MD on July 24, 2017 at 11:23 Board Certified Radiologist. This report was verified electronically.
[2017-07-24] MEDS: POLYETHYLENE GLYCOL 17 GM PKG PO SCH ×2 (11:42→21:00)
[2017-07-24] MEDS: DOCUSATE SODIUM 50 MG/SENNA 8.6 MG TAB PO SCH ×3 (11:42→21:00)
[2017-07-24] MEDS: LACTULOSE SYRUP 20 GM/30 ML CUP PO SCH ×2 (11:42→21:00)
--- NOTE | 2017-07-24 12:20 | HHI.IDPN ---
Note Infectious Disease Note Patient on the ventilator. FIo2 down to 50%. Sedated and unresponsive. Afebrile. PAST MEDICAL HISTORY: 1. Ventricular tachycardia. 2. Cirrhosis of the liver. 3. Hepatitis C. 4. Anxiety/depression. 5. COPD. 6. Hypertension. 7. Gastroesophageal reflux disease. 8. Chronic back pain. 9. History of AICD. 10. Fibromyalgia. 11. Bipolar disorder. ALLERGIES CODEINE. MEDICATIONS: 1. Azithromycin. 2. Bactrim. 3. Micafungin. 4. Zosyn Current Medications Medications (Trade) Dose Ordered Sig/Jose Route PRN Reason Start Time Stop Time Status Last Admin Dose Admin Sodium Chloride (NS Flush) 2 ml UNSCH PRN IV FLUSH FLUSH AFTER USING IV ACCESS 07/11/17 22:00 Sodium Chloride (NS Flush) 2 ml BID IV FLUSH 07/12/17 09:00 07/24/17 08:41 Naloxone HCl (Narcan Inj) 0.4 mg UNSCH PRN IV PUSH SEE LABEL COMMENTS 07/11/17 22:00 Albuterol/ Ipratropium (Duoneb Neb) 1 ampule Q2HR NEB PRN NEB wheezing 07/11/17 22:00 Amiodarone HCl (Cordarone) 400 mg Q12HR PO 07/12/17 09:00 07/24/17 08:41 Amphetamine/ Dextroamphetamine (Adderall) 30 mg DAILY PO 07/12/17 09:00 07/22/17 08:15 Aspirin (Aspirin) 325 mg DAILY PO 07/12/17 09:00 07/24/17 08:43 Budesonide/ Formoterol Fumarate (Symbicort 80-4.5 Mcg Inh) 2 puff Q12HR INH 07/12/17 09:00 07/20/17 08:46 Lisinopril (Prinivil) 5 mg DAILY PO 07/12/17 09:00 Future Hold 07/20/17 08:47 Metoprolol Tartrate (Lopressor) 25 mg DAILY PO 07/12/17 09:00 Future Hold 07/19/17 09:02 Topiramate (Topamax) 50 mg BID PO 07/12/17 09:00 07/24/17 08:47 Fluoxetine HCl (PROzac) 80 mg DAILY PO 07/12/17 09:00 07/24/17 08:42 Oxycodone/ Acetaminophen (Percocet 5-325 Mg) 1 tab Q6H PRN PO Pain 3 to 6 07/12/17 11:30 Oxycodone/ Acetaminophen (Percocet 10-325 Mg) 1 tab Q6H PRN PO Pain 7 to 10 07/12/17 11:30 07/20/17 08:50 Lactobacillus Acidophilus (Lactinex) 1 tab TID PO 07/12/17 13:00 07/24/17 11:42 Azithromycin 500 mg/Sodium Chloride 250 ml @ 250 mls/hr Q24H IV 07/12/17 23:00 07/23/17 23:16 Micafungin Sodium 100 mg/Sodium Chloride 100 ml @ 100 mls/hr Q24H IV 07/12/17 17:00 07/23/17 16:40 Enoxaparin Sodium (Lovenox Inj) 40 mg Q24H SQ 07/14/17 09:00 07/24/17 08:42 Methylprednisolone Sodium Succinate (SoluMEDROL INJ) 40 mg Q8HR IV PUSH 07/19/17 14:00 07/24/17 06:20 Chlorhexidine Gluconate (Peridex 0.12% Liq) 15 ml BID@08,20 MT 07/20/17 20:00 07/24/17 08:00 Propofol 100 ml @ 1.77 mls/hr TITRATE PRN IV SEDATION 07/20/17 15:00 07/20/17 15:02 Piperacillin Sod/ Tazobactam Sod 100 ml @ 200 mls/hr Q6H IV 07/20/17 15:00 07/24/17 08:40 Albumin Human 50 ml @ 60 mls/hr Q12H IV 07/20/17 15:00 07/24/17 02:08 Famotidine (Pepcid Inj) 20 mg Q12HR IV PUSH 07/20/17 21:00 07/24/17 08:47 Fentanyl Citrate 250 ml @ 5 mls/hr TITRATE PRN IV SEDATION 07/20/17 15:30 07/24/17 02:58 Midazolam HCl 100 ml @ 2 mls/hr TITRATE PRN IV SEDATION 07/20/17 17:45 07/24/17 02:56 Terbutaline Sulfate (Brethine Inj) 1 mg UNSCH PRN SQ For Extravasation 07/20/17 17:45 Phenylephrine HCl 80 mg/Dextrose 500 ml @ 15 mls/hr TITRATE PRN IV Blood pressure Management 07/20/17 17:45 07/23/17 05:45 Albuterol Sulfate (Albuterol Concentrated Neb) 2.5 mg [employer] NEB 07/20/17 19:15 07/24/17 19:14 Epoprostenol Sodium 62.5 ml/ Sodium Chloride 100 ml @ 5 mls/hr Q8H NEB 07/22/17 19:30 07/24/17 08:55 Furosemide (Lasix Inj) 40 mg Q6H IV PUSH 07/23/17 13:00 07/24/17 11:43 Miscellaneous Information D/C ICU ELECTROLYTE ORDERS... UNSCH PRN .XX SEE DOSE INSTRUCTIONS 07/23/17 18:00 Miscellaneous Information ICU - CALL ORDERING PHYSIC... UNSCH PRN .XX SEE DOSE INSTRUCTIONS 07/23/17 18:00 Potassium Chloride 100 ml @ 25 mls/hr UNSCH PRN IV ELECTROLYTE REPLACEMENT 07/23/17 18:00 07/23/17 22:16 Potassium Bicarb/ Potassium Chloride (K-Lyte Cl Eff) 50 meq UNSCH PRN PO ELECTROLYTE REPLACEMENT 07/23/17 18:00 Potassium Chloride 100 ml @ 50 mls/hr UNSCH PRN IV ELECTROLYTE REPLACEMENT 07/23/17 18:00 Magnesium Sulfate 4 gm/Sodium Chloride 108 ml @ 54 mls/hr UNSCH PRN IV ELECTROLYTE REPLACEMENT 07/23/17 18:00 Magnesium Sulfate 2 gm/Sodium Chloride 104 ml @ 52 mls/hr UNSCH PRN IV ELECTROLYTE REPLACEMENT 07/23/17 18:00 Magnesium Oxide (Mag-Ox) 800 mg UNSCH PRN PO ELECTROLYTE REPLACEMENT 07/23/17 18:00 Sodium Phosphate 30 mmol/Sodium Chloride 260 ml @ 43.333 mls/ hr UNSCH PRN IV ELECTROLYTE REPLACEMENT 07/23/17 18:00 Potassium Phosphate (K-Phos) 2,000 mg UNSCH PRN PO ELECTROLYTE REPLACEMENT 07/23/17 18:00 Potassium Phosphate 30 mmol/ Sodium Chloride 260 ml @ 43.333 mls/ hr UNSCH PRN IV ELECTROLYTE REPLACEMENT 07/23/17 18:00 Albuterol/ Ipratropium (Duoneb Neb) 1 ampule Q4HR NEB NEB 1/28/18 12:00 07/24/17 11:27 Bisacodyl (Dulcolax Supp) 10 mg DAILY RECTAL 07/25/17 09:00 Polyethylene Glycol (Miralax) 17 gm BID PO 07/24/17 10:45 07/24/17 11:42 Lactulose (Lactulose Liq) 30 ml BID PO 07/24/17 10:45 07/24/17 11:42 Senna/Docusate Sodium (Cassia-Colace) 1 tab BID PO 07/24/17 10:45 07/24/17 11:42 Trimethoprim/ Sulfamethoxazole 272 mg/Dextrose 300 ml @ 300 mls/hr Q6H IV 07/24/17 14:00 OBJECTIVE: Vital Signs Date Time Temp Pulse Resp B/P (MAP) Pulse Ox O2 Delivery O2 Flow Rate FiO2 07/24/17 11:30 96 50 07/24/17 10:00 75 07/24/17 08:18 97 60 07/24/17 08:00 75 07/24/17 08:00 98.5 80 12 110/55 (73) 99 112/54 (73) 07/24/17 08:00 80 07/24/17 06:00 82 07/24/17 04:18 97 Ventilator 07/24/17 04:13 97 75 07/24/17 04:00 77 07/24/17 04:00 98.8 77 12 110/58 (75) 98 110/49 (69) 07/24/17 04:00 80 07/24/17 02:58 74 111/48 07/24/17 02:00 72 07/24/17 00:11 99 75 07/24/17 00:00 80 07/24/17 00:00 72 07/24/17 00:00 99.5 72 13 95/52 (66) 98 99/50 (66) 07/23/17 22:03 100 75 07/23/17 22:00 79 07/23/17 21:00 68 104/47 07/23/17 20:45 98 Ventilator 07/23/17 20:35 98 75 07/23/17 20:00 98.0 70 15 95/51 (66) 98 103/49 (67) 07/23/17 20:00 80 07/23/17 20:00 70 103/49 07/23/17 20:00 70 07/23/17 18:00 71 07/23/17 16:00 80 07/23/17 16:00 98.6 65 18 100/55 (70) 97 111/49 (69) 07/23/17 16:00 65 07/23/17 15:25 98 75 07/23/17 14:00 66 07/23/17 12:29 97 80 Laboratory Tests Test 07/23/17 05:05 07/23/17 09:12 07/24/17 03:50 White Blood Count 17.5 TH/MM3 17.6 TH/MM3 18.9 TH/MM3 Red Blood Count 3.24 MIL/MM3 3.18 MIL/MM3 3.17 MIL/MM3 Hemoglobin 9.8 GM/DL 9.7 GM/DL 9.6 GM/DL Hematocrit 29.7 % 29.1 % 30.0 % Mean Corpuscular Volume 91.9 FL 91.5 FL 94.8 FL Mean Corpuscular Hemoglobin 30.3 PG 30.6 PG 30.1 PG Mean Corpuscular Hemoglobin Concent 33.0 % 33.5 % 31.8 % Red Cell Distribution Width 16.0 % 15.4 % 15.9 % Platelet Count 105 TH/MM3 111 TH/MM3 109 TH/MM3 Mean Platelet Volume 8.2 FL 8.2 FL 9.3 FL Laboratory Tests Test 07/23/17 03:50 07/23/17 09:12 07/24/17 03:50 Blood Urea Nitrogen 17 MG/DL 19 MG/DL 24 MG/DL Creatinine 0.76 MG/DL 0.70 MG/DL 0.77 MG/DL Random Glucose 97 MG/DL 138 MG/DL 183 MG/DL Total Protein 6.1 GM/DL 6.4 GM/DL Calcium Level 7.4 MG/DL 7.6 MG/DL 7.2 MG/DL Sodium Level 131 MEQ/L 132 MEQ/L 128 MEQ/L Potassium Level 3.4 MEQ/L 3.1 MEQ/L 3.6 MEQ/L Chloride Level 91 MEQ/L 91 MEQ/L 93 MEQ/L Carbon Dioxide Level 32.7 MEQ/L 32.6 MEQ/L 29.2 MEQ/L Anion Gap 7 MEQ/L 8 MEQ/L 6 MEQ/L Estimat Glomerular Filtration Rate 80 ML/MIN 88 ML/MIN 79 ML/MIN Protein Corrected Calcium 7.9 MG/DL 7.6 MG/DL Microbiology Date/Time Source Procedure Growth Status 07/23/17 10:14 Bronchial Washings Bronchial Fungal Smear - Final NO FUNGAL ELEMENTS SEEN. Resulted 07/23/17 10:14 Bronchial Washings Bronchial Fungal Culture Pending Resulted 07/23/17 10:14 Bronchial Washings Bronchial Acid Fast Stain Pending Received 07/23/17 10:14 Bronchial Washings Bronchial Mycobacterial Culture Pending Received 07/23/17 10:14 Bronchial Washings Bronchial Acid Fast Stain Pending Received 07/23/17 10:14 Bronchial Washings Bronchial Mycobacterial Culture Pending Received 07/23/17 10:14 Bronchial Washings Bronchial Fungal Smear - Final NO FUNGAL ELEMENTS SEEN. Resulted 07/23/17 10:14 Bronchial Washings Bronchial Fungal Culture Pending Resulted 07/23/17 10:14 Bronchial Washings Right Lower Lobe Gram Stain - Final Resulted 07/23/17 10:14 Bronchial Washings Right Lower Lobe Bronchial Culture Pending Resulted 07/23/17 10:14 Bronchial Washings Left Lower Lobe Gram Stain - Final Resulted 07/23/17 10:14 Bronchial Washings Left Lower Lobe Bronchial Culture Pending Resulted IMAGING: Chest X-Ray 07/24/17 0000 Signed Impressions: Service Date/Time: Monday, July 24, 2017 10:30 - CONCLUSION: Given the normal size of the heart and vasculature findings are consistent with a diffuse infectious process and non-cardiogenic pulmonary edema. This appearance is stable. Tracey Fulton MD Chest X-Ray 07/21/17 0000 Signed Impressions: Service Date/Time: June 10:37 - CONCLUSION: 1. Right subclavian central venous catheter now in place with the tip in the distal SVC. No evidence of pneumothorax. 2. No change in bilateral diffuse interstitial pulmonary opacity. Dominick Bone MD Chest X-Ray 07/21/17 0000 Signed Impressions: Service Date/Time: June 03:21 - CONCLUSION: Persistent unchanged bilateral interstitial infiltrates. Osmany Higuera MD Chest X-Ray 07/20/17 0000 Signed Impressions: Service Date/Time: Thursday, July 20, 2017 14:10 - CONCLUSION: Minimal improvement the following intubation. ET tube in good position. Massimo Franks MD FACR Chest X-Ray 07/20/17 0000 Signed Impressions: Service Date/Time: Thursday, July 20, 2017 13:05 - CONCLUSION: Significant increase in interstitial edema Massimo Franks MD [facility] Chest X-Ray [id number]/11/[id number] Signed Impressions: Service Date/Time: Tuesday, July 11, 2017 19:55 - CONCLUSION: Interstitial pulmonary edema. Osmany Stafford Jr., MD CT Angiography [id number]/11/[id number] Signed Impressions: Service Date/Time: Tuesday, July 11, 2017 20:47 - CONCLUSION: 1. No pulmonary embolus. 2. Diffuse bilateral groundglass infiltrates without effusions. These infiltrates are similar to prior exam from 2016. Differential diagnostic considerations include alveolar proteinosis, infectious infiltrates , and pulmonary edema. 3. Mediastinal adenopathy is less pronounced from the prior study. 4. No pulmonary emboli. 5. Cirrhosis. Osmany Stafford Jr., MD PHYSICAL EXAMINATION: GENERAL: On the vent. sedated. HEENT: No icterus. Oropharynx mucosa moist. Neck: No adenopathy or swelling. Lungs: Bilateral rhonchi persist. Heart: Regular S1-S2. No audible murmurs. Abdomen: Bowel sounds present, soft. Extremities: No clubbing, cyanosis or edema. SKIN: No rash. Warm and moist. NEURO: Non focal. IMPRESSION: 1. Bilateral lung interstitial ground glass infiltrates. Questionable infection versus inflammatory nature, versus drug toxicity. ?PJP. CXR looks improved. 2. Hypoxia. Acute respiratory failure. 3. Leukocytosis. RECOMMENDATIONS: 1. Continue azithromycin. 2. Continue Bactrim IV for PJP empiric treatment. 3. Stop Micafungin. No fungal elements seen on gram stain. 4. Continue Pip/Tazo. 5. Monitor white cell count. 6. Monitor clinical response. 7. Follow PJP stain on Bronch specimen. Cachorro Adams MD Jul 24, 2017 12:20
[2017-07-24 13:18] LABS: SODIUM,RANDOM URINE 115 MEQ/L
[2017-07-24 13:22] LABS: OSMOLALITY,URINE 303 MOSM/KG (300-1300)
[2017-07-24] MEDS: WATER IV SCH ×4 (13:54→20:34)
[2017-07-24] MEDS ORDERED: CALCIUM GLUCONATE INJ 2 GM in SODIUM CHLORIDE 0.9% INJ 100 ML IV ONE (17:00)
[2017-07-24] MEDS ORDERED: PANTOPRAZOLE SODIUM 40 MG VIAL IV PUSH SCH (20:00)
[2017-07-24] MEDS ORDERED: BISACODYL 10 MG SUPP RECTAL ONE (21:30)
[2017-07-24] MEDS: ICU - POTASSIUM CHLORIDE/AQUEOUS SOLN 40 MEQ/100 ML IVPB IV PRN (21:43)
[2017-07-24 21:45] LABS: HEMATOCRIT 28.7 % (35.0-46.0); HEMOGLOBIN 9.1 GM/DL (11.6-15.3)
[2017-07-24] MEDS ORDERED: POTASSIUM CHLOR 40 MEQ PREMIX 100 ML IV ONE (21:45)
[2017-07-24 21:53] LABS: BILIRUBIN, URINE NEG (NEG); BLOOD, URINE NEG (NEG); GLUCOSE,URINE NEG (NEG); HYALINE CAST, URINE 10 /lpf (RARE); KETONE, URINE NEG (NEG); MUCUS URINE FEW /lpf (OCC); NITRITE,URINE NEG (NEG); SQUAMOUS EPITHELIAL CELL URINE <1 /hpf (0-5); URINE COLOR YELLOW (YELLW/STRAW); URINE LEUKOCYTE ESTERASE NEG (NEG)
[2017-07-24] MEDS ORDERED: AMIODARONE INJ 450 MG in SODIUM CHLOR 0.9% (EXCEL) INJ 241 ML IV PRN (21:58)
[2017-07-24 22:31] LABS: BICARBONATE 27.6 MEQ/L (21.0-32.0); CALCIUM 8.5 MG/DL (8.5-10.1); CREATININE 1.44 MG/DL (0.50-1.00); MAGNESIUM 4.5 MG/DL (1.5-2.5); PHOSPHORUS 1.4 MG/DL (2.5-4.9); TROPONIN I 0.02 NG/ML (0.02-0.05)
[2017-07-24] MEDS: AZITHROMYCIN INJ 500 MG in SODIUM CHLOR 0.9% 250 ML INJ 250 ML IV SCH (22:40)
[2017-07-24] MEDS ORDERED: VASOPRESSIN INJ 40 UNITS in DEXTROSE 5% IN WATER 100ML INJ 98 ML IV SCH ×2 (23:12)
[2017-07-24] MEDS ORDERED: CISATRACURIUM INJ 100 MG in SODIUM CHLOR 0.9% 250 ML INJ 250 ML IV PRN (23:15)
[2017-07-24] MEDS ORDERED: Vancomycin Consult Pharmacy 1 EA OTHER SCH (23:15)
[2017-07-24] MEDS ORDERED: POTASSIUM PHOSPHATE INJ 30 MMOL in SODIUM CHLOR 0.9% 250 ML INJ 250 ML IV ONE (23:15)
[2017-07-24] MEDS ORDERED: CISATRACURIUM BESYLATE 20 MG/10 ML VIAL IV PUSH ONE (23:15)
[2017-07-25] VITALS: BP_SYST 69; BP_SYST 89; BP_DIAS 33; BP_DIAS 43; PULSE 69; RESP 23; TEMP 97.8; O2SAT 94
[2017-07-25] MEDS ORDERED: VANCOMYCIN INJ 1,500 MG in SODIUM CHLORID 0.9% 500 ML INJ 500 ML IV ONE (00:01)
[2017-07-25] MEDS: ICU - POTASSIUM PHOSPHATE 30 MMOL/NS 250 ML IV PRN ×4 (00:11→02:15)
[2017-07-25] MEDS ORDERED: HYDROCORTISONE SOD SUCCINATE 100 MG VIAL IV PUSH SCH (00:15)
[2017-07-25] MEDS: fentaNYL DRIP 250 ML IV PRN (00:36)
--- NOTE | 2017-07-25 00:51 | RADRPT ---
EXAM DATE/TIME: 07/25/2017 00:12 [facility] COMPARISON: CHEST SINGLE AP, July 24, 2017, 10:30. INDICATIONS : Respiratory failure, short of breath. MEDICAL HISTORY : Cardiovascular disease. Hypertension. Hepatitis C.GERD SURGICAL HISTORY : Pacemaker. ENCOUNTER: Subsequent ACUITY: 1 week PAIN SCORE: 0/10 LOCATION: Bilateral chest FINDINGS: A single view of the chest demonstrates endotracheal tube in good position. NG enters stomach. Right central line in superior vena cava and extending into right atrium. Increase in bilateral airspace di sease since exam from July 24. Pacer/defibrillator the tip in right ventricle. CONCLUSION: 1. Worsening bilateral airspace disease. Support apparatus in good position. Johnny Moreira MD on July 25, 2017 at 0:46 Board Certified Radiologist. This report was verified electronically.
[2017-07-25] MEDS: RESP: ALBUTEROL 2.5 MG/IPRATROPIUM 0.5 MG NEB (SCH) NEB ×2 (00:55→03:37)
[2017-07-25 01:05] VITALS: O2SAT 95
[2017-07-25] MEDS: EPOPROSTENOL NEB SOLUTION 50 NG/KG/MIN 100 ML NEB SCH ×2 (02:10)
[2017-07-25] MEDS: PHENYLEPHRINE INJ 80 MG in DEXTROSE 5% IN WATE 500 ML INJ 492 ML IV PRN ×2 (02:10)
[2017-07-25] MEDS ORDERED: NOREPINEPHRINE 16 MG/D5W 250 ML IV PRN ×2 (02:15)
[2017-07-25] MEDS ORDERED: FUROSEMIDE 40 MG/4 ML VIAL IV PUSH ONE (02:15)
[2017-07-25] MEDS ORDERED: PHENYLEPHRINE INJ 160 MG in DEXTROSE 5% IN WATE 500 ML INJ 484 ML IV PRN ×2 (02:15)
[2017-07-25] MEDS ORDERED: TERBUTALINE INJ 1 MG/ML AMP SQ PRN ×2 (02:15)
[2017-07-25] MEDS ORDERED: NOREPINEPHRINE-DEXTROSE DRIP 250 ML IV PRN (02:15)
[2017-07-25] MEDS: PIPERACIL-TAZO 4.5 GM PREMIX 100 ML IV SCH (02:39)
[2017-07-25 03:03] LABS: HEMATOCRIT 26.6 % (35.0-46.0); MEAN CELL VOLUME 97.4 FL (80.0-100.0); MEAN CORPUSCULAR HEMOGLOBIN 29.3 PG (27.0-34.0); MEAN CORPUSCULAR HGB CONC 30.1 % (32.0-36.0); PLATELET COUNT 210 TH/MM3 (150-450); RED BLOOD COUNT 2.73 MIL/MM3 (4.00-5.30); RED CELL DISTRIBUTION WIDTH 16.3 % (11.6-17.2); WHITE BLOOD COUNT 55.4 TH/MM3 (4.0-11.0)
[2017-07-25 03:23] LABS: LACTIC ACID SEPSIS PROTOCOL 8.7 mmol/L (0.4-2.0)
[2017-07-25 03:30] LABS: BICARBONATE 20.1 MEQ/L (21.0-32.0); CALCIUM 7.3 MG/DL (8.5-10.1); CREATININE 1.73 MG/DL (0.50-1.00); TROPONIN I 0.08 NG/ML (0.02-0.05)
[2017-07-25] MEDS ORDERED: SODIUM BICARBONATE 8.4% INJ 50 MEQ/50 ML SYR IV PUSH ONE (03:30)
[2017-07-25] MEDS: ALBUMIN 25% INJ 50 ML IV SCH (03:31)
[2017-07-25] MEDS ORDERED: SODIUM BICARBONATE 8.4% INJ 150 MEQ in WATER STERILE FOR INJ 850 ML IV SCH (03:45)
[2017-07-25 03:58] LABS: CALCIUM-PROTEIN CORRECTED 8.1 MG/DL (8.5-10.1); TOTAL PROTEIN 5.6 GM/DL (6.4-8.2)
[2017-07-25 04:00] VITALS: BP_SYST 68; BP_SYST 87; BP_DIAS 30; BP_DIAS 47; PULSE 64; RESP 12; TEMP 98.3
[2017-07-25] MEDS ORDERED: DEXTROSE 5% IV SCH ×2 (04:00)
[2017-07-25] MEDS ORDERED: SULFAMETHOX IV SCH ×2 (04:00)
[2017-07-25] MEDS ORDERED: WATER IV SCH ×2 (04:00)
[2017-07-25] MEDS ORDERED: MICAFUNGIN INJ 100 MG in SODIUM CHLORIDE 0.9% INJ 100 ML IV SCH (04:00)
[2017-07-25] MEDS ORDERED: TRIMETHOPRIM IV SCH ×2 (04:00)
[2017-07-25 04:16] VITALS: O2SAT 100
--- NOTE | 2017-07-25 04:32 | RADRPT ---
EXAM DATE/TIME: 07/25/2017 03:36 [facility] COMPARISON: No previous studies available for comparison. INDICATIONS : Possible bowel perforation, obstruction, or infection. MEDICAL HISTORY : Cardiovascular disease. Hypertension Hepatitis C. GERD SURGICAL HISTORY : Pacemaker. ENCOUNTER: Subsequent ACUITY: 1 week PAIN SCORE: Non-responsive. LOCATION: Bilateral Abdomen FINDINGS: Supine and upright views of the abdomen were performed. NG tip in the stomach. Pacer lead overlies ri ght ventricle. Gaseous distention of the colon. No free air. CONCLUSION: 1. Gaseous distention of colon with cecum measuring up to 8.3 cm in diameter. No free air. NG tip in stomach. Basilar air space disease in the lungs with pacer lead in right ventricle. Johnny Moreira MD on July 25, 2017 at 4:26 Board Certified Radiologist. This report was verified electronically.
[2017-07-25 05:12] LABS: INTERNATIONAL NORMALIZED RATIO 1.5 RATIO; PROTHROMBIN TIME - PATIENT 15.5 SEC (9.8-11.6)
[2017-07-25 05:18] LABS: ALBUMIN 3.1 GM/DL (3.4-5.0)
[2017-07-25 05:33] LABS: DIRECT BILIRUBIN ADULT 0.8 MG/DL (0.0-0.2); INDIRECT BILIRUBIN 1.2 MG/DL (0.0-0.8); TOTAL PROTEIN 5.8 GM/DL (6.4-8.2)
[2017-07-25] MEDS ORDERED: EPINEPHrine HCL (1:10,000) 1 MG/10 ML SYRINGE IV ONE (06:07)
[2017-07-25] MEDS ORDERED: SODIUM BICARBONATE 8.4% INJ 50 MEQ/50 ML SYR IV ONE (06:07)
--- NOTE | 2017-07-25 06:45 | PD.PROCEDR ---
Procedure Note Procedure CPR procedure note Presenting rhythm: PEA arrest Event Details: Multiple rounds of ACLS without return of spontaneous circulation. Patient at 6:08 AM. Procedure Description: Arrived at [facility]. Followed ACLS guidelines. See code sheet for details. I was personally present for the entire CPR event. Amado Linares MD Jul 25, 2017 06:45
--- NOTE | 2017-07-25 06:46 | DEATH SUM ---
Pronouncement Date Pronounced : Jul 25, 2017 Time Of : 06:08 Pronouncement Called to pronounce of patient. Identified patient as Omar Marrero with wrist band MR# [id number]. Patient with no cardiac activity in 2 separate leads and no palpable/auscible cardiac activity. Patient with no spontaneous respirations, no corneal reflex or response to painful stimuli. Pupils fixed and dilated. Preliminary Cause of : Cardiac arrest Amado Linares MD Jul 25, 2017 06:45
--- NOTE | 2017-07-25 06:47 | HHI.DS ---
Summary Note Date of : Jul 25, 2017 Time Of : 06:08 Admission Date Jul 11, 2017 at 21:54 Admitting Diagnosis Hypoxemia, interstitial infiltrates, sepsis Diagnosis at Time of : (1) Respiratory failure ICD Code: J96.90 - Respiratory failure, unspecified, unspecified whether with hypoxia or hypercapnia (2) Pneumonia ICD Code: J18.9 - Pneumonia, unspecified organism (3) Sepsis ICD Code: A41.9 - Sepsis, unspecified organism (4) Hypoxemia ICD Code: R09.02 - Hypoxemia Brief History History patient, ear physician communication, and review of medical records. Patient reported that she came to the hospital because she has been short of breath for about 4 days. fever 101 at home coughing but no sputum nausea did vomit once at home no abdominal pain no urinary symptoms had diarrhea just one day - just the day before yesterday is sick and is in hospital with sepsis - he will be discharged tomorrow , he is here for about 4 days no black or red stool diarrhea was orange color, purely liquid denies aicd firing but did have chest pain , stated on right side, underneath the breast was very weak and tired that she just doesnt want to walk was given cephalexin 8 days , just finished about 4 days ago Patient reports addition she was not improving, her doctor told her to come to emergency room. CBC/BMP: 07/25/17 0245 07/25/17 0245 Significant Findings Laboratory Tests Test 07/23/17 03:50 07/23/17 05:05 07/23/17 09:05 07/23/17 09:12 Total Protein 6.1 GM/DL (6.4-8.2) Calcium Level 7.4 MG/DL (8.5-10.1) 7.6 MG/DL (8.5-10.1) Sodium Level 131 MEQ/L (136-145) 132 MEQ/L (136-145) Potassium Level 3.4 MEQ/L (3.5-5.1) 3.1 MEQ/L (3.5-5.1) Chloride Level 91 MEQ/L (98-107) 91 MEQ/L (98-107) Carbon Dioxide Level 32.7 MEQ/L (21.0-32.0) 32.6 MEQ/L (21.0-32.0) Estimat Glomerular Filtration Rate 80 ML/MIN (>89) 88 ML/MIN (>89) Protein Corrected Calcium 7.9 MG/DL (8.5-10.1) White Blood Count 17.5 TH/MM3 (4.0-11.0) 17.6 TH/MM3 (4.0-11.0) Red Blood Count 3.24 MIL/MM3 (4.00-5.30) 3.18 MIL/MM3 (4.00-5.30) Hemoglobin 9.8 GM/DL (11.6-15.3) 9.7 GM/DL (11.6-15.3) Hematocrit 29.7 % (35.0-46.0) 29.1 % (35.0-46.0) Platelet Count 105 TH/MM3 (150-450) 111 TH/MM3 (150-450) Blood Gas HCO3 32 mmol/L (22-26) Blood Gas Base Excess 7.0 mmol/L (-2-2) Blood Gas Oxygen Saturation 85 % (90-100) Arterial Blood pH 7.37 (7.380-7.420) Arterial Blood Partial Pressure CO2 57 mmHg (38-42) Arterial Blood Partial Pressure O2 53 mmHg (61-120) Arterial Blood Oxygen Content 11.6 Vol % (12.0-20.0) Blood Gas Hemoglobin 9.6 G/DL (12.0-16.0) Blood Urea Nitrogen 19 MG/DL (7-18) Random Glucose 138 MG/DL (74-106) Test 07/23/17 12:00 07/24/17 03:50 07/24/17 12:25 07/24/17 13:40 Blood Gas HCO3 27 mmol/L (22-26) Blood Gas Base Excess 2.4 mmol/L (-2-2) Arterial Blood pH 7.36 (7.380-7.420) Arterial Blood Partial Pressure CO2 49 mmHg (38-42) Blood Gas Hemoglobin 9.3 G/DL (12.0-16.0) White Blood Count 18.9 TH/MM3 (4.0-11.0) Red Blood Count 3.17 MIL/MM3 (4.00-5.30) Hemoglobin 9.6 GM/DL (11.6-15.3) Hematocrit 30.0 % (35.0-46.0) Mean Corpuscular Hemoglobin Concent 31.8 % (32.0-36.0) Platelet Count 109 TH/MM3 (150-450) Blood Urea Nitrogen 24 MG/DL (7-18) Random Glucose 183 MG/DL (74-106) Calcium Level 7.2 MG/DL (8.5-10.1) Sodium Level 128 MEQ/L (136-145) Chloride Level 93 MEQ/L (98-107) Estimat Glomerular Filtration Rate 79 ML/MIN (>89) Protein Corrected Calcium 7.6 MG/DL (8.5-10.1) Test 07/24/17 20:55 07/24/17 21:10 07/24/17 21:40 07/25/17 00:28 Hemoglobin 9.1 GM/DL (11.6-15.3) Hematocrit 28.7 % (35.0-46.0) Blood Urea Nitrogen 45 MG/DL (7-18) Creatinine 1.44 MG/DL (0.50-1.00) Random Glucose 213 MG/DL (74-106) Phosphorus Level 1.4 MG/DL (2.5-4.9) Magnesium Level 4.5 MG/DL (1.5-2.5) Sodium Level 127 MEQ/L (136-145) Chloride Level 90 MEQ/L (98-107) Estimat Glomerular Filtration Rate 38 ML/MIN (>89) Urine Turbidity HAZY (CLEAR) Urine Mucus FEW /lpf (OCC) Blood Gas Base Excess -3.8 mmol/L (-2-2) -8.4 mmol/L (-2-2) Blood Gas Oxygen Saturation 74 % (90-100) 82 % (90-100) Arterial Blood pH 7.23 (7.380-7.420) 7.06 (7.380-7.420) Arterial Blood Partial Pressure CO2 55 mmHg (38-42) 76 mmHg (38-42) Arterial Blood Partial Pressure O2 48 mmHg (61-120) Arterial Blood Oxygen Content 9.1 Vol % (12.0-20.0) 9.4 Vol % (12.0-20.0) Blood Gas Hemoglobin 8.7 G/DL (12.0-16.0) 8.0 G/DL (12.0-16.0) Blood Gas HCO3 21 mmol/L (22-26) Test 07/25/17 02:45 07/25/17 02:53 07/25/17 04:40 07/25/17 05:00 White Blood Count 55.4 TH/MM3 (4.0-11.0) Red Blood Count 2.73 MIL/MM3 (4.00-5.30) Hemoglobin 8.0 GM/DL (11.6-15.3) Hematocrit 26.6 % (35.0-46.0) Mean Corpuscular Hemoglobin Concent 30.1 % (32.0-36.0) Blood Urea Nitrogen 45 MG/DL (7-18) Creatinine 1.73 MG/DL (0.50-1.00) Random Glucose 192 MG/DL (74-106) Total Protein 5.6 GM/DL (6.4-8.2) 5.8 GM/DL (6.4-8.2) Calcium Level 7.3 MG/DL (8.5-10.1) Sodium Level 126 MEQ/L (136-145) Potassium Level 5.5 MEQ/L (3.5-5.1) Chloride Level 93 MEQ/L (98-107) Carbon Dioxide Level 20.1 MEQ/L (21.0-32.0) Estimat Glomerular Filtration Rate 31 ML/MIN (>89) Lactic Acid Level 8.7 mmol/L (0.4-2.0) Protein Corrected Calcium 8.1 MG/DL (8.5-10.1) Troponin I 0.08 NG/ML (0.02-0.05) Blood Gas HCO3 17 mmol/L (22-26) 16 mmol/L (22-26) Blood Gas Base Excess -11.9 mmol/L (-2-2) -13.2 mmol/L (-2-2) Blood Gas Oxygen Saturation 88 % (90-100) 83 % (90-100) Arterial Blood pH 7.08 (7.380-7.420) 7.06 (7.380-7.420) Arterial Blood Partial Pressure CO2 59 mmHg (38-42) 58 mmHg (38-42) Arterial Blood Oxygen Content 9.7 Vol % (12.0-20.0) 8.6 Vol % (12.0-20.0) Blood Gas Hemoglobin 7.8 G/DL (12.0-16.0) 7.3 G/DL (12.0-16.0) Prothrombin Time 15.5 SEC (9.8-11.6) Activated Partial Thromboplast Time 33.6 SEC (24.3-30.1) Fibrinogen 115 mg/dL (227-377) Total Bilirubin 2.0 MG/DL (0.2-1.0) Direct Bilirubin 0.8 MG/DL (0.0-0.2) Indirect Bilirubin 1.2 MG/DL (0.0-0.8) Aspartate Amino Transf (AST/SGOT) 3890 U/L (15-37) Alanine Aminotransferase (ALT/SGPT) 1426 U/L (10-53) Albumin 3.1 GM/DL (3.4-5.0) Lipase 631 U/L (73-393) Imaging Chest x-ray shows severe extensive bilateral interstitial and alveolar infiltrates on my review Hospital Course Patient is a 51-year-old female with past medical history significant for congestive heart failure with preserved ejection fraction, [id number]-[id number] MR, moderate mitral stenosis, COPD, history of cirrhosis, who was admitted to the hospitalist service on 07/11/17 with respiratory symptoms/pneumonia. Chest x- ray on admission showed pulmonary edema. CT chest also showed diffuse ground- glass infiltrates consistent with edema. She placed on BiPap at 50% FIO2, and was admitted to the hospitalist service. Pulmonology also was consulted and initially patient received, Solu-Medrol 40 mg IV, Rocephin and Zithromax. According to Dr. aLws initially patient was placed on IV Lasix with some improvement in symptoms, and patient's Lasix was changed to by mouth a few days ago. Patient had a previous CT of the chest which had showed groundglass opacities in 2016. It is possible that patient has underlying interstitial lung disease. Over the last 2 days patient had been having increasing shortness of breath and oxygen requirement. Placed on BiPAP yesterday with FiO2 up to 85% , today patient was still hypoxemic on 100% oxygen on BiPAP and was moved to the ICU. I reviewed chest x-rays today which showed extensive bilateral interstitial infiltrates, worse than yesterday. After brief discussion with patient, I intubated her and placed on mechanical ventilation. I will start patient on IV Lasix 40 mg every 8 hours with IV albumin for aggressive diuresis. Follow clinically. follow chest x-ray. Repeat panculture. Continue current antibiotics Bactrim and azithromycin and add Zosyn. ON Micafungin per ID. Echo 07/12/17: EF 50-55%, [id number] MR, Moderate mitral valve stenosis. The estimated pulmonary arterial pressure is 43 mmHg. 07/21: Remains critically ill, severely hypoxemic on 12 of PEEP and 100% FiO2. Peak pressures on the vent occasionally 55-60 indicating severe noncompliant lung. Detached from vent for a few seconds for air trapping. Neuromuscular paralysis started with Nimbex infusion. Currently on Siddhartha-Synephrine 60 mcg/m. Place central line and art line. Due to chronic underlying interstitial infiltrates I did not think patient will benefit from proning. Change Bactrim to IV for PJP coverage, send sputum for silver methylamine staining 07/22: required neuromuscular blockade overnight to maintain oxygen saturation. remains severely hypoxemic. no improvements. on low-dose vasopressors for borderline hypoxemia. bilateral pulmonary infiltrates persist. 07/23: fio2 down to 50%. plan for bronch today. remains on maximal vent settings and hypoxia. hgb dropped with platelets and sodium- will redraw to ensure that these are not dilutional. will hold DVT prophylaxis for now. 07/24: some improvements in fio2. bronch studies pending. hgb stable. sodium continues to drop. IV bactrim in 2L/day d5w (must be mixed in free water), which is likely source of hyponatremia. have discussed with pharmacy and they can mix it in 255mL q6h (1L/day) but that is the best they can do, and it still must be mixed in free water. minimal diuresis able given high volume requirements of bactrim. remains severely hypoxic. CXR with persistence of severe bilateral infiltrates. Throughout the night on 07/24 and 07/25 the patient went into refractory shock and remained unstable. Despite aggressive measures, she continued to worsen and was on maximal medical therapy. Her instability continued and she became pulseless with PEA arrest. Despite multiple rounds of ACLS, the patient at 6:08 AM. Amado Linares MD Jul 25, 2017 06:47
[2017-07-25] MEDS ORDERED: BISACODYL 10 MG SUPP RECTAL SCH (09:00)
--- NOTE | 2017-07-25 13:07 | HHI.CCPN ---
Subjective Remarks/Hospital Course Patient is a 51-year-old female with past medical history significant for congestive heart failure with preserved ejection fraction, [id number]-[id number] MR, moderate mitral stenosis, COPD, history of cirrhosis, who was admitted to the hospitalist service on 07/11/17 with respiratory symptoms/pneumonia. Chest x- ray on admission showed pulmonary edema. CT chest also showed diffuse ground- glass infiltrates consistent with edema. She placed on BiPap at 50% FIO2, and was admitted to the hospitalist service. Pulmonology also was consulted and initially patient received, Solu-Medrol 40 mg IV, Rocephin and Zithromax. According to Dr. Laws initially patient was placed on IV Lasix with some improvement in symptoms, and patient's Lasix was changed to by mouth a few days ago. Patient had a previous CT of the chest which had showed groundglass opacities in 2016. It is possible that patient has underlying interstitial lung disease. Over the last 2 days patient had been having increasing shortness of breath and oxygen requirement. Placed on BiPAP yesterday with FiO2 up to 85% , today patient was still hypoxemic on 100% oxygen on BiPAP and was moved to the ICU. I reviewed chest x-rays today which showed extensive bilateral interstitial infiltrates, worse than yesterday. After brief discussion with patient, I intubated her and placed on mechanical ventilation. I will start patient on IV Lasix 40 mg every 8 hours with IV albumin for aggressive diuresis. Follow clinically. follow chest x-ray. Repeat panculture. Continue current antibiotics Bactrim and azithromycin and add Zosyn. ON Micafungin per ID. Echo 07/12/17: EF 50-55%, [id number]-gi-[id number] MR, Moderate mitral valve stenosis. The estimated pulmonary arterial pressure is 43 mmHg. 07/21: Remains critically ill, severely hypoxemic on 12 of PEEP and 100% FiO2. Peak pressures on the vent occasionally 55-60 indicating severe noncompliant lung. Detached from vent for a few seconds for air trapping. Neuromuscular paralysis started with Nimbex infusion. Currently on Siddhartha-Synephrine 60 mcg/m. Place central line and art line. Due to chronic underlying interstitial infiltrates I did not think patient will benefit from proning. Change Bactrim to IV for PJP coverage, send sputum for silver methylamine staining 07/22: required neuromuscular blockade overnight to maintain oxygen saturation. remains severely hypoxemic. no improvements. on low-dose vasopressors for borderline hypoxemia. bilateral pulmonary infiltrates persist. 07/23: fio2 down to 50%. plan for bronch today. remains on maximal vent settings and hypoxia. hgb dropped with platelets and sodium- will redraw to ensure that these are not dilutional. will hold DVT prophylaxis for now. 07/24: some improvements in fio2. bronch studies pending. hgb stable. sodium continues to drop. IV bactrim in 2L/day d5w (must be mixed in free water), which is likely source of hyponatremia. have discussed with pharmacy and they can mix it in 255mL q6h (1L/day) but that is the best they can do, and it still must be mixed in free water. minimal diuresis able given high volume requirements of bactrim. remains severely hypoxic. CXR with persistence of severe bilateral infiltrates. 07/25 Provided cross coverage overnight. Nimbex discontinued earlier in the day and patient with vent dyssynchrony on PRVC/SIMV. Made multiple vent adjustments and ultimately placed on ACV. Had episode of coffee ground emesis. OGT to LIWS and initiated PPI. Previously in NSR, but she went into wide complex rhythm on monitor and became hypotensive, increased neosynephrine requirement. Attempted cardioversion with 100 J x2 but no change in rhythm. Obtained 12 lead EKG that showed LBBB pattern with underlying sinus. Began potassium supplementation. Held lasix until able to obtain electrolytes. ABG with respiratory acidosis. Resumed paralytic and adjusted vent in effort to improve respiratory acidosis. Despite this, she developed refractory hypotension despite addition of vasopressin, levophed, stress dose hydrocortisone. No BM x9 days, abdomen tympanitic, given suppository.Vancomycin added and micafungin resumed. Hypoxemia on Flolan and APRV. CXR with worsening bilateral opacities. WBC up to 55 with Progressive lactic acidemia 8.7. Started on bicarb drip. Developed multiorgan failure. May have intrabdominal sepsis. KUB with distended cecum. She is too hypoxic and in too profound shock for further imaging. Would not be a candidate for surgery. She is from her ; he states so that he would be able to collect more disability and that they were still living together amicably but she never designated him as healthcare surrogate. She has no children and her parents are . Her sister is her next of kin but I do not have contact information for her and her significant other states he does not know, would have to look for it. I updated her significant other, Ovi Marrero, in detail and informed him that she is not expected to surivive. He says patient would want FULL CODE. Objective Vital Signs Date Time Temp Pulse Resp B/P (MAP) Pulse Ox O2 Delivery O2 Flow Rate FiO2 07/25/17 04:16 100 100 07/25/17 04:00 98.3 64 12 87/47 (60) 68/30 (43) 07/24/17 04:18 Ventilator Intake and Output 07/25/17 07/25/17 07/26/17 08:00 16:00 00:00 Intake Total 2660 ml Output Total 550 ml Balance 2110 ml Result Diagram: 07/25/17 0245 07/25/17 0245 Other Results Laboratory Tests Test 07/24/17 21:40 07/25/17 00:28 07/25/17 02:53 07/25/17 05:00 Blood Gas Puncture Site ART LINE ART LINE ART LINE ART LINE Blood Gas Patient Temperature 98.6 98.6 98.6 98.6 Blood Gas HCO3 23 mmol/L (22-26) 21 mmol/L (22-26) 17 mmol/L (22-26) 16 mmol/L (22-26) Blood Gas Base Excess -3.8 mmol/L (-2-2) -8.4 mmol/L (-2-2) -11.9 mmol/L (-2-2) -13.2 mmol/L (-2-2) Blood Gas Oxygen Saturation 74 % (90-100) 82 % (90-100) 88 % (90-100) 83 % ( 90-100) Arterial Blood pH 7.23 (7.380-7.420) 7.06 (7.380-7.420) 7.08 (7.380-7.420) 7.06 (7.380-7.420) Arterial Blood Partial Pressure CO2 55 mmHg (38-42) 76 mmHg (38-42) 59 mmHg (38-42) 58 mmHg (38-42) Arterial Blood Partial Pressure O2 48 mmHg (61-120) 67 mmHg (61-120) 77 mmHg (61-120) 65 mmHg (61-120) Arterial Blood Oxygen Content 9.1 Vol % (12.0-20.0) 9.4 Vol % (12.0-20.0) 9.7 Vol % (12.0-20.0) 8.6 Vol % (12.0-20.0) Arterial Blood Carboxyhemoglobin 1.2 % (0-4) 1.1 % (0-4) 1.1 % (0-4) 0.9 % (0-4) Arterial Blood Methemoglobin 1.3 % (0-2) 1.4 % (0-2) 1.6 % (0-2) 1.7 % (0-2) Blood Gas Hemoglobin 8.7 G/DL (12.0-16.0) 8.0 G/DL (12.0-16.0) 7.8 G/DL (12.0-16.0) 7.3 G/DL (12.0-16.0) Oxygen Delivery Device VENTILATOR VENTILATOR VENTILATOR VENTILATOR Blood Gas Ventilator Setting AC18/420/+12 PC/AC18/30/1.1/+12 APRV APRV Blood Gas Inspired Oxygen 70 % 100 % 100 % 100 % Imaging Chest x-ray shows severe extensive bilateral interstitial and alveolar infiltrates on my review Objective Remarks GENERAL: 51-year-old female who is lying in bed, intubated, sedated, critically ill appearing. SKIN: Warm and dry. HEAD: Atraumatic. Normocephalic. EYES: Pupils equal and round. ENT: Orotracheally intubated NECK: Trachea midline. No JVD. CARDIOVASCULAR: rrr. RESPIRATORY: Diminished breath sounds with minimal bilateral wheezes and crackles. GASTROINTESTINAL: Abdomen distended and tympanitic but somewhat soft. Unable to appreciate tenderness, heavily sedated. MUSCULOSKELETAL: Extremities with 1+ lower extremity edema. No obvious deformities. NEUROLOGICAL: Intubated sedated. RASS -4 A/P Assessment and Plan A/P Assessment and Plan: 51yF with subacute hypoxic respiratory failure with severe bilateral infiltrates now with acute worsening and severe ARDS and hypoxic respiratory failure requiring maximal ventilatory support. will wean neuromuscular blockade today. keep flolan and APRV settings. f/u bronch cultures. As soon as we can rule out PJP or convert to PO bactrim we should pursue this due to high volume requirements: will discuss with pulm and ID. remains critically ill with minimal meaningful improvements in severe hypoxemia. off pathway. Neuro/Psych: ADHD Bipolar disorder Depression/Anxiety disorder Propofol, fentanyl, versed for sedation. goal RASS -2/-3 Resume nimbex. No sedation vacation until hypoxemia and improved CV: Congestive heart failure most likely diastolic Yfql-[id number]-vbxifdfc mitral regurgitation, moderate mitral stenosis V. tach status post AICD/pacemaker History of hypertension Lasix 40 mg IV every 6 hours with IV albumin Respiratory failure from a combination of CHF and COPD and probable pneumonia Currently holding lisinopril due to aggressive diuresis Hold amiodarone po and use amiodarone IV Hold aspirin due to coffee ground emesis Resp: Acute hypoxemic respiratory failure Severe ARDS Pneumonia COPD - 2 L O2 requiring at home Probable underlying interstitial lung disease Titrate FiO2 to keep saturations more than 88-90% Scheduled bronchodilator therapy every 4 hours and as needed. Ventilator bundle. IV solumedrol per pulmonary Resume Neuromuscular blockage due to severe ARDS and inability to oxygenate. Repeat sputum culture. serum LDH 827. Dr. Laws/pulmonology is following bronch 07/24, washings pending continue inhaled flolan no SBT given hypoxemia. GI: Hepatitis C EtOH/cirrhosis Hyponatremia Coffee ground emesis Protonix hyponatremia secondary to bactrim use. send urine na, serum and urine osms. unable to change formulation of bactrim. may need to use hypertonic saline if sodium drops too low. continue to trend. : Le has been placed for accurate I's and O's in a critically ill patient Lasix as above Endo: Electrolyte replacement per protocol Heme: Anemia Thrombocytopenia Monitor CBC CMP possibly dilutional- redraw. trend hgb 4t score of 2: low probability for HIT. recheck. ID: Septic shock Pneumonia Repeat panculture, ID Dr. Adams is following Continue azithromycin, Zosyn. Bactrim to IV at appropriate PJP dose. Add vancomycin, resume micafungin. Send blood cultures and UA Serum LDH 827, send sputum for PJP bronch 07/24. Access 07/21: central line 07/21: radial art line Prophylaxis GI - famotidine DVT - SCD/hold Lovenox subcutaneous due to coffee ground emesis CCT 120 minutes exclusive of separately billable procedures Irina Lubin MD Jul 25, 2017 13:07
--- NOTE | 2017-07-25 17:32 | EKG ---
Date Performed: 07/24/2017 Time Performed: 21:29:02 PTAGE: 51 years EKG: Sinus rhythm with 1st degree A-V block Possible right atrial abnormality Left axis deviation Left bundle branch b lock When compared to previous tracing, patient now has a left bundle Branch block. Consider acute my ocardial infarction. Abnormal ECG PREVIOUS TRACING : 07/12/2017 02.22 DOCTOR: Yohan Dennis Interpretating Date/Time 07/25/2017 17:30:32
== END 2017-07-25 06:08 | disposition expired | DRG 870 ==
LOC: NEPC 19:30 → NEDA 21:54 → NEDH 07-12 01:54 → HCIS 07-12 13:05 → HIME 07-20 12:59
PROVIDERS: ADMIT Internal Medicine; ATTEND Internal Medicine
PROC: 5A09557 Assistance with Respiratory Ventilation, Greater than 96 Consecutive Hours, Continuous Positive Airway Pressure (ICD-10-PCS; 2017-07-11)
PROC: 5A1955Z Respiratory Ventilation, Greater than 96 Consecutive Hours (ICD-10-PCS; principal; 2017-07-20)
PROC: 0BH17EZ Insertion of Endotracheal Airway into Trachea, Via Natural or Artificial Opening (ICD-10-PCS; 2017-07-20)
PROC: 03HY32Z Insertion of Monitoring Device into Upper Artery, Percutaneous Approach (ICD-10-PCS; 2017-07-21)
PROC: 02HV33Z Insertion of Infusion Device into Superior Vena Cava, Percutaneous Approach (ICD-10-PCS; 2017-07-21)
PROC: 0BDB8ZX Extraction of Left Lower Lobe Bronchus, Via Natural or Artificial Opening Endoscopic, Diagnostic (ICD-10-PCS; 2017-07-23)
PROC: 0BD68ZX Extraction of Right Lower Lobe Bronchus, Via Natural or Artificial Opening Endoscopic, Diagnostic (ICD-10-PCS; 2017-07-23)
PROC: 5A12012 Performance of Cardiac Output, Single, Manual (ICD-10-PCS; 2017-07-25)
DX: A41.9 Sepsis, unspecified organism (principal); J96.21 Acute and chronic respiratory failure with hypoxia; R65.21 Severe sepsis with septic shock; J18.9 Pneumonia, unspecified organism; I47.2 Ventricular tachycardia; J44.0 Chronic obstructive pulmonary disease with (acute) lower respiratory infection; I11.0 Hypertensive heart disease with heart failure; E87.4 Mixed disorder of acid-base balance; I50.32 Chronic diastolic (congestive) heart failure; E87.1 Hypo-osmolality and hyponatremia; I95.89 Other hypotension; J44.1 Chronic obstructive pulmonary disease with (acute) exacerbation; D69.6 Thrombocytopenia, unspecified; E78.5 Hyperlipidemia, unspecified; K74.60 Unspecified cirrhosis of liver; Z99.81 Dependence on supplemental oxygen; I05.2 Rheumatic mitral stenosis with insufficiency; B18.2 Chronic viral hepatitis C; M79.7 Fibromyalgia; K21.9 Gastro-esophageal reflux disease without esophagitis; F17.210 Nicotine dependence, cigarettes, uncomplicated; F41.9 Anxiety disorder, unspecified; G89.29 Other chronic pain; M54.9 Dorsalgia, unspecified; F31.9 Bipolar disorder, unspecified; F90.9 Attention-deficit hyperactivity disorder, unspecified type; M81.0 Age-related osteoporosis without current pathological fracture; K44.9 Diaphragmatic hernia without obstruction or gangrene; R00.1 Bradycardia, unspecified; I46.9 Cardiac arrest, cause unspecified; D64.9 Anemia, unspecified; Z95.810 Presence of automatic (implantable) cardiac defibrillator; Z79.51 Long term (current) use of inhaled steroids; Z79.899 Other long term (current) drug therapy; Z86.72 Personal history of thrombophlebitis; T50.2X5A Adverse effect of carbonic-anhydrase inhibitors, benzothiadiazides and other diuretics, initial encounter; W19.XXXA Unspecified fall, initial encounter; Y92.009 Unspecified place in unspecified non-institutional (private) residence as the place of occurrence of the external cause
CPT/HCPCS: 31500; 31624; 36556; 36600; 51702; 70450; 71045; 71275; 74019; 80048; 80053; 80076; 81001; 82103; 82550; 82552; 82805; 83605; 83615; 83690; 83735; 83880; 83930; 83935; 84100; 84145; 84155; 84300; 84484; 85014; 85018; 85025; 85027; 85384; 85610; 85652; 85730; 86038; 86738; 87015; 87040; 87070; 87102; 87116; 87205; 87206; 87641; 87804; 88112; 88305; 88312; 92950; 92960; 93005; 93306; 94002; 94003; 94640; 94664; 94799; 96374; 96375; C9113; J0171; J0282; J0456; J0610; J0696; J1120; J1205; J1325; J1650; J1720; J1940; J2248; J2250; J2370; J2543; J2920; J2930; J3010; J3370; J3480; J7040; J7050; J7060; P9047; Q9967